=== PATIENT | male | born 1935 | race Hispanic/Latino ===

== ENCOUNTER 2018-01-25 14:52 | Inpatient (IN) | payer OTHER ==
[2018-01-25] MEDS ORDERED: Sodium Chloride 0.9% 1,000 ML IV SCH (16:00)
[2018-01-25 16:19] LABS: BASO % 0.1 % (0.0-2.0); EOS % 0.3 % (0.0-4.0); HEMOGLOBIN 10.2 g/dL (12.0-18.0); LYMPH # 0.6 K/uL (1.0-4.3); LYMPH % 3.8 % (20.0-40.0); MEAN CELL VOLUME 84.1 fl (80.0-94.0); MEAN CORPUSCULAR HEMOGLOBIN 26.6 pg (27.0-31.0); MEAN CORPUSCULAR HGB CONC 31.6 g/dL (33.0-37.0); MEAN PLATELET VOLUME 8.4 fl (7.2-11.7); MONO # 0.5 K/uL (0.0-0.8); NEUT # 14.7 K/uL (1.8-7.0); NEUT % 92.8 % (50.0-75.0); PLATELET COUNT 231 K/uL (130-400); RBC 3.84 Mil/uL (4.40-5.90); RED CELL DISTRIBUTION WIDTH 18.4 % (11.5-14.5); WHITE BLOOD COUNT 15.8 K/uL (4.8-10.8)
[2018-01-25 16:25] LABS: INR 1.3; PROTHROMBIN TIME 14.7 Seconds (9.8-13.1)
[2018-01-25 16:28] LABS: PARTIAL THROMBOPLASTIN TIME 21.9 Seconds (25.6-37.1)
[2018-01-25 16:31] LABS: ALB/GLOB RATIO 0.9 (1.0-2.1); ALBUMIN 2.8 g/dL (3.5-5.0); ALT/SGPT 20 U/L (21-72); AST/SGOT 23 U/L (17-59); CALCIUM 9.8 mg/dL (8.4-10.2); GFR NON-AFRICAN AMERICAN > 60
[2018-01-25 16:37] LABS: BLOOD UREA NITROGEN 144 mg/dl (9-20)
--- NOTE | 2018-01-25 16:53 | RAD ---
Date of service: 01/25/2018 HISTORY: possible admission COMPARISON: No prior. FINDINGS: LUNGS: Tracheostomy tube remains in place. There is patient rotation to the right. PLEURA: Bilateral pleural effusions, no pneumothorax apparent. CARDIOVASCULAR: The heart is enlarged. There is a left-sided unipolar permanent pacing device. OSSEOUS STRUCTURES: No significant abnormalities. VISUALIZED UPPER ABDOMEN: Normal. OTHER FINDINGS: None. IMPRESSION: Limited portable examination due to patient rotation to the right. Tracheostomy tube remains in place. Bilateral pleural effusions.
--- NOTE | 2018-01-25 17:17 | CP.PCM.HP ---
<Robert Irving - Last Filed: 01/25/18 17:05> History of Present Illness - History of Present Illness History of Present Illness: 82 y/o M with a PMHx of advanced muscular dystrophy and multiple cardiac arrests , was brought by his family due to unresponsiveness. Family members explain that patient usually responds by making noises, following with his eyes objects and looking at you. However, for the past few days, pt has become completely static and unable to move his eyes. -Allergic to Pennicillins -PMHx: Advanced muscular dystrophy, -PMD: Dr Marks. At ER: -CMP shows hypernatremia of 155, hyperkalemia, BUN/Creat 144/1.0 -CBC shows leukocytosis, anemia. -CXR w/ bilateral pleural effusions. Present on Admission - Present on Admission Any Indicators Present on Admission: Yes Review of Systems - Review of Systems Systems not reviewed;Unavailable: Altered Mental Status, Intubated Past Patient History - Past Social History Smoking Status: Never Smoked - CARDIAC Hx Pacemaker: Yes - NEUROLOGICAL Other/Comment: Advanced Muscular Dystrophy - PSYCHIATRIC Hx Substance Use: No Meds Allergies/Adverse Reactions: Allergies Allergy/AdvReac Type Severity Reaction Status Date / Time Penicillins Allergy ANAPHYLAXIS Verified 01/25/18 16:51 Physical Exam - Constitutional Appears: Chronically Ill Additional comments: Pt not awake, not alert, intubated, with tracheotomy collar. - Head Exam Head Exam: ATRAUMATIC - Eye Exam Eye Exam: absent: EOMI, Normal appearance, PERRL Additional comments: Presence of cataract on both eyes, more on right eye. - ENT Exam ENT Exam: Mucous Membranes Dry - Neck Exam Neck exam: Negative for: Full Rom - Respiratory Exam Additional comments: Intubated with tracheotomy collar - Cardiovascular Exam Cardiovascular Exam: +S1, +S2 - GI/Abdominal Exam GI & Abdominal Exam: Soft - Neurological Exam Neurological exam: Altered, Motor Sensory Deficit Results - Vital Signs Recent Vital Signs: Last Vital Signs Temp 98.8 F 01/25/18 16:14 Pulse 60 01/25/18 16:45 Resp 12 01/25/18 16:45 BP 93/41 L 01/25/18 16:45 Pulse Ox 100 01/25/18 16:45 - Labs Result Diagrams: 01/25/18 15:45 01/25/18 15:45 Labs: Laboratory Results - last 24 hr 01/25/18 01/25/18 01/25/18 14:58 15:45 15:45 WBC 15.8 H RBC 3.84 L Hgb 10.2 L Hct 32.3 L MCV 84.1 MCH 26.6 L MCHC 31.6 L RDW 18.4 H Plt Count 231 MPV 8.4 Neut % (Auto) 92.8 H Lymph % (Auto) 3.8 L Jennings % (Auto) 3.0 Eos % (Auto) 0.3 Baso % (Auto) 0.1 Neut # (Auto) 14.7 H Lymph # (Auto) 0.6 L Jennings # (Auto) 0.5 Eos # (Auto) 0.0 Baso # (Auto) 0.0 PT INR APTT Sodium 155 H Potassium 5.1 H Chloride 118 H Carbon Dioxide 36 H Anion Gap 6 L BUN 144 H* Creatinine 1.0 Est GFR ( Amer) > 60 Est GFR (Non-Af Amer) > 60 POC Glucose (mg/dL) 125 H Random Glucose 124 H Serum Osmolality Calcium 9.8 Total Bilirubin 0.4 AST 23 ALT 20 L Alkaline Phosphatase 97 Total Protein 6.1 L Albumin 2.8 L Globulin 3.3 Albumin/Globulin Ratio 0.9 L BBK History Checked 01/25/18 01/25/18 01/25/18 15:45 15:45 15:45 WBC RBC Hgb Hct MCV MCH MCHC RDW Plt Count MPV Neut % (Auto) Lymph % (Auto) Jennings % (Auto) Eos % (Auto) Baso % (Auto) Neut # (Auto) Lymph # (Auto) Jennings # (Auto) Eos # (Auto) Baso # (Auto) PT 14.7 H INR 1.3 APTT 21.9 L Sodium Potassium Chloride Carbon Dioxide Anion Gap BUN Creatinine Est GFR ( Amer) Est GFR (Non-Af Amer) POC Glucose (mg/dL) Random Glucose Serum Osmolality 414 H Calcium Total Bilirubin AST ALT Alkaline Phosphatase Total Protein Albumin Globulin Albumin/Globulin Ratio BBK History Checked Patient has bt Assessment & Plan (1) Unresponsive state Status: Acute (2) Altered mental status, unspecified Status: Acute (3) Muscular dystrophy Status: Chronic - Assessment and Plan (Free Text) Assessment: 82 y/o M with a PMHx of muscular dystrophy, intubated with tracheotomy collar, admitted for evaluation and management of unresponsiveness, hypotension and hypernatremia. --Admit to ICU --IV NSS --IV D5W after NSS --Management as per critical care team Case discussed with Dr Smooth Garcia PGY-2 - Date & Time Date: 01/25/18 Time: 17:26 <SmoothTorey Henrietta - Last Filed: 02/01/18 17:57> Results - Vital Signs Recent Vital Signs: Last Vital Signs Temp 98.0 F 02/01/18 16:00 Pulse 75 02/01/18 17:00 Resp 17 02/01/18 17:00 BP 103/45 L 02/01/18 17:00 Pulse Ox 97 02/01/18 17:00 - Labs Result Diagrams: 02/01/18 04:13 02/01/18 04:13 Labs: Laboratory Results - last 24 hr 02/01/18 02/01/18 02/01/18 04:00 04:13 04:13 WBC 19.4 H RBC 3.50 L Hgb 9.2 L Hct 28.6 L MCV 81.7 MCH 26.4 L MCHC 32.3 L RDW 19.6 H Plt Count 331 pCO2 50 H pO2 132 H HCO3 21.4 ABG pH 7.26 L ABG Total CO2 23.9 ABG O2 Saturation 100.1 H ABG O2 Content 12.7 L ABG Base Excess -4.6 L ABG Hemoglobin 9.1 L ABG Carboxyhemoglobin 1.7 H POC ABG HHb (Measured) -0.1 L ABG Methemoglobin 1.5 ABG O2 Capacity 12.7 L Bernradino Test Yes VBG pH VBG pCO2 VBG HCO3 VBG Total CO2 VBG O2 Sat (Calc) VBG Base Excess VBG Potassium A-a O2 Difference 91.0 Hgb O2 Saturation 96.8 Glucose Lactate Vent Mode A/c Mechanical Rate 12 FiO2 40.0 Tidal Volume 500 PEEP 5 Sodium 138 Potassium 3.7 Chloride 107 Carbon Dioxide 21 L Anion Gap 14 BUN 74 H Creatinine 0.4 L Est GFR ( Amer) > 60 Est GFR (Non-Af Amer) > 60 Random Glucose 136 H Calcium 7.6 L Venous Blood Potassium 02/01/18 11:14 WBC RBC Hgb Hct MCV MCH MCHC RDW Plt Count pCO2 pO2 49 HCO3 ABG pH ABG Total CO2 ABG O2 Saturation ABG O2 Content ABG Base Excess ABG Hemoglobin ABG Carboxyhemoglobin POC ABG HHb (Measured) ABG Methemoglobin ABG O2 Capacity Bernardino Test VBG pH 7.27 L VBG pCO2 51 VBG HCO3 22.0 VBG Total CO2 25.0 VBG O2 Sat (Calc) 92.2 H VBG Base Excess -3.6 L VBG Potassium 3.6 A-a O2 Difference Hgb O2 Saturation Glucose 136 H Lactate 0.9 Vent Mode Mechanical Rate FiO2 40.0 Tidal Volume PEEP 5 Sodium 135.0 Potassium Chloride 106.0 Carbon Dioxide Anion Gap BUN Creatinine Est GFR ( Amer) Est GFR (Non-Af Amer) Random Glucose Calcium Venous Blood Potassium 3.6 Assessment & Plan - Assessment and Plan (Free Text) Plan: I was present during evaluation and discussed with Dr Irving re plans of care and mgt. Torey Rebollar M.D.
[2018-01-25 17:34] LABS: URINE BILIRUBIN NEGATIVE (NEGATIVE); URINE BLOOD NEGATIVE (NEGATIVE); URINE CLARITY SLIGHTY-CLOUDY (Clear); URINE COLOR YELLOW (YELLOW); URINE GLUCOSE (UA) NEG (Normal); URINE LEUKOCYTE ESTERASE NEG Leu/uL (Negative); URINE PROTEIN NEGATIVE (NEGATIVE); URINE UROBILINOGEN 0.2-1.0 mg/dL (0.2-1.0)
[2018-01-25 17:36] LABS: BANDS 5 % (0-2); EOSINOPHIL 1 % (0-7); LYMPHOCYTE 7 % (20-50); MONOCYTE 4 % (0-10); NEUTROPHIL 83 % (42-75); TOTAL CELLS COUNTED 100
[2018-01-25 17:37] LABS: ANISOCYTOSIS MODERATE; HYPOCHROMIC SLIGHT; MICROCYTOSIS SLIGHT; PLATELET ESTIMATE NORMAL (NORMAL); POIKILOCYTOSIS SLIGHT; TARGET CELLS SLIGHT; TEARDROP CELLS SLIGHT
--- NOTE | 2018-01-25 17:55 | ED PDOC ---
HPI: General Adult Time Seen by Provider: 01/25/18 15:08 Chief Complaint (Nursing): Altered Mental Status Chief Complaint (Provider): Altered Mental Status History Per: Family History/Exam Limitations: clinical condition Onset/Duration Of Symptoms: Days Current Symptoms Are (Timing): Still Present Additional Complaint(s): 82 year old male with PMHx advanced muscular dystrophy ventilated for past 10 years and G-tube cared for at home by family brought in to ED via EMS for altered mental status. His family states at baseline patient is responsive to family but otherwise bed bound and reliant during daily activities. Patient has increased green fluid from G-tube suggesting patient does not digest feeds. Family reports two days ago, patient was unresponsive and PMD was called who made a home visit and performed lab works. Dr. Christy called the family and told them to bring the patient to ED due to elevated serum sodium. Multiple family members are currently present at patient bed side. Health care proxy is daughter Elizabeth, who states patient is full code. PMD: Kamran Christy Past Medical History Reviewed: Historical Data, Nursing Documentation, Vital Signs Vital Signs: Last Vital Signs Temp 97.6 F 01/25/18 21:00 Pulse 64 01/25/18 21:00 Resp 22 01/25/18 21:00 BP 91/41 L 01/25/18 21:00 Pulse Ox 100 01/25/18 22:43 - Medical History Other PMH: advanced muscular dystrophy , G-tube - Surgical History Surgical History: Pacemaker - Family History Family History: States: Unknown Family Hx - Home Medications Home Medications: Ambulatory Orders Medication Instructions Recorded Acetaminophen [Tylenol 325 mg PEG Q4 PRN 01/25/18 325MG/10.15ML UD] Albuterol/Ipratropium [Duoneb 3 3 ml IH Q4 PRN 01/25/18 mg/0.5 mg (3 ml) UD] Ascorbic Acid [Vitamin C 500 mg 500 mg PEG DAILY 01/25/18 Tab] Atropine Sulfate [Atropine 1% oph 1 drop LEFTEYE BID 01/25/18 soln] Azithromycin [Zithromax] 250 mg PEG WE 01/25/18 Bacitracin Ointment [Bacitracin] 1 appl TOP DAILY PRN 01/25/18 Clotrimazole/Betamethasone 1 appl TOP BID 01/25/18 [Lotrisone] Dexamethasone/Tobramycin [Tobradex 1 drop EACHEYE TID 01/25/18 Opht Susp] Ergocalciferol (Vitamin D2) 50,000 unit PEG MO 01/25/18 [Vitamin D2] Famotidine [Pepcid] 40 mg PEG DAILY 01/25/18 Ferrous Sulfate [Ferrous Sulfate] 5 ml PEG TID 01/25/18 Finasteride [Proscar] 5 mg PEG DAILY 01/25/18 Furosemide [Lasix] 40 mg PEG DAILY 01/25/18 Hydrocortisone [Cortisone] 1 appl TOP BID PRN 01/25/18 Lactobacillus Acidophilus [Bacid 1 cap PEG DAILY 01/25/18 Acidophilus] Multivit-Mins/Iron/Folic/Lycop 1 tab PEG DAILY 01/25/18 [Centrum Men's Tablet] Nystatin [Nyamyc] 1 appl TOP DAILY PRN 01/25/18 PrednisoLONE 1% [Pred Forte 1% 1 drop EACHEYE DAILY PRN 01/25/18 Opht Susp] Sertraline [Zoloft] 100 mg PEG DAILY 01/25/18 Silver Sulfadiazine 1% [Silvadene 1 appl TOP BID 01/25/18 1%] Tamsulosin [Flomax] 0.4 mg PEG DAILY 01/25/18 Vitamin A & D [Vitamin A & D Oint 1 appl TOP BID 01/25/18 UD Foilpak] levoFLOXacin [Levaquin] 500 mg PO DAILY 01/25/18 - Allergies Allergies/Adverse Reactions: Allergies Allergy/AdvReac Type Severity Reaction Status Date / Time Penicillins Allergy ANAPHYLAXIS Verified 01/25/18 16:51 Review of Systems Review Of Systems: ROS cannot be obtained secondary to pt's inabilty to answer questions. Physical Exam - Reviewed Nursing Documentation Reviewed: Yes Vital Signs Reviewed: Yes - Physical Exam Appears: Positive for: Non-toxic (unresponsive ) Head Exam: Positive for: ATRAUMATIC, NORMAL INSPECTION, NORMOCEPHALIC Skin: Positive for: Normal Color, Warm, Dry ENT: Positive for: Other (trach tube inplace, no erythema or discharge from site ) Cardiovascular/Chest: Positive for: Regular Rate, Rhythm Respiratory: Positive for: Normal Breath Sounds Pulses-Dorsalis Pedis (L): 2+ Pulses-Dorsalis Pedis (R): 2+ Pulses-Radial (L): 2+ Pulses-Radial (R): 2+ Gastrointestinal/Abdominal: Positive for: Bowel Sounds, Other ( large but soft G -tube in place w/o erythema or drainage ) Extremity: Negative for: Pedal Edema, Deformity, Other (Cyanosis) Neurologic/Psych: Positive for: Alert - Laboratory Results Result Diagrams: 01/25/18 15:45 01/25/18 15:45 - ECG O2 Sat by Pulse Oximetry: 100 (RA) Pulse Ox Interpretation: Normal - Critical Care Total Time (In Min): 60 Medical Decision Making Medical Decision Making: Time: Initial Impression: Patient presents on request from PMD with altered mental status from reported baseline with hypernatremia and JOVANI Initial Plan: --BBK Type and Screen --EKG --CMP --Urine Lytes --Osmolality, serum --Osmolality, urine --CBC w/ Differential --PTT --prothrombin Time --Chest Portable [RAD] --Dextrose 5% In Water 100ml IV 700mls/hr --Sodium Chloride 1000 mls/hr --Blood Culture --Swallow Eval & Treat --Ventilator Settings [RT] --Urinalysis --Reevaluation Time: [address] Christy who states lab work drawn yesterday shows sodium of 160 and BUN of 140. Time: [address] Rodrigues who agrees with hypernatremia treatment with D5W but due to hypotension will give 1 L normal saline. I will consider pressor if patient is not responsive to fluids. Time: 1555 Patient admitted and discussed case with resident. Patient accepted to ICU. Labs sent including serum and urine osmolytes, urine electrolytes and routine labs. EKG: paced Chest X-ray: 1L normal saline and will start D5W at 6ml/kg/hr Patient already assigned bed on ICU floor. Time: 1651 Chest X-ray FINDINGS: LUNGS: Tracheostomy tube remains in place. There is patient rotation to the right. PLEURA: Bilateral pleural effusions, no pneumothorax apparent. CARDIOVASCULAR: The heart is enlarged. There is a left-sided unipolar permanent pacing device. OSSEOUS STRUCTURES: No significant abnormalities. VISUALIZED UPPER ABDOMEN: Normal. OTHER FINDINGS: None. IMPRESSION: Limited portable examination due to patient rotation to the right. Tracheostomy tube remains in place. Bilateral pleural effusions. Scribe Attestation: Documented by Temi Pena, acting as a scribe for Kaylen Reinoso MD Provider Scribe Attestation: All medical record entries made by the Scribe were at my direction and personally dictated by me. I have reviewed the chart and agree that the record accurately reflects my personal performance of the history, physical exam, medical decision making, and the department course for this patient. I have also personally directed, reviewed, and agree with the discharge instructions and disposition. Disposition - Clinical Impression Clinical Impression: Hypernatremia - Patient ED Disposition Is Patient to be Admitted: Yes - Disposition Disposition Time: 15:56 Condition: CRITICAL
[2018-01-25 18:11] LABS: OSMOLALITY,URINE 444 mosm/kg (300-1000)
[2018-01-25] MEDS ORDERED: DOPamine 400mg/250ml D5W 400 MG/250 ML BAG IV ONE ×3 (18:41→23:16)
[2018-01-25] MEDS ORDERED: Dextrose 5%/0.9% NS 1,000 ML IV SCH (18:45)
[2018-01-25] MEDS ORDERED: Famotidine 20mg/50ml Premix IVPB SCH (23:00)
--- NOTE | 2018-01-25 23:18 | CP.CCUPN ---
CCU Subjective - Physician Review Subjective (Free Text): ICU Admission from ER: 82M with PMH: cardiomyopathy with approx 20-25% EF, PPM, progressive muscular dystrophy and weakness leading to chronic resp failure and Trach with Vent dependency since 2010, Basal cell skin CA, Pneumonia, last hospitalized in 2011 : sent to ER for eval by PMD for abnormal bloodwork results from home testing 2 days ago, notable for hypernatremia and uremia with unresponsiveness. He is bedbound at home, under the care of his 3 children who are always at his bedside. Eldest daughter states development of progressive AMS over the past 2 weeks associated with fever to 101.7F, hypotension , decreased urine output, and abdominal distention. She states he has been less interactive and became poorly responsive even to painful stimulus. Most home meds have been held, except Zoloft which he still has been administered by daughter over the past 2 days OB NURSE due to "anxiety." Also started on Levaquin 500mg Qd for the past 2-3 days with no recurrent fevers since. Other vitals and I/O's reviewed: 97.6F, 90/44, 60 paced, RR 14 on AC 12. ROS: No other pertinent negs or positives on 10+ system review obtainable from patient due to obtundation. Allergies: Penicillin Home Meds: Lasix 40mg BID, HCTZ 25mg QD, Zoloft 100mg QD, Albuterol inhaler, Ipatropium inhaler, Atropine eye gtts, Tobradex eye gtts, Lotrione cream prn, Nystatin powder, Cortisone cream prn, A&D ointment, Silvadene cream, Pepcid, Perative feeds 180ml nolus Q6h, Pedialyte 60 ml Q6H, Bacid. PMSFH: All other Nursing and physician documentation reviewed to date; no new pertinent info noted relevant to current medical problems. EXAM- HEENT: no icterus, no gaze preference, Pupils 2-3 mm and reactive, oral mm dry NECK: No JVD visible, supple, carotids equal upstroke bilat/no bruits CHEST: decreased BS bases, no wheezes audible HEART: Irregular, distant, tachy S1S2, no rubs ABD: soft, mild distention, no tympany, point tenderness all quadrants but especially LLQ tenderness, BS hypoactive, no rebound. EXT: ++ edema; no peripheral/ digital cyanosis, no calf tenderness or palpable cords, distal pulses intact and symmetrical. NEURO: no focal deficits. SKIN: no rashes, warm and dry. LABS: WBC= 15.8 HGB= 10.2 PLTs= 231K PT= 14.7 INR= 1.3 PTT= 21.9 Hl=563 K= 5.1 CL= 118 HCO3= 36 BUN/Cr= 144/1.0 BS= 125 Serum Osm= 414 Albumin = 2.8 CXR: rotated film, bilat effusions, trach tube within tracheal air column (my interp). IMPRESSION / MAJOR PROBLEMS NOW: 1. Metabolic Encephalopathy with Hyperosmolar State, r/o occult CVA 2. Hypernatremia, Uremia, Hyperkalemia 3. Chronic disease Anemia 4. Advanced Muscular Dystrophy with ventilator dependency PLAN: 1. MV support, check ABG, sputum C&S. 2. He has been on outpatient Levaquin for the past 2 days. Check serial Lactate levels. 3. Nephrology, Cardiology, Neurology evaluations as per family request. 4. ECHO 5. Cautious correction of Na levels. Estimated free water deficit of 6L at approx 250lb weight. 6. Will need Brain CT if no improvement in neuromental status. 7. Dopamine started via peripheral line, due to unsuccessful attempts at central venous access. Will need IR assistance for PICC line. 8. Discussed option for Advance Directives with family, eldest daughter wishes full resuscitative measures for now. Time spent with this patient did not overlap with any other provider's medical or critical care time. Additionally the code selected for the services rendered in this note includes the time spent: talking to the patients family, associated physicians and reviewing hospital data/results not listed here which extended to a total of 70 minutes.
[2018-01-26] MEDS ORDERED: Albuterol-Ipratrop 3 mg / 0.5 (3 ml) UD ONE (03:23)
[2018-01-26 03:38] LABS: ABG ALLEN TEST YES; ARTERIAL BLOOD GAS HCO3 32.4 mmol/L (21-28); ARTERIAL BLOOD GAS HEMOGLOBIN 10.2 g/dL (11.7-17.4); ARTERIAL BLOOD GAS O2 CAPACITY 13.7 mL/dL (16-24); ARTERIAL BLOOD GAS O2 CONTENT 13.5 ML/dL (15-23); ARTERIAL BLOOD GAS O2 SAT 98.3 % (95-98); ARTERIAL BLOOD GAS PCO2 46 mm/Hg (35-45); ARTERIAL BLOOD GAS PH 7.48 (7.35-7.45); ARTERIAL BLOOD GAS PO2 75 mm/Hg (80-100); ARTERIAL BLOOD GAS TCO2 35.7 mmol/L (22-28)
[2018-01-26 05:59] LABS: BASO % 0.1 % (0.0-2.0); EOS % 0.2 % (0.0-4.0); HEMOGLOBIN 9.9 g/dL (12.0-18.0); LYMPH # 0.8 K/uL (1.0-4.3); LYMPH % 4.1 % (20.0-40.0); MEAN CELL VOLUME 84.3 fl (80.0-94.0); MEAN CORPUSCULAR HEMOGLOBIN 26.2 pg (27.0-31.0); MEAN CORPUSCULAR HGB CONC 31.1 g/dL (33.0-37.0); MEAN PLATELET VOLUME 8.9 fl (7.2-11.7); MONO # 0.7 K/uL (0.0-0.8); MONO % 3.5 % (0.0-10.0); NEUT % 92.1 % (50.0-75.0); PLATELET COUNT 276 K/uL (130-400); RBC 3.79 Mil/uL (4.40-5.90); RED CELL DISTRIBUTION WIDTH 18.2 % (11.5-14.5); WHITE BLOOD COUNT 20.6 K/uL (4.8-10.8)
[2018-01-26 07:22] LABS: IRON 27 ug/dL (49-181)
[2018-01-26 07:31] LABS: % IRON SATURATION 12 % (20-55); TOTAL IRON BINDING CAPACITY 230 ug/dL (250-450)
[2018-01-26 07:43] LABS: ALB/GLOB RATIO 0.9 (1.0-2.1); ALT/SGPT 21 U/L (21-72); AST/SGOT 20 U/L (17-59); CALCIUM 9.4 mg/dL (8.4-10.2); GFR NON-AFRICAN AMERICAN > 60
[2018-01-26 07:55] LABS: BLOOD UREA NITROGEN 139 mg/dl (9-20)
[2018-01-26] MEDS: Albuterol-Ipratrop 3 mg / 0.5 (3 ml) UD INH SCH ×4 (08:05→19:34)
[2018-01-26] MEDS: Dexamethasone/Tobramycin Ophth Susp OU SCH ×2 (09:05→17:59)
[2018-01-26] MEDS: Silver Sulfadiazine 1% Cream (20 gm) TOP SCH ×2 (09:10→17:59)
[2018-01-26 09:14] LABS: ANISOCYTOSIS MODERATE; BANDS 5 % (0-2); EOSINOPHIL 1 % (0-7); HYPOCHROMIC SLIGHT; LYMPHOCYTE 5 % (20-50); MONOCYTE 3 % (0-10); MYELOCYTE 2 % (0-0); NEUTROPHIL 84 % (42-75); OVALOCYTES SLIGHT; PLATELET ESTIMATE NORMAL (NORMAL); POIKILOCYTOSIS SLIGHT; TARGET CELLS SLIGHT; TEARDROP CELLS SLIGHT; TOTAL CELLS COUNTED 100
[2018-01-26 09:15] LABS: LARGE PLATELETS PRESENT
--- NOTE | 2018-01-26 09:21 | CARD ---
APPROVED REPORT Date of service: 01/25/2018 EKG Measurement Heart [id number] <Conclusion> Ventricular-paced rhythm Abnormal ECG
[2018-01-26] MEDS ORDERED: DOPamine 400mg/250ml D5W 400 MG/250 ML BAG IV ONE ×5 (10:51→23:15)
--- NOTE | 2018-01-26 11:21 | RAD ---
Date of service: 01/26/2018 HISTORY: trach'ed on Vent COMPARISON: 01/25/2018 FINDINGS: LUNGS: No active pulmonary disease. PLEURA: Small right pleural effusion. No left pleural effusion. No pneumothorax. CARDIOVASCULAR: Grossly normal heart size. Tracheostomy tube noted. Permanent pacemaker. Mild cardiomegaly. No congestive change. OSSEOUS STRUCTURES: No significant abnormalities. VISUALIZED UPPER ABDOMEN: Normal. OTHER FINDINGS: None. IMPRESSION: Small right pleural effusion.
[2018-01-26] MEDS ORDERED: Lidocaine 1% 5ml Abboject IV ONE (11:36)
--- NOTE | 2018-01-26 12:27 | PCM.SURG1 ---
Surgeon's Initial Post Op Note - Surgeon's Notes Surgeon: Armin Lane MD Building Architect: NONE Type of Anesthesia: Local Pre-Operative Diagnosis: Hypotension, poor venous access Operative Findings: US showed a patent right brachial vein. Post-Operative Diagnosis: Hypotension, poor venous access Operation Performed: Double lumen midline picc placement via the brachial vein, 25 cm. Specimen/Specimens Removed: NONE Estimated Blood Loss: EBL {In ML}: 2 Blood Products Given: N/A Drains Used: No Drains Post-Op Condition: Critical Date of Surgery/Procedure: 01/26/18 Time of Surgery/Procedure: 12:10
[2018-01-26] MEDS: Enoxaparin 40 mg Syringe SC SCH (12:30)
--- NOTE | 2018-01-26 12:35 | CP.CCUPN ---
CCU Subjective - Physician Review Subjective (Free Text): Dopamine increased to 7 mcg dose overnight, no fever spikes noted, MAP only in 50s. Awaiting on central venous access if possible. Other vitals and I/O's reviewed: 97.6F, 90/44, 60 paced, RR 14 on AC 12. ROS: No other pertinent negs or positives on 10+ system review obtainable from patient due to obtundation. PMSFH: All other Nursing and physician documentation reviewed to date; no new pertinent info noted relevant to current medical problems. EXAM- HEENT: no icterus, no gaze preference, Pupils 2-3 mm and reactive, oral mm dry NECK: No JVD visible, supple, carotids equal upstroke bilat/no bruits CHEST: decreased BS bases, no wheezes audible HEART: Irregular, distant, tachy S1S2, no rubs ABD: soft, mild distention, no tympany, point tenderness all quadrants but especially LLQ tenderness, BS hypoactive, no rebound. EXT: ++ edema; no peripheral/ digital cyanosis, no calf tenderness or palpable cords, distal pulses intact and symmetrical. NEURO: increased tone present in LUE over Right side. SKIN: small macular erythematous rash over R anteromedial thigh area1, otherwise warm and dry. LABS: WBC= 20.6 HGB= 9.9 PLTs= 276K 7.48/46/75 PT= 14.7 INR= 1.3 PTT= 21.9 Dw=064 K= 4.8 CL= 115 HCO3= 31 BUN/Cr= 139/0.9 BS= 154 Serum Osm= 374 Albumin = 3.0 Fe satn= 12% CXR: rotated film, bilat effusions, trach tube within tracheal air column, RLL worse than left, R basilar / lobar atelectasis, possible pneumonitis. (my interp ). IMPRESSION / MAJOR PROBLEMS NOW: 1. Metabolic Encephalopathy with Hyperosmolar State, r/o occult CVA 2. Hypernatremia, Uremia, Hyperkalemia 3. R Basilar Pneumonitis / Atelectasis 4. Chronic disease Anemia 5. Advanced Muscular Dystrophy with ventilator dependency PLAN: 1. MV support, fiO2 able to reduced to 30%. Pulm eval, if no improvement, may need CTChest for further eval or FOB/ BAL. 2. Await sputum C&S, will consider empiric Levoflox 750mg q24H, lactate levels normal so far. 3. Nephrology, Cardiology, Neurology evaluations as per family request. 4. ECHO 5. Continue cautious correction of Na levels. Estimated initial free water deficit of 6L at approx 250lb weight. 6. Will need Brain CT if no improvement in neuromental status. 7. Dopamine started via peripheral line, due to unsuccessful attempts at central venous access. Will need IR assistance for PICC line if family agrees. 8. Again, discussed option for Advance Directives with family, eldest daughter wishes full resuscitative measures for now. Time spent with this patient did not overlap with any other provider's medical or critical care time. Additionally the code selected for the services rendered in this note includes the time spent: talking to the patients family, associated physicians and reviewing hospital data/results not listed here which extended to a total of 50 minutes. CCU Objective - Vital Signs / Intake & Output Vital Signs (Last 4 hours): Vital Signs Temp 01/26/18 11:58 98.3 F Intake and Output (Last 8hrs): Intake & Output 01/25/18 01/26/18 01/26/18 22:59 06:59 14:59 Intake Total 70 Balance 70 Intake: IV 70
--- NOTE | 2018-01-26 13:33 | VASCULAR ---
PROCEDURE: Date of procedure: 01/26/2018 Procedure: 1. Placement of a right arm PICC with ultrasound and fluoroscopic guidance, CPT 93372 Medications: 2cc 1 percent lidocaine EBL: 2 cc HISTORY: Hypertension recurrent IV access for pressure support TECHNIQUE: Following informed consent and procedure time-out, the patient was placed supine on the interventional table and the right arm prepped and draped in the usual sterile fashion. Ultrasound showed a patent and compressible right brachial vein. After the skin was anesthetized with lidocaine, the radial vein was accessed with micro micropuncture technique using ultrasound guidance. A guidewire was then advanced under fluoroscopic guidance into the vein. An image documenting ultrasound guidance for vascular access was permanently saved. The length of the dual-lumen 5 Israeli PICC was trimmed to 25 centimeters and advanced through a peel-away sheath. The PICC was position with tip of PICC confirm a spot radiograph the axillary vein. The PICC was secured to the patient's skin. The PICC was flushed. A biopatch and sterile dressing was applied. IMPRESSION: Placement of a dual-lumen 5 Israeli PICC trimmed to 25 centimeters brachial vein. The tip of the PICC is confirmed with spot radiograph and is in the axillary vein.
--- NOTE | 2018-01-26 13:34 | RAD ---
Date of service: 01/26/2018 PROCEDURE: CHEST RADIOGRAPH, 1 VIEW HISTORY: Status post midline picc placement COMPARISON: 01/26/2018 at 10:45 a.m. FINDINGS: LUNGS: Clear. PLEURA: Small bilateral pleural effusion. Right greater than left. No pneumothorax. CARDIOVASCULAR: Mild cardiomegaly. Evaluation limited by oblique positioning. Tracheostomy and pacemaker again noted. OSSEOUS STRUCTURES: No significant abnormalities. VISUALIZED UPPER ABDOMEN: Normal. OTHER FINDINGS: None. IMPRESSION: Small bilateral pleural effusion. No infiltrate.
[2018-01-26] MEDS ORDERED: levoFLOXacin 750 mg in D5W 150 ML BAG IVPB SCH (13:45)
[2018-01-26] MEDS: levoFLOXacin 750 mg in D5W 750 MG/150 ML BAG IVPB SCH (15:37)
[2018-01-26] MEDS: Nystatin 100,000 Units/ml Oral Susp 5 ml UD PO SCH ×2 (15:38→21:48)
[2018-01-26] MEDS: Atropine 1% OPTH.SOLN 2ml OS SCH ×2 (16:45→18:10)
--- NOTE | 2018-01-26 17:02 | CP.PCM.PN ---
<Robert Irving - Last Filed: 01/26/18 16:59> Subjective - Date & Time of Evaluation Date of Evaluation: 01/26/18 Time of Evaluation: 10:00 - Subjective Subjective: 82 y/o M evaluated and examined by bedside with Dr Rebollar. Pt intubated with tracheotomy collar. Daughters present in the room. BP slowly improving but in the low range. WBC is high. pt afebrile with No acute events overnight. Objective - Vital Signs/Intake and Output Vital Signs (last 24 hours): Temp Pulse Resp BP Pulse Ox 97.6 F 65 28 H 107/54 L 100 01/26/18 16:00 01/26/18 16:00 01/26/18 16:00 01/26/18 16:00 01/26/18 16:00 Intake and Output: 01/26/18 01/26/18 06:59 18:59 Intake Total 70 1020 Balance 70 1020 - Medications Medications: Current Medications Albuterol/Ipratropium (Duoneb 3 Mg/0.5 Mg (3 Ml) Ud) 3 ml INH RQID [facility] Last Admin: 01/26/18 15:31 Dose: 3 ml Albuterol/Ipratropium (Duoneb 3 Mg/0.5 Mg (3 Ml) Ud) 3 ml INH RQ6 PRN PRN Reason: Shortness of Breath Atropine Sulfate (Atropine 1% Oph Soln) 1 drop OS BID [facility] Last Admin: 01/26/18 16:45 Dose: Not Given Enoxaparin Sodium (Lovenox) 40 mg SC DAILY [facility] PRN Reason: Protocol Last Admin: 01/26/18 12:30 Dose: 40 mg Famotidine (Pepcid) 20 mg IVPB Q12 [facility] Last Admin: 01/26/18 09:15 Dose: 20 mg Dextrose (Dextrose 5% In Water 1000 Ml) 1,000 mls @ 70 mls/hr IV .[id number] [facility] Stop: 01/27/18 10:52 Last Admin: 01/26/18 09:00 Dose: 70 mls/hr Levofloxacin/Dextrose (Levaquin 750mg) 750 mg in 150 mls @ 100 mls/hr IVPB DAILY [facility] Last Admin: 01/26/18 15:37 Dose: 100 mls/hr Nystatin (Nystop Topical Powder) 1 applic TOP TID [facility] Last Admin: 01/26/18 13:20 Dose: 1 applic Nystatin (Nystatin Oral Susp) 5 ml PO Q12 [facility] Last Admin: 01/26/18 15:38 Dose: 5 ml Silver Sulfadiazine (Silvadene 1% 20 Gm) 1 ea TOP BID [facility] Last Admin: 01/26/18 09:10 Dose: 1 ea Tobramycin/Dexamethasone (Tobradex Opht Susp) 1 drop OU BID [facility] Last Admin: 01/26/18 09:05 Dose: 1 drop Vitamin A (Vitamin A&D) 1 applic TP Q8 PRN PRN Reason: Until an adequate response is - Labs Labs: 01/26/18 04:45 01/26/18 04:45 PT 14.7 Seconds (9.8-13.1) H 01/25/18 15:45 INR 1.3 01/25/18 15:45 APTT 21.9 Seconds (25.6-37.1) L 01/25/18 15:45 - Constitutional Appears: Confused, Chronically Ill - Head Exam Head Exam: ATRAUMATIC - Eye Exam Eye Exam: EOMI - ENT Exam ENT Exam: Mucous Membranes Moist - Neck Exam Neck Exam: Full ROM. absent: Meningismus - Respiratory Exam Respiratory Exam: NORMAL BREATHING PATTERN. absent: Rhonchi, Wheezes - Cardiovascular Exam Cardiovascular Exam: Irregular Rhythm, +S1, +S2 - GI/Abdominal Exam GI & Abdominal Exam: Soft, Diminished Bowel Sounds. absent: Firm, Rigid - Extremities Exam Extremities Exam: Pedal Edema - Neurological Exam Neurological Exam: absent: Alert, Awake, Oriented x3 Assessment and Plan (1) Unresponsive state Status: Acute (2) Altered mental status, unspecified Status: Acute (3) Muscular dystrophy Status: Chronic - Assessment and Plan (Free Text) Assessment: 82 y/o M with a PMHx of muscular dystrophy, intubated with tracheotomy collar, admitted for evaluation and management of unresponsiveness, hypotension and hypernatremia. WBC elevated. --ID Consult, Dr Prieto. --Cardiology consult, Dr Perez. --Levofloxacin 750mg daily --Hypernatremia cautiously being corrected. --F/U Sputum C/S --Management as per critical care team <Torey Rebollar - Last Filed: 08/29/18 17:58> Objective - Vital Signs/Intake and Output Vital Signs (last 24 hours): Temp Pulse Resp BP Pulse Ox 98.0 F 75 17 103/45 L 97 02/01/18 16:00 02/01/18 17:00 02/01/18 17:00 02/01/18 17:00 02/01/18 17:00 Intake and Output: 02/01/18 02/01/18 06:59 18:59 Intake Total 872 100 Output Total 700 1000 Balance 172 -900 - Medications Medications: Current Medications Albuterol/Ipratropium (Duoneb 3 Mg/0.5 Mg (3 Ml) Ud) 3 ml INH RQID [facility] Last Admin: 02/01/18 15:39 Dose: 3 ml Albuterol/Ipratropium (Duoneb 3 Mg/0.5 Mg (3 Ml) Ud) 3 ml INH RQ6 PRN PRN Reason: Shortness of Breath Last Admin: 02/01/18 00:04 Dose: 3 ml Atropine Sulfate (Atropisol 1% Oph) 1 drop OS BID [facility] Last Admin: 02/01/18 16:44 Dose: 1 drop Bisacodyl (Dulcolax) 10 mg [place] DAILY [facility] Last Admin: 01/31/18 16:31 Dose: Not Given Enoxaparin Sodium (Lovenox) 40 mg SC DAILY [facility] PRN Reason: Protocol Last Admin: 02/01/18 10:31 Dose: 40 mg Famotidine (Pepcid) 20 mg PEG BID [facility] Last Admin: 02/01/18 16:54 Dose: 20 mg Ferrous Sulfate (Feosol Liq) 300 mg PEG DAILY [facility] Last Admin: 02/01/18 10:33 Dose: 300 mg Amikacin Sulfate 500 mg/ (Sodium Chloride) 102 mls @ 101.185 mls/hr IVPB Q24H [facility] PRN Reason: Protocol Last Admin: 02/01/18 17:36 Dose: Not Given Ceftazidime/Avibactam 2.5 gm/ (Sodium Chloride) 100 mls @ 100 mls/hr IVPB Q8H [facility] PRN Reason: Protocol Midodrine (Proamatine) 5 mg PEG TID [facility] Last Admin: 02/01/18 16:40 Dose: 5 mg Mupirocin (Bactroban Ointment) 1 applic TOP BID [facility] Last Admin: 02/01/18 16:46 Dose: 1 applic Nystatin (Nystop Topical Powder) 1 applic TOP TID [facility] Last Admin: 02/01/18 16:45 Dose: 1 applic Nystatin (Nystatin Oral Susp) 5 ml PO Q12 [facility] Last Admin: 02/01/18 10:33 Dose: 5 ml Nystatin (Nystop Topical Powder) 1 applic TOP TID [facility] Last Admin: 02/01/18 16:45 Dose: 1 applic Silver Sulfadiazine (Silvadene 1% 20 Gm) 1 ea TOP BID [facility] Last Admin: 02/01/18 16:41 Dose: 1 ea Simethicone (Mylicon Liq) 40 mg PO QID PRN PRN Reason: Flatulence Last Admin: 02/01/18 12:09 Dose: 40 mg Tobramycin/Dexamethasone (Tobradex Opht Susp) 1 drop OU BID [facility] Last Admin: 02/01/18 16:44 Dose: 1 drop Valproate Sodium (Depakene Oral Soln) 500 mg PEG BID [facility] Last Admin: 02/01/18 16:46 Dose: 500 mg Vitamin A (Vitamin A&D) 1 applic TP Q8 PRN PRN Reason: Until an adequate response is Last Admin: 01/31/18 16:36 Dose: 1 applic - Labs Labs: 02/01/18 04:13 02/01/18 04:13 PT 14.7 Seconds (9.8-13.1) H 01/25/18 15:45 INR 1.3 01/25/18 15:45 APTT 21.9 Seconds (25.6-37.1) L 01/25/18 15:45 Assessment and Plan - Assessment and Plan (Free Text) Plan: I was present during evaluation and discussed with Dr Irving re plans of care and mgt. Torey Rebollar M.D.
--- NOTE | 2018-01-26 19:03 | CP.PCM.CON ---
History of Present Illness - History of Present Illness History of Present Illness: I was asked to evaluate patient by Dr Rebollar. 82 year old male with PMHx advanced muscular dystrophy ventilated for past 10 years and G-tube cared for at home by family brought in to ED via EMS for altered mental status. His family states at baseline patient is responsive to family but otherwise bed bound and reliant during daily activities. Patient has increased green fluid from G-tube suggesting patient does not digest feeds. Family reports two days ago, patient was unresponsive and PMD was called who made a home visit and performed lab works. Dr. Christy called the family and told them to bring the patient to ED due to elevated serum sodium. Multiple family members are currently present at patient bed side. Health care proxy is daughter Elizabeth, who states patient is full code. Patient has a [employer]Ed[employer] PPM placed 9 years ago. He is pacer dependent. Review of Systems - Review of Systems Systems not reviewed;Unavailable: Other Past Patient History - Past Medical History & Family History Past Medical History?: Yes - Past Social History Smoking Status: Never Smoked - CARDIAC Hx Pacemaker: Yes - PULMONARY Hx Respiratory Disorders: No - NEUROLOGICAL Other/Comment: Advanced Muscular Dystrophy - HEENT Hx Cataracts: Yes - RENAL Hx Chronic Kidney Disease: No - ENDOCRINE/METABOLIC Hx Endocrine Disorders: No - HEMATOLOGICAL/ONCOLOGICAL Hx Blood Disorders: No - INTEGUMENTARY Other/Comment: the pt family believes that the skin tear on his right shoulder is from a basal cell. - MUSCULOSKELETAL/RHEUMATOLOGICAL Hx Falls: No Other/Comment: hx muscular dystrophy - GASTROINTESTINAL Hx Gastrointestinal Disorders: No - GENITOURINARY/GYNECOLOGICAL Hx Incontinence: Yes - PSYCHIATRIC Hx Psychophysiologic Disorder: No Hx Substance Use: No - SURGICAL HISTORY Other/Comment: pacemaker implanted 9 years ago. - ANESTHESIA Hx Anesthesia: Yes Hx Anesthesia Reactions: No Hx Malignant Hyperthermia: No Has any member of the family had a problem w/ anesthesia?: No Meds Allergies/Adverse Reactions: Allergies Allergy/AdvReac Type Severity Reaction Status Date / Time Penicillins Allergy ANAPHYLAXIS Verified 01/25/18 16:51 - Medications Medications: Current Medications Albuterol/Ipratropium (Duoneb 3 Mg/0.5 Mg (3 Ml) Ud) 3 ml INH RQID [facility] Last Admin: 01/26/18 15:31 Dose: 3 ml Albuterol/Ipratropium (Duoneb 3 Mg/0.5 Mg (3 Ml) Ud) 3 ml INH RQ6 PRN PRN Reason: Shortness of Breath Atropine Sulfate (Atropine 1% Oph Soln) 1 drop OS BID [facility] Last Admin: 01/26/18 18:10 Dose: Not Given Enoxaparin Sodium (Lovenox) 40 mg SC DAILY [facility] PRN Reason: Protocol Last Admin: 01/26/18 12:30 Dose: 40 mg Famotidine (Pepcid) 20 mg IVPB Q12 [facility] Last Admin: 01/26/18 09:15 Dose: 20 mg Dextrose (Dextrose 5% In Water 1000 Ml) 1,000 mls @ 70 mls/hr IV .[id number] [facility] Stop: 01/27/18 10:52 Last Admin: 01/26/18 09:00 Dose: 70 mls/hr Levofloxacin/Dextrose (Levaquin 750mg) 750 mg in 150 mls @ 100 mls/hr IVPB DAILY [facility] Last Admin: 01/26/18 15:37 Dose: 100 mls/hr Nystatin (Nystop Topical Powder) 1 applic TOP TID [facility] Last Admin: 01/26/18 18:00 Dose: 1 applic Nystatin (Nystatin Oral Susp) 5 ml PO Q12 [facility] Last Admin: 01/26/18 15:38 Dose: 5 ml Silver Sulfadiazine (Silvadene 1% 20 Gm) 1 ea TOP BID [facility] Last Admin: 01/26/18 17:59 Dose: 1 ea Tobramycin/Dexamethasone (Tobradex Opht Susp) 1 drop OU BID [facility] Last Admin: 01/26/18 17:59 Dose: 1 drop Vitamin A (Vitamin A&D) 1 applic TP Q8 PRN PRN Reason: Until an adequate response is Physical Exam - Constitutional Appears: Chronically Ill - Head Exam Head Exam: NORMAL INSPECTION - Eye Exam Eye Exam: Normal appearance - ENT Exam ENT Exam: Normal External Ear Exam - Neck Exam Neck exam: Negative for: Lymphadenopathy - Respiratory Exam Respiratory Exam: Decreased Breath Sounds - Cardiovascular Exam Cardiovascular Exam: REGULAR RHYTHM - GI/Abdominal Exam GI & Abdominal Exam: Normal Bowel Sounds - Rectal Exam Rectal Exam: Deferred - Extremities Exam Extremities exam: Positive for: pedal edema - Back Exam Back exam: NORMAL INSPECTION - Skin Skin Exam: Normal Color Results - Vital Signs Recent Vital Signs: Last Vital Signs Temp 97.6 F 01/26/18 16:00 Pulse 65 08/23/18 18:00 Resp 14 01/26/18 18:00 BP 103/42 L 01/26/18 18:00 Pulse Ox 100 01/26/18 18:00 - Labs Result Diagrams: 01/26/18 04:45 01/26/18 04:45 Labs: Laboratory Results - last 24 hr 01/26/18 01/26/18 01/26/18 03:20 04:45 04:45 WBC 20.6 H RBC 3.79 L Hgb 9.9 L Hct 32.0 L MCV 84.3 MCH 26.2 L MCHC 31.1 L RDW 18.2 H Plt Count 276 MPV 8.9 Neut % (Auto) 92.1 H Lymph % (Auto) 4.1 L Pratt % (Auto) 3.5 Eos % (Auto) 0.2 Baso % (Auto) 0.1 Neut # (Auto) 19.0 H Lymph # (Auto) 0.8 L Pratt # (Auto) 0.7 Eos # (Auto) 0.0 Baso # (Auto) 0.0 Neutrophils % (Manual) 84 H Band Neutrophils % 5 H Lymphocytes % (Manual) 5 L Monocytes % (Manual) 3 Eosinophils % (Manual) 1 Myelocytes % 2 H Platelet Estimate Normal Large Platelets Present Hypochromasia (manual) Slight Poikilocytosis (manual Slight Anisocytosis (manual) Moderate Target Cells Slight Tear Drop Cells Slight Ovalocytes Slight pCO2 46 H pO2 75 L HCO3 32.4 H ABG pH 7.48 H ABG Total CO2 35.7 H ABG O2 Saturation 98.3 H ABG O2 Content 13.5 L ABG Base Excess 9.7 H ABG Hemoglobin 10.2 L ABG Carboxyhemoglobin 2.1 H POC ABG HHb (Measured) 1.6 ABG Methemoglobin 2.7 ABG O2 Capacity 13.7 L Bernardino Test Yes A-a O2 Difference 81.0 Hgb O2 Saturation 93.5 L Vent Mode A/c Mechanical Rate 12 FiO2 30.0 Tidal Volume 500 PEEP 5 Sodium 153 H Potassium 4.8 Chloride 115 H Carbon Dioxide 31 H Anion Gap 12 BUN 139 H* Creatinine 0.9 Est GFR ( Amer) > 60 Est GFR (Non-Af Amer) > 60 Random Glucose 154 H Serum Osmolality Lactic Acid Calcium 9.4 Phosphorus 0.5 L* Magnesium 4.1 H Iron TIBC % Saturation Total Bilirubin 0.5 AST 20 ALT 21 Alkaline Phosphatase 110 Total Protein 6.4 Albumin 3.0 L Globulin 3.4 Albumin/Globulin Ratio 0.9 L 25-OH Vitamin D Total 01/26/18 01/26/18 01/26/18 04:45 04:45 04:45 WBC RBC Hgb Hct MCV MCH MCHC RDW Plt Count MPV Neut % (Auto) Lymph % (Auto) Pratt % (Auto) Eos % (Auto) Baso % (Auto) Neut # (Auto) Lymph # (Auto) Pratt # (Auto) Eos # (Auto) Baso # (Auto) Neutrophils % (Manual) Band Neutrophils % Lymphocytes % (Manual) Monocytes % (Manual) Eosinophils % (Manual) Myelocytes % Platelet Estimate Large Platelets Hypochromasia (manual) Poikilocytosis (manual Anisocytosis (manual) Target Cells Tear Drop Cells Ovalocytes pCO2 pO2 HCO3 ABG pH ABG Total CO2 ABG O2 Saturation ABG O2 Content ABG Base Excess ABG Hemoglobin ABG Carboxyhemoglobin POC ABG HHb (Measured) ABG Methemoglobin ABG O2 Capacity Bernardino Test A-a O2 Difference Hgb O2 Saturation Vent Mode Mechanical Rate FiO2 Tidal Volume PEEP Sodium Potassium Chloride Carbon Dioxide Anion Gap BUN Creatinine Est GFR ( Amer) Est GFR (Non-Af Amer) Random Glucose Serum Osmolality 374 H Lactic Acid 1.1 Calcium Phosphorus Magnesium Iron TIBC % Saturation Total Bilirubin AST ALT Alkaline Phosphatase Total Protein Albumin Globulin Albumin/Globulin Ratio 25-OH Vitamin D Total 40.6 01/26/18 07:05 WBC RBC Hgb Hct MCV MCH MCHC RDW Plt Count MPV Neut % (Auto) Lymph % (Auto) Pratt % (Auto) Eos % (Auto) Baso % (Auto) Neut # (Auto) Lymph # (Auto) Pratt # (Auto) Eos # (Auto) Baso # (Auto) Neutrophils % (Manual) Band Neutrophils % Lymphocytes % (Manual) Monocytes % (Manual) Eosinophils % (Manual) Myelocytes % Platelet Estimate Large Platelets Hypochromasia (manual) Poikilocytosis (manual Anisocytosis (manual) Target Cells Tear Drop Cells Ovalocytes pCO2 pO2 HCO3 ABG pH ABG Total CO2 ABG O2 Saturation ABG O2 Content ABG Base Excess ABG Hemoglobin ABG Carboxyhemoglobin POC ABG HHb (Measured) ABG Methemoglobin ABG O2 Capacity Bernardino Test A-a O2 Difference Hgb O2 Saturation Vent Mode Mechanical Rate FiO2 Tidal Volume PEEP Sodium Potassium Chloride Carbon Dioxide Anion Gap BUN Creatinine Est GFR ( Amer) Est GFR (Non-Af Amer) Random Glucose Serum Osmolality Lactic Acid Calcium Phosphorus Magnesium Iron 27 L TIBC 230 L % Saturation 12 L Total Bilirubin AST ALT Alkaline Phosphatase Total Protein Albumin Globulin Albumin/Globulin Ratio 25-OH Vitamin D Total - EKG Data EKG Interpreted by: Myself Assessment & Plan (1) Sick sinus syndrome Assessment and Plan: will interrogated PPM. Status: Acute (2) Hypernatremia Assessment and Plan: cautious correction of electrolytes Status: Acute
--- NOTE | 2018-01-26 19:17 | CP.PCM.PN ---
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/levaquin Objective - Vital Signs/Intake and Output Vital Signs (last 24 hours): Temp Pulse Resp BP Pulse Ox 97.6 F 65 14 103/42 L 100 01/26/18 16:00 01/26/18 18:00 01/26/18 18:00 01/26/18 18:00 01/26/18 18:00 Intake and Output: 01/26/18 01/27/18 18:59 06:59 Intake Total 1550 Balance 1550 - Medications Medications: Current Medications Albuterol/Ipratropium (Duoneb 3 Mg/0.5 Mg (3 Ml) Ud) 3 ml INH RQID [facility] Last Admin: 01/26/18 15:31 Dose: 3 ml Albuterol/Ipratropium (Duoneb 3 Mg/0.5 Mg (3 Ml) Ud) 3 ml INH RQ6 PRN PRN Reason: Shortness of Breath Atropine Sulfate (Atropine 1% Oph Soln) 1 drop OS BID [facility] Last Admin: 01/26/18 18:10 Dose: Not Given Enoxaparin Sodium (Lovenox) 40 mg SC DAILY [facility] PRN Reason: Protocol Last Admin: 01/26/18 12:30 Dose: 40 mg Famotidine (Pepcid) 20 mg IVPB Q12 [facility] Last Admin: 01/26/18 09:15 Dose: 20 mg Dextrose (Dextrose 5% In Water 1000 Ml) 1,000 mls @ 70 mls/hr IV .[id number] [facility] Stop: 01/27/18 10:52 Last Admin: 01/26/18 09:00 Dose: 70 mls/hr Levofloxacin/Dextrose (Levaquin 750mg) 750 mg in 150 mls @ 100 mls/hr IVPB DAILY [facility] Last Admin: 01/26/18 15:37 Dose: 100 mls/hr Clindamycin Phosphate 600 mg/ (Sodium Chloride) 54 mls @ 54 mls/hr IVPB Q12 [facility] PRN Reason: Protocol Nystatin (Nystop Topical Powder) 1 applic TOP TID [facility] Last Admin: 01/26/18 18:00 Dose: 1 applic Nystatin (Nystatin Oral Susp) 5 ml PO Q12 [facility] Last Admin: 01/26/18 15:38 Dose: 5 ml Silver Sulfadiazine (Silvadene 1% 20 Gm) 1 ea TOP BID [facility] Last Admin: 01/26/18 17:59 Dose: 1 ea Tobramycin/Dexamethasone (Tobradex Opht Susp) 1 drop OU BID [facility] Last Admin: 01/26/18 17:59 Dose: 1 drop Vitamin A (Vitamin A&D) 1 applic TP Q8 PRN PRN Reason: Until an adequate response is - Labs Labs: 01/26/18 04:45 01/26/18 04:45 PT 14.7 Seconds (9.8-13.1) H 01/25/18 15:45 INR 1.3 01/25/18 15:45 APTT 21.9 Seconds (25.6-37.1) L 01/25/18 15:45
[2018-01-26] MEDS ORDERED: Clindamycin 600mg/50ml D5W 600 MG/50 ML VIAL IVPB SCH (21:00)
[2018-01-26] MEDS: Clindamycin 600mg/50ml D5W 600 MG/50 ML VIAL IVPB SCH (22:04)
[2018-01-27] MEDS ORDERED: DOPamine 400mg/250ml D5W 400 MG/250 ML BAG IV ONE ×2 (05:10→05:30)
[2018-01-27 05:49] LABS: ABG ALLEN TEST YES; ARTERIAL BLOOD GAS HCO3 27.8 mmol/L (21-28); ARTERIAL BLOOD GAS HEMOGLOBIN 10.7 g/dL (11.7-17.4); ARTERIAL BLOOD GAS O2 CAPACITY 14.5 mL/dL (16-24); ARTERIAL BLOOD GAS O2 CONTENT 14.3 ML/dL (15-23); ARTERIAL BLOOD GAS O2 SAT 98.7 % (95-98); ARTERIAL BLOOD GAS PCO2 50 mm/Hg (35-45); ARTERIAL BLOOD GAS PH 7.38 (7.35-7.45); ARTERIAL BLOOD GAS PO2 86 mm/Hg (80-100); ARTERIAL BLOOD GAS TCO2 31.1 mmol/L (22-28)
[2018-01-27 06:19] LABS: HEMOGLOBIN 9.8 g/dL (12.0-18.0); MEAN CELL VOLUME 83.4 fl (80.0-94.0); MEAN CORPUSCULAR HEMOGLOBIN 26.4 pg (27.0-31.0); MEAN CORPUSCULAR HGB CONC 31.7 g/dL (33.0-37.0); RBC 3.72 Mil/uL (4.40-5.90); RED CELL DISTRIBUTION WIDTH 18.3 % (11.5-14.5); WHITE BLOOD COUNT 16.2 K/uL (4.8-10.8)
[2018-01-27 06:53] LABS: BLOOD UREA NITROGEN 113 mg/dl (9-20); CALCIUM 8.8 mg/dL (8.4-10.2); GFR NON-AFRICAN AMERICAN > 60
[2018-01-27] MEDS: Albuterol-Ipratrop 3 mg / 0.5 (3 ml) UD INH SCH ×4 (07:22→19:43)
--- NOTE | 2018-01-27 08:03 | CP.CCUPN ---
CCU Subjective - Physician Review Subjective (Free Text): No overall significant improvement in mental status observed contrary to patient 's children claims regarding his level of responsiveness with moving his eyes in their direction and making "kissing" movements with his lips. Other vitals and I/O's reviewed: no fever spikes last 24H, up to 110 systolic on Dopamine 8 mcg dose, 62 and occasionally all paced at 60/min, RR 13-15 on AC 12. ROS: No other pertinent negs or positives on 10+ system review obtainable from patient due to obtundation. PMSFH: All other Nursing and physician documentation reviewed to date; no new pertinent info noted relevant to current medical problems. EXAM- HEENT: no icterus, no gaze preference, opacified R pupil, Left pupil 2-3 mm size , no reactivity, oral mm moist NECK: No JVD visible, supple, carotids equal upstroke bilat/no bruits, trach stoma intatc, no redness. CHEST: decreased BS bases, no wheezes audible HEART: Irregular, distant, S1S2, no rubs ABD: soft, mild distention, no tympany, no focal tenderness, BS hypoactive, no rebound. EXT: ++ edema; no peripheral/ digital cyanosis, no calf tenderness or palpable cords, distal pulses intact and symmetrical. Mild scrotal edema NEURO: increased tone present in LUE over Right side. SKIN: small macular erythematous rash over R anteromedial thigh area1, otherwise warm and dry. LABS: WBC= 16.2 HGB= 9.8 PLTs= 274K 7.38/50/86 Dk=046 K= 4.0 CL= 105 HCO3= 29 BUN/Cr= 113/0.4 BS= 263 Phos = 1.1 Mg= 3.5 Serum Osm= 374 Albumin = 3.0 Fe satn= 12% CXR: (yesterday's) rotated film, bilat effusions, trach tube within tracheal air column, RLL worse than left, R basilar / lobar atelectasis, possible pneumonitis. (my interp). Today's film pending, PACS has stopped working. A problem caused the program to stop working correctly. Please close the program. IMPRESSION / MAJOR PROBLEMS NOW: 1. Metabolic Encephalopathy with Hyperosmolar State, r/o occult CVA 2. Hypernatremia, Uremia, Hyperkalemia 3. R Basilar Pneumonitis / Atelectasis 4. Chronic disease Anemia 5. Advanced Muscular Dystrophy with ventilator dependency PLAN: 1. MV support, fiO2 able to reduced to 30%. Pulm eval, if no improvement, may need CTChest for further eval or FOB/ BAL. 2. Await sputum C&S, started empiric Levoflox 750mg q24H, lactate levels normal so far. 3. Serum Na normalized, will stop D5W, and supplement hydration via PEG free water administration. Supplement phosphate. 4. ECHO; Cardio to interrogate PPM 5. Brain CT if no improvement in neuromental status. 6. Wean Dopamine if BP allows. 7. Have obliged family's request to continue same feeding regimen as at home, i.e Perative 180ml bolus feeds Q6h with Water ( instead of "Pedialyte" as they have been giving him) Q6h; and have advised them that this regimen may be underfeeding him and continuous feeds may be more beneficial and physiologic unless gastric intolerance is noted. 8. Start Iron supplementation. 9. Daily discussions over Advance Directives with family, eldest daughter wishes full resuscitative measures for now. CCU Objective - Vital Signs / Intake & Output Vital Signs (Last 4 hours): Vital Signs Temp Pulse Resp BP Pulse Ox 01/27/18 06:00 62 16 113/45 L 100 01/27/18 05:00 62 18 110/47 L 100 01/27/18 04:00 97.9 F 63 16 114/49 L 100 Intake and Output (Last 8hrs): Intake & Output 01/26/18 01/27/18 01/27/18 22:59 06:59 14:59 Intake Total 680 1420 Balance 680 1420 Intake: IV 680 860 Tube Feeding 360 Free Water Flush 200 Other: # Voids Urine, Voided 2
[2018-01-27] MEDS: Clindamycin 600mg/50ml D5W 600 MG/50 ML VIAL IVPB SCH ×2 (08:38→20:39)
[2018-01-27] MEDS ORDERED: Potassium Phosphate 30 MMOLE in Dextrose 5% In Water 250 ML IV ONE (08:39)
[2018-01-27] MEDS: levoFLOXacin 750 mg in D5W 750 MG/150 ML BAG IVPB SCH (08:39)
[2018-01-27] MEDS: Enoxaparin 40 mg Syringe SC SCH (08:40)
[2018-01-27] MEDS: Nystatin 100,000 Units/ml Oral Susp 5 ml UD PO SCH ×2 (08:41→20:39)
[2018-01-27] MEDS: Silver Sulfadiazine 1% Cream (20 gm) TOP SCH ×2 (08:41→16:11)
[2018-01-27] MEDS: Dexamethasone/Tobramycin Ophth Susp OU SCH ×2 (08:42→16:13)
--- NOTE | 2018-01-27 09:13 | RAD ---
Date of service: 01/27/2018 PROCEDURE: CHEST RADIOGRAPH, 1 VIEW HISTORY: Pt on a vent, has a trach COMPARISON: 01/26/2018 FINDINGS: LUNGS: Clear. PLEURA: Small bilateral pleural effusion. No pneumothorax. CARDIOVASCULAR: Tracheostomy tube unchanged. Permanent pacemaker noted. OSSEOUS STRUCTURES: No significant abnormalities. VISUALIZED UPPER ABDOMEN: Normal. OTHER FINDINGS: None. IMPRESSION: Small bilateral pleural effusion.
[2018-01-27] MEDS: Atropine 1% OPTH.SOLN 2ml OS SCH ×2 (11:25→16:10)
[2018-01-27] MEDS: Ferrous Sulfate 300 mg/5 mL Liq UD PEG SCH (13:27)
--- NOTE | 2018-01-27 18:00 | CT ---
Date of service: 01/27/2018 PROCEDURE: CT HEAD WITHOUT CONTRAST. HISTORY: r/o CVA COMPARISON: None available. TECHNIQUE: Axial computed tomography images were obtained through the head/brain without intravenous contrast. Radiation dose: Total exam DLP = 879.36 mGy-cm. This CT exam was performed using one or more of the following dose reduction techniques: Automated exposure control, adjustment of the mA and/or kV according to patient size, and/or use of iterative reconstruction technique. FINDINGS: HEMORRHAGE: No intracranial hemorrhage. BRAIN: Normal gentile-white matter differentiation and density are appreciated throughout the cerebrum and cerebellum with the brainstem appearing unremarkable as well. There is no mass effect. There is no suspicious extra-axial fluid collection and the midline brain anatomy appears diffusely unremarkable. VENTRICLES: Unremarkable. No hydrocephalus. CALVARIUM: Unremarkable. PARANASAL SINUSES: Multifocal bilateral ethmoid and right sphenoid sinusitis identified. Chronic opacification of the right maxillary sinus is identified as well. MASTOID AIR CELLS: Unremarkable as visualized. No inflammatory changes. OTHER FINDINGS: None. IMPRESSION: No definite acute intracranial findings by standard CT criteria. Age-appropriate age related neuro degenerative findings are appreciated instead. Follow-up CT or MRI are available if clinically warranted. Incidental sinusitis changes as discussed above.
[2018-01-27] MEDS ORDERED: Valproate 1,000 MG in Sodium Chloride 0.9% 100 ML IVPB ONE (18:08)
--- NOTE | 2018-01-27 19:07 | CP.PCM.PCO ---
Addendum Addendum: Discussed with family regarding need for CT Brain, given no significant improvement in neuromental status as electrolytes have normalized, though BUN still elevated. Discussed with Neurology as well. Family has been reluctant to have CT brain performed due to concern over transport and transferring of patient from bed-to-bed. Patients eldest daughter refused my request for CT Brain this AM, but after further discussion with her and her siblings, they verbally agreed to CT Brain and concomitant CT Chest to evaluate R basilar chest findings on plain portable CXR. I accompanied the patient to CT suite. After appropriate measures to safely transport patient to CT suite and transfer to CT platform: I observed R facial and RUE seizure activity. Tonic-clonic activity observed lasting for approx. 30 secs before self-aborting. Decision made to proceed with CT Brain and Chest. I maintained strict, direct observation of him as scans were quickly performed. Procedures performed without further incident and safely transported and returned back to ICU. No further observable seizure activity noted. Discussed these observations and with official findings of no acute structural changes seen on CT Brain with Neurologist; decision made to administer 2 mg IV Ativan immediately and start bolus loading with Valproic acid with maintenance dosing at 500mg q12H. Will order bedside EEG as well. Patients clinical status and findings as well as new treatment plans discussed with all of patients 3 children.
--- NOTE | 2018-01-27 19:14 | CT ---
Date of service: 01/27/2018 PROCEDURE: CT Chest without contrast HISTORY: assess for effusion, atelectasis, pneumonitis COMPARISON: Noncontrast chest CT 03/26/2011. TECHNIQUE: Contiguous axial images were obtained through the chest without intravenous contrast enhancement. Sagittal and coronal reconstructions were performed. Radiation dose (DLP): 602.98 mGy-cm. This CT exam was performed using one or more of the following dose reduction techniques: Automated exposure control, adjustment of the mA and/or kV according to patient size, and/or use of iterative reconstruction technique. FINDINGS: LUNGS: Bilateral compression atelectasis appreciated at the upper and lower lobes at their dependent portions related to pleural effusions. Limited patchy infiltrate is not excluded the left lower lobe base anteriorly however. Central airways remarkable only for a tracheostomy tube in the trachea and are otherwise clear. MEDIASTINUM: Unipolar permanent cardiac pacemaker is identified with symmetric lead terminating at the right atrium by left subclavian approach with the generator overlying the left pectoralis muscle. Multiple small sub cm thyroid lucencies are identified somewhat increased in number in the interval. Thyroid gland overall remains normal size. Mild cardiomegaly noted. Dilated ascending thoracic aorta up to 4.1 cm. Main pulmonary artery unremarkable. No vascular congestion. No lymphadenopathy. PLEURA: Minimal left and mild right pleural effusions are identified. BONES: No fracture. No destructive lesion. UPPER ABDOMEN: Grossly unremarkable. OTHER FINDINGS: None. IMPRESSION: Mild right minimal left pleural effusions are identified with limited compressive and bilateral basilar dependent atelectasis identified. Air bronchograms are not appreciated that would suggest definite pneumonia however underlying pneumonia is not excluded at the right greater than left lower lobes nevertheless. Mild cardiomegaly. Unipolar pacemaker reiterated. Tracheostomy tube reiterated. Multiple small thyroid nodules identified. Findings discussed with Dr. Rodrigues with written and read back verification 01/27/2018 7:10 p.m..
[2018-01-27] MEDS: Valproate 500 MG in Sodium Chloride 0.9% 100 ML IVPB SCH (21:02)
[2018-01-28] MEDS: Albuterol-Ipratrop 3 mg / 0.5 (3 ml) UD INH SCH ×4 (07:04→19:02)
[2018-01-28] MEDS: Valproate 500 MG in Sodium Chloride 0.9% 100 ML IVPB SCH ×2 (08:40→20:30)
[2018-01-28] MEDS: Clindamycin 600mg/50ml D5W 600 MG/50 ML VIAL IVPB SCH ×2 (08:40→20:30)
[2018-01-28] MEDS: levoFLOXacin 750 mg in D5W 750 MG/150 ML BAG IVPB SCH (08:41)
[2018-01-28] MEDS: Ferrous Sulfate 300 mg/5 mL Liq UD PEG SCH (08:41)
[2018-01-28] MEDS: Enoxaparin 40 mg Syringe SC SCH (08:42)
[2018-01-28] MEDS: Nystatin 100,000 Units/ml Oral Susp 5 ml UD PO SCH ×2 (08:42→20:31)
[2018-01-28] MEDS: Silver Sulfadiazine 1% Cream (20 gm) TOP SCH ×2 (08:43→16:30)
[2018-01-28] MEDS: Atropine 1% OPTH.SOLN 2ml OS SCH ×2 (08:43→16:31)
[2018-01-28] MEDS: Dexamethasone/Tobramycin Ophth Susp OU SCH ×2 (08:47→16:31)
--- NOTE | 2018-01-28 08:51 | CP.CCUPN ---
CCU Subjective - Physician Review Events Since Last Encounter (Free Text): 01/28/18 08:48 on vent, unresponsive, on dopamine, BP maintained, labs from this AM , pending, Na had improved to 142 yesterday. CCU Objective - Vital Signs / Intake & Output Vital Signs (Last 4 hours): Vital Signs Pulse Resp BP Pulse Ox 01/28/18 07:00 108 H 30 H 143/72 98 01/28/18 06:00 65 19 101/50 L 100 01/28/18 05:00 70 17 103/64 100 Intake and Output (Last 8hrs): Intake & Output 01/27/18 01/28/18 01/28/18 22:59 06:59 14:59 Intake Total 340 250 Balance 340 250 Intake: IV 140 50 Intake, Piggyback 200 Oral 0 Tube Feeding 0 Free Water Flush 200 Other: # Voids Urine, Voided 2 1 # Bowel Movements 1 - Physical Exam Narrative Physical Exam (Free Text): 01/28/18 08:50 Neck: No JVD Lungs: decreased Br sounds, basis heart: no gallop Ext: + 1 edema Abdomen: mild distention: soft - Medications Active Medications: Active Medications Generic Name Dose Route Start Last Admin Trade Name Freq PRN Reason Stop Dose Admin Albuterol/Ipratropium 3 ml 01/26/18 08:00 01/28/18 07:04 Duoneb 3 Mg/0.5 Mg (3 Ml) Ud INH 3 ml RQID [facility]IO Administration Albuterol/Ipratropium 3 ml 01/26/18 03:08 Duoneb 3 Mg/0.5 Mg (3 Ml) Ud INH RQ6 PRN Shortness of Breath Atropine Sulfate 1 drop 01/26/18 09:00 01/28/18 08:43 Atropine 1% Oph Soln OS 1 drop BID [facility]IO Administration Enoxaparin Sodium 40 mg 01/26/18 09:00 01/28/18 08:42 Lovenox SC 40 mg DAILY [facility]IO Administration Protocol Famotidine 20 mg 01/25/18 23:45 01/28/18 08:45 Pepcid IVPB 20 mg Q12 [facility]IO Administration Ferrous Sulfate 300 mg 01/27/18 09:00 01/28/18 08:41 Feosol Liq PEG 300 mg DAILY [facility]IO Administration Levofloxacin/Dextrose 750 mg in 150 mls @ 100 mls/hr 01/26/18 13:45 01/28/18 08:41 Levaquin 750mg IVPB 100 mls/hr DAILY [facility] Administration Clindamycin Phosphate 600 mg in 50 mls @ 50 mls/hr 01/26/18 21:45 01/28/18 08 :40 Cleocin IVPB 50 mls/hr Q12 [facility]IO Administration Protocol Dopamine HCl 800 mg/ Dextrose 250 mls @ 17.48 mls/hr 01/27/18 13:15 01/28/18 03:27 IV 01/28/18 13:02 10 mcg/kg/min .[id number] MACARIO 21.85 mls/hr Protocol Titration 8 MCG/KG/MIN Valproate Sodium 500 mg/ 105 mls @ 105 mls/hr 01/27/18 21:00 01/28/18 08:40 Sodium Chloride IVPB 105 mls/hr Q12 [facility] Administration Mupirocin 1 applic 01/27/18 22:15 01/27/18 22:41 Bactroban Ointment TOP 1 appl BID [facility]IO Administration Nystatin 1 applic 01/26/18 09:00 01/28/18 08:46 Nystop Topical Powder TOP 1 applic TID [facility] Administration Nystatin 5 ml 01/26/18 21:00 01/28/18 08:42 Nystatin Oral Susp PO 5 ml Q12 [facility] Administration Silver Sulfadiazine 1 ea 01/26/18 09:00 01/28/18 08:43 Silvadene 1% 20 Gm TOP 1 ea BID [facility] Administration Tobramycin/Dexamethasone 1 drop 01/26/18 09:00 01/28/18 08:47 Tobradex Opht Susp OU 1 drop BID [facility] Administration Vitamin A 1 applic 01/25/18 23:01 Vitamin A&D TP Q8 PRN Until an adequate response is - Patient Studies Lab Studies: Microbiology Studies 01/25/18 22:20 MRSA Culture (Admit) - Final Nose MRSA DETECTED 01/25/18 15:45 Blood Culture - Preliminary Blood NO GROWTH AFTER 48 HOURS 01/25/18 12:00 Gram Stain - Final Trachasp Sputum Culture - Preliminary Gram Negative Reid Gram Negative Reid#2 Assessment/Plan - Assessment and Plan (Free Text) Assessment: IMPRESSION / MAJOR PROBLEMS NOW: 1. Metabolic Encephalopathy with Hyperosmolar State, r/o occult CVA 2. Hypernatremia, Uremia, Hyperkalemia : Na and K improved, still has high Bun , could be due to positive nitrogen balance. 3. R Basilar Pneumonitis / Atelectasis 4. Chronic disease Anemia 5. Advanced Muscular Dystrophy with ventilator dependency PLAN: 1. MV support, fiO2 able to reduced to 30%. Pulm eval, if no improvement, may need CTChest for further eval or FOB/ BAL. 2. Await sputum C&S, started empiric Levoflox 750mg q24H, lactate levels normal so far. 3. Serum Na normalized, DC D5W, and supplement hydration via PEG free water administration. Supplement phosphate. 4. ECHO; Cardio to interrogate PPM 5. Brain CT if no improvement in neuromental status. 6. Will continue dopamine for the tie being and will switch to Levophed if BP dropped while on dopamine 7. Have obliged family's request to continue same feeding regimen as at home, i.e Perative 180ml bolus feeds Q6h with Water ( instead of "Pedialyte" as they have been giving him) Q6h; and have advised them that this regimen may be underfeeding him and continuous feeds may be more beneficial and physiologic unless gastric intolerance is noted. Dietitian to review pt daily protein intake. 8. Start Iron supplementation. 9. Daily discussions over Advance Directives with family, eldest daughter wishes full resuscitative measures for now.
[2018-01-28 09:51] LABS: ALB/GLOB RATIO 0.8 (1.0-2.1); ALBUMIN 2.9 g/dL (3.5-5.0); ALT/SGPT 21 U/L (21-72); AST/SGOT 26 U/L (17-59); CALCIUM 7.9 mg/dL (8.4-10.2); GFR NON-AFRICAN AMERICAN > 60
[2018-01-28 09:52] LABS: BLOOD UREA NITROGEN 100 mg/dl (9-20)
[2018-01-28 09:56] LABS: BASO # 0.1 K/uL (0.0-0.2); BASO % 0.5 % (0.0-2.0); EOS # 0.3 K/uL (0.0-0.7); EOS % 1.6 % (0.0-4.0); HEMOGLOBIN 10.4 g/dL (12.0-18.0); LYMPH # 0.6 K/uL (1.0-4.3); LYMPH % 3.3 % (20.0-40.0); MEAN CELL VOLUME 84.5 fl (80.0-94.0); MEAN CORPUSCULAR HEMOGLOBIN 26.7 pg (27.0-31.0); MEAN CORPUSCULAR HGB CONC 31.6 g/dL (33.0-37.0); MEAN PLATELET VOLUME 10.1 fl (7.2-11.7); MONO # 0.6 K/uL (0.0-0.8); MONO % 3.3 % (0.0-10.0); NEUT # 15.3 K/uL (1.8-7.0); NEUT % 91.3 % (50.0-75.0); NRBC % 0.2 % (0.0-0.0); PLATELET COUNT 142 K/uL (130-400); RBC 3.89 Mil/uL (4.40-5.90); WHITE BLOOD COUNT 16.8 K/uL (4.8-10.8)
--- NOTE | 2018-01-28 10:02 | CP.PCM.PN ---
Subjective - Date & Time of Evaluation Date of Evaluation: 01/28/18 Time of Evaluation: 09:30 - Subjective Subjective: Patient remains on vent. family is at the bedside Objective - Vital Signs/Intake and Output Vital Signs (last 24 hours): Temp Pulse Resp BP Pulse Ox 98.2 F 64 14 89/52 L 100 01/28/18 08:00 01/28/18 09:00 01/28/18 09:00 01/28/18 09:00 01/28/18 09:00 Intake and Output: 01/28/18 01/28/18 06:59 18:59 Intake Total 350 650 Balance 350 650 - Medications Medications: Current Medications Albuterol/Ipratropium (Duoneb 3 Mg/0.5 Mg (3 Ml) Ud) 3 ml INH RQID [facility] Last Admin: 01/28/18 07:04 Dose: 3 ml Albuterol/Ipratropium (Duoneb 3 Mg/0.5 Mg (3 Ml) Ud) 3 ml INH RQ6 PRN PRN Reason: Shortness of Breath Atropine Sulfate (Atropine 1% Oph Soln) 1 drop OS BID [facility] Last Admin: 01/28/18 08:43 Dose: 1 drop Enoxaparin Sodium (Lovenox) 40 mg SC DAILY [facility] PRN Reason: Protocol Last Admin: 01/28/18 08:42 Dose: 40 mg Famotidine (Pepcid) 20 mg IVPB Q12 [facility] Last Admin: 01/28/18 08:45 Dose: 20 mg Ferrous Sulfate (Feosol Liq) 300 mg PEG DAILY [facility] Last Admin: 01/28/18 08:41 Dose: 300 mg Levofloxacin/Dextrose (Levaquin 750mg) 750 mg in 150 mls @ 100 mls/hr IVPB DAILY [facility] Last Admin: 01/28/18 08:41 Dose: 100 mls/hr Clindamycin Phosphate (Cleocin) 600 mg in 50 mls @ 50 mls/hr IVPB Q12 [facility] PRN Reason: Protocol Last Admin: 01/28/18 08:40 Dose: 50 mls/hr Dopamine HCl 800 mg/ Dextrose 250 mls @ 17.48 mls/hr IV .[id number] MACARIO; 8 MCG/KG/ MIN PRN Reason: Protocol Stop: 01/28/18 13:02 Last Titration: 01/28/18 03:27 Dose: 10 mcg/kg/min, 21.85 mls/hr Valproate Sodium 500 mg/ (Sodium Chloride) 105 mls @ 105 mls/hr IVPB Q12 [facility] Last Admin: 01/28/18 08:40 Dose: 105 mls/hr Mupirocin (Bactroban Ointment) 1 applic TOP BID [facility] Last Admin: 01/27/18 22:41 Dose: 1 appl Nystatin (Nystop Topical Powder) 1 applic TOP TID [facility] Last Admin: 01/28/18 08:46 Dose: 1 applic Nystatin (Nystatin Oral Susp) 5 ml PO Q12 [facility] Last Admin: 01/28/18 08:42 Dose: 5 ml Silver Sulfadiazine (Silvadene 1% 20 Gm) 1 ea TOP BID [facility] Last Admin: 01/28/18 08:43 Dose: 1 ea Tobramycin/Dexamethasone (Tobradex Opht Susp) 1 drop OU BID [facility] Last Admin: 01/28/18 08:47 Dose: 1 drop Vitamin A (Vitamin A&D) 1 applic TP Q8 PRN PRN Reason: Until an adequate response is - Labs Labs: 01/28/18 09:10 01/28/18 09:10 PT 14.7 Seconds (9.8-13.1) H 01/25/18 15:45 INR 1.3 01/25/18 15:45 APTT 21.9 Seconds (25.6-37.1) L 01/25/18 15:45 - Constitutional Appears: Non-toxic - Head Exam Head Exam: NORMAL INSPECTION - Eye Exam Eye Exam: Normal appearance - ENT Exam ENT Exam: Mucous Membranes Moist - Neck Exam Neck Exam: Full ROM - Respiratory Exam Respiratory Exam: NORMAL BREATHING PATTERN - Cardiovascular Exam Cardiovascular Exam: REGULAR RHYTHM - GI/Abdominal Exam GI & Abdominal Exam: Normal Bowel Sounds - Rectal Exam Rectal Exam: Deferred - Extremities Exam Extremities Exam: Pedal Edema - Neurological Exam Neurological Exam: Alert - Psychiatric Exam Psychiatric exam: Normal Affect - Skin Skin Exam: Normal Color Assessment and Plan (1) Sick sinus syndrome Assessment & Plan: pacemaker interrogation battery reveals 1 to 6 month battery life remaining. discussed with family who insist that patient have upgrade of device. will discuss with Dr Valladares Status: Acute (2) Hypernatremia Assessment & Plan: improved Status: Acute
[2018-01-28 10:39] LABS: ANISOCYTOSIS SLIGHT; BANDS 3 % (0-2); LYMPHOCYTE 2 % (20-50); METAMYELOCYTE 1 % (0-0); MONOCYTE 2 % (0-10); NEUTROPHIL 92 % (42-75); PLATELET ESTIMATE NORMAL (NORMAL); POIKILOCYTOSIS SLIGHT; TOTAL CELLS COUNTED 100
[2018-01-28] MEDS: Simethicone 40 mg/0.6 ml Liquid (30 ml) PO PRN ×2 (12:51→20:33)
--- NOTE | 2018-01-28 15:25 | CP.PCM.PN ---
Subjective - Date & Time of Evaluation Date of Evaluation: 01/28/18 Time of Evaluation: 15:25 - Subjective Subjective: I D NOTE SPUTUM :GREW MDR PROTEUS HAVE STARTED AMIKACIN DISCONTINUED LEVAQUIN Objective - Vital Signs/Intake and Output Vital Signs (last 24 hours): Temp Pulse Resp BP Pulse Ox 97.2 F L 68 20 99/45 L 100 01/28/18 12:00 01/28/18 14:00 01/28/18 14:00 01/28/18 14:00 01/28/18 14:00 Intake and Output: 01/28/18 01/28/18 06:59 18:59 Intake Total 350 1140 Balance 350 1140 - Medications Medications: Current Medications Albuterol/Ipratropium (Duoneb 3 Mg/0.5 Mg (3 Ml) Ud) 3 ml INH RQID [facility] Last Admin: 01/28/18 15:06 Dose: 3 ml Albuterol/Ipratropium (Duoneb 3 Mg/0.5 Mg (3 Ml) Ud) 3 ml INH RQ6 PRN PRN Reason: Shortness of Breath Atropine Sulfate (Atropine 1% Oph Soln) 1 drop OS BID [facility] Last Admin: 01/28/18 08:43 Dose: 1 drop Enoxaparin Sodium (Lovenox) 40 mg SC DAILY [facility] PRN Reason: Protocol Last Admin: 01/28/18 08:42 Dose: 40 mg Famotidine (Pepcid) 20 mg IVPB Q12 [facility] Last Admin: 01/28/18 08:45 Dose: 20 mg Ferrous Sulfate (Feosol Liq) 300 mg PEG DAILY [facility] Last Admin: 01/28/18 08:41 Dose: 300 mg Clindamycin Phosphate (Cleocin) 600 mg in 50 mls @ 50 mls/hr IVPB Q12 [facility] PRN Reason: Protocol Last Admin: 01/28/18 08:40 Dose: 50 mls/hr Valproate Sodium 500 mg/ (Sodium Chloride) 105 mls @ 105 mls/hr IVPB Q12 [facility] Last Admin: 01/28/18 08:40 Dose: 105 mls/hr Amikacin Sulfate 500 mg/ (Sodium Chloride) 252 mls @ 250 mls/hr IVPB Q24H [facility] PRN Reason: Protocol Mupirocin (Bactroban Ointment) 1 applic TOP BID [facility] Last Admin: 01/27/18 22:41 Dose: 1 appl Nystatin (Nystop Topical Powder) 1 applic TOP TID [facility] Last Admin: 01/28/18 12:51 Dose: 1 applic Nystatin (Nystatin Oral Susp) 5 ml PO Q12 [facility] Last Admin: 01/28/18 08:42 Dose: 5 ml Silver Sulfadiazine (Silvadene 1% 20 Gm) 1 ea TOP BID [facility] Last Admin: 01/28/18 08:43 Dose: 1 ea Simethicone (Mylicon Liq) 40 mg PO QID PRN PRN Reason: Flatulence Last Admin: 01/28/18 12:51 Dose: 40 mg Tobramycin/Dexamethasone (Tobradex Opht Susp) 1 drop OU BID [facility] Last Admin: 01/28/18 08:47 Dose: 1 drop Vitamin A (Vitamin A&D) 1 applic TP Q8 PRN PRN Reason: Until an adequate response is - Labs Labs: 01/28/18 09:10 01/28/18 09:10 PT 14.7 Seconds (9.8-13.1) H 01/25/18 15:45 INR 1.3 01/25/18 15:45 APTT 21.9 Seconds (25.6-37.1) L 01/25/18 15:45
[2018-01-28] MEDS: Amikacin Sulfate 500 MG in Sodium Chloride 0.9% 250 ML IVPB SCH (16:29)
--- NOTE | 2018-01-28 22:59 | CON ---
Copied To: Bandar Soto MD Attending MD: Bandar Soto MD DATE: 01/28/2018 HISTORY OF PRESENT ILLNESS: Mr. Keller is an 82-year-old male who was referred for pulmonary evaluation by Dr. Jones. He was admitted with severe dehydration, sepsis, hypovolemia, hypernatremia, respiratory failure, and referred for pulmonary evaluation because of abnormal chest x-ray and CAT scan of the chest. He is well known to me from prior admissions, was last seen about six years ago when he was in intensive care unit ventilator dependent at that time, and was sent home with home ventilator. He has a history of severe neuromuscular disease and is ventilator dependent and has been taken care of by the family at home, but recently, has had diarrhea, became septic and dehydrated, and was admitted to the intensive care unit. The family still requests aggressive intervention in case of cardiac or pulmonary arrest. He is referred for evaluation because of abnormal chest x-ray. The patient is unresponsive to verbal commands on the ventilator. Has what appears to be anasarca. PHYSICAL EXAMINATION: VITAL SIGNS: Remarkable for blood pressure of 99/59 with pulse of 64, respiratory rate on the ventilator spontaneously is 14 per minute, and O2 saturation is 100%. HEENT: Mouth shows poor hygiene. NECK: Has a Trach collar in place attached to the ventilator. LUNGS: Fair aeration bilaterally with some bibasilar rales. HEART: S1, S2. ABDOMEN: Obese. EXTREMITIES: 1 to 2+ edema of both upper and lower extremities. CENTRAL NERVOUS SYSTEM: The patient is responsive to deep painful stimuli, otherwise, no further neurologic response appreciated. LABORATORY DATA: Remarkable for WBC of 16.8, hemoglobin 10.4, and platelet count 142,000. Sodium 143, potassium 5.1, BUN 100, and creatinine . Last arterial blood gas that was done on 01/27/2018 shows a pH of 7.38, pCO2 of 50, pO2 of 86, bicarbonate 27.8, and O2 sat 98.7. CT scan of the chest is remarkable for mild right, minimal left pleural effusions identified with compressive atelectasis. Air bronchograms are not appreciated. However, underlying pneumonia is not excluded. The patient also has mild cardiomegaly. Unipolar pacemaker appreciated. IMPRESSION: Sepsis with dehydration, respiratory failure secondary to neuromuscular disease, and superimposed pneumonia with some amount of pleural effusion and pleural reaction. The patient with severe neuromuscular disease. PLAN: To continue therapy as already ordered, antibiotic therapy, airway toiletry as well as bronchodilators. We will continue to follow with you at present. Prognosis is extremely guarded. Family, however, wants aggressive intervention in case of cardiac or pulmonary arrest. Bandar Soto MD
[2018-01-29 06:47] LABS: HEMOGLOBIN 9.8 g/dL (12.0-18.0); MEAN CELL VOLUME 82.8 fl (80.0-94.0); MEAN CORPUSCULAR HGB CONC 32.6 g/dL (33.0-37.0); RBC 3.64 Mil/uL (4.40-5.90); RED CELL DISTRIBUTION WIDTH 18.9 % (11.5-14.5); WHITE BLOOD COUNT 13.3 K/uL (4.8-10.8)
[2018-01-29 07:05] LABS: BLOOD UREA NITROGEN 85 mg/dl (9-20); CALCIUM 7.8 mg/dL (8.4-10.2); GFR NON-AFRICAN AMERICAN > 60
[2018-01-29] MEDS: Albuterol-Ipratrop 3 mg / 0.5 (3 ml) UD INH SCH ×4 (07:46→19:19)
--- NOTE | 2018-01-29 08:14 | CP.CCUPN ---
CCU Subjective - Physician Review Events Since Last Encounter (Free Text): 01/29/18 08:11 On vent,unresponsive, but family says he is responded to them earlier today, BP is maintained on high dos of dopamine , electrolytes are better. CCU Objective - Vital Signs / Intake & Output Vital Signs (Last 4 hours): Vital Signs Pulse Resp BP Pulse Ox 01/29/18 07:00 69 19 111/54 L 99 01/29/18 06:00 70 18 123/46 L 100 01/29/18 05:00 71 18 108/45 L 100 Intake and Output (Last 8hrs): Intake & Output 01/28/18 01/29/18 01/29/18 22:59 06:59 14:59 Intake Total 660 430 Balance 660 430 Intake: IV 160 230 Intake, Piggyback 400 Free Water Flush 100 200 - Physical Exam Narrative Physical Exam (Free Text): 01/29/18 08:12 P/E Neck: No JVD Lungs: decreased breath sounds in bases Heart: no gallop abdomen: distended, soft ext: +1 edema - Medications Active Medications: Active Medications Generic Name Dose Route Start Last Admin Trade Name Freq PRN Reason Stop Dose Admin Albuterol/Ipratropium 3 ml 01/26/18 08:00 01/29/18 07:46 Duoneb 3 Mg/0.5 Mg (3 Ml) Ud INH 3 ml RQID MAACRIO Administration Albuterol/Ipratropium 3 ml 01/26/18 03:08 Duoneb 3 Mg/0.5 Mg (3 Ml) Ud INH RQ6 PRN Shortness of Breath Atropine Sulfate 1 drop 01/26/18 09:00 01/28/18 16:31 Atropine 1% Oph Soln OS 1 drop BID MACARIO Administration Enoxaparin Sodium 40 mg 01/26/18 09:00 01/28/18 08:42 Lovenox SC 40 mg DAILY MACARIO Administration Protocol Famotidine 20 mg 01/25/18 23:45 01/29/18 06:54 Pepcid IVPB Not Given Q12 MACARIO Ferrous Sulfate 300 mg 01/27/18 09:00 01/28/18 08:41 Feosol Liq PEG 300 mg DAILY MACARIO Administration Clindamycin Phosphate 600 mg in 50 mls @ 50 mls/hr 01/26/18 21:45 01/28/18 20 :30 Cleocin IVPB 50 mls/hr Q12 MACARIO Administration Protocol Valproate Sodium 500 mg/ 105 mls @ 105 mls/hr 01/27/18 21:00 01/28/18 20:30 Sodium Chloride IVPB 105 mls/hr Q12 MACARIO Administration Amikacin Sulfate 500 mg/ 252 mls @ 250 mls/hr 01/28/18 15:30 01/28/18 16:29 Sodium Chloride IVPB 250 mls/hr Q24H MACARIO Administration Protocol Dopamine HCl 800 mg/ Dextrose 250 mls @ 34.97 mls/hr 01/28/18 19:00 01/29/18 03:15 IV 20 mcg/kg/min .Q7H9M MACARIO 43.71 mls/hr Protocol Administration 16 MCG/KG/MIN Mupirocin 1 applic 01/27/18 22:15 01/27/18 22:41 Bactroban Ointment TOP 1 appl BID MACARIO Administration Nystatin 1 applic 01/26/18 09:00 01/28/18 16:31 Nystop Topical Powder TOP 1 applic TID MACARIO Administration Nystatin 5 ml 01/26/18 21:00 01/28/18 20:31 Nystatin Oral Susp PO 5 ml Q12 MACARIO Administration Silver Sulfadiazine 1 ea 01/26/18 09:00 01/28/18 16:30 Silvadene 1% 20 Gm TOP 1 ea BID MACARIO Administration Simethicone 40 mg 01/28/18 12:35 01/28/18 20:33 Mylicon Liq PO 40 mg QID PRN Administration Flatulence Tobramycin/Dexamethasone 1 drop 01/26/18 09:00 01/28/18 16:31 Tobradex Opht Susp OU 1 drop BID MACARIO Administration Vitamin A 1 applic 01/25/18 23:01 Vitamin A&D TP Q8 PRN Until an adequate response is - Patient Studies Lab Studies: Microbiology Studies 01/25/18 15:45 Blood Culture - Preliminary Blood NO GROWTH AFTER 3 DAYS 01/25/18 12:00 Gram Stain - Final Trachasp Sputum Culture - Preliminary Proteus Mirabilis Lab Studies 01/29/18 01/29/18 01/28/18 Range/Units 05:30 05:30 09:10 WBC 13.3 H (4.8-10.8) K/uL RBC 3.64 L (4.40-5.90) Mil/uL Hgb 9.8 L (12.0-18.0) g/dL Hct 30.1 L (35.0-51.0) % MCV 82.8 (80.0-94.0) fl MCH 27.0 (27.0-31.0) pg MCHC 32.6 L (33.0-37.0) g/dL RDW 18.9 H (11.5-14.5) % Plt Count 319 D (130-400) K/uL MPV (7.2-11.7) fl Neut % (Auto) (50.0-75.0) % Lymph % (Auto) (20.0-40.0) % Collin % (Auto) (0.0-10.0) % Eos % (Auto) (0.0-4.0) % Baso % (Auto) (0.0-2.0) % Neut # (Auto) (1.8-7.0) K/uL Lymph # (Auto) (1.0-4.3) K/uL Collin # (Auto) (0.0-0.8) K/uL Eos # (Auto) (0.0-0.7) K/uL Baso # (Auto) (0.0-0.2) K/uL Neutrophils % (Manual) (42-75) % Band Neutrophils % (0-2) % Lymphocytes % (Manual) (20-50) % Monocytes % (Manual) (0-10) % Metamyelocytes % (0-0) % Platelet Estimate (NORMAL) Poikilocytosis (manual Anisocytosis (manual) Sodium 144 (132-148) mmol/l Potassium 4.5 (3.6-5.0) MMOL/L Chloride 110 H (98-107) mmol/L Carbon Dioxide 28 (22-30) mmol/L Anion Gap 11 (10-20) BUN 85 H (9-20) mg/dl Creatinine 0.6 L (0.8-1.5) mg/dl Est GFR ( Amer) > 60 Est GFR (Non-Af Amer) > 60 Random Glucose 130 H (75-110) mg/dL Lactic Acid (0.7-2.1) MMOL/L Calcium 7.8 L (8.4-10.2) mg/dL Phosphorus (2.5-4.5) mg/dl Magnesium (1.6-2.3) MG/DL Total Bilirubin (0.2-1.3) mg/dl AST (17-59) U/L ALT (21-72) U/L Alkaline Phosphatase (38-126) U/L Total Protein (6.3-8.2) G/DL Albumin (3.5-5.0) g/dL Globulin (2.2-3.9) gm/dL Albumin/Globulin Ratio (1.0-2.1) TSH 3rd Generation (0.46-4.68) mIU/ML Valproic Acid 16.1 L (50.0-100.0) ug/mL 01/28/18 01/28/18 01/28/18 Range/Units 09:10 09:10 09:10 WBC 16.8 H (4.8-10.8) K/uL RBC 3.89 L (4.40-5.90) Mil/uL Hgb 10.4 L (12.0-18.0) g/dL Hct 32.8 L (35.0-51.0) % MCV 84.5 (80.0-94.0) fl MCH 26.7 L (27.0-31.0) pg MCHC 31.6 L (33.0-37.0) g/dL RDW 19.0 H (11.5-14.5) % Plt Count 142 D (130-400) K/uL MPV 10.1 (7.2-11.7) fl Neut % (Auto) 91.3 H (50.0-75.0) % Lymph % (Auto) 3.3 L (20.0-40.0) % Collin % (Auto) 3.3 (0.0-10.0) % Eos % (Auto) 1.6 (0.0-4.0) % Baso % (Auto) 0.5 (0.0-2.0) % Neut # (Auto) 15.3 H (1.8-7.0) K/uL Lymph # (Auto) 0.6 L (1.0-4.3) K/uL Collin # (Auto) 0.6 (0.0-0.8) K/uL Eos # (Auto) 0.3 (0.0-0.7) K/uL Baso # (Auto) 0.1 (0.0-0.2) K/uL Neutrophils % (Manual) 92 H (42-75) % Band Neutrophils % 3 H (0-2) % Lymphocytes % (Manual) 2 L (20-50) % Monocytes % (Manual) 2 (0-10) % Metamyelocytes % 1 H (0-0) % Platelet Estimate Normal (NORMAL) Poikilocytosis (manual Slight Anisocytosis (manual) Slight Sodium 143 (132-148) mmol/l Potassium 5.1 H (3.6-5.0) MMOL/L Chloride 113 H (98-107) mmol/L Carbon Dioxide 23 (22-30) mmol/L Anion Gap 12 (10-20) BUN 100 H* (9-20) mg/dl Creatinine 0.4 L (0.8-1.5) mg/dl Est GFR ( Amer) > 60 Est GFR (Non-Af Amer) > 60 Random Glucose 137 H (75-110) mg/dL Lactic Acid 1.3 (0.7-2.1) MMOL/L Calcium 7.9 L (8.4-10.2) mg/dL Phosphorus 3.0 (2.5-4.5) mg/dl Magnesium 3.1 H (1.6-2.3) MG/DL Total Bilirubin 0.7 (0.2-1.3) mg/dl AST 26 (17-59) U/L ALT 21 (21-72) U/L Alkaline Phosphatase 108 (38-126) U/L Total Protein 6.5 (6.3-8.2) G/DL Albumin 2.9 L (3.5-5.0) g/dL Globulin 3.5 (2.2-3.9) gm/dL Albumin/Globulin Ratio 0.8 L (1.0-2.1) TSH 3rd Generation < 0.02 L (0.46-4.68) mIU/ML Valproic Acid (50.0-100.0) ug/mL Laboratory Results - last 24 hr 01/28/18 01/28/18 01/28/18 09:10 09:10 09:10 WBC 16.8 H RBC 3.89 L Hgb 10.4 L Hct 32.8 L MCV 84.5 MCH 26.7 L MCHC 31.6 L RDW 19.0 H Plt Count 142 D MPV 10.1 Neut % (Auto) 91.3 H Lymph % (Auto) 3.3 L Collin % (Auto) 3.3 Eos % (Auto) 1.6 Baso % (Auto) 0.5 Neut # (Auto) 15.3 H Lymph # (Auto) 0.6 L Collin # (Auto) 0.6 Eos # (Auto) 0.3 Baso # (Auto) 0.1 Neutrophils % (Manual) 92 H Band Neutrophils % 3 H Lymphocytes % (Manual) 2 L Monocytes % (Manual) 2 Metamyelocytes % 1 H Platelet Estimate Normal Poikilocytosis (manual Slight Anisocytosis (manual) Slight Sodium 143 Potassium 5.1 H Chloride 113 H Carbon Dioxide 23 Anion Gap 12 BUN 100 H* Creatinine 0.4 L Est GFR ( Amer) > 60 Est GFR (Non-Af Amer) > 60 Random Glucose 137 H Lactic Acid 1.3 Calcium 7.9 L Phosphorus 3.0 Magnesium 3.1 H Total Bilirubin 0.7 AST 26 ALT 21 Alkaline Phosphatase 108 Total Protein 6.5 Albumin 2.9 L Globulin 3.5 Albumin/Globulin Ratio 0.8 L TSH 3rd Generation < 0.02 L Valproic Acid 01/28/18 01/29/18 01/29/18 09:10 05:30 05:30 WBC 13.3 H RBC 3.64 L Hgb 9.8 L Hct 30.1 L MCV 82.8 MCH 27.0 MCHC 32.6 L RDW 18.9 H Plt Count 319 D MPV Neut % (Auto) Lymph % (Auto) Collin % (Auto) Eos % (Auto) Baso % (Auto) Neut # (Auto) Lymph # (Auto) Collin # (Auto) Eos # (Auto) Baso # (Auto) Neutrophils % (Manual) Band Neutrophils % Lymphocytes % (Manual) Monocytes % (Manual) Metamyelocytes % Platelet Estimate Poikilocytosis (manual Anisocytosis (manual) Sodium 144 Potassium 4.5 Chloride 110 H Carbon Dioxide 28 Anion Gap 11 BUN 85 H Creatinine 0.6 L Est GFR ( Amer) > 60 Est GFR (Non-Af Amer) > 60 Random Glucose 130 H Lactic Acid Calcium 7.8 L Phosphorus Magnesium Total Bilirubin AST ALT Alkaline Phosphatase Total Protein Albumin Globulin Albumin/Globulin Ratio TSH 3rd Generation Valproic Acid 16.1 L Assessment/Plan - Assessment and Plan (Free Text) Assessment: IMPRESSION / MAJOR PROBLEMS NOW: 1. Metabolic Encephalopathy with Hyperosmolar State, r/o occult CVA 2. Hypernatremia, Uremia, Hyperkalemia : all improved, Na 144 now, Bun improved to 80, was > 100. High bun could be due to positive nitrogen balance. 3. R Basilar Pneumonitis / Atelectasis, Tracheal swab grew eneterococcus 4. Chronic disease Anemia 5. Advanced Muscular Dystrophy with ventilator dependency 6- Hypotension 7- one episode of seizures on 01/27 PLAN: 1. MV support, fiO2 able to reduced to 30%. . 2. On Amikacin and Clinda, as per ID, WBC is improving, down to 13k from 16 K yesterday.. 3. Serum Na normalized, Continue PEG free water administration. Supplement phosphate. Phosph improved 3 now. 4. ECHO; Cardio, interrogate PPM was done battery will be changed when stable , Dr Guzman d/w family. 5. Brain CT done, no new findings, . 6. Will continue dopamine for the tie being and will switch to Levophed if BP dropped while on dopamine 7. Have obliged family's request to continue same feeding regimen as at home, i.e Perative 180ml bolus feeds Q6h with Water ( instead of "Pedialyte" as they have been giving him) Q6h; and have advised them that this regimen may be underfeeding him and continuous feeds may be more beneficial and physiologic unless gastric intolerance is noted. Dietitian to review pt daily protein intake. 8. Start Iron supplementation. 9 - On depakot, for seizure, as per neuro, 500 mg IV q 12 H 10. Daily discussions over Advance Directives with family, eldest daughter wishes full resuscitative measures for now.
[2018-01-29] MEDS: Atropine 1% OPTH.SOLN 2ml OS SCH ×2 (08:40→17:26)
[2018-01-29] MEDS: Dexamethasone/Tobramycin Ophth Susp OU SCH ×2 (08:40→17:24)
[2018-01-29] MEDS: Nystatin 100,000 Units/ml Oral Susp 5 ml UD PO SCH ×2 (08:45→20:23)
[2018-01-29] MEDS: Enoxaparin 40 mg Syringe SC SCH (08:46)
[2018-01-29] MEDS: Clindamycin 600mg/50ml D5W 600 MG/50 ML VIAL IVPB SCH ×2 (08:47→20:19)
[2018-01-29] MEDS: Valproate 500 MG in Sodium Chloride 0.9% 100 ML IVPB SCH ×2 (08:48→20:20)
[2018-01-29] MEDS: Ferrous Sulfate 300 mg/5 mL Liq UD PEG SCH (08:50)
[2018-01-29] MEDS: Simethicone 40 mg/0.6 ml Liquid (30 ml) PO PRN ×2 (08:52→17:26)
[2018-01-29] MEDS: Silver Sulfadiazine 1% Cream (20 gm) TOP SCH ×2 (08:53→17:22)
[2018-01-29] MEDS: Vitamin A/D oint 60G TP PRN ×2 (08:55→17:25)
--- NOTE | 2018-01-29 10:00 | RAD ---
Date of service: 01/29/2018 PROCEDURE: CHEST RADIOGRAPH, 1 VIEW HISTORY: RESPIRATORY FAILURE COMPARISON: Comparison made with prior study 01/27/2018 FINDINGS: In situ tracheostomy tube in good position. LUNGS: Mild pulmonary vascular congestive changes with bilateral effusions. Note that both lower lung bases have been excluded from the film PLEURA: No pneumothorax or pleural fluid seen. CARDIOVASCULAR: Cardiac silhouette appears stable. In situ single lead pacemaker/defibrillator again noted OSSEOUS STRUCTURES: No significant abnormalities. VISUALIZED UPPER ABDOMEN: Normal. OTHER FINDINGS: None. IMPRESSION: Mild pulmonary vascular congestive changes with bilateral effusions. Note that both lower lung bases have been excluded from the film
--- NOTE | 2018-01-29 11:03 | CP.PCM.PN ---
Subjective - Date & Time of Evaluation Date of Evaluation: 01/29/18 Time of Evaluation: 11:04 - Subjective Subjective: slightly more responsive today edema of abdominal wall and all extremities persist family at bedside Objective - Vital Signs/Intake and Output Vital Signs (last 24 hours): Temp Pulse Resp BP Pulse Ox 98.7 F 71 21 113/54 L 100 01/29/18 08:00 01/29/18 09:00 01/29/18 09:00 01/29/18 09:00 01/29/18 09:00 Intake and Output: 01/29/18 01/29/18 06:59 18:59 Intake Total 700 680 Balance 700 680 - Medications Medications: Current Medications Albuterol/Ipratropium (Duoneb 3 Mg/0.5 Mg (3 Ml) Ud) 3 ml INH RQID MACARIO Last Admin: 01/29/18 07:46 Dose: 3 ml Albuterol/Ipratropium (Duoneb 3 Mg/0.5 Mg (3 Ml) Ud) 3 ml INH RQ6 PRN PRN Reason: Shortness of Breath Atropine Sulfate (Atropine 1% Oph Soln) 1 drop OS BID [facility] Last Admin: 01/29/18 08:40 Dose: 1 drop Famotidine (Pepcid) 20 mg IVPB Q12 MACARIO Last Admin: 01/29/18 09:02 Dose: 20 mg Ferrous Sulfate (Feosol Liq) 300 mg PEG DAILY [facility] Last Admin: 01/29/18 08:50 Dose: 300 mg Clindamycin Phosphate (Cleocin) 600 mg in 50 mls @ 50 mls/hr IVPB Q12 MACARIO PRN Reason: Protocol Last Admin: 01/29/18 08:47 Dose: 50 mls/hr Valproate Sodium 500 mg/ (Sodium Chloride) 105 mls @ 105 mls/hr IVPB Q12 MACARIO Last Admin: 01/29/18 08:48 Dose: 105 mls/hr Amikacin Sulfate 500 mg/ (Sodium Chloride) 252 mls @ 250 mls/hr IVPB Q24H MACARIO PRN Reason: Protocol Last Admin: 01/28/18 16:29 Dose: 250 mls/hr Dopamine HCl 800 mg/ Dextrose 250 mls @ 34.97 mls/hr IV .Q7H9M MACARIO; 16 MCG/KG/ MIN PRN Reason: Protocol Last Admin: 01/29/18 08:37 Dose: 20 mcg/kg/min, 43.71 mls/hr Mupirocin (Bactroban Ointment) 1 applic TOP BID [facility] Last Admin: 01/29/18 09:04 Dose: 1 appl Nystatin (Nystop Topical Powder) 1 applic TOP TID [facility] Last Admin: 01/29/18 08:54 Dose: 1 applic Nystatin (Nystatin Oral Susp) 5 ml PO Q12 [facility] Last Admin: 01/29/18 08:45 Dose: 5 ml Silver Sulfadiazine (Silvadene 1% 20 Gm) 1 ea TOP BID [facility]ARIO Last Admin: 01/29/18 08:53 Dose: 1 ea Simethicone (Mylicon Liq) 40 mg PO QID PRN PRN Reason: Flatulence Last Admin: 01/29/18 08:52 Dose: 40 mg Tobramycin/Dexamethasone (Tobradex Opht Susp) 1 drop OU BID [facility] Last Admin: 01/29/18 08:40 Dose: 1 drop Vitamin A (Vitamin A&D) 1 applic TP Q8 PRN PRN Reason: Until an adequate response is Last Admin: 01/29/18 08:55 Dose: 1 applic - Labs Labs: 01/29/18 05:30 01/29/18 05:30 PT 14.7 Seconds (9.8-13.1) H 01/25/18 15:45 INR 1.3 01/25/18 15:45 APTT 21.9 Seconds (25.6-37.1) L 01/25/18 15:45 - Constitutional Appears: Chronically Ill - Head Exam Head Exam: ATRAUMATIC, NORMAL INSPECTION, NORMOCEPHALIC - Eye Exam Eye Exam: EOMI, Normal appearance, PERRL Pupil Exam: NORMAL ACCOMODATION, PERRL - ENT Exam ENT Exam: Mucous Membranes Moist, Normal Exam - Neck Exam Neck Exam: Full ROM, Normal Inspection. absent: Lymphadenopathy - Respiratory Exam Respiratory Exam: Decreased Breath Sounds, Rales Additional comments: on the vent - Cardiovascular Exam Cardiovascular Exam: REGULAR RHYTHM, +S1, +S2. absent: Murmur - GI/Abdominal Exam GI & Abdominal Exam: Soft, Normal Bowel Sounds. absent: Tenderness - Rectal Exam Rectal Exam: NORMAL INSPECTION - Extremities Exam Extremities Exam: Full ROM, Normal Capillary Refill, Normal Inspection, Pedal Edema. absent: Joint Swelling - Back Exam Back Exam: NORMAL INSPECTION - Neurological Exam Neurological Exam: Alert, Awake, Normal Gait - Psychiatric Exam Psychiatric exam: Normal Affect, Normal Mood - Skin Skin Exam: Dry, Intact, Normal Color, Warm Assessment and Plan - Assessment and Plan (Free Text) Assessment: respiratory failure pleural rxn/pneumonia hypotension improving Plan: continue current rx vent care
[2018-01-29] MEDS: Amikacin Sulfate 500 MG in Sodium Chloride 0.9% 250 ML IVPB SCH (14:40)
--- NOTE | 2018-01-29 23:36 | CP.PCM.CON ---
History of Present Illness - History of Present Illness History of Present Illness: 82 yr old male with long standing history of muscular dystrophy, usually bed bound for the last 5 years, trached and with peg in place, who presented to [facility] ER with decline in mental status. Family states that he became progressively more lethargic, from responding and nodding to unresponsiveness. Neurology consult was called to evaluate, ct scan was done, and patient had a focal seizure witnessed by ICU staff on the table. Of note, he was found to have hypernatremia, bilateral pleural effusions and acute renal failure on presentation. After witnessed seizure, we started patient on depakote and his level of consciousness improved. ROS; unable to obtain. Pmh/PSH: as above. Fh/SH: originally [place]. Has several children. All: nkda. ON exam: bilateral cataracts. Arouseable, follows one step commands, like open eyes, close mouth. trach and peg in place. moves fingers in left arm but there is little other movement. +3 dtr ul and ll bl. non verbal. 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 - MUSCULOSKELETAL/RHEUMATOLOGICAL Hx Falls: No Other/Comment: hx muscular dystrophy - GASTROINTESTINAL Hx Gastrointestinal Disorders: No - GENITOURINARY/GYNECOLOGICAL Hx Incontinence: Yes - PSYCHIATRIC Hx Psychophysiologic Disorder: No Hx Substance Use: No - SURGICAL HISTORY Other/Comment: pacemaker implanted 9 years ago. - ANESTHESIA Hx Anesthesia: Yes Hx Anesthesia Reactions: No Hx Malignant Hyperthermia: No Has any member of the family had a problem w/ anesthesia?: No Meds Allergies/Adverse Reactions: Allergies Allergy/AdvReac Type Severity Reaction Status Date / Time Penicillins Allergy ANAPHYLAXIS Verified 01/25/18 16:51 - Medications Medications: Current Medications Albuterol/Ipratropium (Duoneb 3 Mg/0.5 Mg (3 Ml) Ud) 3 ml INH RQID [facility]ARIO Last Admin: 01/29/18 19:19 Dose: 3 ml Albuterol/Ipratropium (Duoneb 3 Mg/0.5 Mg (3 Ml) Ud) 3 ml INH RQ6 PRN PRN Reason: Shortness of Breath Atropine Sulfate (Atropine 1% Oph Soln) 1 drop OS BID [facility] Last Admin: 01/29/18 17:26 Dose: 1 drop Famotidine (Pepcid) 20 mg IVPB Q12 [facility]ARIO Last Admin: 01/29/18 20:24 Dose: 20 mg Ferrous Sulfate (Feosol Liq) 300 mg PEG DAILY [facility] Last Admin: 01/29/18 08:50 Dose: 300 mg Clindamycin Phosphate (Cleocin) 600 mg in 50 mls @ 50 mls/hr IVPB Q12 MACARIO PRN Reason: Protocol Last Admin: 01/29/18 20:19 Dose: 50 mls/hr Valproate Sodium 500 mg/ (Sodium Chloride) 105 mls @ 105 mls/hr IVPB Q12 [facility]ARIO Last Admin: 01/29/18 20:20 Dose: 105 mls/hr Amikacin Sulfate 500 mg/ (Sodium Chloride) 252 mls @ 250 mls/hr IVPB Q24H [facility]ARIO PRN Reason: Protocol Last Admin: 01/29/18 14:40 Dose: 250 mls/hr Dopamine HCl 800 mg/ Dextrose 250 mls @ 34.97 mls/hr IV .Q7H9M MACARIO; 16 MCG/KG/ MIN PRN Reason: Protocol Last Admin: 01/29/18 20:11 Dose: 20 mcg/kg/min, 43.71 mls/hr Mupirocin (Bactroban Ointment) 1 applic TOP BID [facility] Last Admin: 01/29/18 17:23 Dose: 1 appl Nystatin (Nystop Topical Powder) 1 applic TOP TID [facility] Last Admin: 01/29/18 17:21 Dose: 1 applic Nystatin (Nystatin Oral Susp) 5 ml PO Q12 [facility] Last Admin: 01/29/18 20:23 Dose: 5 ml Silver Sulfadiazine (Silvadene 1% 20 Gm) 1 ea TOP BID [facility] Last Admin: 01/29/18 17:22 Dose: 1 ea Simethicone (Mylicon Liq) 40 mg PO QID PRN PRN Reason: Flatulence Last Admin: 01/29/18 17:26 Dose: 40 mg Tobramycin/Dexamethasone (Tobradex Opht Susp) 1 drop OU BID [facility] Last Admin: 01/29/18 17:24 Dose: Not Given Vitamin A (Vitamin A&D) 1 applic TP Q8 PRN PRN Reason: Until an adequate response is Last Admin: 01/29/18 17:25 Dose: 1 applic Results - Vital Signs Recent Vital Signs: Last Vital Signs Temp 97.2 F L 01/29/18 20:00 Pulse 68 01/29/18 23:00 Resp 21 01/29/18 23:00 BP 106/51 L 01/29/18 23:00 Pulse Ox 100 01/29/18 23:00 - Labs Result Diagrams: 01/29/18 05:30 01/29/18 05:30 Labs: Laboratory Results - last 24 hr 01/28/18 01/29/18 01/29/18 09:10 05:30 05:30 WBC 13.3 H RBC 3.64 L Hgb 9.8 L Hct 30.1 L MCV 82.8 MCH 27.0 MCHC 32.6 L RDW 18.9 H Plt Count 319 D Sodium 144 Potassium 4.5 Chloride 110 H Carbon Dioxide 28 Anion Gap 11 BUN 85 H Creatinine 0.6 L Est GFR ( Amer) > 60 Est GFR (Non-Af Amer) > 60 Random Glucose 130 H Hemoglobin A1c 5.7 Calcium 7.8 L Assessment & Plan - Assessment and Plan (Free Text) Assessment: ct scan: shows no acute stroke, or hemorrhage. A/P: Patient with very advanced muscular dystrophy, with change in mental status that may have been due to occult seizures. Plan: 1. Continue depakote IV at 500 mg bid 2. Check level in 3 days. 3. EEG on tuesday. 4. Case and plan discussed with family. THank you for calling us on consult. Dr griffin
--- NOTE | 2018-01-29 23:40 | CP.PCM.PN ---
Subjective - Date & Time of Evaluation Date of Evaluation: 01/29/18 Time of Evaluation: 12:10 - Subjective Subjective: patient is more awake today, vigorously following one step commands, and moving left fingers no further seizures. on exam: unchanged neurological exam. Continues to only turn to voice, move fingers in left hand. Objective - Vital Signs/Intake and Output Vital Signs (last 24 hours): Temp Pulse Resp BP Pulse Ox 97.2 F L 68 21 106/51 L 100 01/29/18 20:00 01/29/18 23:00 01/29/18 23:00 01/29/18 23:00 01/29/18 23:00 Intake and Output: 01/29/18 01/30/18 18:59 06:59 Intake Total 1590 980 Balance 1590 980 - Medications Medications: Current Medications Albuterol/Ipratropium (Duoneb 3 Mg/0.5 Mg (3 Ml) Ud) 3 ml INH RQID [facility] Last Admin: 01/29/18 19:19 Dose: 3 ml Albuterol/Ipratropium (Duoneb 3 Mg/0.5 Mg (3 Ml) Ud) 3 ml INH RQ6 PRN PRN Reason: Shortness of Breath Atropine Sulfate (Atropine 1% Oph Soln) 1 drop OS BID [facility] Last Admin: 01/29/18 17:26 Dose: 1 drop Famotidine (Pepcid) 20 mg IVPB Q12 [facility] Last Admin: 01/29/18 20:24 Dose: 20 mg Ferrous Sulfate (Feosol Liq) 300 mg PEG DAILY [facility] Last Admin: 01/29/18 08:50 Dose: 300 mg Clindamycin Phosphate (Cleocin) 600 mg in 50 mls @ 50 mls/hr IVPB Q12 [facility] PRN Reason: Protocol Last Admin: 01/29/18 20:19 Dose: 50 mls/hr Valproate Sodium 500 mg/ (Sodium Chloride) 105 mls @ 105 mls/hr IVPB Q12 [facility] Last Admin: 01/29/18 20:20 Dose: 105 mls/hr Amikacin Sulfate 500 mg/ (Sodium Chloride) 252 mls @ 250 mls/hr IVPB Q24H [facility] PRN Reason: Protocol Last Admin: 01/29/18 14:40 Dose: 250 mls/hr Dopamine HCl 800 mg/ Dextrose 250 mls @ 34.97 mls/hr IV .Q7H9M MACARIO; 16 MCG/KG/ MIN PRN Reason: Protocol Last Admin: 01/29/18 20:11 Dose: 20 mcg/kg/min, 43.71 mls/hr Mupirocin (Bactroban Ointment) 1 applic TOP BID [facility] Last Admin: 01/29/18 17:23 Dose: 1 appl Nystatin (Nystop Topical Powder) 1 applic TOP TID [facility] Last Admin: 01/29/18 17:21 Dose: 1 applic Nystatin (Nystatin Oral Susp) 5 ml PO Q12 [facility] Last Admin: 01/29/18 20:23 Dose: 5 ml Silver Sulfadiazine (Silvadene 1% 20 Gm) 1 ea TOP BID [facility] Last Admin: 01/29/18 17:22 Dose: 1 ea Simethicone (Mylicon Liq) 40 mg PO QID PRN PRN Reason: Flatulence Last Admin: 01/29/18 17:26 Dose: 40 mg Tobramycin/Dexamethasone (Tobradex Opht Susp) 1 drop OU BID [facility] Last Admin: 01/29/18 17:24 Dose: Not Given Vitamin A (Vitamin A&D) 1 applic TP Q8 PRN PRN Reason: Until an adequate response is Last Admin: 01/29/18 17:25 Dose: 1 applic - Labs Labs: 01/29/18 05:30 01/29/18 05:30 PT 14.7 Seconds (9.8-13.1) H 01/25/18 15:45 INR 1.3 01/25/18 15:45 APTT 21.9 Seconds (25.6-37.1) L 01/25/18 15:45 Assessment and Plan - Assessment and Plan (Free Text) Assessment: Patient with muscular dystrophy, now with improving mental status. Plan: 1. Continue depakote at 500 mg bid 2. EEG in am. Our team will follow Thank you Dr griffin
[2018-01-30 06:11] LABS: ABG ALLEN TEST YES; ARTERIAL BLOOD GAS HCO3 24.8 mmol/L (21-28); ARTERIAL BLOOD GAS HEMOGLOBIN 10.1 g/dL (11.7-17.4); ARTERIAL BLOOD GAS O2 CAPACITY 13.9 mL/dL (16-24); ARTERIAL BLOOD GAS O2 CONTENT 13.8 ML/dL (15-23); ARTERIAL BLOOD GAS O2 SAT 99.1 % (95-98); ARTERIAL BLOOD GAS PCO2 48 mm/Hg (35-45); ARTERIAL BLOOD GAS PH 7.34 (7.35-7.45); ARTERIAL BLOOD GAS PO2 92 mm/Hg (80-100); ARTERIAL BLOOD GAS TCO2 27.4 mmol/L (22-28)
[2018-01-30 07:05] LABS: HEMOGLOBIN 9.9 g/dL (12.0-18.0); MEAN CELL VOLUME 82.8 fl (80.0-94.0); MEAN CORPUSCULAR HEMOGLOBIN 26.2 pg (27.0-31.0); MEAN CORPUSCULAR HGB CONC 31.7 g/dL (33.0-37.0); RBC 3.76 Mil/uL (4.40-5.90); RED CELL DISTRIBUTION WIDTH 19.2 % (11.5-14.5); WHITE BLOOD COUNT 14.4 K/uL (4.8-10.8)
[2018-01-30 07:30] LABS: BLOOD UREA NITROGEN 77 mg/dl (9-20); CALCIUM 7.5 mg/dL (8.4-10.2); GFR NON-AFRICAN AMERICAN > 60
[2018-01-30] MEDS: Albuterol-Ipratrop 3 mg / 0.5 (3 ml) UD INH SCH ×4 (08:06→19:04)
[2018-01-30] MEDS: Simethicone 40 mg/0.6 ml Liquid (30 ml) PO PRN ×2 (09:35→18:39)
[2018-01-30] MEDS: Ferrous Sulfate 300 mg/5 mL Liq UD PEG SCH (09:35)
[2018-01-30] MEDS: Vitamin A/D oint 60G TP PRN ×2 (09:35→18:37)
[2018-01-30] MEDS: Nystatin 100,000 Units/ml Oral Susp 5 ml UD PO SCH ×3 (09:35→23:11)
[2018-01-30] MEDS: Clindamycin 600mg/50ml D5W 600 MG/50 ML VIAL IVPB SCH ×2 (09:36→20:34)
[2018-01-30] MEDS: Valproate 500 MG in Sodium Chloride 0.9% 100 ML IVPB SCH ×2 (09:37→21:55)
[2018-01-30] MEDS: Atropine 1% OPTH.SOLN 2ml OS SCH (09:39)
[2018-01-30] MEDS: Silver Sulfadiazine 1% Cream (20 gm) TOP SCH ×2 (09:46→17:30)
[2018-01-30] MEDS: Dexamethasone/Tobramycin Ophth Susp OU SCH ×2 (09:46→18:38)
[2018-01-30] MEDS: ATROPINE 1% OS SCH ×3 (10:00→17:40)
--- NOTE | 2018-01-30 10:03 | CP.PCM.PN ---
Subjective - Date & Time of Evaluation Date of Evaluation: 01/30/18 Time of Evaluation: 10:01 - Subjective Subjective: Mr. Keller was seen and examined at the bedside in ICU. He remains on a mechanical ventilator via trach on PRVC mode. His eyes are open, with minimal grimacing with noxious stimuli, breaths over the set resp. vent. settings, GCS- 4T. Family does all the ADL's. There was no untoward events overnight. Objective - Vital Signs/Intake and Output Vital Signs (last 24 hours): Temp Pulse Resp BP Pulse Ox 99 F 66 18 101/55 L 100 01/30/18 04:00 01/30/18 06:50 01/30/18 06:50 01/30/18 06:50 01/30/18 06:50 Intake and Output: 01/30/18 01/30/18 06:59 18:59 Intake Total 1565 Balance 1565 - Medications Medications: Current Medications Albuterol/Ipratropium (Duoneb 3 Mg/0.5 Mg (3 Ml) Ud) 3 ml INH RQID [facility] Last Admin: 01/30/18 08:06 Dose: 3 ml Albuterol/Ipratropium (Duoneb 3 Mg/0.5 Mg (3 Ml) Ud) 3 ml INH RQ6 PRN PRN Reason: Shortness of Breath Atropine Sulfate (Atropisol 1% Oph) 1 drop OS BID [facility] Famotidine (Pepcid) 20 mg IVPB Q12 [facility] Last Admin: 01/30/18 09:35 Dose: 20 mg Ferrous Sulfate (Feosol Liq) 300 mg PEG DAILY [facility] Last Admin: 01/30/18 09:35 Dose: 300 mg Clindamycin Phosphate (Cleocin) 600 mg in 50 mls @ 50 mls/hr IVPB Q12 [facility] PRN Reason: Protocol Last Admin: 01/30/18 09:36 Dose: 50 mls/hr Valproate Sodium 500 mg/ (Sodium Chloride) 105 mls @ 105 mls/hr IVPB Q12 [facility] Last Admin: 01/30/18 09:37 Dose: 105 mls/hr Amikacin Sulfate 500 mg/ (Sodium Chloride) 252 mls @ 250 mls/hr IVPB Q24H [facility] PRN Reason: Protocol Last Admin: 01/29/18 14:40 Dose: 250 mls/hr Dopamine HCl 800 mg/ Dextrose 250 mls @ 34.97 mls/hr IV .Q7H9M [facility]; 16 MCG/KG/ MIN PRN Reason: Protocol Last Admin: 01/30/18 02:03 Dose: 20 mcg/kg/min, 43.71 mls/hr Mupirocin (Bactroban Ointment) 1 applic TOP BID [facility] Nystatin (Nystop Topical Powder) 1 applic TOP TID [facility] Last Admin: 01/30/18 09:46 Dose: 1 applic Nystatin (Nystatin Oral Susp) 5 ml PO Q12 [facility] Last Admin: 01/30/18 09:35 Dose: 5 ml Silver Sulfadiazine (Silvadene 1% 20 Gm) 1 ea TOP BID [facility] Last Admin: 01/30/18 09:46 Dose: 1 ea Simethicone (Mylicon Liq) 40 mg PO QID PRN PRN Reason: Flatulence Last Admin: 01/30/18 09:35 Dose: 40 mg Tobramycin/Dexamethasone (Tobradex Opht Susp) 1 drop OU BID [facility] Last Admin: 01/30/18 09:46 Dose: 1 drop Vitamin A (Vitamin A&D) 1 applic TP Q8 PRN PRN Reason: Until an adequate response is Last Admin: 01/30/18 09:35 Dose: 1 applic - Labs Labs: 01/30/18 06:00 01/30/18 06:00 PT 14.7 Seconds (9.8-13.1) H 01/25/18 15:45 INR 1.3 01/25/18 15:45 APTT 21.9 Seconds (25.6-37.1) L 01/25/18 15:45 - Constitutional Appears: No Acute Distress - Head Exam Head Exam: NORMAL INSPECTION - Neurological Exam Neuro motor strength exam: Left Upper Extremity: 0, Right Upper Extremity: 0, Left Lower Extremity: 0, Right Lower Extremity: 0 Additional comments: GCS- 4T Assessment and Plan (1) Altered mental status, unspecified Assessment & Plan: Case discussed with Dr. Maciel, continue all current medical regimen. Pending EEG. Recommend to treat any electrolyte abnormalities, treat any s/s infection. keep head of the bed elevated at least 30 degrees. Status: Acute
[2018-01-30] MEDS: Mupirocin 2% Oint 1GM UD TOP SCH ×2 (11:05→18:44)
[2018-01-30] MEDS: Amikacin Sulfate 500 MG in Sodium Chloride 0.9% 250 ML IVPB SCH (15:51)
--- NOTE | 2018-01-30 16:00 | CP.PCM.PN ---
Subjective - Date & Time of Evaluation Date of Evaluation: 01/30/18 Time of Evaluation: 15:40 - Subjective Subjective: patient is unchanged clinically. Objective - Vital Signs/Intake and Output Vital Signs (last 24 hours): Temp Pulse Resp BP Pulse Ox 97.8 F 64 16 126/51 L 99 01/30/18 12:00 01/30/18 12:00 01/30/18 12:00 01/30/18 12:00 01/30/18 12:00 Intake and Output: 01/30/18 01/30/18 06:59 18:59 Intake Total 1565 960 Balance 1565 960 - Medications Medications: Current Medications Albuterol/Ipratropium (Duoneb 3 Mg/0.5 Mg (3 Ml) Ud) 3 ml INH RQID [facility] Last Admin: 01/30/18 15:30 Dose: 3 ml Albuterol/Ipratropium (Duoneb 3 Mg/0.5 Mg (3 Ml) Ud) 3 ml INH RQ6 PRN PRN Reason: Shortness of Breath Atropine Sulfate (Atropisol 1% [facility]) 1 drop OS BID [facility] Last Admin: 01/30/18 11:04 Dose: Not Given Bisacodyl (Dulcolax) 10 mg [place] DAILY [facility] Last Admin: 01/30/18 11:25 Dose: 10 mg Famotidine (Pepcid) 20 mg IVPB Q12 [facility] Last Admin: 01/30/18 09:35 Dose: 20 mg Ferrous Sulfate (Feosol Liq) 300 mg PEG DAILY [facility] Last Admin: 01/30/18 09:35 Dose: 300 mg Clindamycin Phosphate (Cleocin) 600 mg in 50 mls @ 50 mls/hr IVPB Q12 [facility] PRN Reason: Protocol Last Admin: 01/30/18 09:36 Dose: 50 mls/hr Valproate Sodium 500 mg/ (Sodium Chloride) 105 mls @ 105 mls/hr IVPB Q12 [facility] Last Admin: 01/30/18 09:37 Dose: 105 mls/hr Amikacin Sulfate 500 mg/ (Sodium Chloride) 252 mls @ 250 mls/hr IVPB Q24H [facility] PRN Reason: Protocol Last Admin: 01/30/18 15:51 Dose: 250 mls/hr Dopamine HCl 800 mg/ Dextrose 250 mls @ 34.97 mls/hr IV .Q7H9M [facility]; 16 MCG/KG/ MIN PRN Reason: Protocol Last Titration: 01/30/18 15:10 Dose: 18 mcg/kg/min, 39.34 mls/hr Mupirocin (Bactroban Ointment) 1 applic TOP BID [facility] Last Admin: 01/30/18 11:05 Dose: Not Given Nystatin (Nystop Topical Powder) 1 applic TOP TID [facility] Last Admin: 01/30/18 13:15 Dose: 1 applic Nystatin (Nystatin Oral Susp) 5 ml PO Q12 [facility] Last Admin: 01/30/18 09:35 Dose: 5 ml Silver Sulfadiazine (Silvadene 1% 20 Gm) 1 ea TOP BID [facility] Last Admin: 01/30/18 09:46 Dose: 1 ea Simethicone (Mylicon Liq) 40 mg PO QID PRN PRN Reason: Flatulence Last Admin: 01/30/18 09:35 Dose: 40 mg Tobramycin/Dexamethasone (Tobradex Opht Susp) 1 drop OU BID [facility] Last Admin: 01/30/18 09:46 Dose: 1 drop Vitamin A (Vitamin A&D) 1 applic TP Q8 PRN PRN Reason: Until an adequate response is Last Admin: 01/30/18 09:35 Dose: 1 applic - Labs Labs: 01/30/18 06:00 01/30/18 06:00 PT 14.7 Seconds (9.8-13.1) H 01/25/18 15:45 INR 1.3 01/25/18 15:45 APTT 21.9 Seconds (25.6-37.1) L 01/25/18 15:45 - Constitutional Appears: Chronically Ill - Head Exam Head Exam: NORMAL INSPECTION - Eye Exam Eye Exam: Periorbital swelling - ENT Exam ENT Exam: Mucous Membranes Dry - Neck Exam Neck Exam: Full ROM - Respiratory Exam Respiratory Exam: NORMAL BREATHING PATTERN - Cardiovascular Exam Cardiovascular Exam: REGULAR RHYTHM - GI/Abdominal Exam GI & Abdominal Exam: Normal Bowel Sounds - Rectal Exam Rectal Exam: Deferred - Extremities Exam Extremities Exam: Pedal Edema Assessment and Plan (1) Sick sinus syndrome Assessment & Plan: s/p PPM. Dr. Valladares consulted for possible generator change this admission Status: Acute (2) Hypernatremia Assessment & Plan: improved Status: Acute
--- NOTE | 2018-01-30 17:18 | RAD ---
Date of service: 01/30/2018 HISTORY: trach COMPARISON: Portable chest 01/29/2018. FINDINGS: LUNGS: Angle of capture suboptimal and is essentially reversed apical lordotic view with the patient markedly rotated toward the right. Underlying bilateral basilar airspace disease is not excluded once again. PLEURA: Bilateral pleural effusions are likely. No pneumothorax identified grossly. CARDIOVASCULAR: Neither cardiomegaly nor pulmonary vascular congestion is excluded. OSSEOUS STRUCTURES: No significant abnormalities. VISUALIZED UPPER ABDOMEN: Normal. OTHER FINDINGS: None. IMPRESSION: Very limited examination with bilateral pleural effusions evident. Underlying airspace disease not excluded. Port evaluation the cardiovascular anatomy. Cardiomegaly and pulmonary vascular congestion are not excluded.
--- NOTE | 2018-01-30 17:59 | CP.CCUPN ---
CCU Subjective - Physician Review Events Since Last Encounter (Free Text): 01/30/18 17:55 patient responds to voice, no movement secondary to advanced stage muscular dystrophy. CCU Objective - Vital Signs / Intake & Output Vital Signs (Last 4 hours): Vital Signs Temp Pulse Resp BP Pulse Ox 01/30/18 16:51 94.4 F L 95 H 28 H 121/53 L 100 Intake and Output (Last 8hrs): Intake & Output 01/30/18 01/30/18 01/30/18 06:59 14:59 22:59 Intake Total 655 960 0 Balance 655 960 0 Intake: IV 655 400 0 Oral 0 Tube Feeding 360 Free Water Flush 200 Other: # Voids Urine, Voided 1 1 - Physical Exam Head: Positive for: Atraumatic, Normocephalic, Other (right gnosticism, melanoma) Pupils: Positive for: Other (corneal keratitis) Extroacular Muscles: Positive for: EOMI Conjunctiva: Positive for: Normal Ears: Positive for: Normal Mouth: Positive for: Dry Pharnyx: Positive for: Normal Neck: Positive for: Other (destructive skin lesion on right shoulder, possible basal carcinoma) Respiratory/Chest: Positive for: Clear to Auscultation, Decreased Breath Sounds (bibasilar) Cardiovascular: Positive for: Regular Rate and Rhythm Abdomen: Positive for: Distention. Negative for: Tenderness Upper Extremity: Positive for: Edema Lower Extremity: Positive for: Edema Psychiatric: Positive for: Alert - Medications Active Medications: Active Medications Generic Name Dose Route Start Last Admin Trade Name Freq PRN Reason Stop Dose Admin Albuterol/Ipratropium 3 ml 01/26/18 08:00 01/30/18 15:30 Duoneb 3 Mg/0.5 Mg (3 Ml) Ud INH 3 ml RQID [facility] Administration Albuterol/Ipratropium 3 ml 01/26/18 03:08 Duoneb 3 Mg/0.5 Mg (3 Ml) Ud INH RQ6 PRN Shortness of Breath Atropine Sulfate 1 drop 01/30/18 10:00 01/30/18 11:04 Atropisol 1% Ophth OS Not Given BID [facility] Bisacodyl 10 mg 01/30/18 10:30 01/30/18 11:25 Dulcolax DE 10 mg DAILY [facility] Administration Famotidine 20 mg 01/25/18 23:45 01/30/18 09:35 Pepcid IVPB 20 mg Q12 [facility] Administration Ferrous Sulfate 300 mg 01/27/18 09:00 01/30/18 09:35 Feosol Liq PEG 300 mg DAILY [facility] Administration Clindamycin Phosphate 600 mg in 50 mls @ 50 mls/hr 01/26/18 21:45 01/30/18 09 :36 Cleocin IVPB 50 mls/hr Q12 [facility] Administration Protocol Valproate Sodium 500 mg/ 105 mls @ 105 mls/hr 01/27/18 21:00 01/30/18 09:37 Sodium Chloride IVPB 105 mls/hr Q12 [facility] Administration Amikacin Sulfate 500 mg/ 252 mls @ 250 mls/hr 01/28/18 15:30 01/30/18 15:51 Sodium Chloride IVPB 250 mls/hr Q24H [facility] Administration Protocol Dopamine HCl 800 mg/ Dextrose 250 mls @ 34.97 mls/hr 01/28/18 19:00 01/30/18 16:00 IV 16 mcg/kg/min .Q7H9M [facility] 34.97 mls/hr Protocol Titration 16 MCG/KG/MIN Mupirocin 1 applic 01/30/18 10:00 01/30/18 11:05 Bactroban Ointment TOP Not Given BID [facility] Nystatin 1 applic 01/26/18 09:00 01/30/18 13:15 Nystop Topical Powder TOP 1 applic TID [facility] Administration Nystatin 5 ml 01/26/18 21:00 01/30/18 09:35 Nystatin Oral Susp PO 5 ml Q12 [facility] Administration Silver Sulfadiazine 1 ea 01/26/18 09:00 01/30/18 09:46 Silvadene 1% 20 Gm TOP 1 ea BID [facility] Administration Simethicone 40 mg 01/28/18 12:35 01/30/18 09:35 Mylicon Liq PO 40 mg QID PRN Administration Flatulence Tobramycin/Dexamethasone 1 drop 01/26/18 09:00 01/30/18 09:46 Tobradex Opht Susp OU 1 drop BID [facility] Administration Vitamin A 1 applic 01/25/18 23:01 01/30/18 09:35 Vitamin A&D TP 1 applic Q8 PRN Administration Until an adequate response is - Patient Studies Lab Studies: Microbiology Studies 01/25/18 15:45 Blood Culture - Final Blood NO GROWTH AFTER 5 DAYS Gram Stain - Final TEST NOT PERFORMED 01/25/18 12:00 Gram Stain - Final Trachasp Sputum Culture - Preliminary Proteus Mirabilis Klebsiella Pneumoniae Ssp Pneu Lab Studies 01/30/18 01/30/18 01/30/18 Range/Units 06:00 06:00 03:42 WBC 14.4 H (4.8-10.8) K/uL RBC 3.76 L (4.40-5.90) Mil/uL Hgb 9.9 L (12.0-18.0) g/dL Hct 31.2 L (35.0-51.0) % MCV 82.8 (80.0-94.0) fl MCH 26.2 L (27.0-31.0) pg MCHC 31.7 L (33.0-37.0) g/dL RDW 19.2 H (11.5-14.5) % Plt Count 353 (130-400) K/uL pCO2 48 H (35-45) mm/Hg pO2 92 (80-100) mm/Hg HCO3 24.8 (21-28) mmol/L ABG pH 7.34 L (7.35-7.45) ABG Total CO2 27.4 (22-28) mmol/L ABG O2 Saturation 99.1 H (95-98) % ABG O2 Content 13.8 L (15-23) ML/dL ABG Base Excess -0.2 (-2.0-3.0) mmol/L ABG Hemoglobin 10.1 L (11.7-17.4) g/dL ABG Carboxyhemoglobin 1.8 H (0.5-1.5) % POC ABG HHb (Measured) 0.9 (0.0-5.0) % ABG Methemoglobin 1.4 (0.0-3.0) % ABG O2 Capacity 13.9 L (16-24) mL/dL Bernardino Test Yes A-a O2 Difference 62.0 mm/Hg Hgb O2 Saturation 95.9 (95.0-98.0) % Vent Mode Prvc ac Mechanical Rate 12 FiO2 30.0 % Tidal Volume 500 PEEP 5 Sodium 142 (132-148) mmol/l Potassium 4.3 (3.6-5.0) MMOL/L Chloride 109 H (98-107) mmol/L Carbon Dioxide 25 (22-30) mmol/L Anion Gap 12 (10-20) BUN 77 H (9-20) mg/dl Creatinine 0.4 L (0.8-1.5) mg/dl Est GFR ( Amer) > 60 Est GFR (Non-Af Amer) > 60 Random Glucose 125 H (75-110) mg/dL Calcium 7.5 L (8.4-10.2) mg/dL Laboratory Results - last 24 hr 01/30/18 01/30/18 01/30/18 03:42 06:00 06:00 WBC 14.4 H RBC 3.76 L Hgb 9.9 L Hct 31.2 L MCV 82.8 MCH 26.2 L MCHC 31.7 L RDW 19.2 H Plt Count 353 pCO2 48 H pO2 92 HCO3 24.8 ABG pH 7.34 L ABG Total CO2 27.4 ABG O2 Saturation 99.1 H ABG O2 Content 13.8 L ABG Base Excess -0.2 ABG Hemoglobin 10.1 L ABG Carboxyhemoglobin 1.8 H POC ABG HHb (Measured) 0.9 ABG Methemoglobin 1.4 ABG O2 Capacity 13.9 L Bernardino Test Yes A-a O2 Difference 62.0 Hgb O2 Saturation 95.9 Vent Mode Prvc ac Mechanical Rate 12 FiO2 30.0 Tidal Volume 500 PEEP 5 Sodium 142 Potassium 4.3 Chloride 109 H Carbon Dioxide 25 Anion Gap 12 BUN 77 H Creatinine 0.4 L Est GFR ( Amer) > 60 Est GFR (Non-Af Amer) > 60 Random Glucose 125 H Calcium 7.5 L Review of Systems - Review of Systems Systems not reviewed;Unavailable: Other (non-communicative) Assessment/Plan (1) Muscular dystrophy Assessment and plan: 82yo M. PMHx muscular dystrophy (MD), vent dependent, feeding tube, chronic anemia. Neuro: alert, non-communicative with severe MD. Seizure disorder continue Valproic acid q12h. Pulm: vent dependent, trach in place. CV: hypotensive on dopamine. Hem: anemia of chronic disease. Renal: hypervolemic, will start lasix drip with albumin drip. Endo: no acute issues GI: NPO, tube bolus feeding with Perative. ID: MDR proteus mirabilis and MDR Klebsiella, continue Amikacin and Clindamycin. ID - Dr. Nava Skin: possible melanoma on right gnosticism, possible basal cell CA on right cheek and right shoulder, outpatient followup. DVT proph - SCD's and a/c refused by family GI proph - pepcid Code status - full code Family is disconnected from the reality of the poor condition this patient is in. Critical Care Time spent 35 minutes Multi-disciplinary rounds were performed with house staff, nursing, speech therapy, respiratory therapy, pharmacy and nutrition with integrated input from the primary team/attending and other consulting services. The documented time is cumulative and includes review of patient data/exams/labs/chart review and examination of the patient on rounds and throughout the day; time is exclusive of any procedures or teaching time. Current Visit: Yes Status: Chronic
[2018-01-30] MEDS ORDERED: Albumin Human 5% (12.5 gm/250 ml) IV ONE (18:06)
--- NOTE | 2018-01-30 18:57 | CP.PCM.PN ---
Subjective - Date & Time of Evaluation Date of Evaluation: 01/30/18 Time of Evaluation: 18:55 - Subjective Subjective: I D NOTE STILL MDR GRAM NEG HAVE ADVISED MICRO TO TEST AGAINST AVYCAZ Objective - Vital Signs/Intake and Output Vital Signs (last 24 hours): Temp Pulse Resp BP Pulse Ox 94.4 F L 95 H 28 H 121/53 L 100 01/30/18 16:51 01/30/18 16:51 01/30/18 16:51 01/30/18 16:51 01/30/18 16:51 Intake and Output: 01/30/18 01/30/18 06:59 18:59 Intake Total 1565 1210 Balance 1565 1210 - Medications Medications: Current Medications Albuterol/Ipratropium (Duoneb 3 Mg/0.5 Mg (3 Ml) Ud) 3 ml INH RQID [facility] Last Admin: 01/30/18 15:30 Dose: 3 ml Albuterol/Ipratropium (Duoneb 3 Mg/0.5 Mg (3 Ml) Ud) 3 ml INH RQ6 PRN PRN Reason: Shortness of Breath Atropine Sulfate (Atropisol 1% [facility]) 1 drop OS BID [facility] Last Admin: 01/30/18 17:40 Dose: 1 drop Bisacodyl (Dulcolax) 10 mg [place] DAILY [facility] Last Admin: 01/30/18 11:25 Dose: 10 mg Famotidine (Pepcid) 20 mg IVPB Q12 [facility] Last Admin: 01/30/18 09:35 Dose: 20 mg Ferrous Sulfate (Feosol Liq) 300 mg PEG DAILY [facility] Last Admin: 01/30/18 09:35 Dose: 300 mg Clindamycin Phosphate (Cleocin) 600 mg in 50 mls @ 50 mls/hr IVPB Q12 [facility] PRN Reason: Protocol Last Admin: 01/30/18 09:36 Dose: 50 mls/hr Valproate Sodium 500 mg/ (Sodium Chloride) 105 mls @ 105 mls/hr IVPB Q12 [facility] Last Admin: 01/30/18 09:37 Dose: 105 mls/hr Amikacin Sulfate 500 mg/ (Sodium Chloride) 252 mls @ 250 mls/hr IVPB Q24H [facility] PRN Reason: Protocol Last Admin: 01/30/18 15:51 Dose: 250 mls/hr Dopamine HCl 800 mg/ Dextrose 250 mls @ 34.97 mls/hr IV .Q7H9M [facility]; 16 MCG/KG/ MIN PRN Reason: Protocol Last Admin: 01/30/18 18:34 Dose: 16 mcg/kg/min, 34.97 mls/hr Mupirocin (Bactroban Ointment) 1 applic TOP BID [facility] Last Admin: 01/30/18 18:44 Dose: 1 applic Nystatin (Nystop Topical Powder) 1 applic TOP TID [facility] Last Admin: 01/30/18 17:30 Dose: 1 applic Nystatin (Nystatin Oral Susp) 5 ml PO Q12 [facility] Last Admin: 01/30/18 09:35 Dose: 5 ml Silver Sulfadiazine (Silvadene 1% 20 Gm) 1 ea TOP BID [facility] Last Admin: 01/30/18 17:30 Dose: 1 ea Simethicone (Mylicon Liq) 40 mg PO QID PRN PRN Reason: Flatulence Last Admin: 01/30/18 18:39 Dose: 40 mg Tobramycin/Dexamethasone (Tobradex Opht Susp) 1 drop OU BID [facility] Last Admin: 01/30/18 18:38 Dose: 1 drop Vitamin A (Vitamin A&D) 1 applic TP Q8 PRN PRN Reason: Until an adequate response is Last Admin: 01/30/18 18:37 Dose: 1 applic - Labs Labs: 01/30/18 06:00 01/30/18 06:00 PT 14.7 Seconds (9.8-13.1) H 01/25/18 15:45 INR 1.3 01/25/18 15:45 APTT 21.9 Seconds (25.6-37.1) L 01/25/18 15:45
--- NOTE | 2018-01-30 18:58 | CARD ---
APPROVED REPORT Date of service: 01/30/2018 EXAM: Two-dimensional and M-mode echocardiogram with Doppler and color Doppler. Other Information Quality : FairTechnically LimitedRhythm : NSR Technically limited study due to Very Limited Window only 4C views INDICATION Congestive Heart Failure Aortic Valve AoV Peak Sidtypgo683.3cm/sAoV VTI41.9cmAO Peak GR.17mmHg LVOT Peak Pacfzaln398.7cm/sLVOT VTI21.27cmAO Mean GR.10mmHg Mitral Valve E/A ratio0.0 TDI E/Lateral E'0.0E/Medial E'0.0 Tricuspid Valve TR Peak [id number] [id number] Peak Gr.23mmHg [id number] LEFT VENTRICLE The left ventricle is normal size. There is normal left ventricular wall thickness. The left ventricular systolic function is grossly unremarkable Unable to estimate EF No regional wall motion abnormalities noted.. The left ventricular diastolic function is unable to be accurately assessed No left ventricle thrombus noted on this study. There is no ventricular septal defect visualized. There is no mass noted in the left ventricle. RIGHT VENTRICLE The right ventricle is normal size. There is normal right ventricular wall thickness. The right ventricular systolic function is normal. ATRIA The left atrium size is normal. The right atrium size appears mildly dilated AORTIC VALVE The aortic valve is not seen No gross aortic regurgitation is present. There is no aortic valvular stenosis. MITRAL VALVE The mitral valve is normal in structure. There is no mitral valve stenosis. There is trivial mitral valve regurgitation noted. TRICUSPID VALVE The tricuspid valve is normal in structure. There is mild tricuspid valve regurgitation noted. PASP within normal limits PULMONIC VALVE The pulmonary valve is not seen Not assessed GREAT VESSELS The aortic root is not seen The ascending aorta is normal in size. The pulmonary artery is normal. The IVC is not seen PERICARDIAL EFFUSION There is no pericardial effusion. <Conclusion> Technically fair study limited only to apical views Mild TR with normal PASP Normal LV systolic function
[2018-01-31 05:54] LABS: HEMOGLOBIN 8.8 g/dL (12.0-18.0); MEAN CELL VOLUME 83.6 fl (80.0-94.0); MEAN CORPUSCULAR HEMOGLOBIN 26.4 pg (27.0-31.0); MEAN CORPUSCULAR HGB CONC 31.5 g/dL (33.0-37.0); RBC 3.34 Mil/uL (4.40-5.90); RED CELL DISTRIBUTION WIDTH 19.2 % (11.5-14.5); WHITE BLOOD COUNT 15.3 K/uL (4.8-10.8)
[2018-01-31 06:17] LABS: BLOOD UREA NITROGEN 66 mg/dl (9-20); CALCIUM 7.1 mg/dL (8.4-10.2)
[2018-01-31] MEDS: Albuterol-Ipratrop 3 mg / 0.5 (3 ml) UD INH SCH ×4 (07:34→19:30)
[2018-01-31 08:10] LABS: GFR NON-AFRICAN AMERICAN > 60
--- NOTE | 2018-01-31 08:13 | CON ---
Copied To: Magdy Valladares MD Attending MD: Magdy Valladares MD DATE: 01/30/2018 INPATIENT ELECTROPHYSIOLOGY CONSULTATION REASON FOR EVALUATION: 1. Bradycardia. 2. Status post permanent pacemaker, single lead-Medtronic. 3. Atrial fibrillation. 4. Muscular dystrophy. HISTORY OF PRESENT ILLNESS: Mr. Lilia Keller is an 82-year-old Bengali male with past medical history significant for advanced muscular dystrophy, who was brought in by his family due to decreased responsiveness. He has a history of chronic atrial fibrillation for which a Medtronic permanent pacemaker was placed approximately nine years ago in 2008. At the time of the admission, he required ICU admission secondary to hypotension, hyponatremia, hyperkalemia, consistent with dehydration. The patient is chronically vent dependent, status post tracheostomy. He is cared for superbly by his children, consists of two daughters and a son. ALLERGIES: HE IS ALLERGIC TO PENICILLIN. PAST MEDICAL HISTORY: As mentioned in the history of present illness. In addition, the patient is G-tube dependent and had increasing green fluid coming from the G-tube and the healthcare proxy is his daughter Bandar. The patient is full code. REVIEW OF SYSTEMS: It is difficult to obtain secondary to patient's mental status. PAST MEDICAL HISTORY: As mentioned in the history of present illness. He is incontinent to urine. Further review is difficult to obtain. PHYSICAL EXAMINATION: GENERAL: On examination, the patient appears to be chronically ill, requires to stay on a 45-degree angle secondary to aspiration precautions. VITAL SIGNS: Currently have been stable with temperature of 97.8, axillary pulse rate of 64, blood pressure of 126/51, and respirations of 76. HEENT: Head is normocephalic and atraumatic. The patient is minimally responsive, but is supposed to be baseline as per family. HEENT exam is within normal limits. There is no evidence of lymphadenopathy. Decreased breath sounds bilaterally. CARDIOVASCULAR: Regular rate and rhythm. S1 and S2. No S3 or S4. Device site is in the right subclavian area and appears to be well seated. ABDOMEN: Soft, obese, nontender, and nondistended. Positive bowel sounds. EXTREMITIES: No cyanosis or clubbing. There is 1+ lower extremity edema. BACK: Normal to inspection. LABORATORY DATA: Echocardiogram has been performed on 01/28/2018; official reading is pending. Chest x-ray shows evidence of normally seated single lead permanent pacemaker with terminal end of the pacemaker terminating at the apex of the right ventricle. There appeared to be a right basilar infiltrate. MEDICATIONS: On review of medications, the patient is on albuterol, Ipratropium inhalation therapy, atropine eyedrops b.i.d., clindamycin, currently on the dopamine drip and is currently being weaned down, Pepcid 20 mg every 12 hours, ferrous sulfate 300 mg via PEG, mupirocin one application b.i.d., nystatin one application t.i.d., Depacon 40 mg p.o. four times a day, valproate 500 mg every 12 hours, vitamin A one p.o. every 8 hours p.r.n., and albumin had also been given. On interrogation, the longevity device has a minimum of one month left in terms of battery life thresholds in the ventricular lead are excellent, 0.375 to 0.4 milliseconds. The patient ventricularly paces 97.3% at that time, underlying rhythm as mentioned previously is atrial fibrillation. The patient has a Medtronic [id number] ventricular lead implanted on 05/02/2009. The patient's current device is a Sensia; serial number [id number]. EKG shows underlying coarse atrial fibrillation with ventrically paced rhythm at 60 beats per minute. Paced complexes have a right bundloid type appearance which is interesting, QRS durations are 182 milliseconds, QT/QTc is 480, 4, and 484 respectively. ASSESSMENT AND PLAN: 1. Bradycardia, as a result of atrial fibrillation with slow ventricular response. The patient has done relatively well with the permanent pacemaker, unclear history of prior "cardiac arrest" as mentioned in the electronic medical records, slightly secondary to severe bradycardia resulting in loss of consciousness. 2. Status post permanent pacemaker, which is a single-lead Medtronic with end-of-life within possibly one month. Given the patient's significant debility as a result of muscular dystrophy and multiple other logistical concerns; at this point, my current recommendation would be for permanent pacemaker generator change. At this point, the patient still has a persistent white count of 14.4, ____ with hemoglobin of 9.9, and platelet count of 353. The patient still appears somewhat acidotic and hypercapnic. He remains on the ventilator. Electrolytes are in the process of being corrected, namely hypocalcemia, albumin is also low at 22.9, TSH is also low at 0.02. At this point, we would optimize the patient from an infectious disease standpoint. I have had discussions with the infectious disease doctor, Dr. Prieto, who does not feel that there is an ideal time to proceed with the permanent pacemaker. He did suggest waiting till after total PEG tube placement and after to reduce the degree of colonization at that local area. At this point, no clear evidence of bacteremia has been demonstrated. The patient has been hypotensive and at this point, he is being weaned off pressors in the form of . When the patient is optimized in terms of his electrolytes status, blood pressure status, infectious disease status, we may consider proceeding with a permanent pacemaker generator change. At this point, right ventricular lead function appears to be stable. Procedure would need to be done in the operating room. In the event, there is an issue with right ventricular lead, that needs to be replaced. Operative difficulties include the patient being ventilator-dependent, possible infection at a local level with relative proximity to the trach site and permanent pacemaker wound. In addition, respiratory anesthesia concerns also are present. Once he has been optimized from a clinical stand point, we can recommend permanent pacemaker generator change. I have discussed the case with Dr. Prieto and Dr. Liudmila Perez, nursing staff, ICU team, and family at bedside. Greater than 50% of the time was spent in the patient education and coordination of care. Await contact from the primary managing team in terms of his status prior to proceeding with permanent pacemaker generator change. 3. Atrial fibrillation for which the patient had been on blood thinners at one point. Blood thinners have been held and may be restarted, perhaps, once he is status post generator change. 4. Muscular dystrophy which is chronic degenerative disease, which is a significant concern prior to proceeding with the aforementioned procedure. 5. Hypocalcemia, which will be evaluated by the primary medical cdl team truck driver. 6. Hyperthyroid with a depressed TSH. The patient is continued to be evaluated from a thyroid lab abnormality. Thank you for allowing me to participate in the care of your patient. Please do not hesitate to call for any questions with regards to his care. Magdy Valladares MD [facility] # [phone]
[2018-01-31] MEDS: Clindamycin 600mg/50ml D5W 600 MG/50 ML VIAL IVPB SCH ×2 (08:14→20:54)
[2018-01-31] MEDS: ATROPINE 1% OS SCH ×2 (08:14→16:30)
[2018-01-31] MEDS: Mupirocin 2% Oint 1GM UD TOP SCH ×2 (08:14→16:30)
[2018-01-31] MEDS: Valproate 500 MG in Sodium Chloride 0.9% 100 ML IVPB SCH ×2 (08:15→22:00)
[2018-01-31] MEDS: Ferrous Sulfate 300 mg/5 mL Liq UD PEG SCH (08:17)
[2018-01-31] MEDS: Nystatin 100,000 Units/ml Oral Susp 5 ml UD PO SCH ×2 (08:17→21:00)
[2018-01-31] MEDS: Simethicone 40 mg/0.6 ml Liquid (30 ml) PO PRN ×2 (08:17→16:34)
[2018-01-31] MEDS: Vitamin A/D oint 60G TP PRN ×2 (08:18→16:36)
[2018-01-31] MEDS: Silver Sulfadiazine 1% Cream (20 gm) TOP SCH ×2 (08:18→16:33)
[2018-01-31] MEDS: Dexamethasone/Tobramycin Ophth Susp OU SCH ×2 (08:19→16:35)
--- NOTE | 2018-01-31 08:51 | CP.PCM.PN ---
Subjective - Date & Time of Evaluation Date of Evaluation: 01/31/18 Time of Evaluation: 08:51 - Subjective Subjective: MORE ALERT NO CHANGE IN CLINICAL CONDITION STILL ON THE VENT Objective - Vital Signs/Intake and Output Vital Signs (last 24 hours): Temp Pulse Resp BP Pulse Ox 98.8 F 68 16 103/41 L 100 01/31/18 08:00 01/31/18 08:00 01/31/18 08:00 01/31/18 07:00 01/31/18 08:00 Intake and Output: 01/31/18 01/31/18 06:59 18:59 Intake Total 1410 250 Balance 1410 250 - Medications Medications: Current Medications Albuterol/Ipratropium (Duoneb 3 Mg/0.5 Mg (3 Ml) Ud) 3 ml INH RQID [facility] Last Admin: 01/31/18 07:34 Dose: 3 ml Albuterol/Ipratropium (Duoneb 3 Mg/0.5 Mg (3 Ml) Ud) 3 ml INH RQ6 PRN PRN Reason: Shortness of Breath Atropine Sulfate (Atropisol 1% Oph) 1 drop OS BID [facility] Last Admin: 01/31/18 08:14 Dose: 1 drop Bisacodyl (Dulcolax) 10 mg HI DAILY [facility] Last Admin: 01/30/18 11:25 Dose: 10 mg Famotidine (Pepcid) 20 mg IVPB Q12 [facility] Last Admin: 01/31/18 08:24 Dose: 20 mg Ferrous Sulfate (Feosol Liq) 300 mg PEG DAILY [facility] Last Admin: 01/31/18 08:17 Dose: 300 mg Clindamycin Phosphate (Cleocin) 600 mg in 50 mls @ 50 mls/hr IVPB Q12 [facility] PRN Reason: Protocol Last Admin: 01/31/18 08:14 Dose: 50 mls/hr Valproate Sodium 500 mg/ (Sodium Chloride) 105 mls @ 105 mls/hr IVPB Q12 [facility] Last Admin: 01/31/18 08:15 Dose: 105 mls/hr Amikacin Sulfate 500 mg/ (Sodium Chloride) 252 mls @ 250 mls/hr IVPB Q24H [facility] PRN Reason: Protocol Last Admin: 01/30/18 15:51 Dose: 250 mls/hr Dopamine HCl 800 mg/ Dextrose 250 mls @ 34.97 mls/hr IV .Q7H9M [facility]; 16 MCG/KG/ MIN PRN Reason: Protocol Last Admin: 01/31/18 08:07 Dose: 18 mcg/kg/min, 39.34 mls/hr Mupirocin (Bactroban Ointment) 1 applic TOP BID [facility] Last Admin: 01/31/18 08:14 Dose: 1 applic Nystatin (Nystop Topical Powder) 1 applic TOP TID [facility] Last Admin: 01/31/18 08:31 Dose: 1 applic Nystatin (Nystatin Oral Susp) 5 ml PO Q12 [facility] Last Admin: 01/31/18 08:17 Dose: 5 ml Silver Sulfadiazine (Silvadene 1% 20 Gm) 1 ea TOP BID [facility] Last Admin: 01/31/18 08:18 Dose: 1 ea Simethicone (Mylicon Liq) 40 mg PO QID PRN PRN Reason: Flatulence Last Admin: 01/31/18 08:17 Dose: 40 mg Tobramycin/Dexamethasone (Tobradex Opht Susp) 1 drop OU BID [facility] Last Admin: 01/31/18 08:19 Dose: 1 drop Vitamin A (Vitamin A&D) 1 applic TP Q8 PRN PRN Reason: Until an adequate response is Last Admin: 01/31/18 08:18 Dose: 1 applic - Labs Labs: 01/31/18 05:10 01/31/18 05:10 PT 14.7 Seconds (9.8-13.1) H 01/25/18 15:45 INR 1.3 01/25/18 15:45 APTT 21.9 Seconds (25.6-37.1) L 01/25/18 15:45 - Constitutional Appears: Chronically Ill - Head Exam Head Exam: ATRAUMATIC, NORMAL INSPECTION, NORMOCEPHALIC - Eye Exam Eye Exam: EOMI, Normal appearance, PERRL Pupil Exam: NORMAL ACCOMODATION, PERRL - ENT Exam ENT Exam: Mucous Membranes Moist, Normal Exam - Neck Exam Neck Exam: Full ROM, Normal Inspection. absent: Lymphadenopathy - Respiratory Exam Respiratory Exam: Decreased Breath Sounds, Rales Additional comments: VENTILATOR DEPENDENT - Cardiovascular Exam Cardiovascular Exam: REGULAR RHYTHM, +S1, +S2. absent: Murmur - GI/Abdominal Exam GI & Abdominal Exam: Soft, Normal Bowel Sounds. absent: Tenderness - Rectal Exam Rectal Exam: NORMAL INSPECTION - Extremities Exam Extremities Exam: Full ROM, Normal Capillary Refill, Normal Inspection, Pedal Edema. absent: Joint Swelling - Back Exam Back Exam: NORMAL INSPECTION - Neurological Exam Neurological Exam: Alert, Awake, CN II-XII Intact, Normal Gait, Oriented x3 - Psychiatric Exam Psychiatric exam: Normal Affect, Normal Mood - Skin Skin Exam: Dry, Intact, Normal Color, Warm Assessment and Plan - Assessment and Plan (Free Text) Assessment: MULTI-ORGAN FAILURE Plan: CONTINUE CURRENT RX CXR IN AM
[2018-01-31] MEDS ORDERED: Furosemide 100 MG in Sodium Chloride 0.9% 100 ML IV SCH (09:45)
[2018-01-31] MEDS: Enoxaparin 40 mg Syringe SC SCH (12:29)
--- NOTE | 2018-01-31 15:57 | CP.CCUPN ---
CCU Subjective - Physician Review Events Since Last Encounter (Free Text): 01/31/18 15:43 responsive, non-communicative. CCU Objective - Vital Signs / Intake & Output Vital Signs (Last 4 hours): Vital Signs Temp Pulse Resp BP Pulse Ox 01/31/18 12:31 101/48 L 01/31/18 12:00 97.6 F 62 28 H 101/48 L 100 Intake and Output (Last 8hrs): Intake & Output 01/31/18 01/31/18 01/31/18 06:59 14:59 22:59 Intake Total 1020 680 Balance 1020 680 Intake: IV 490 400 Tube Feeding 180 180 Albumin 150 Free Water Flush 200 100 Other: # Voids Urine, Voided 1 1 - Physical Exam Head: Positive for: Atraumatic, Normocephalic, Other (right denominational, melanoma) Pupils: Positive for: Other (corneal keratitis) Extroacular Muscles: Positive for: EOMI Conjunctiva: Positive for: Normal Ears: Positive for: Normal Mouth: Positive for: Dry Pharnyx: Positive for: Normal Neck: Positive for: Other (destructive skin lesion on right shoulder, possible basal carcinoma) Respiratory/Chest: Positive for: Clear to Auscultation, Decreased Breath Sounds (bibasilar) Cardiovascular: Positive for: Regular Rate and Rhythm Abdomen: Positive for: Distention. Negative for: Tenderness Upper Extremity: Positive for: Edema Lower Extremity: Positive for: Edema Psychiatric: Positive for: Alert - Medications Active Medications: Active Medications Generic Name Dose Route Start Last Admin Trade Name Freq PRN Reason Stop Dose Admin Albuterol/Ipratropium 3 ml 01/26/18 08:00 01/31/18 15:13 Duoneb 3 Mg/0.5 Mg (3 Ml) Ud INH 3 ml RQID [facility] Administration Albuterol/Ipratropium 3 ml 01/26/18 03:08 Duoneb 3 Mg/0.5 Mg (3 Ml) Ud INH RQ6 PRN Shortness of Breath Atropine Sulfate 1 drop 01/30/18 10:00 01/31/18 08:14 Atropisol 1% Ophth OS 1 drop BID [facility] Administration Bisacodyl 10 mg 01/30/18 10:30 01/30/18 11:25 Dulcolax DC 10 mg DAILY [facility] Administration Enoxaparin Sodium 40 mg 01/31/18 09:45 01/31/18 12:29 Lovenox SC 40 mg DAILY [facility] Administration Protocol Famotidine 20 mg 01/25/18 23:45 01/31/18 08:24 Pepcid IVPB 20 mg Q12 [facility] Administration Ferrous Sulfate 300 mg 01/27/18 09:00 01/31/18 08:17 Feosol Liq PEG 300 mg DAILY [facility] Administration Clindamycin Phosphate 600 mg in 50 mls @ 50 mls/hr 01/26/18 21:45 01/31/18 08 :14 Cleocin IVPB 50 mls/hr Q12 [facility] Administration Protocol Valproate Sodium 500 mg/ 105 mls @ 105 mls/hr 01/27/18 21:00 01/31/18 08:15 Sodium Chloride IVPB 105 mls/hr Q12 [facility] Administration Amikacin Sulfate 500 mg/ 252 mls @ 250 mls/hr 01/28/18 15:30 01/30/18 15:51 Sodium Chloride IVPB 250 mls/hr Q24H [facility] Administration Protocol Dopamine HCl 800 mg/ Dextrose 250 mls @ 34.97 mls/hr 01/28/18 19:00 01/31/18 08:07 IV 18 mcg/kg/min .Q7H9M [facility] 39.34 mls/hr Protocol Administration 16 MCG/KG/MIN Furosemide 100 mg/ Sodium 100 mls @ 10 mls/hr 01/31/18 09:45 01/31/18 12:31 Chloride IV 10 mls/hr .Q10H [facility] Administration Protocol 10 MG/HR Norepinephrine Bitartrate 16 266 mls @ 2.49 mls/hr 01/31/18 15:12 mg/ Dextrose IV 02/01/18 15:11 .Q24H ONE 2.5 MCG/MIN Mupirocin 1 applic 01/30/18 10:00 01/31/18 08:14 Bactroban Ointment TOP 1 applic BID [facility] Administration Nystatin 1 applic 01/26/18 09:00 01/31/18 12:30 Nystop Topical Powder TOP 1 applic TID [facility] Administration Nystatin 5 ml 01/26/18 21:00 01/31/18 08:17 Nystatin Oral Susp PO 5 ml Q12 [facility] Administration Nystatin 1 applic 01/31/18 13:00 Nystop Topical Powder TOP TID [facility] Silver Sulfadiazine 1 ea 01/26/18 09:00 01/31/18 08:18 Silvadene 1% 20 Gm TOP 1 ea BID [facility] Administration Simethicone 40 mg 01/28/18 12:35 01/31/18 08:17 Mylicon Liq PO 40 mg QID PRN Administration Flatulence Tobramycin/Dexamethasone 1 drop 01/26/18 09:00 01/31/18 08:19 Tobradex Opht Susp OU 1 drop BID [facility] Administration Vitamin A 1 applic 01/25/18 23:01 01/31/18 08:18 Vitamin A&D TP 1 applic Q8 PRN Administration Until an adequate response is - Patient Studies Lab Studies: Microbiology Studies 01/25/18 12:00 Gram Stain - Final Trachasp Sputum Culture - Final Proteus Mirabilis Klebsiella Pneumoniae Ssp Pneu 01/25/18 15:45 Blood Culture - Final Blood NO GROWTH AFTER 5 DAYS Gram Stain - Final TEST NOT PERFORMED Lab Studies 01/31/18 01/31/18 01/31/18 Range/Units 06:55 05:10 05:10 WBC 15.3 H (4.8-10.8) K/uL RBC 3.34 L (4.40-5.90) Mil/uL Hgb 8.8 L (12.0-18.0) g/dL Hct 27.9 L (35.0-51.0) % MCV 83.6 (80.0-94.0) fl MCH 26.4 L (27.0-31.0) pg MCHC 31.5 L (33.0-37.0) g/dL RDW 19.2 H (11.5-14.5) % Plt Count 304 (130-400) K/uL Sodium 132 (132-148) mmol/l Potassium 3.8 (3.6-5.0) MMOL/L Chloride 100 (98-107) mmol/L Carbon Dioxide 21 L (22-30) mmol/L Anion Gap 15 (10-20) BUN 66 H (9-20) mg/dl Creatinine < 0.6 L (0.8-1.5) mg/dl Est GFR ( Amer) > 60 Est GFR (Non-Af Amer) > 60 POC Glucose (mg/dL) 120 H (65-110) mg/dL Random Glucose 420 H* D (75-110) mg/dL Calcium 7.1 L (8.4-10.2) mg/dL Laboratory Results - last 24 hr 01/31/18 01/31/18 01/31/18 05:10 05:10 06:55 WBC 15.3 H RBC 3.34 L Hgb 8.8 L Hct 27.9 L MCV 83.6 MCH 26.4 L MCHC 31.5 L RDW 19.2 H Plt Count 304 Sodium 132 Potassium 3.8 Chloride 100 Carbon Dioxide 21 L Anion Gap 15 BUN 66 H Creatinine < 0.6 L Est GFR ( Amer) > 60 Est GFR (Non-Af Amer) > 60 POC Glucose (mg/dL) 120 H Random Glucose 420 H* D Calcium 7.1 L Review of Systems - Review of Systems Systems not reviewed;Unavailable: Other (unable to communicate secondary to severe muscular dystrophy) Assessment/Plan (1) Muscular dystrophy Assessment and plan: 82yo M. PMHx muscular dystrophy (MD), vent dependent, feeding tube, chronic anemia. Neuro: alert, non-communicative with severe MD. Seizure disorder continue Valproic acid q12h. Pulm: vent dependent, trach in place. CV: hypotensive on dopamine, switching to Levophed. Hem: anemia of chronic disease. Renal: hypervolemic, will start lasix drip with albumin drip. Family will not allow hernandez placement. Endo: no acute issues GI: NPO, tube bolus feeding with Perative. ID: MDR proteus mirabilis and MDR Klebsiella, continue Amikacin and Clindamycin. ID - Dr. Nava Skin: possible melanoma on right denominational, possible basal cell CA on right cheek and right shoulder, outpatient followup. DVT proph - SCD's and a/c refused by family GI proph - pepcid Code status - full code Family is disconnected from the reality of the poor condition this patient is in. Critical Care Time spent 35 minutes Multi-disciplinary rounds were performed with house staff, nursing, speech therapy, respiratory therapy, pharmacy and nutrition with integrated input from the primary team/attending and other consulting services. The documented time is cumulative and includes review of patient data/exams/labs/chart review and examination of the patient on rounds and throughout the day; time is exclusive of any procedures or teaching time. Current Visit: Yes Status: Chronic
[2018-01-31] MEDS: Amikacin Sulfate 500 MG in Sodium Chloride 0.9% 250 ML IVPB SCH (16:30)
[2018-02-01] MEDS: Albuterol-Ipratrop 3 mg / 0.5 (3 ml) UD INH PRN (00:04)
[2018-02-01 04:08] LABS: ABG ALLEN TEST YES; ARTERIAL BLOOD GAS HCO3 21.4 mmol/L (21-28); ARTERIAL BLOOD GAS HEMOGLOBIN 9.1 g/dL (11.7-17.4); ARTERIAL BLOOD GAS O2 CAPACITY 12.7 mL/dL (16-24); ARTERIAL BLOOD GAS O2 CONTENT 12.7 ML/dL (15-23); ARTERIAL BLOOD GAS O2 SAT 100.1 % (95-98); ARTERIAL BLOOD GAS PCO2 50 mm/Hg (35-45); ARTERIAL BLOOD GAS PH 7.26 (7.35-7.45); ARTERIAL BLOOD GAS PO2 132 mm/Hg (80-100); ARTERIAL BLOOD GAS TCO2 23.9 mmol/L (22-28)
[2018-02-01 04:18] LABS: HEMOGLOBIN 9.2 g/dL (12.0-18.0); MEAN CELL VOLUME 81.7 fl (80.0-94.0); MEAN CORPUSCULAR HEMOGLOBIN 26.4 pg (27.0-31.0); MEAN CORPUSCULAR HGB CONC 32.3 g/dL (33.0-37.0); RBC 3.5 Mil/uL (4.40-5.90); RED CELL DISTRIBUTION WIDTH 19.6 % (11.5-14.5); WHITE BLOOD COUNT 19.4 K/uL (4.8-10.8)
[2018-02-01 04:27] LABS: BLOOD UREA NITROGEN 74 mg/dl (9-20); CALCIUM 7.6 mg/dL (8.4-10.2); GFR NON-AFRICAN AMERICAN > 60
[2018-02-01] MEDS: Albuterol-Ipratrop 3 mg / 0.5 (3 ml) UD INH SCH ×4 (07:41→19:24)
--- NOTE | 2018-02-01 09:13 | RAD ---
Date of service: 02/01/2018 PROCEDURE: CHEST RADIOGRAPH, 1 VIEW HISTORY: PNEUMONIA COMPARISON: 01/30/2018 chest x-ray. CT chest 01/27/2018 FINDINGS: LUNGS: Limited exam study rotated towards the right. Tracheostomy tube in place. A single pacemaker lead is present its tip is difficult to visualize. Correlate clinically with any pacing PLEURA: No gross pneumothorax. Bilateral pleural effusions right greater than left -similar status with the recent chest x-ray CARDIOVASCULAR: Cardiomegaly. Probable pulmonary venous congestion. Prior CT show suggest left-sided aortic arch less apparent on this chest x-ray. OSSEOUS STRUCTURES: Ill definition to the lateral left clavicle. This is technical or if this interval pathology here. Given the unremarkable appearance on the 01/24/2018 CT study here this finding may be technical. VISUALIZED UPPER ABDOMEN: Normal. OTHER FINDINGS: None. IMPRESSION: Again limited exam. Bilateral pleural effusions right greater than left and cardiomegaly and pulmonary venous congestion are suspect. Overall status is similar. Other findings as above.
--- NOTE | 2018-02-01 09:27 | CP.PCM.PN ---
Subjective - Date & Time of Evaluation Date of Evaluation: 02/01/18 Time of Evaluation: 09:27 - Subjective Subjective: Mr. Keller was seen and examined at the bedside in ICU. He remains on a mechanical ventilator via trach on PRVC mode. His eyes are open with pupils have cloudiness,minimal grimacing with noxious stimuli, breaths over the set resp. vent. settings, weak gag reflex, GCS- 4T. Family does all the ADL's. There was no untoward events overnight. Objective - Vital Signs/Intake and Output Vital Signs (last 24 hours): Temp Pulse Resp BP Pulse Ox 98.4 F 78 16 91/41 L 99 02/01/18 04:00 02/01/18 07:00 02/01/18 07:00 02/01/18 07:00 02/01/18 07:00 Intake and Output: 02/01/18 02/01/18 06:59 18:59 Intake Total 872 Output Total 700 Balance 172 - Medications Medications: Current Medications Albuterol/Ipratropium (Duoneb 3 Mg/0.5 Mg (3 Ml) Ud) 3 ml INH RQID [facility] Last Admin: 02/01/18 07:41 Dose: 3 ml Albuterol/Ipratropium (Duoneb 3 Mg/0.5 Mg (3 Ml) Ud) 3 ml INH RQ6 PRN PRN Reason: Shortness of Breath Last Admin: 02/01/18 00:04 Dose: 3 ml Atropine Sulfate (Atropisol 1% Ophth) 1 drop OS BID [facility] Last Admin: 01/31/18 16:30 Dose: 1 drop Bisacodyl (Dulcolax) 10 mg SD DAILY [facility] Last Admin: 01/31/18 16:31 Dose: Not Given Enoxaparin Sodium (Lovenox) 40 mg SC DAILY [facility] PRN Reason: Protocol Last Admin: 01/31/18 12:29 Dose: 40 mg Famotidine (Pepcid) 20 mg IVPB Q12 [facility] Last Admin: 02/01/18 00:28 Dose: 20 mg Ferrous Sulfate (Feosol Liq) 300 mg PEG DAILY [facility] Last Admin: 01/31/18 08:17 Dose: 300 mg Clindamycin Phosphate (Cleocin) 600 mg in 50 mls @ 50 mls/hr IVPB Q12 [facility] PRN Reason: Protocol Last Admin: 01/31/18 20:54 Dose: 50 mls/hr Valproate Sodium 500 mg/ (Sodium Chloride) 105 mls @ 105 mls/hr IVPB Q12 [facility] Last Admin: 01/31/18 22:00 Dose: 105 mls/hr Amikacin Sulfate 500 mg/ (Sodium Chloride) 252 mls @ 250 mls/hr IVPB Q24H [facility] PRN Reason: Protocol Last Admin: 01/31/18 16:30 Dose: 250 mls/hr Norepinephrine Bitartrate 16 (mg/ Dextrose) 266 mls @ 2.49 mls/hr IV .Q24H ONE ; 2.5 MCG/MIN PRN Reason: Protocol Stop: 02/01/18 15:11 Last Titration: 01/31/18 21:00 Dose: 15 mcg/min, 14.96 mls/hr Mupirocin (Bactroban Ointment) 1 applic TOP BID [facility] Last Admin: 01/31/18 16:30 Dose: 1 applic Nystatin (Nystop Topical Powder) 1 applic TOP TID [facility] Last Admin: 01/31/18 16:32 Dose: 1 applic Nystatin (Nystatin Oral Susp) 5 ml PO Q12 [facility] Last Admin: 01/31/18 21:00 Dose: Not Given Nystatin (Nystop Topical Powder) 1 applic TOP TID [facility] Last Admin: 01/31/18 16:33 Dose: 1 applic Silver Sulfadiazine (Silvadene 1% 20 Gm) 1 ea TOP BID [facility] Last Admin: 01/31/18 16:33 Dose: 1 ea Simethicone (Mylicon Liq) 40 mg PO QID PRN PRN Reason: Flatulence Last Admin: 01/31/18 16:34 Dose: 40 mg Tobramycin/Dexamethasone (Tobradex Opht Susp) 1 drop OU BID [facility] Last Admin: 01/31/18 16:35 Dose: 1 drop Vitamin A (Vitamin A&D) 1 applic TP Q8 PRN PRN Reason: Until an adequate response is Last Admin: 01/31/18 16:36 Dose: 1 applic - Labs Labs: 02/01/18 04:13 02/01/18 04:13 PT 14.7 Seconds (9.8-13.1) H 01/25/18 15:45 INR 1.3 01/25/18 15:45 APTT 21.9 Seconds (25.6-37.1) L 01/25/18 15:45 - Constitutional Appears: No Acute Distress - Head Exam Head Exam: NORMAL INSPECTION - Neurological Exam Neuro motor strength exam: Left Upper Extremity: 0, Right Upper Extremity: 0, Left Lower Extremity: 0, Right Lower Extremity: 0 Additional comments: GCS-4T Assessment and Plan (1) Altered mental status, unspecified Assessment & Plan: Case discussed with Dr. Maciel, continue all current medical regimen. Pending EEG results. Recommend to treat any electrolyte abnormalities, treat any s/s infection. keep head of the bed elevated at least 30 degrees. Status: Acute
--- NOTE | 2018-02-01 09:31 | CP.PCM.PN ---
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 PROBABLY BECAUSE FAMILY HAS BEEN GIVING PT ANTIBIOTICS PROPHYLACTICALLY FOR YEARS Objective - Vital Signs/Intake and Output Vital Signs (last 24 hours): Temp Pulse Resp BP Pulse Ox 98.4 F 78 16 91/41 L 99 02/01/18 04:00 02/01/18 07:00 02/01/18 07:00 02/01/18 07:00 02/01/18 07:00 Intake and Output: 02/01/18 02/01/18 06:59 18:59 Intake Total 872 Output Total 700 Balance 172 - Medications Medications: Current Medications Albuterol/Ipratropium (Duoneb 3 Mg/0.5 Mg (3 Ml) Ud) 3 ml INH RQID [facility] Last Admin: 02/01/18 07:41 Dose: 3 ml Albuterol/Ipratropium (Duoneb 3 Mg/0.5 Mg (3 Ml) Ud) 3 ml INH RQ6 PRN PRN Reason: Shortness of Breath Last Admin: 02/01/18 00:04 Dose: 3 ml Atropine Sulfate (Atropisol 1% Oph) 1 drop OS BID [facility] Last Admin: 01/31/18 16:30 Dose: 1 drop Bisacodyl (Dulcolax) 10 mg [place] DAILY [facility] Last Admin: 01/31/18 16:31 Dose: Not Given Enoxaparin Sodium (Lovenox) 40 mg SC DAILY [facility] PRN Reason: Protocol Last Admin: 01/31/18 12:29 Dose: 40 mg Famotidine (Pepcid) 20 mg IVPB Q12 [facility] Last Admin: 02/01/18 00:28 Dose: 20 mg Ferrous Sulfate (Feosol Liq) 300 mg PEG DAILY [facility] Last Admin: 01/31/18 08:17 Dose: 300 mg Clindamycin Phosphate (Cleocin) 600 mg in 50 mls @ 50 mls/hr IVPB Q12 [facility] PRN Reason: Protocol Last Admin: 01/31/18 20:54 Dose: 50 mls/hr Valproate Sodium 500 mg/ (Sodium Chloride) 105 mls @ 105 mls/hr IVPB Q12 [facility] Last Admin: 01/31/18 22:00 Dose: 105 mls/hr Amikacin Sulfate 500 mg/ (Sodium Chloride) 252 mls @ 250 mls/hr IVPB Q24H [facility] PRN Reason: Protocol Last Admin: 01/31/18 16:30 Dose: 250 mls/hr Norepinephrine Bitartrate 16 (mg/ Dextrose) 266 mls @ 2.49 mls/hr IV .Q24H ONE ; 2.5 MCG/MIN PRN Reason: Protocol Stop: 02/01/18 15:11 Last Titration: 01/31/18 21:00 Dose: 15 mcg/min, 14.96 mls/hr Mupirocin (Bactroban Ointment) 1 applic TOP BID [facility] Last Admin: 01/31/18 16:30 Dose: 1 applic Nystatin (Nystop Topical Powder) 1 applic TOP TID [facility] Last Admin: 01/31/18 16:32 Dose: 1 applic Nystatin (Nystatin Oral Susp) 5 ml PO Q12 [facility] Last Admin: 01/31/18 21:00 Dose: Not Given Nystatin (Nystop Topical Powder) 1 applic TOP TID [facility] Last Admin: 01/31/18 16:33 Dose: 1 applic Silver Sulfadiazine (Silvadene 1% 20 Gm) 1 ea TOP BID [facility] Last Admin: 01/31/18 16:33 Dose: 1 ea Simethicone (Mylicon Liq) 40 mg PO QID PRN PRN Reason: Flatulence Last Admin: 01/31/18 16:34 Dose: 40 mg Tobramycin/Dexamethasone (Tobradex Opht Susp) 1 drop OU BID [facility] Last Admin: 01/31/18 16:35 Dose: 1 drop Vitamin A (Vitamin A&D) 1 applic TP Q8 PRN PRN Reason: Until an adequate response is Last Admin: 01/31/18 16:36 Dose: 1 applic - Labs Labs: 02/01/18 04:13 02/01/18 04:13 PT 14.7 Seconds (9.8-13.1) H 01/25/18 15:45 INR 1.3 01/25/18 15:45 APTT 21.9 Seconds (25.6-37.1) L 01/25/18 15:45 - Constitutional Appears: Chronically Ill - Head Exam Head Exam: ATRAUMATIC, NORMAL INSPECTION, NORMOCEPHALIC - Eye Exam Eye Exam: EOMI, Normal appearance, PERRL Pupil Exam: NORMAL ACCOMODATION, PERRL - ENT Exam ENT Exam: Mucous Membranes Moist, Normal Exam Additional comments: TRACH CONNECTED TO VENT - Neck Exam Neck Exam: Full ROM, Normal Inspection. absent: Lymphadenopathy - Respiratory Exam Respiratory Exam: Prolonged Expiratory Phase, Rales Additional comments: ON THE VENT - Cardiovascular Exam Cardiovascular Exam: REGULAR RHYTHM, +S1, +S2. absent: Murmur - GI/Abdominal Exam GI & Abdominal Exam: Soft, Normal Bowel Sounds. absent: Tenderness - Rectal Exam Rectal Exam: NORMAL INSPECTION - Extremities Exam Extremities Exam: Full ROM, Normal Capillary Refill, Normal Inspection, Pedal Edema. 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
[2018-02-01] MEDS: Dexamethasone/Tobramycin Ophth Susp OU SCH ×2 (10:00→16:44)
[2018-02-01] MEDS: Enoxaparin 40 mg Syringe SC SCH (10:31)
[2018-02-01] MEDS: Nystatin 100,000 Units/ml Oral Susp 5 ml UD PO SCH ×2 (10:33→21:17)
[2018-02-01] MEDS: Ferrous Sulfate 300 mg/5 mL Liq UD PEG SCH (10:33)
[2018-02-01] MEDS: Silver Sulfadiazine 1% Cream (20 gm) TOP SCH ×2 (10:34→16:41)
[2018-02-01] MEDS: Valproate 500 MG in Sodium Chloride 0.9% 100 ML IVPB SCH (10:36)
[2018-02-01] MEDS: Mupirocin 2% Oint 1GM UD TOP SCH ×2 (10:37→16:46)
[2018-02-01] MEDS: Clindamycin 600mg/50ml D5W 600 MG/50 ML VIAL IVPB SCH (10:37)
[2018-02-01] MEDS: ATROPINE 1% OS SCH ×2 (10:40→16:44)
[2018-02-01 11:15] LABS: VENOUS BLOOD GAS BASE EXCESS -3.6 mmol/L (0.0-2.0); VENOUS BLOOD GAS PCO2 51 mmHg (40-60); VENOUS BLOOD GAS PO2 49 mm/Hg (30-55); VENOUS BLOOD PH 7.27 (7.32-7.43)
[2018-02-01] MEDS: Simethicone 40 mg/0.6 ml Liquid (30 ml) PO PRN (12:09)
--- NOTE | 2018-02-01 15:07 | PQF ---
PROVIDER RESPONSE TEXT: Sepsis : Elevated WBC with bandemia, hypotension REVIEWER QUERY TEXT: Documentation Clarification Your help is requested in clarifying the following clinical documentation, if you can please further specify in the medical record if you are in agreement with the diagnosis of Sepsis versus Sepsis rule d out? OR: Unable to determine WBC:15.8->20.6 left shift Band 5 H/H:10.2/32.3->9.9/32.0 V/S: B/P: 103/49->83/41->86/41->93/41->97/44->91/40->97/47->79/40 Sputum: Proteus Mirabilis Blood culture x 2 : negative 01/28 Pulmonary consult: He was admitted with severe dehydration, sepsis, hypovolemia, hypernatremia, respiratory failure, and referred for pulmonary evaluation because of abnormal chest x-ray and CAT sc an of the chest Impression: Sepsis with dehydration, respiratory failure secondary to neuromuscular disease, and supe rimposed pneumonia with some amount of pleural effusion and pleural reaction. 01/30 ALONA CARNEY: At this point, no clear evidence of bacteremia has been demonstrated The patient's Clinical Indicators include: xx Query created by: Lola Thayer on 01/31/2018 12:53 PM Electronically signed by: Torey Rebollar MD 02/01/2018 3:04 PM
--- NOTE | 2018-02-01 15:07 | PQF ---
PROVIDER RESPONSE TEXT: AMS probably secondary to multiple medical conditions, MD, seizure, infection associated with tracheo stomy, hypotension, hypernatremia REVIEWER QUERY TEXT: Altered Mental Status - Underlying Cause A mental status change is documented in the Medical Record. Please specify the underlying cause Such as: -- Due to medication -- Cardiac condition: associated diagnosis? -- Electrolyte/metabolic imbalance -- Infectious process: associated diagnosis? -- Neurologic condition:associated diagnosis? -- Psychiatric condition:associated dx.? -- Respiratory condition:associated dx? -- Other, please specify H and P:At ER: -CMP shows hypernatremia of 155, hyperkalemia-CBC shows leukocytosis, anemia. -CXR w/ bilateral pleural effusions. Impression: (1) Unresponsive state Status: Acute (2) Altered mental status, unspecified Status: Acute (3) Muscular dystrophy Status: Chronic 82 y/o M with a PMHx of muscular dystrophy, intubated with tracheotomy collar, admitted for eval and management of unresponsiveness, hypotension and hypernatremia. 01/28 Neuro consult: Patient with very advanced muscular dystrophy, with change in mental status that may have been due to occult seizures The patient's Clinical Indicators include: xx Query created by: Lola Thayer on 01/31/2018 12:42 PM Electronically signed by: Torey Rebollar MD 02/01/2018 3:04 PM
--- NOTE | 2018-02-01 15:08 | PQF ---
PROVIDER RESPONSE TEXT: Suspect pneumonia present on admission. Type unknown REVIEWER QUERY TEXT: Pneumonia Specificity 2 queries as follows: 1.Pneumonia is documented in the Medical Record. If in agreement with the diagnosis:Please specify t he type of pneumonia and the causative organism if known : (includes probable or suspected) 2. Present on Admission? i.e.-- Aspiration pneumonia (please also specify the aspirate) - Please indicate if the aspiration i s postprocedure -- Bacterial (please document suspected or probable organism) -- Bronchopneumonia (please document suspected or probable organism) -- Interstitial pneumonia -- Other, please specify 01/26 CXR: Impression: Limited portable examination due to patient rotation to the right. Tracheostomy tube remains in place. Bilateral pleural effusions. 01/27 CT Chest: Impression: Mild right minimal left pleural effusions are identified with limited com pressive and bilateral basilar dependent atelectasis identified. Air bronchograms are not appreciated that would suggest definite pneumonia however underlying pneumonia is not excluded at the right gre ater than left lower lobes nevertheless. H and P:At ER: -CMP shows hypernatremia of 155, hyperkalemia -CBC shows leukocytosis, anemia. -CXR w/ bilateral pleural effusions. (1) Unresponsive state Status: Acute (2) Altered mental status, unspecified Status: Acute (3) Muscular dystrophy Status: Chronic 82 y/o M with a PMHx of muscular dystrophy, intubated with tracheotomy collar, admitted for eval and management of unresponsiveness, hypotension and hypernatremia. 01/26 Critical Care note: CXR: rotated film, bilat effusions, trach tube within tracheal air column, R LL worse than left, R basilar / lobar atelectasis, possible pneumonitis.(my interp). -R Basilar Pneumonitis / Atelectasis 01/28 Pulmonary consult: Impression: Sepsis with dehydration, respiratory failure secondary to neuromu scular disease, and superimposed pneumonia with some amount of pleural effusion and pleural reaction. The patient's Clinical Indicators include: xx Query created by: Lola Thayer on 01/31/2018 1:19 PM Electronically signed by: Torey Rebollar MD 02/01/2018 3:04 PM
--- NOTE | 2018-02-01 15:09 | CP.CCUPN ---
CCU Subjective - Physician Review Subjective (Free Text): No recurrent, observable seizure activity, remains on IV valproate. Family state he is more responsive. Only able to get patient to slightly move lips when stimulated with pain. Otherwise, family did not permit me to awaken him, stating he was sleeping, due to having a bad night. Afebrile, no fever spikes, BP now 107 systolic on Levophed at 15 mcg /min dose, HR paced now at 70. Two MDR organisms isolated from trach secretion cultures from day#1 of hospitalization, on Clindamycin and Amikacin. He is penicillin allergic, but family appears to question that history. Other vitals and I/O's reviewed: RR 18 on set rate AC 16, increased rom AC 12 this AM due to mild hypercarbia on ABG. ROS: No other pertinent negs or positives on 10+ system review obtainable from patient due to poorly responsive state. PMSFH: All other Nursing and physician documentation reviewed to date; no new pertinent info noted relevant to current medical problems. EXAM- HEENT: no icterus, no gaze preference, opacified R pupil, Left pupil 2-3 mm size , no reactivity, oral mm moist NECK: No JVD visible, supple, carotids equal upstroke bilat/no bruits, trach stoma intact, no redness. CHEST: decreased BS bases, no wheezes audible HEART: Irregular, distant, S1S2, no rubs ABD: soft, rotund, no increased distention, no tympany, no focal tenderness, BS hypoactive, no rebound. EXT: ++ edema; no peripheral/ digital cyanosis, no calf tenderness or palpable cords, distal pulses intact and symmetrical. ++ scrotal edema NEURO: increased tone present in LUE only. SKIN: small macular erythematous rash over R anteromedial thigh area1, otherwise warm and dry. LABS: WBC= 19.4 HGB= 9.2 PLTs= 331K 7.26/50/132 Dj=523 K= 3.7 CL= 107 HCO3= 21 BUN/Cr= 74/0.4 BS= 136 CXR: rotated film, bilat effusions, trach tube within tracheal air column, RLL worse than left, R basilar / lobar atelectasis, possible pneumonitis. (my interp ). EEG: prelim results show no seizure activity captured. IMPRESSION / MAJOR PROBLEMS NOW: 1. Metabolic Encephalopathy with Hyperosmolar State; Hypernatremia, Uremia, Hyperkalemia 2. New Onset Occult Seizure Disorder 3. R Basilar Pneumonitis / Atelectasis, and bilateral effusions 4. Chronic disease Anemia 5. Advanced Muscular Dystrophy with ventilator dependency PLAN: 1. MV support, fiO2 increased to 40%. No MV weans to trach collar anticipated at this time. 2. May consider changing Tract tube. 3. Persistent rising WBC, repeat Sputum , and blood cultures. Consider straight cath urine for UA and urine culture. 4. [facility] to assess for any true penicillin allergy. Avycaz sensitivity noted from MDR P.mirabilis and K. pneumoniae. 5. Plans for PPM upgrade noted. 6. Consider starting Midodrine in order to help wean off IV vasopressors. Mixed venous SvO2 = 92%. 7. If no abdominal issues, will need to increase PEG feeds to caloric requirements (1800 cals). Present underfeeding (800 Cals/day) noted as we oblige family request for current feeding regimen. 8. No change or any new Advance Directives from family. They understand that their hopes are in contrast to physician and consultants outlook on patients prognosis. 9. Advised family regarding strict contact and droplet precautions regarding MDR organisms. They ( 3 family members) remain in the room ungowned and ungloved. Time spent with this patient did not overlap with any other provider's medical or critical care time. Additionally the code selected for the services rendered in this note includes the time spent: talking to the patients family, associated physicians and reviewing hospital data/results not listed here which extended to a total of 30 minutes. CCU Objective - Vital Signs / Intake & Output Vital Signs (Last 4 hours): Vital Signs Temp Pulse Resp BP Pulse Ox 02/01/18 14:00 73 20 99/40 L 100 02/01/18 13:00 70 15 103/42 L 100 02/01/18 12:00 96.8 F L 70 21 104/42 L 99 Intake and Output (Last 8hrs): Intake & Output 02/01/18 02/01/18 02/01/18 06:59 14:59 22:59 Intake Total 542 100 Output Total 100 1000 Balance 442 -900 Intake: IV 22 Intake, Piggyback 230 Tube Feeding 180 Free Water Flush 110 100 Output: Urine 100 Urine, Voided 100 Urine/Stool Mix 1000 Other: # Voids Urine, Voided 1
[2018-02-01] MEDS ORDERED: Chlorhexidine Gluconate 1 APPL/PKT TP ONE (15:38)
[2018-02-01] MEDS: Valproic Acid 250 mg/5 ml UD Cup PEG SCH (16:46)
--- NOTE | 2018-02-01 16:52 | CP.PCM.PN ---
Subjective - Date & Time of Evaluation Date of Evaluation: 02/01/18 Time of Evaluation: 16:52 - Subjective Subjective: I D NOTE HAVE DISCUSSED THE USE OF AVYCAZ c FAMILY IN VIEW OF POSSIBLITY OF PCN ALLERGY REVIEWED CLINICAL ISSUES c FAMILY ALSO. WE WILL CONSIDER GIVING STEROIDS PRIOR TO AVYCAZ INITIALLY FAMILY TO CONSIDER WHETHER TO START TONITE OR IN AM CONTINUE AMIKACIN FOR PRESENT TIME WHICH COVERS ONLY 1 OF THE MDR GRAM NEGATIVES. Objective - Vital Signs/Intake and Output Vital Signs (last 24 hours): Temp Pulse Resp BP Pulse Ox 96.8 F L 73 20 99/40 L 100 02/01/18 12:00 02/01/18 14:00 02/01/18 14:00 02/01/18 14:00 02/01/18 14:00 Intake and Output: 02/01/18 02/01/18 06:59 18:59 Intake Total 872 100 Output Total 700 1000 Balance 172 -900 - Medications Medications: Current Medications Albuterol/Ipratropium (Duoneb 3 Mg/0.5 Mg (3 Ml) Ud) 3 ml INH RQID [facility] Last Admin: 02/01/18 15:39 Dose: 3 ml Albuterol/Ipratropium (Duoneb 3 Mg/0.5 Mg (3 Ml) Ud) 3 ml INH RQ6 PRN PRN Reason: Shortness of Breath Last Admin: 02/01/18 00:04 Dose: 3 ml Atropine Sulfate (Atropisol 1% Oph) 1 drop OS BID [facility] Last Admin: 02/01/18 16:44 Dose: 1 drop Bisacodyl (Dulcolax) 10 mg [place] DAILY [facility] Last Admin: 01/31/18 16:31 Dose: Not Given Enoxaparin Sodium (Lovenox) 40 mg SC DAILY [facility] PRN Reason: Protocol Last Admin: 02/01/18 10:31 Dose: 40 mg Famotidine (Pepcid) 20 mg PEG BID [facility] Ferrous Sulfate (Feosol Liq) 300 mg PEG DAILY [facility] Last Admin: 02/01/18 10:33 Dose: 300 mg Midodrine (Proamatine) 5 mg PEG TID [facility] Last Admin: 02/01/18 16:40 Dose: 5 mg Mupirocin (Bactroban Ointment) 1 applic TOP BID [facility] Last Admin: 02/01/18 16:46 Dose: 1 applic Nystatin (Nystop Topical Powder) 1 applic TOP TID [facility] Last Admin: 02/01/18 16:45 Dose: 1 applic Nystatin (Nystatin Oral Susp) 5 ml PO Q12 [facility] Last Admin: 02/01/18 10:33 Dose: 5 ml Nystatin (Nystop Topical Powder) 1 applic TOP TID [facility] Last Admin: 02/01/18 16:45 Dose: 1 applic Silver Sulfadiazine (Silvadene 1% 20 Gm) 1 ea TOP BID [facility] Last Admin: 02/01/18 16:41 Dose: 1 ea Simethicone (Mylicon Liq) 40 mg PO QID PRN PRN Reason: Flatulence Last Admin: 02/01/18 12:09 Dose: 40 mg Tobramycin/Dexamethasone (Tobradex Opht Susp) 1 drop OU BID [facility] Last Admin: 02/01/18 16:44 Dose: 1 drop Valproate Sodium (Depakene Oral Soln) 500 mg PEG BID [facility] Last Admin: 02/01/18 16:46 Dose: 500 mg Vitamin A (Vitamin A&D) 1 applic TP Q8 PRN PRN Reason: Until an adequate response is Last Admin: 01/31/18 16:36 Dose: 1 applic - Labs Labs: 02/01/18 04:13 02/01/18 04:13 PT 14.7 Seconds (9.8-13.1) H 01/25/18 15:45 INR 1.3 01/25/18 15:45 APTT 21.9 Seconds (25.6-37.1) L 01/25/18 15:45
[2018-02-01] MEDS ORDERED: methylPREDNISolone 125 MG in Sodium Chloride 0.9% 50 ML IVPB ONE (17:12)
[2018-02-01] MEDS ORDERED: Acetaminophen 650mg/20.3ml solution UD PO ONE (17:13)
[2018-02-01] MEDS ORDERED: DiphenhydrAMINE 50 mg/ml Inj IVP ONE (17:39)
--- NOTE | 2018-02-01 18:02 | CP.PCM.PN ---
Subjective - Date & Time of Evaluation Date of Evaluation: 01/27/18 Time of Evaluation: 10:30 - Subjective Subjective: Patient remains without any response. Noted decrease in BUN to 113. Has no fever but WBC remains elevated, 16.2 and hgb is stable. Currently on IV antibiotics and fluids. CT scan pending Objective - Vital Signs/Intake and Output Vital Signs (last 24 hours): Temp Pulse Resp BP Pulse Ox 98.0 F 75 17 103/45 L 97 02/01/18 16:00 02/01/18 17:00 02/01/18 17:00 02/01/18 17:00 02/01/18 17:00 Intake and Output: 02/01/18 02/01/18 06:59 18:59 Intake Total 872 100 Output Total 700 1000 Balance 172 -900 - Medications Medications: Current Medications Albuterol/Ipratropium (Duoneb 3 Mg/0.5 Mg (3 Ml) Ud) 3 ml INH RQID [facility] Last Admin: 02/01/18 15:39 Dose: 3 ml Albuterol/Ipratropium (Duoneb 3 Mg/0.5 Mg (3 Ml) Ud) 3 ml INH RQ6 PRN PRN Reason: Shortness of Breath Last Admin: 02/01/18 00:04 Dose: 3 ml Atropine Sulfate (Atropisol 1% [facility]) 1 drop OS BID [facility] Last Admin: 02/01/18 16:44 Dose: 1 drop Bisacodyl (Dulcolax) 10 mg [place] DAILY [facility] Last Admin: 01/31/18 16:31 Dose: Not Given Enoxaparin Sodium (Lovenox) 40 mg SC DAILY [facility] PRN Reason: Protocol Last Admin: 02/01/18 10:31 Dose: 40 mg Famotidine (Pepcid) 20 mg PEG BID [facility] Last Admin: 02/01/18 16:54 Dose: 20 mg Ferrous Sulfate (Feosol Liq) 300 mg PEG DAILY [facility] Last Admin: 02/01/18 10:33 Dose: 300 mg Amikacin Sulfate 500 mg/ (Sodium Chloride) 102 mls @ 101.185 mls/hr IVPB Q24H [facility] PRN Reason: Protocol Last Admin: 02/01/18 17:36 Dose: Not Given Ceftazidime/Avibactam 2.5 gm/ (Sodium Chloride) 100 mls @ 100 mls/hr IVPB Q8H [facility] PRN Reason: Protocol Midodrine (Proamatine) 5 mg PEG TID [facility] Last Admin: 02/01/18 16:40 Dose: 5 mg Mupirocin (Bactroban Ointment) 1 applic TOP BID [facility] Last Admin: 02/01/18 16:46 Dose: 1 applic Nystatin (Nystop Topical Powder) 1 applic TOP TID [facility] Last Admin: 02/01/18 16:45 Dose: 1 applic Nystatin (Nystatin Oral Susp) 5 ml PO Q12 [facility] Last Admin: 02/01/18 10:33 Dose: 5 ml Nystatin (Nystop Topical Powder) 1 applic TOP TID [facility] Last Admin: 02/01/18 16:45 Dose: 1 applic Silver Sulfadiazine (Silvadene 1% 20 Gm) 1 ea TOP BID [facility] Last Admin: 02/01/18 16:41 Dose: 1 ea Simethicone (Mylicon Liq) 40 mg PO QID PRN PRN Reason: Flatulence Last Admin: 02/01/18 12:09 Dose: 40 mg Tobramycin/Dexamethasone (Tobradex Opht Susp) 1 drop OU BID [facility] Last Admin: 02/01/18 16:44 Dose: 1 drop Valproate Sodium (Depakene Oral Soln) 500 mg PEG BID [facility] Last Admin: 02/01/18 16:46 Dose: 500 mg Vitamin A (Vitamin A&D) 1 applic TP Q8 PRN PRN Reason: Until an adequate response is Last Admin: 01/31/18 16:36 Dose: 1 applic - Labs Labs: 02/01/18 04:13 02/01/18 04:13 PT 14.7 Seconds (9.8-13.1) H 01/25/18 15:45 INR 1.3 01/25/18 15:45 APTT 21.9 Seconds (25.6-37.1) L 01/25/18 15:45 - Head Exam Head Exam: NORMAL INSPECTION - ENT Exam ENT Exam: Mucous Membranes Moist - Respiratory Exam Respiratory Exam: Clear to Ausculation Bilateral - GI/Abdominal Exam GI & Abdominal Exam: Normal Bowel Sounds - Neurological Exam Additional comments: non verbal Assessment and Plan (1) Severe dehydration Status: Acute (2) Altered mental status, unspecified Status: Acute (3) Hypernatremia Status: Acute (4) Unresponsive state Status: Acute (5) Pneumonia Status: Acute (6) Pleural effusion Status: Acute - Assessment and Plan (Free Text) Plan: Cont meds cautious hydration cont iv antibiotics monitor cbc lytes. Discussed with family.
--- NOTE | 2018-02-01 18:11 | CP.PCM.PN ---
Subjective - Date & Time of Evaluation Date of Evaluation: 01/28/18 Time of Evaluation: 10:00 - Subjective Subjective: Patient remains stable Has no chest pain or SOB Afebrile Noted proteus on C and S sputum Noted better hydration Noted improvement of BUN Objective - Vital Signs/Intake and Output Vital Signs (last 24 hours): Temp Pulse Resp BP Pulse Ox 98.0 F 75 17 103/45 L 97 02/01/18 16:00 02/01/18 17:00 02/01/18 17:00 02/01/18 17:00 02/01/18 17:00 Intake and Output: 02/01/18 02/01/18 06:59 18:59 Intake Total 872 100 Output Total 700 1000 Balance 172 -900 - Medications Medications: Current Medications Albuterol/Ipratropium (Duoneb 3 Mg/0.5 Mg (3 Ml) Ud) 3 ml INH RQID [facility] Last Admin: 02/01/18 15:39 Dose: 3 ml Albuterol/Ipratropium (Duoneb 3 Mg/0.5 Mg (3 Ml) Ud) 3 ml INH RQ6 PRN PRN Reason: Shortness of Breath Last Admin: 02/01/18 00:04 Dose: 3 ml Atropine Sulfate (Atropisol 1% Oph) 1 drop OS BID [facility] Last Admin: 02/01/18 16:44 Dose: 1 drop Bisacodyl (Dulcolax) 10 mg [place] DAILY [facility] Last Admin: 01/31/18 16:31 Dose: Not Given Enoxaparin Sodium (Lovenox) 40 mg SC DAILY [facility] PRN Reason: Protocol Last Admin: 02/01/18 10:31 Dose: 40 mg Famotidine (Pepcid) 20 mg PEG BID [facility] Last Admin: 02/01/18 16:54 Dose: 20 mg Ferrous Sulfate (Feosol Liq) 300 mg PEG DAILY [facility] Last Admin: 02/01/18 10:33 Dose: 300 mg Amikacin Sulfate 500 mg/ (Sodium Chloride) 102 mls @ 101.185 mls/hr IVPB Q24H [facility] PRN Reason: Protocol Last Admin: 02/01/18 17:36 Dose: Not Given Ceftazidime/Avibactam 2.5 gm/ (Sodium Chloride) 100 mls @ 100 mls/hr IVPB Q8H [facility] PRN Reason: Protocol Midodrine (Proamatine) 5 mg PEG TID [facility] Last Admin: 02/01/18 16:40 Dose: 5 mg Mupirocin (Bactroban Ointment) 1 applic TOP BID [facility] Last Admin: 02/01/18 16:46 Dose: 1 applic Nystatin (Nystop Topical Powder) 1 applic TOP TID [facility] Last Admin: 02/01/18 16:45 Dose: 1 applic Nystatin (Nystatin Oral Susp) 5 ml PO Q12 [facility] Last Admin: 02/01/18 10:33 Dose: 5 ml Nystatin (Nystop Topical Powder) 1 applic TOP TID [facility] Last Admin: 02/01/18 16:45 Dose: 1 applic Silver Sulfadiazine (Silvadene 1% 20 Gm) 1 ea TOP BID [facility] Last Admin: 02/01/18 16:41 Dose: 1 ea Simethicone (Mylicon Liq) 40 mg PO QID PRN PRN Reason: Flatulence Last Admin: 02/01/18 12:09 Dose: 40 mg Tobramycin/Dexamethasone (Tobradex Opht Susp) 1 drop OU BID [facility] Last Admin: 02/01/18 16:44 Dose: 1 drop Valproate Sodium (Depakene Oral Soln) 500 mg PEG BID [facility] Last Admin: 02/01/18 16:46 Dose: 500 mg Vitamin A (Vitamin A&D) 1 applic TP Q8 PRN PRN Reason: Until an adequate response is Last Admin: 01/31/18 16:36 Dose: 1 applic - Labs Labs: 02/01/18 04:13 02/01/18 04:13 PT 14.7 Seconds (9.8-13.1) H 01/25/18 15:45 INR 1.3 01/25/18 15:45 APTT 21.9 Seconds (25.6-37.1) L 01/25/18 15:45 - Head Exam Head Exam: NORMAL INSPECTION - ENT Exam ENT Exam: Mucous Membranes Moist - Respiratory Exam Respiratory Exam: Clear to Ausculation Bilateral - Cardiovascular Exam Cardiovascular Exam: REGULAR RHYTHM - GI/Abdominal Exam GI & Abdominal Exam: Normal Bowel Sounds Assessment and Plan (1) Severe dehydration Status: Acute (2) Altered mental status, unspecified Status: Acute (3) Hypernatremia Status: Acute (4) Unresponsive state Status: Acute (5) Pneumonia Status: Acute (6) Pleural effusion Status: Acute - Assessment and Plan (Free Text) Plan: Cont meds Cont tx Cont hydration
--- NOTE | 2018-02-01 18:17 | CP.PCM.PN ---
Subjective - Date & Time of Evaluation Date of Evaluation: 01/29/18 Time of Evaluation: 09:20 - Subjective Subjective: Patent is much more awake Opens eyes. responds to simple commands. Has no fever. WBC still elevated. Objective - Vital Signs/Intake and Output Vital Signs (last 24 hours): Temp Pulse Resp BP Pulse Ox 98.0 F 75 17 103/45 L 97 02/01/18 16:00 02/01/18 17:00 02/01/18 17:00 02/01/18 17:00 02/01/18 17:00 Intake and Output: 02/01/18 02/01/18 06:59 18:59 Intake Total 872 100 Output Total 700 1000 Balance 172 -900 - Medications Medications: Current Medications Albuterol/Ipratropium (Duoneb 3 Mg/0.5 Mg (3 Ml) Ud) 3 ml INH RQID [facility] Last Admin: 02/01/18 15:39 Dose: 3 ml Albuterol/Ipratropium (Duoneb 3 Mg/0.5 Mg (3 Ml) Ud) 3 ml INH RQ6 PRN PRN Reason: Shortness of Breath Last Admin: 02/01/18 00:04 Dose: 3 ml Atropine Sulfate (Atropisol 1% Oph) 1 drop OS BID [facility] Last Admin: 02/01/18 16:44 Dose: 1 drop Bisacodyl (Dulcolax) 10 mg [place] DAILY [facility] Last Admin: 01/31/18 16:31 Dose: Not Given Enoxaparin Sodium (Lovenox) 40 mg [place] DAILY [facility] PRN Reason: Protocol Last Admin: 02/01/18 10:31 Dose: 40 mg Famotidine (Pepcid) 20 mg PEG BID [facility] Last Admin: 02/01/18 16:54 Dose: 20 mg Ferrous Sulfate (Feosol Liq) 300 mg PEG DAILY [facility] Last Admin: 02/01/18 10:33 Dose: 300 mg Amikacin Sulfate 500 mg/ (Sodium Chloride) 102 mls @ 101.185 mls/hr IVPB Q24H [facility] PRN Reason: Protocol Last Admin: 02/01/18 17:36 Dose: Not Given Ceftazidime/Avibactam 2.5 gm/ (Sodium Chloride) 100 mls @ 100 mls/hr IVPB Q8H [facility] PRN Reason: Protocol Midodrine (Proamatine) 5 mg PEG TID [facility] Last Admin: 02/01/18 16:40 Dose: 5 mg Mupirocin (Bactroban Ointment) 1 applic TOP BID [facility] Last Admin: 02/01/18 16:46 Dose: 1 applic Nystatin (Nystop Topical Powder) 1 applic TOP TID [facility] Last Admin: 02/01/18 16:45 Dose: 1 applic Nystatin (Nystatin Oral Susp) 5 ml PO Q12 [facility] Last Admin: 02/01/18 10:33 Dose: 5 ml Nystatin (Nystop Topical Powder) 1 applic TOP TID [facility] Last Admin: 02/01/18 16:45 Dose: 1 applic Silver Sulfadiazine (Silvadene 1% 20 Gm) 1 ea TOP BID [facility] Last Admin: 02/01/18 16:41 Dose: 1 ea Simethicone (Mylicon Liq) 40 mg PO QID PRN PRN Reason: Flatulence Last Admin: 02/01/18 12:09 Dose: 40 mg Tobramycin/Dexamethasone (Tobradex Opht Susp) 1 drop OU BID [facility] Last Admin: 02/01/18 16:44 Dose: 1 drop Valproate Sodium (Depakene Oral Soln) 500 mg PEG BID [facility] Last Admin: 02/01/18 16:46 Dose: 500 mg Vitamin A (Vitamin A&D) 1 applic TP Q8 PRN PRN Reason: Until an adequate response is Last Admin: 01/31/18 16:36 Dose: 1 applic - Labs Labs: 02/01/18 04:13 02/01/18 04:13 PT 14.7 Seconds (9.8-13.1) H 01/25/18 15:45 INR 1.3 01/25/18 15:45 APTT 21.9 Seconds (25.6-37.1) L 01/25/18 15:45 - Head Exam Head Exam: NORMAL INSPECTION - Eye Exam Eye Exam: Normal appearance - Cardiovascular Exam Cardiovascular Exam: REGULAR RHYTHM - GI/Abdominal Exam GI & Abdominal Exam: Normal Bowel Sounds - Neurological Exam Neurological Exam: Altered Assessment and Plan (1) Severe dehydration Status: Acute (2) Altered mental status, unspecified Status: Acute (3) Hypernatremia Status: Acute (4) Unresponsive state Status: Acute (5) Pneumonia Status: Acute (6) Pleural effusion Status: Acute - Assessment and Plan (Free Text) Plan: Cont meds Cont tx Cont iv antibiotics discussed with family.
--- NOTE | 2018-02-01 18:21 | CP.PCM.PN ---
Subjective - Date & Time of Evaluation Date of Evaluation: 01/30/18 Time of Evaluation: 10:00 - Subjective Subjective: patient remains stable Noted further improvement of BUN.now at 77. Noted swelling on both hands. family is worried Objective - Vital Signs/Intake and Output Vital Signs (last 24 hours): Temp Pulse Resp BP Pulse Ox 98.0 F 75 17 103/45 L 97 02/01/18 16:00 02/01/18 17:00 02/01/18 17:00 02/01/18 17:00 02/01/18 17:00 Intake and Output: 02/01/18 02/01/18 06:59 18:59 Intake Total 872 100 Output Total 700 1000 Balance 172 -900 - Medications Medications: Current Medications Albuterol/Ipratropium (Duoneb 3 Mg/0.5 Mg (3 Ml) Ud) 3 ml INH RQID [facility] Last Admin: 02/01/18 15:39 Dose: 3 ml Albuterol/Ipratropium (Duoneb 3 Mg/0.5 Mg (3 Ml) Ud) 3 ml INH RQ6 PRN PRN Reason: Shortness of Breath Last Admin: 02/01/18 00:04 Dose: 3 ml Atropine Sulfate (Atropisol 1% Oph) 1 drop OS BID [facility] Last Admin: 02/01/18 16:44 Dose: 1 drop Bisacodyl (Dulcolax) 10 mg [place] DAILY [facility] Last Admin: 01/31/18 16:31 Dose: Not Given Enoxaparin Sodium (Lovenox) 40 mg [place] DAILY [facility] PRN Reason: Protocol Last Admin: 02/01/18 10:31 Dose: 40 mg Famotidine (Pepcid) 20 mg PEG BID [facility] Last Admin: 02/01/18 16:54 Dose: 20 mg Ferrous Sulfate (Feosol Liq) 300 mg PEG DAILY [facility] Last Admin: 02/01/18 10:33 Dose: 300 mg Amikacin Sulfate 500 mg/ (Sodium Chloride) 102 mls @ 101.185 mls/hr IVPB Q24H [facility] PRN Reason: Protocol Last Admin: 02/01/18 17:36 Dose: Not Given Ceftazidime/Avibactam 2.5 gm/ (Sodium Chloride) 100 mls @ 100 mls/hr IVPB Q8H [facility] PRN Reason: Protocol Midodrine (Proamatine) 5 mg PEG TID [facility] Last Admin: 02/01/18 16:40 Dose: 5 mg Mupirocin (Bactroban Ointment) 1 applic TOP BID [facility] Last Admin: 02/01/18 16:46 Dose: 1 applic Nystatin (Nystop Topical Powder) 1 applic TOP TID [facility] Last Admin: 02/01/18 16:45 Dose: 1 applic Nystatin (Nystatin Oral Susp) 5 ml PO Q12 [facility] Last Admin: 02/01/18 10:33 Dose: 5 ml Nystatin (Nystop Topical Powder) 1 applic TOP TID [facility] Last Admin: 02/01/18 16:45 Dose: 1 applic Silver Sulfadiazine (Silvadene 1% 20 Gm) 1 ea TOP BID [facility] Last Admin: 02/01/18 16:41 Dose: 1 ea Simethicone (Mylicon Liq) 40 mg PO QID PRN PRN Reason: Flatulence Last Admin: 02/01/18 12:09 Dose: 40 mg Tobramycin/Dexamethasone (Tobradex Opht Susp) 1 drop OU BID [facility] Last Admin: 02/01/18 16:44 Dose: 1 drop Valproate Sodium (Depakene Oral Soln) 500 mg PEG BID [facility] Last Admin: 02/01/18 16:46 Dose: 500 mg Vitamin A (Vitamin A&D) 1 applic TP Q8 PRN PRN Reason: Until an adequate response is Last Admin: 01/31/18 16:36 Dose: 1 applic - Labs Labs: 02/01/18 04:13 02/01/18 04:13 PT 14.7 Seconds (9.8-13.1) H 01/25/18 15:45 INR 1.3 01/25/18 15:45 APTT 21.9 Seconds (25.6-37.1) L 01/25/18 15:45 - Head Exam Head Exam: NORMAL INSPECTION - ENT Exam ENT Exam: Mucous Membranes Moist - Respiratory Exam Respiratory Exam: Clear to Ausculation Bilateral - Cardiovascular Exam Cardiovascular Exam: Irregular Rhythm - GI/Abdominal Exam GI & Abdominal Exam: Normal Bowel Sounds - Neurological Exam Neurological Exam: Altered Assessment and Plan (1) Severe dehydration Status: Acute (2) Altered mental status, unspecified Status: Acute (3) Hypernatremia Status: Acute (4) Unresponsive state Status: Acute (5) Pneumonia Status: Acute (6) Pleural effusion Status: Acute - Assessment and Plan (Free Text) Plan: Cont meds Comnt tx Cont hydration
--- NOTE | 2018-02-01 18:42 | CP.PCM.PN ---
Subjective - Date & Time of Evaluation Date of Evaluation: 02/01/18 Time of Evaluation: 18:30 - Subjective Subjective: Patient is clinically unchanged. long discussion with the family regarding timing of PPM change Objective - Vital Signs/Intake and Output Vital Signs (last 24 hours): Temp Pulse Resp BP Pulse Ox 98.0 F 75 17 103/45 L 97 02/01/18 16:00 02/01/18 17:00 02/01/18 17:00 02/01/18 17:00 02/01/18 17:00 Intake and Output: 02/01/18 02/01/18 06:59 18:59 Intake Total 872 100 Output Total 700 1000 Balance 172 -900 - Medications Medications: Current Medications Albuterol/Ipratropium (Duoneb 3 Mg/0.5 Mg (3 Ml) Ud) 3 ml INH RQID [facility] Last Admin: 02/01/18 15:39 Dose: 3 ml Albuterol/Ipratropium (Duoneb 3 Mg/0.5 Mg (3 Ml) Ud) 3 ml INH RQ6 PRN PRN Reason: Shortness of Breath Last Admin: 02/01/18 00:04 Dose: 3 ml Atropine Sulfate (Atropisol 1% Oph) 1 drop OS BID [facility] Last Admin: 02/01/18 16:44 Dose: 1 drop Bisacodyl (Dulcolax) 10 mg [place] DAILY [facility] Last Admin: 01/31/18 16:31 Dose: Not Given Enoxaparin Sodium (Lovenox) 40 mg [place] DAILY [facility] PRN Reason: Protocol Last Admin: 02/01/18 10:31 Dose: 40 mg Famotidine (Pepcid) 20 mg PEG BID [facility] Last Admin: 02/01/18 16:54 Dose: 20 mg Ferrous Sulfate (Feosol Liq) 300 mg PEG DAILY [facility] Last Admin: 02/01/18 10:33 Dose: 300 mg Amikacin Sulfate 500 mg/ (Sodium Chloride) 102 mls @ 101.185 mls/hr IVPB Q24H [facility] PRN Reason: Protocol Last Admin: 02/01/18 17:36 Dose: Not Given Ceftazidime/Avibactam 2.5 gm/ (Sodium Chloride) 100 mls @ 100 mls/hr IVPB Q8H [facility] PRN Reason: Protocol Midodrine (Proamatine) 5 mg PEG TID [facility] Last Admin: 02/01/18 16:40 Dose: 5 mg Mupirocin (Bactroban Ointment) 1 applic TOP BID [facility] Last Admin: 02/01/18 16:46 Dose: 1 applic Nystatin (Nystop Topical Powder) 1 applic TOP TID [facility] Last Admin: 02/01/18 16:45 Dose: 1 applic Nystatin (Nystatin Oral Susp) 5 ml PO Q12 [facility] Last Admin: 02/01/18 10:33 Dose: 5 ml Nystatin (Nystop Topical Powder) 1 applic TOP TID [facility] Last Admin: 02/01/18 16:45 Dose: 1 applic Silver Sulfadiazine (Silvadene 1% 20 Gm) 1 ea TOP BID [facility] Last Admin: 02/01/18 16:41 Dose: 1 ea Simethicone (Mylicon Liq) 40 mg PO QID PRN PRN Reason: Flatulence Last Admin: 02/01/18 12:09 Dose: 40 mg Tobramycin/Dexamethasone (Tobradex Opht Susp) 1 drop OU BID [facility] Last Admin: 02/01/18 16:44 Dose: 1 drop Valproate Sodium (Depakene Oral Soln) 500 mg PEG BID [facility] Last Admin: 02/01/18 16:46 Dose: 500 mg Vitamin A (Vitamin A&D) 1 applic TP Q8 PRN PRN Reason: Until an adequate response is Last Admin: 01/31/18 16:36 Dose: 1 applic - Labs Labs: 02/01/18 04:13 02/01/18 04:13 PT 14.7 Seconds (9.8-13.1) H 01/25/18 15:45 INR 1.3 01/25/18 15:45 APTT 21.9 Seconds (25.6-37.1) L 01/25/18 15:45 - Constitutional Appears: Chronically Ill - ENT Exam ENT Exam: Mucous Membranes Dry - Neck Exam Neck Exam: Normal Inspection - Respiratory Exam Respiratory Exam: Decreased Breath Sounds - Cardiovascular Exam Cardiovascular Exam: REGULAR RHYTHM - GI/Abdominal Exam GI & Abdominal Exam: Hypoactive Bowel Sounds - Rectal Exam Rectal Exam: Deferred - Extremities Exam Extremities Exam: Pedal Edema - Skin Skin Exam: Normal Color Assessment and Plan (1) Sick sinus syndrome Assessment & Plan: will need PPM change once cleared of ID issues. discussed with family in detail Status: Acute (2) Hypernatremia Assessment & Plan: resolved Status: Acute
--- NOTE | 2018-02-01 18:48 | CP.PCM.PN ---
Subjective - Date & Time of Evaluation Date of Evaluation: 01/31/18 Time of Evaluation: 10:00 - Subjective Subjective: Patient is stable BUN is now 66 Has no fever, Objective - Vital Signs/Intake and Output Vital Signs (last 24 hours): Temp Pulse Resp BP Pulse Ox 98.0 F 75 17 103/45 L 97 02/01/18 16:00 02/01/18 17:00 02/01/18 17:00 02/01/18 17:00 02/01/18 17:00 Intake and Output: 02/01/18 02/01/18 06:59 18:59 Intake Total 872 100 Output Total 700 1000 Balance 172 -900 - Medications Medications: Current Medications Albuterol/Ipratropium (Duoneb 3 Mg/0.5 Mg (3 Ml) Ud) 3 ml INH RQID [facility] Last Admin: 02/01/18 15:39 Dose: 3 ml Albuterol/Ipratropium (Duoneb 3 Mg/0.5 Mg (3 Ml) Ud) 3 ml INH RQ6 PRN PRN Reason: Shortness of Breath Last Admin: 02/01/18 00:04 Dose: 3 ml Atropine Sulfate (Atropisol 1% Oph) 1 drop OS BID [facility] Last Admin: 02/01/18 16:44 Dose: 1 drop Bisacodyl (Dulcolax) 10 mg [place] DAILY [facility] Last Admin: 01/31/18 16:31 Dose: Not Given Enoxaparin Sodium (Lovenox) 40 mg [place] DAILY [facility] PRN Reason: Protocol Last Admin: 02/01/18 10:31 Dose: 40 mg Famotidine (Pepcid) 20 mg PEG BID [facility] Last Admin: 02/01/18 16:54 Dose: 20 mg Ferrous Sulfate (Feosol Liq) 300 mg PEG DAILY [facility] Last Admin: 02/01/18 10:33 Dose: 300 mg Amikacin Sulfate 500 mg/ (Sodium Chloride) 102 mls @ 101.185 mls/hr IVPB Q24H [facility] PRN Reason: Protocol Last Admin: 02/01/18 17:36 Dose: Not Given Ceftazidime/Avibactam 2.5 gm/ (Sodium Chloride) 100 mls @ 100 mls/hr IVPB Q8H [facility] PRN Reason: Protocol Midodrine (Proamatine) 5 mg PEG TID [facility] Last Admin: 02/01/18 16:40 Dose: 5 mg Mupirocin (Bactroban Ointment) 1 applic TOP BID [facility] Last Admin: 02/01/18 16:46 Dose: 1 applic Nystatin (Nystop Topical Powder) 1 applic TOP TID [facility] Last Admin: 02/01/18 16:45 Dose: 1 applic Nystatin (Nystatin Oral Susp) 5 ml PO Q12 [facility] Last Admin: 02/01/18 10:33 Dose: 5 ml Nystatin (Nystop Topical Powder) 1 applic TOP TID [facility] Last Admin: 02/01/18 16:45 Dose: 1 applic Silver Sulfadiazine (Silvadene 1% 20 Gm) 1 ea TOP BID [facility] Last Admin: 02/01/18 16:41 Dose: 1 ea Simethicone (Mylicon Liq) 40 mg PO QID PRN PRN Reason: Flatulence Last Admin: 02/01/18 12:09 Dose: 40 mg Tobramycin/Dexamethasone (Tobradex Opht Susp) 1 drop OU BID [facility] Last Admin: 02/01/18 16:44 Dose: 1 drop Valproate Sodium (Depakene Oral Soln) 500 mg PEG BID [facility] Last Admin: 02/01/18 16:46 Dose: 500 mg Vitamin A (Vitamin A&D) 1 applic TP Q8 PRN PRN Reason: Until an adequate response is Last Admin: 01/31/18 16:36 Dose: 1 applic - Labs Labs: 02/01/18 04:13 02/01/18 04:13 PT 14.7 Seconds (9.8-13.1) H 01/25/18 15:45 INR 1.3 01/25/18 15:45 APTT 21.9 Seconds (25.6-37.1) L 01/25/18 15:45 - Head Exam Head Exam: NORMAL INSPECTION - Eye Exam Eye Exam: Normal appearance - Respiratory Exam Respiratory Exam: Clear to Ausculation Bilateral - Cardiovascular Exam Cardiovascular Exam: Irregular Rhythm - GI/Abdominal Exam GI & Abdominal Exam: Normal Bowel Sounds - Neurological Exam Neurological Exam: Altered Assessment and Plan (1) Severe dehydration Status: Acute (2) Altered mental status, unspecified Status: Acute (3) Hypernatremia Status: Acute (4) Unresponsive state Status: Acute (5) Pneumonia Status: Acute (6) Pleural effusion Status: Acute - Assessment and Plan (Free Text) Plan: Cont meds Cont cautious hydration Con ttx
[2018-02-02] MEDS: Albuterol-Ipratrop 3 mg / 0.5 (3 ml) UD INH SCH ×4 (07:48→19:16)
[2018-02-02] MEDS: Valproic Acid 250 mg/5 ml UD Cup PEG SCH ×2 (08:10→18:29)
[2018-02-02] MEDS: Silver Sulfadiazine 1% Cream (20 gm) TOP SCH ×2 (08:10→16:11)
[2018-02-02] MEDS: Enoxaparin 40 mg Syringe SC SCH (08:11)
[2018-02-02] MEDS: Ferrous Sulfate 300 mg/5 mL Liq UD PEG SCH (08:12)
[2018-02-02] MEDS: Nystatin 100,000 Units/ml Oral Susp 5 ml UD PO SCH ×2 (08:13→20:52)
[2018-02-02] MEDS: Dexamethasone/Tobramycin Ophth Susp OU SCH ×2 (08:15→16:10)
[2018-02-02] MEDS: ATROPINE 1% OS SCH ×2 (08:16→16:09)
[2018-02-02] MEDS: Mupirocin 2% Oint 1GM UD TOP SCH ×2 (08:17→16:14)
--- NOTE | 2018-02-02 08:34 | CP.PCM.PN ---
Subjective - Date & Time of Evaluation Date of Evaluation: 02/02/18 Time of Evaluation: 08:34 - Subjective Subjective: Mr. Keller was seen and examined at the bedside in ICU. He remains on a mechanical ventilator via trach on PRVC mode. His eyes are open with pupils have cloudiness,minimal grimacing with noxious stimuli, breaths over the set resp. vent. settings, weak gag reflex, GCS- 4T. Family does all the ADL's. Preliminary reading of EEG showed no seizure activity.Family request for another re-assessment for the patient muscular dystrophy.There was no untoward events overnight. Objective - Vital Signs/Intake and Output Vital Signs (last 24 hours): Temp Pulse Resp BP Pulse Ox 98.0 F 69 20 127/48 L 100 02/02/18 04:00 02/02/18 07:00 02/02/18 07:00 02/02/18 07:00 02/02/18 07:00 Intake and Output: 02/02/18 02/02/18 06:59 18:59 Intake Total 1006 Output Total 1 Balance 1005 - Medications Medications: Current Medications Albuterol/Ipratropium (Duoneb 3 Mg/0.5 Mg (3 Ml) Ud) 3 ml INH RQID [facility] Last Admin: 02/02/18 07:48 Dose: 3 ml Albuterol/Ipratropium (Duoneb 3 Mg/0.5 Mg (3 Ml) Ud) 3 ml INH RQ6 PRN PRN Reason: Shortness of Breath Last Admin: 02/01/18 00:04 Dose: 3 ml Atropine Sulfate (Atropisol 1% Oph) 1 drop OS BID [facility] Last Admin: 02/02/18 08:16 Dose: 1 drop Bisacodyl (Dulcolax) 10 mg [place] DAILY [facility] Last Admin: 01/31/18 16:31 Dose: Not Given Enoxaparin Sodium (Lovenox) 40 mg SC DAILY [facility] PRN Reason: Protocol Last Admin: 02/02/18 08:11 Dose: 40 mg Famotidine (Pepcid) 20 mg PEG BID [facility] Last Admin: 02/02/18 08:14 Dose: 20 mg Ferrous Sulfate (Feosol Liq) 300 mg PEG DAILY [facility] Last Admin: 02/02/18 08:12 Dose: 300 mg Amikacin Sulfate 500 mg/ (Sodium Chloride) 102 mls @ 101.185 mls/hr IVPB Q24H [facility] PRN Reason: Protocol Last Admin: 02/01/18 17:36 Dose: Not Given Ceftazidime/Avibactam 2.5 gm/ (Sodium Chloride) 100 mls @ 100 mls/hr IVPB Q8H [facility] PRN Reason: Protocol Last Admin: 02/02/18 01:12 Dose: 100 mls/hr Midodrine (Proamatine) 5 mg PEG TID [facility] Last Admin: 02/02/18 08:13 Dose: 5 mg Mupirocin (Bactroban Ointment) 1 applic TOP BID [facility] Last Admin: 02/02/18 08:17 Dose: 1 applic Nystatin (Nystop Topical Powder) 1 applic TOP TID [facility] Last Admin: 02/02/18 08:16 Dose: 1 applic Nystatin (Nystatin Oral Susp) 5 ml PO Q12 [facility] Last Admin: 02/02/18 08:13 Dose: 5 ml Nystatin (Nystop Topical Powder) 1 applic TOP TID [facility] Last Admin: 02/02/18 08:16 Dose: 1 applic Silver Sulfadiazine (Silvadene 1% 20 Gm) 1 ea TOP BID [facility] Last Admin: 02/02/18 08:10 Dose: 1 ea Simethicone (Mylicon Liq) 40 mg PO QID PRN PRN Reason: Flatulence Last Admin: 02/01/18 12:09 Dose: 40 mg Tobramycin/Dexamethasone (Tobradex Opht Susp) 1 drop OU BID [facility] Last Admin: 02/02/18 08:15 Dose: 1 drop Valproate Sodium (Depakene Oral Soln) 500 mg PEG BID [facility] Last Admin: 02/02/18 08:10 Dose: 500 mg Vitamin A (Vitamin A&D) 1 applic TP Q8 PRN PRN Reason: Until an adequate response is Last Admin: 01/31/18 16:36 Dose: 1 applic - Labs Labs: 02/01/18 04:13 02/01/18 04:13 PT 14.7 Seconds (9.8-13.1) H 01/25/18 15:45 INR 1.3 01/25/18 15:45 APTT 21.9 Seconds (25.6-37.1) L 08/22/18 15:45 - Constitutional Appears: No Acute Distress - Head Exam Head Exam: NORMAL INSPECTION - Eye Exam Additional comments: bilateral cloudiness in the pupils. - Neurological Exam Neuro motor strength exam: Left Upper Extremity: 0, Right Upper Extremity: 0, Left Lower Extremity: 0, Right Lower Extremity: 0 Additional comments: GCS- 4T Assessment and Plan (1) Altered mental status, unspecified Assessment & Plan: Case discussed with Dr. Maciel, continue all current medical regimen. Pending EEG results. Recommend to treat any electrolyte abnormalities, treat any s/s infection, keep head of the bed elevated at least 30 degrees. Status: Acute
--- NOTE | 2018-02-02 08:36 | CP.CCUPN ---
CCU Subjective - Physician Review Subjective (Free Text): No recurrent, observable seizure activity. Family state he is more responsive. Observed him moving eyes spontaneously and to verbal commands. Family is conversing and reading to him. Afebrile, no fever spikes, BP now 110 systolic on Levophed at 15 mcg /min dose, HR paced now at 70. Midline PICC in RUE not functioning well, unable to draw blood. Multiple doses of Cathflow administered without improvement. Freeflow infusion is good. Two MDR organisms isolated from trach secretion cultures from day#1 of hospitalization, Clindamycin and Amikacin switched to Avycaz. He is penicillin allergic, so far no cross reactivity to cephalosporins nor to other bactam component of Avycaz. Other vitals and I/O's reviewed. ROS: No other pertinent negs or positives on 10+ system review as per family. PMSFH: All other Nursing and physician documentation reviewed to date; no new pertinent info noted relevant to current medical problems. EXAM- HEENT: no icterus, no gaze preference, opacified R pupil, Left pupil 2-3 mm size , no reactivity, oral mm moist NECK: No JVD visible, supple, carotids equal upstroke bilat/no bruits, trach stoma intact, no redness. CHEST: decreased BS bases, no wheezes audible HEART: Irregular, distant, S1S2, no rubs ABD: soft, rotund, no increased distention, no tympany, no focal tenderness, BS hypoactive, no rebound. EXT: ++ edema; no peripheral/ digital cyanosis, no calf tenderness or palpable cords, distal pulses intact and symmetrical. ++ scrotal edema NEURO: increased tone present in LUE only. SKIN: small macular erythematous rash over R anteromedial thigh area1, otherwise warm and dry. LABS: yesterday's values- WBC= 19.4 HGB= 9.2 PLTs= 331K 7.26/50/132 Us=911 K= 3.7 CL= 107 HCO3= 21 BUN/Cr= 74/0.4 BS= 136 EEG: prelim results show no seizure activity captured. IMPRESSION / MAJOR PROBLEMS NOW: 1. Metabolic Encephalopathy with Hyperosmolar State; Hypernatremia, Uremia, Hyperkalemia 2. New Onset Occult Seizure Disorder 3. R Basilar Pneumonitis / Atelectasis, and bilateral effusions 4. Chronic disease Anemia 5. Advanced Muscular Dystrophy with ventilator dependency PLAN: 1. MV support. No MV weans to trach collar anticipated at this time. Trach tube chnaged yesterday. 2. Persistent rising WBC, repeat Sputum , and blood cultures. Consider straight cath urine for UA and urine culture. 3. Avycaz sensitivity noted against MDR P.mirabilis and K. pneumoniae. 4. Plans for PPM upgrade noted as soon as current infections have cleared. 5. Midodrine started in order to help wean off IV vasopressors. Mixed venous SvO2 = 92%. 6. If no abdominal issues, will need to increase PEG feeds to caloric requirements (1800 cals). Present underfeeding (800 Cals/day) noted as we oblige family request for current feeding regimen. 7. No change or any new Advance Directives from family. They understand that their hopes are in contrast to physician and consultants outlook on patients prognosis. 8. Advised family regarding strict contact and droplet precautions regarding MDR organisms. They ( 3 family members) remain in the room ungowned and ungloved. Time spent with this patient did not overlap with any other provider's medical or critical care time. Additionally the code selected for the services rendered in this note includes the time spent: talking to the patients family, associated physicians and reviewing hospital data/results not listed here which extended to a total of 30 minutes. CCU Objective - Vital Signs / Intake & Output Vital Signs (Last 4 hours): Vital Signs Pulse Resp BP Pulse Ox 02/02/18 07:00 69 20 127/48 L 100 02/02/18 06:47 66 17 117/60 99 02/02/18 06:35 62 18 86/26 L 99 02/02/18 06:00 63 18 133/46 L 99 02/02/18 05:00 67 20 123/43 L 99 Intake and Output (Last 8hrs): Intake & Output 02/01/18 02/02/18 02/02/18 22:59 06:59 14:59 Intake Total 20 986 Output Total 1 Balance 19 986 Intake: IV 20 170 Tube Feeding 616 Free Water Flush 0 200 Output: Urine 1 Urine, Voided 1 Other: # Voids Urine, Voided 350
[2018-02-02 14:18] LABS: BASO % 0.1 % (0.0-2.0); HEMOGLOBIN 8.6 g/dL (12.0-18.0); LYMPH # 0.3 K/uL (1.0-4.3); LYMPH % 1.9 % (20.0-40.0); MEAN CELL VOLUME 82.3 fl (80.0-94.0); MEAN CORPUSCULAR HEMOGLOBIN 26.2 pg (27.0-31.0); MEAN CORPUSCULAR HGB CONC 31.9 g/dL (33.0-37.0); MEAN PLATELET VOLUME 7.8 fl (7.2-11.7); MONO # 1.2 K/uL (0.0-0.8); MONO % 6.9 % (0.0-10.0); NEUT # 16.3 K/uL (1.8-7.0); NEUT % 91.1 % (50.0-75.0); NRBC % 0.2 % (0.0-0.0); PLATELET COUNT 309 K/uL (130-400); RBC 3.27 Mil/uL (4.40-5.90); RED CELL DISTRIBUTION WIDTH 18.7 % (11.5-14.5); WHITE BLOOD COUNT 17.9 K/uL (4.8-10.8)
[2018-02-02 14:45] LABS: ALB/GLOB RATIO 0.7 (1.0-2.1); ALBUMIN 2.4 g/dL (3.5-5.0); ALT/SGPT 15 U/L (21-72); AST/SGOT 24 U/L (17-59); BLOOD UREA NITROGEN 82 mg/dl (9-20); GFR NON-AFRICAN AMERICAN > 60
[2018-02-02] MEDS ORDERED: Potassium Chloride 20 mEq/15 ml LIQ UD PEG ONE (15:31)
[2018-02-02 15:59] LABS: BANDS 3 % (0-2); LYMPHOCYTE 3 % (20-50); MONOCYTE 1 % (0-10); MYELOCYTE 3 % (0-0); NEUTROPHIL 90 % (42-75); PLATELET ESTIMATE NORMAL (NORMAL); TOTAL CELLS COUNTED 100
[2018-02-02 16:00] LABS: ANISOCYTOSIS SLIGHT
[2018-02-02 16:01] LABS: HYPOCHROMIC MODERATE; PLATELET CLUMPS PRESENT
--- NOTE | 2018-02-02 18:39 | US ---
Date of service: 02/02/2018 PROCEDURE: Left Upper Extremity Venous Doppler HISTORY: r/o SVT or DVT COMPARISON: None available. TECHNIQUE: Left upper extremity deep veins, including the lower internal jugular, subclavian, axillary and brachial veins, were evaluated flow, compressibility and respiratory phasicity. The basilic, cephalic, ulnar and radial veins were also evaluated. FINDINGS: There is intraluminal echogenic material, incompressibility and lack of Doppler flow in the proximal and midportions of the brachial vein. Normal flow, compressibility and respiratory phasicity was observed in the the remainder of the upper extremity deep veins. IMPRESSION: Occlusive deep venous thrombosis in the proximal/mid portions of the brachial vein. Preliminary results were given to SARAH Bar by the surgical technologist.
[2018-02-02] MEDS ORDERED: Enoxaparin 60 mg Syringe SC STA (18:44)
[2018-02-02] MEDS: Enoxaparin 100 mg Syringe SC SCH (21:38)
[2018-02-03] MEDS: Albuterol-Ipratrop 3 mg / 0.5 (3 ml) UD INH SCH ×4 (07:38→20:29)
[2018-02-03] MEDS: ATROPINE 1% OS SCH ×2 (08:27→16:49)
[2018-02-03] MEDS: Mupirocin 2% Oint 1GM UD TOP SCH (08:29)
[2018-02-03] MEDS: Valproic Acid 250 mg/5 ml UD Cup PEG SCH ×2 (08:30→16:52)
[2018-02-03] MEDS: Ferrous Sulfate 300 mg/5 mL Liq UD PEG SCH (08:31)
[2018-02-03] MEDS: Nystatin 100,000 Units/ml Oral Susp 5 ml UD PO SCH ×2 (08:31→20:30)
[2018-02-03] MEDS: Silver Sulfadiazine 1% Cream (20 gm) TOP SCH ×2 (08:33→16:54)
[2018-02-03] MEDS: Dexamethasone/Tobramycin Ophth Susp OU SCH ×2 (08:34→16:55)
[2018-02-03] MEDS: Enoxaparin 100 mg Syringe SC SCH ×2 (09:37→20:30)
[2018-02-03] MEDS: Simethicone 40 mg/0.6 ml Liquid (30 ml) PO PRN ×2 (10:34→21:12)
[2018-02-03 11:36] LABS: BASO % 0.1 % (0.0-2.0); HEMOGLOBIN 9.1 g/dL (12.0-18.0); LYMPH # 0.6 K/uL (1.0-4.3); LYMPH % 3.4 % (20.0-40.0); MEAN CELL VOLUME 87.4 fl (80.0-94.0); MEAN CORPUSCULAR HEMOGLOBIN 26.6 pg (27.0-31.0); MEAN CORPUSCULAR HGB CONC 30.5 g/dL (33.0-37.0); MEAN PLATELET VOLUME 7.8 fl (7.2-11.7); MONO # 1.3 K/uL (0.0-0.8); MONO % 7.6 % (0.0-10.0); NEUT # 15.1 K/uL (1.8-7.0); NEUT % 88.9 % (50.0-75.0); NRBC % 0.5 % (0.0-0.0); RBC 3.42 Mil/uL (4.40-5.90); RED CELL DISTRIBUTION WIDTH 20.2 % (11.5-14.5)
[2018-02-03 12:01] LABS: ALB/GLOB RATIO 0.8 (1.0-2.1); ALBUMIN 2.6 g/dL (3.5-5.0); ALT/SGPT 17 U/L (21-72); AST/SGOT 21 U/L (17-59); BLOOD UREA NITROGEN 87 mg/dl (9-20); CALCIUM 8.3 mg/dL (8.4-10.2); GFR NON-AFRICAN AMERICAN > 60
--- NOTE | 2018-02-03 12:07 | CP.CCUPN ---
CCU Subjective - Physician Review Subjective (Free Text): No overall further improvement in neuromental status observed, presently able to open eyes, but eyes are never fully closed either, and able to move eyes spontaneously and to command. No other spontaneous movements observed, however, occasional light grasp reflex noted in right hand and tensing of R arm. Left arm remains swollen due to previous peripheral IV lines. New DVT discovered yesterday in LUE on US Doppler testing. RUE midline catheter continue to have problems on blood withdrawal. Midline placed instead of PICC due to familys insistence to have a catheter placed at the bedside instead of transporting patient to IR suite. No recurrent seizure activity observed or reported. Family complained regarding Midodrine dosing and changed from TID to Q8H dosing regimen. He still remains vasopressor dependent and on higher requirements now at 12.5mg/min. Blood culture surveillance has returned with results showing GPC in chains, awaiting on final ID or organisms. Empiric dose if vancomycin given yesterday after repeat set of blood cultures were obtained; awaiting Vanco level to determine further dosing. The 2 MDR organisms isolated from trach secretion cultures from day #1 of hospitalization, are being covered by Avycaz day#2 now. He is penicillin allergic, so far no cross reactivity to cephalosporins nor to other bactam component of Avycaz. Other vitals and I/O's reviewed. Only mildly fluid balance positive last 24H ( + 100ml approximately) ROS: No other pertinent negs or positives on 10+ system review as per family. PMSFH: All other Nursing and physician documentation reviewed to date; no new pertinent info noted relevant to current medical problems. EXAM- HEENT: no icterus, no gaze preference, opacified R pupil, Left pupil 2-3 mm size , no reactivity, oral mm moist NECK: No JVD visible, supple, carotids equal upstroke bilat/no bruits, trach stoma intact, no redness. CHEST: decreased BS bases, no wheezes audible HEART: Irregular, distant, S1S2, no rubs ABD: soft, rotund, no increased distention, no tympany, no focal tenderness, BS hypoactive, no rebound. EXT: ++ edema; no peripheral/ digital cyanosis, no calf tenderness or palpable cords, distal pulses intact and symmetrical. ++ scrotal edema NEURO: increased tone present in LUE only. SKIN: no new rashes, otherwise warm and dry. LABS: yesterday's values- WBC= 17.9 from peak of 19.4 HGB= 8.6 PLTs= 309K Xu=201 K= 3.1 CL= 106 HCO3= 22 BUN/Cr= 82/0.4 from a low of 66/0.6 after hydration given initial BUN 144 on admission. BS= 136 IMPRESSION / MAJOR PROBLEMS NOW: 1. Metabolic Encephalopathy with Hyperosmolar State; Hypernatremia, Uremia, Hyperkalemia 2. New Onset Occult Seizure Disorder 3. R Basilar Pneumonitis / Atelectasis, and bilateral effusions 4. Chronic disease Anemia 5. Advanced Muscular Dystrophy with ventilator dependency PLAN: 1. MV support. No MV weans to trach collar anticipated at this time given overall altered mental status which has not yet returned back to baseline. Trach tube changed 02/01. 2. Repeat BCs obtained, if serial BCs are +, mid-line catheter will need to be removed and ECHO to assess for any valvular vegetations. Central venous access has been difficult given body habitus. 3. Avycaz sensitivity noted against MDR P.mirabilis and K. pneumonia; Day #3 4. Plans for PPM upgrade noted as soon as current infections have cleared. Residual battery life has been quoted at 1 months duration. Discuss with Cardio , re- feasibility to have TCTPM at the bedside on standby should PPM fail abruptly. 5. Midodrine started, and dose increased to 10mg TID/ Q8H in order to help wean off IV vasopressors. Mixed venous SvO2 = 92%. Urgency in weaning off Norepinephrine due to increasing BUN levels. Watching overall renal fx, too while on Midrodrine. 6. If no abdominal issues, will need to increase PEG feeds to caloric requirements (1800 cals). Present underfeeding (800 Cals/day) noted as we oblige family request for current feeding regimen. 7. Advised family regarding strict contact and droplet precautions regarding MDR organisms and new blood culture results. 8. Nephrology consult added. Medication dosage adjustments as needed pending repeat bloodwork results. 9. No change or any new Advance Directives from family. CCU Objective - Vital Signs / Intake & Output Vital Signs (Last 4 hours): Vital Signs Pulse Resp BP Pulse Ox 02/03/18 11:00 63 16 119/58 L 100 02/03/18 10:00 64 17 104/50 L 100 02/03/18 09:00 66 17 89/44 L 100 Intake and Output (Last 8hrs): Intake & Output 02/02/18 02/03/18 02/03/18 22:59 06:59 14:59 Intake Total 500 480 200 Output Total 1 Balance 499 480 200 Intake: IV 25 Intake, Piggyback 20 75 100 Tube Feeding 180 180 Free Water Flush 300 200 100 Output: Urine/Stool Mix 1
--- NOTE | 2018-02-03 12:35 | CP.PCM.PN ---
Subjective - Date & Time of Evaluation Date of Evaluation: 02/03/18 Time of Evaluation: 12:38 - Subjective Subjective: NO APPRECIABLE CHANGE IN MENTAL STATUS ALTHOUGH FAMILY INDICATES THAT PT RECOGNIZES THEIR PRESENCE STILL VENT DEPENDENT WITH SATURATION DROPPING DRASTICALLY WHEN WEANING ATTEMPTS ARE MADE STILL ON PRESSORS Objective - Vital Signs/Intake and Output Vital Signs (last 24 hours): Temp Pulse Resp BP Pulse Ox 97.9 F 63 16 119/58 L 100 02/03/18 12:18 02/03/18 11:00 02/03/18 11:00 02/03/18 11:00 02/03/18 11:00 Intake and Output: 02/03/18 02/03/18 06:59 18:59 Intake Total 780 341 Output Total 1 Balance 779 341 - Medications Medications: Current Medications Albuterol/Ipratropium (Duoneb 3 Mg/0.5 Mg (3 Ml) Ud) 3 ml INH RQID [facility] Last Admin: 02/03/18 11:22 Dose: Not Given Albuterol/Ipratropium (Duoneb 3 Mg/0.5 Mg (3 Ml) Ud) 3 ml INH RQ6 PRN PRN Reason: Shortness of Breath Last Admin: 02/01/18 00:04 Dose: 3 ml Atropine Sulfate (Atropisol 1% Oph) 1 drop OS BID [facility] Last Admin: 02/03/18 08:27 Dose: 1 drop Bisacodyl (Dulcolax) 10 mg MO DAILY [facility] Last Admin: 02/03/18 08:30 Dose: Not Given Enoxaparin Sodium (Lovenox) 100 mg SC Q12 [facility] PRN Reason: Protocol Last Admin: 02/03/18 09:37 Dose: 100 mg Famotidine (Pepcid) 20 mg PEG BID [facility] Last Admin: 02/03/18 08:33 Dose: 20 mg Ferrous Sulfate (Feosol Liq) 300 mg PEG DAILY [facility] Last Admin: 02/03/18 08:31 Dose: 300 mg Ceftazidime/Avibactam 2.5 gm/ (Sodium Chloride) 100 mls @ 100 mls/hr IVPB Q8H [facility] PRN Reason: Protocol Last Admin: 02/03/18 08:28 Dose: 100 mls/hr Norepinephrine Bitartrate 16 (mg/ Dextrose) 266 mls @ 6.98 mls/hr IV .Q24H ONE ; 7 MCG/MIN PRN Reason: Protocol Stop: 02/03/18 23:30 Last Titration: 02/03/18 12:20 Dose: 10 mcg/min, 9.97 mls/hr Norepinephrine Bitartrate 16 (mg/ Dextrose) 266 mls @ 12.46 mls/hr IV .[id number] ONE; 12.5 MCG/MIN PRN Reason: Protocol Stop: 02/04/18 04:02 Midodrine (Proamatine) 10 mg PEG Q8H [facility] Last Admin: 02/03/18 12:22 Dose: 10 mg Mupirocin (Bactroban Ointment) 1 applic TOP BID [facility] Nystatin (Nystatin Oral Susp) 5 ml PO Q12 [facility] Last Admin: 02/03/18 08:31 Dose: 5 ml Nystatin (Nystop Topical Powder) 1 applic TOP TID [facility] Last Admin: 02/03/18 12:21 Dose: 1 applic Silver Sulfadiazine (Silvadene 1% 20 Gm) 1 ea TOP BID [facility] Last Admin: 02/03/18 08:33 Dose: 1 ea Simethicone (Mylicon Liq) 40 mg PO QID PRN PRN Reason: Flatulence Last Admin: 02/03/18 10:34 Dose: 40 mg Tobramycin/Dexamethasone (Tobradex Opht Susp) 1 drop OU BID [facility] Last Admin: 02/03/18 08:34 Dose: 1 drop Valproate Sodium (Depakene Oral Soln) 500 mg PEG BID [facility] Last Admin: 02/03/18 08:30 Dose: 500 mg Vitamin A (Vitamin A&D) 1 applic TP Q8 PRN PRN Reason: Until an adequate response is Last Admin: 01/31/18 16:36 Dose: 1 applic - Labs Labs: 02/03/18 11:20 02/03/18 11:20 PT 14.7 Seconds (9.8-13.1) H 01/25/18 15:45 INR 1.3 01/25/18 15:45 APTT 21.9 Seconds (25.6-37.1) L 01/25/18 15:45 - Constitutional Appears: Chronically Ill - Head Exam Head Exam: ATRAUMATIC, NORMAL INSPECTION, NORMOCEPHALIC - ENT Exam ENT Exam: Mucous Membranes Moist Additional comments: TRACH IN PLACE PT IS ON THE VENT - Neck Exam Neck Exam: Full ROM, Normal Inspection. absent: Lymphadenopathy - Respiratory Exam Respiratory Exam: Rales Additional comments: VENTILATOR DEPENDENT - Cardiovascular Exam Cardiovascular Exam: REGULAR RHYTHM, +S1, +S2. absent: Murmur - GI/Abdominal Exam GI & Abdominal Exam: Soft, Normal Bowel Sounds. absent: Tenderness - Rectal Exam Rectal Exam: NORMAL INSPECTION - Extremities Exam Extremities Exam: Pedal Edema. absent: Joint Swelling - Back Exam Back Exam: NORMAL INSPECTION - Neurological Exam Neurological Exam: CN II-XII Intact - Psychiatric Exam Psychiatric exam: Normal Affect, Normal Mood - Skin Skin Exam: Dry, Intact, Normal Color, Warm Assessment and Plan - Assessment and Plan (Free Text) Assessment: RESPIRATORY FAILURE PNEUMONITIS WITH BIBASILAR EFFUSIONS SEPSIS DEHYDRATION SEVERE NEUROMUSCULAR DISORDER Plan: CONTINUE CURRENT RX NO ATTEMPTS TO WEAN OFF VENT AT PRESENT
[2018-02-03] MEDS: Albuterol-Ipratrop 3 mg / 0.5 (3 ml) UD INH PRN (13:26)
--- NOTE | 2018-02-03 14:26 | CP.PCM.CON ---
History of Present Illness - History of Present Illness History of Present Illness: this patient whole is 82 years of age male I was asked to see him for abnormal kidney function. With high B UN. No history available from the patient and his and respirator was GTT 2 and opening his eyes but not responding therefore the history was taken from the physician interventional cardiologist and the chart as follow with the following diagnosis 1. Metabolic Encephalopathy with Hyperosmolar State; Hypernatremia, Uremia, Hyperkalemia 2. New Onset Occult Seizure Disorder 3. R Basilar Pneumonitis / Atelectasis, and bilateral effusions 4. Chronic disease Anemia 5. Advanced Muscular Dystrophy with ventilator dependency patient initially presented with very high B UN that has been coming down slowly Family history as noted in the H&P Review of Systems - Review of Systems Systems not reviewed;Unavailable: Respiratory Distress, Altered Mental Status, Intubated - EENT Eyes: As Per HPI - Cardiovascular Cardiovascular: Edema. absent: Chest Pain - Respiratory Respiratory: absent: Hemoptysis - Gastrointestinal Gastrointestinal: Abdominal Pain. absent: Coffee Ground Emesis - Genitourinary Genitourinary: Nocturia - Musculoskeletal Musculoskeletal: Loss of Height. absent: Atrophy - Integumentary Integumentary: Wounds - Neurological Neurological: As Per HPI, Lack of Coordination, Loss of Vision, Weakness, Other Visual Disturbances - Psychiatric Psychiatric: As Per HPI - Endocrine Endocrine: Fatigue - Hematologic/Lymphatic Hematologic: absent: Easy Bleeding Past Patient History - Past Medical History & Family History Past Medical History?: Yes - Past Social History Smoking Status: Never Smoked - CARDIAC Hx Pacemaker: Yes - PULMONARY Hx Respiratory Disorders: No - NEUROLOGICAL Other/Comment: Advanced Muscular Dystrophy - HEENT Hx Cataracts: Yes - RENAL Hx Chronic Kidney Disease: No - ENDOCRINE/METABOLIC Hx Endocrine Disorders: No - HEMATOLOGICAL/ONCOLOGICAL Hx Blood Disorders: No - INTEGUMENTARY Other/Comment: the pt family believes that the skin tear on his right shoulder is from a basal cell. - MUSCULOSKELETAL/RHEUMATOLOGICAL Hx Falls: No Other/Comment: hx muscular dystrophy - GASTROINTESTINAL Hx Gastrointestinal Disorders: No - GENITOURINARY/GYNECOLOGICAL Hx Incontinence: Yes - PSYCHIATRIC Hx Psychophysiologic Disorder: No Hx Substance Use: No - SURGICAL HISTORY Other/Comment: pacemaker implanted 9 years ago. - ANESTHESIA Hx Anesthesia: Yes Hx Anesthesia Reactions: No Hx Malignant Hyperthermia: No Has any member of the family had a problem w/ anesthesia?: No Meds Allergies/Adverse Reactions: Allergies Allergy/AdvReac Type Severity Reaction Status Date / Time Penicillins Allergy ANAPHYLAXIS Verified 01/25/18 16:51 - Medications Medications: Current Medications Albuterol/Ipratropium (Duoneb 3 Mg/0.5 Mg (3 Ml) Ud) 3 ml INH RQID [facility] Last Admin: 02/03/18 11:22 Dose: Not Given Albuterol/Ipratropium (Duoneb 3 Mg/0.5 Mg (3 Ml) Ud) 3 ml INH RQ6 PRN PRN Reason: Shortness of Breath Last Admin: 02/03/18 13:26 Dose: 3 ml Atropine Sulfate (Atropisol 1% Oph) 1 drop OS BID [facility] Last Admin: 02/03/18 08:27 Dose: 1 drop Bisacodyl (Dulcolax) 10 mg AL DAILY [facility] Last Admin: 02/03/18 08:30 Dose: Not Given Enoxaparin Sodium (Lovenox) 100 mg SC Q12 [facility] PRN Reason: Protocol Last Admin: 02/03/18 09:37 Dose: 100 mg Famotidine (Pepcid) 20 mg PEG BID [facility] Last Admin: 02/03/18 08:33 Dose: 20 mg Ferrous Sulfate (Feosol Liq) 300 mg PEG DAILY [facility] Last Admin: 02/03/18 08:31 Dose: 300 mg Ceftazidime/Avibactam 2.5 gm/ (Sodium Chloride) 100 mls @ 100 mls/hr IVPB Q8H [facility] PRN Reason: Protocol Last Admin: 02/03/18 08:28 Dose: 100 mls/hr Norepinephrine Bitartrate 16 (mg/ Dextrose) 266 mls @ 6.98 mls/hr IV .Q24H ONE ; 7 MCG/MIN PRN Reason: Protocol Stop: 02/03/18 23:30 Last Titration: 02/03/18 12:20 Dose: 10 mcg/min, 9.97 mls/hr Norepinephrine Bitartrate 16 (mg/ Dextrose) 266 mls @ 12.46 mls/hr IV .[id number] ONE; 12.5 MCG/MIN PRN Reason: Protocol Stop: 02/04/18 04:02 Midodrine (Proamatine) 10 mg PEG Q8H [facility] Last Admin: 02/03/18 12:22 Dose: 10 mg Mupirocin (Bactroban Ointment) 1 applic TOP BID [facility] Nystatin (Nystatin Oral Susp) 5 ml PO Q12 [facility] Last Admin: 02/03/18 08:31 Dose: 5 ml Nystatin (Nystop Topical Powder) 1 applic TOP TID [facility] Last Admin: 02/03/18 12:21 Dose: 1 applic Silver Sulfadiazine (Silvadene 1% 20 Gm) 1 ea TOP BID [facility] Last Admin: 02/03/18 08:33 Dose: 1 ea Simethicone (Mylicon Liq) 40 mg PO QID PRN PRN Reason: Flatulence Last Admin: 02/03/18 10:34 Dose: 40 mg Tobramycin/Dexamethasone (Tobradex Opht Susp) 1 drop OU BID [facility] Last Admin: 02/03/18 08:34 Dose: 1 drop Valproate Sodium (Depakene Oral Soln) 500 mg PEG BID [facility] Last Admin: 02/03/18 08:30 Dose: 500 mg Vitamin A (Vitamin A&D) 1 applic TP Q8 PRN PRN Reason: Until an adequate response is Last Admin: 01/31/18 16:36 Dose: 1 applic Physical Exam - Constitutional Appears: In Acute Distress - Eye Exam Eye Exam: Conjunctival injection - ENT Exam ENT Exam: Mucous Membranes Dry - Neck Exam Neck exam: Negative for: Lymphadenopathy - Respiratory Exam Respiratory Exam: absent: Chest Wall Tenderness, Rales - Cardiovascular Exam Cardiovascular Exam: absent: Gallop, JVD, Rubs - GI/Abdominal Exam GI & Abdominal Exam: Guarding - Extremities Exam Extremities exam: Negative for: calf tenderness - Back Exam Back exam: absent: CVA tenderness (L), CVA tenderness (R) - Neurological Exam Neurological exam: Altered - Psychiatric Exam Psychiatric exam: Flat Affect Results - Vital Signs Recent Vital Signs: Last Vital Signs Temp 97.9 F 02/03/18 12:18 Pulse 61 02/03/18 13:55 Resp 16 02/03/18 13:55 BP 97/44 L 02/03/18 13:55 Pulse Ox 100 02/03/18 13:55 - Labs Result Diagrams: 02/03/18 11:20 02/03/18 11:20 Labs: Laboratory Results - last 24 hr 02/02/18 02/02/18 02/03/18 13:45 13:45 11:20 WBC 17.9 H RBC 3.27 L Hgb 8.6 L Hct 26.9 L MCV 82.3 MCH 26.2 L MCHC 31.9 L RDW 18.7 H Plt Count 309 MPV 7.8 Neut % (Auto) 91.1 H Lymph % (Auto) 1.9 L [place] % (Auto) 6.9 Eos % (Auto) 0.0 Baso % (Auto) 0.1 Neut # (Auto) 16.3 H Lymph # (Auto) 0.3 L [place] # (Auto) 1.2 H Eos # (Auto) 0.0 Baso # (Auto) 0.0 Neutrophils % (Manual) 90 H Band Neutrophils % 3 H Lymphocytes % (Manual) 3 L Monocytes % (Manual) 1 Myelocytes % 3 H Platelet Estimate Normal Plt Clumps, EDTA Present Hypochromasia (manual) Moderate Anisocytosis (manual) Slight Sodium 137 Potassium 3.1 L Chloride 106 Carbon Dioxide 22 Anion Gap 12 BUN 82 H Creatinine 0.4 L Est GFR ( Amer) > 60 Est GFR (Non-Af Amer) > 60 Random Glucose 137 H Calcium 8.0 L Phosphorus 4.1 Magnesium 3.1 H Total Bilirubin 0.3 AST 24 ALT 15 L D Alkaline Phosphatase 128 H Total Protein 5.8 L Albumin 2.4 L Globulin 3.4 Albumin/Globulin Ratio 0.7 L Random Vancomycin 8.2 02/03/18 02/03/18 11:20 11:20 WBC 17.0 H RBC 3.42 L Hgb 9.1 L Hct 29.9 L MCV 87.4 D MCH 26.6 L MCHC 30.5 L RDW 20.2 H Plt Count 241 MPV 7.8 Neut % (Auto) 88.9 H Lymph % (Auto) 3.4 L [place] % (Auto) 7.6 Eos % (Auto) 0.0 Baso % (Auto) 0.1 Neut # (Auto) 15.1 H Lymph # (Auto) 0.6 L [place] # (Auto) 1.3 H Eos # (Auto) 0.0 Baso # (Auto) 0.0 Neutrophils % (Manual) Band Neutrophils % Lymphocytes % (Manual) Monocytes % (Manual) Myelocytes % Platelet Estimate Plt Clumps, EDTA Hypochromasia (manual) Anisocytosis (manual) Sodium 133 Potassium 3.6 Chloride 105 Carbon Dioxide 18 L Anion Gap 14 BUN 87 H Creatinine 0.4 L Est GFR ( Amer) > 60 Est GFR (Non-Af Amer) > 60 Random Glucose 109 Calcium 8.3 L Phosphorus Magnesium Total Bilirubin 0.4 AST 21 ALT 17 L Alkaline Phosphatase 147 H Total Protein 5.8 L Albumin 2.6 L Globulin 3.2 Albumin/Globulin Ratio 0.8 L Random Vancomycin Assessment & Plan (1) Altered mental status, unspecified Status: Acute (2) Hypernatremia Assessment and Plan: patient initially presented with hypernatremia serum sodium more than the range of 155 however now the patient has hyponatremia serum sodium 133 patient presented with very high B UN disproportion to creatinine B UN was in the range of 140 plus now in the range of 87with serum creatinine 0.4 consistent with prerenal azotemia secondary to dehydration. Patient is status post tracheostomy on respirator with gastrostomy tube Patient has multiple infections site The plan we have to adjust the fluid intake the patient received 100 mL water through the GT tube every 4 hours we may have to cut that and give some intravenous fluid that has D5 and half-normal saline instead I discuss IV fluid with the nursing ICU Status: Acute (3) Pleural effusion Status: Acute (4) Pneumonia Status: Acute (5) Severe dehydration Status: Acute
--- NOTE | 2018-02-03 15:03 | RAD ---
Date of service: 02/03/2018 HISTORY: r/o ileus, obstruction COMPARISON: No prior. FINDINGS: Study is quite limited due to large body habitus with resultant Poor anatomic detail. Note also that lower abdomen and pelvis have been excluded from the exam BOWEL: No evidence of gross bowel dilatation BONES: Normal. OTHER FINDINGS: None. IMPRESSION: Limited study. No gross bowel dilatation.
[2018-02-03] MEDS: Dextrose 5%/0.45% NS 1,000 ML IV SCH (15:13)
[2018-02-03] MEDS: Linezolid 600 mg in D5W 300 ml 600 MG/300 ML BAG IVPB SCH (20:31)
[2018-02-04] MEDS: Dextrose 5%/0.45% NS 1,000 ML IV SCH ×2 (01:00→04:20)
[2018-02-04 05:55] LABS: BASO # 0.1 K/uL (0.0-0.2); BASO % 0.3 % (0.0-2.0); EOS # 0.1 K/uL (0.0-0.7); EOS % 0.3 % (0.0-4.0); HEMOGLOBIN 8.7 g/dL (12.0-18.0); LYMPH # 0.6 K/uL (1.0-4.3); LYMPH % 3.4 % (20.0-40.0); MEAN CORPUSCULAR HEMOGLOBIN 26.6 pg (27.0-31.0); MEAN CORPUSCULAR HGB CONC 32.1 g/dL (33.0-37.0); MEAN PLATELET VOLUME 8.1 fl (7.2-11.7); MONO # 1.5 K/uL (0.0-0.8); MONO % 8.2 % (0.0-10.0); NEUT # 16.2 K/uL (1.8-7.0); NEUT % 87.8 % (50.0-75.0); NRBC % 0.7 % (0.0-0.0); RBC 3.28 Mil/uL (4.40-5.90); RED CELL DISTRIBUTION WIDTH 19.2 % (11.5-14.5); WHITE BLOOD COUNT 18.5 K/uL (4.8-10.8)
[2018-02-04 06:06] LABS: ALB/GLOB RATIO 0.8 (1.0-2.1); ALBUMIN 2.5 g/dL (3.5-5.0); CALCIUM 7.8 mg/dL (8.4-10.2); GFR NON-AFRICAN AMERICAN > 60
[2018-02-04 06:11] LABS: ALT/SGPT 19 U/L (21-72); AST/SGOT 25 U/L (17-59); BLOOD UREA NITROGEN 88 mg/dl (9-20)
[2018-02-04] MEDS ORDERED: Sodium Chloride 0.9% 250 ML IV ONE ×2 (06:20→06:45)
[2018-02-04] MEDS: Albuterol-Ipratrop 3 mg / 0.5 (3 ml) UD INH SCH ×4 (08:18→19:02)
[2018-02-04] MEDS ORDERED: Vitamin A/D oint 60G TP PRN (08:51)
[2018-02-04] MEDS: ATROPINE 1% OS SCH ×2 (09:20→16:52)
[2018-02-04] MEDS: Valproic Acid 250 mg/5 ml UD Cup PEG SCH ×2 (09:21→16:54)
[2018-02-04] MEDS: Nystatin 100,000 Units/ml Oral Susp 5 ml UD PO SCH ×2 (09:22→20:11)
[2018-02-04] MEDS: Enoxaparin 100 mg Syringe SC SCH ×2 (09:22→20:10)
[2018-02-04] MEDS: Ferrous Sulfate 300 mg/5 mL Liq UD PEG SCH (09:22)
[2018-02-04] MEDS: Dexamethasone/Tobramycin Ophth Susp OU SCH ×2 (09:23→16:55)
[2018-02-04] MEDS: Silver Sulfadiazine 1% Cream (20 gm) TOP SCH ×2 (09:23→16:54)
[2018-02-04] MEDS ORDERED: Albumin Human 25% (12.5 gm/50 ml) IV ONE (09:31)
[2018-02-04] MEDS ORDERED: Sodium Chloride 0.9% 1,000 ML IV SCH (09:45)
[2018-02-04] MEDS: Bacitracin 500 Units/gm Oint Foilpak UD TOP SCH ×3 (11:00→16:53)
[2018-02-04] MEDS: Linezolid 600 mg in D5W 300 ml 600 MG/300 ML BAG IVPB SCH ×2 (11:00→20:10)
[2018-02-04] MEDS: Pantoprazole 40 mg Susp UD GT SCH ×2 (12:35→16:54)
[2018-02-04] MEDS: Ascorbic Acid 500 mg/5 ml Liq(50 ml) PO SCH (12:36)
--- NOTE | 2018-02-04 14:38 | CP.CCUPN ---
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 Patient is non-verbal limites sobjective information CCU Objective - Vital Signs / Intake & Output Vital Signs (Last 4 hours): Vital Signs Pulse Resp BP Pulse Ox 02/04/18 14:00 60 16 96/48 L 100 02/04/18 13:00 61 16 110/50 L 100 02/04/18 12:00 60 20 89/39 L 100 02/04/18 11:00 60 19 99/49 L 100 Intake and Output (Last 8hrs): Intake & Output 02/03/18 02/04/18 02/04/18 22:59 06:59 14:59 Intake Total 1480 1240 3642 Output Total 250 100 Balance 1230 1140 3642 Intake: IV 700 029 3362 Intake, Piggyback 100 272 Tube Feeding 240 240 480 Free Water Flush 200 200 490 Output: Urine 250 100 Urethral (Em) 100 Urine, Voided 250 Other: # Bowel Movements 1 - Physical Exam Head: Positive for: Atraumatic, Normocephalic, Other (right roman catholic, melanoma) Pupils: Positive for: Other (corneal keratitis) Ears: Positive for: Normal Mouth: Positive for: Dry Pharnyx: Positive for: Normal Neck: Positive for: Other (destructive skin lesion on right shoulder, possible basal carcinoma) Respiratory/Chest: Positive for: Clear to Auscultation, Decreased Breath Sounds (bibasilar) Cardiovascular: Positive for: Regular Rate and Rhythm Abdomen: Positive for: Distention. Negative for: Tenderness Upper Extremity: Positive for: Edema Lower Extremity: Positive for: Edema Skin: Positive for: Other (unable to evaluate back 2nd boldy habitus) Psychiatric: Positive for: Alert - Medications Active Medications: Active Medications Generic Name Dose Route Start Last Admin Trade Name Freq PRN Reason Stop Dose Admin Albuterol/Ipratropium 3 ml 01/26/18 08:00 02/04/18 12:26 Duoneb 3 Mg/0.5 Mg (3 Ml) Ud INH 3 ml RQID MACARIO Administration Albuterol/Ipratropium 3 ml 01/26/18 03:08 02/03/18 13:26 Duoneb 3 Mg/0.5 Mg (3 Ml) Ud INH 3 ml RQ6 PRN Administration Shortness of Breath Ascorbic Acid 1,000 mg 02/04/18 09:30 02/04/18 12:36 Vitamin C Liq PO 1,000 mg DAILY [facility]IO Administration Atropine Sulfate 1 drop 01/30/18 10:00 02/04/18 09:20 Atropisol 1% Ophth OS 1 drop BID MACARIO Administration Bacitracin 1 ea 02/04/18 09:00 02/04/18 12:37 Bacitracin TOP 1 ea TID MAC[facility]IO Administration Bisacodyl 10 mg 01/30/18 10:30 02/04/18 09:22 Dulcolax IL 10 mg DAILY MAC[facility]IO Administration Enoxaparin Sodium 100 mg 02/02/18 21:00 02/04/18 09:22 Lovenox SC 100 mg Q12 MAC[facility]IO Administration Protocol Ferrous Sulfate 300 mg 01/27/18 09:00 02/04/18 09:22 Feosol Liq PEG 300 mg DAILY [facility]IO Administration Ceftazidime/Avibactam 2.5 gm/ 100 mls @ 100 mls/hr 02/01/18 17:15 02/04/18 09 :21 Sodium Chloride IVPB 100 mls/hr Q8H [facility]IO Administration Protocol Linezolid 600 mg in 300 mls @ 300 mls/hr 02/03/18 21:00 02/04/18 11:00 Zyvox 600mg/300ml D5w IVPB 300 mls/hr Q12 [facility]IO Administration Protocol Norepinephrine Bitartrate 16 266 mls @ 4.98 mls/hr 02/04/18 07:15 mg/ Dextrose IV 02/05/18 07:14 .Q24H ONE Protocol 5 MCG/MIN Sodium Chloride 1,000 mls @ 999 mls/hr 02/04/18 09:45 02/04/18 09:57 Sodium Chloride 0.9% IV 02/05/18 09:34 999 mls/hr .Q1H1M [facility]IO Administration Midodrine 10 mg 02/03/18 12:30 02/04/18 12:35 Proamatine PEG 10 mg Q8H [facility] Administration Mupirocin 1 applic 02/03/18 17:00 02/04/18 09:21 Bactroban Ointment TOP 1 applic BID [facility]IO Administration Nystatin 5 ml 01/26/18 21:00 09/01/18 09:22 Nystatin Oral Susp PO 5 ml Q12 [facility] Administration Nystatin 1 applic 01/31/18 13:00 02/04/18 12:35 Nystop Topical Powder TOP 1 applic TID [facility]IO Administration Pantoprazole Sodium 40 mg 02/04/18 09:45 02/04/18 12:35 Protonix Susp GT 40 mg BID [facility]IO Administration Silver Sulfadiazine 1 ea 01/26/18 09:00 02/04/18 09:23 Silvadene 1% 20 Gm TOP 1 ea BID [facility] Administration Simethicone 40 mg 01/28/18 12:35 02/03/18 21:12 Mylicon Liq PO 40 mg QID PRN Administration Flatulence Thiamine HCl 100 mg 02/04/18 09:30 02/04/18 12:34 Vitamin B1 Tab GT 100 mg DAILY [facility]IO Administration Tobramycin/Dexamethasone 1 drop 01/26/18 09:00 02/04/18 09:23 Tobradex Opht Susp OU 1 drop BID [facility] Administration Valproate Sodium 500 mg 02/01/18 17:00 02/04/18 09:21 Depakene Oral Soln PEG 500 mg BID [facility] Administration Vitamin A 1 applic 01/25/18 23:01 01/31/18 16:36 Vitamin A&D TP 1 applic Q8 PRN Administration Until an adequate response is Vitamin A 1 applic 02/04/18 08:51 Vitamin A&D TP Q8 PRN Excoriation Zinc Sulfate 220 mg 02/04/18 09:30 02/04/18 12:36 Zinc Sulfate 220 Mg Cap GT 220 mg DAILY [facility] Administration - Patient Studies Lab Studies: Microbiology Studies 02/02/18 13:45 Blood Culture - Preliminary Blood-Venous NO GROWTH AFTER 48 HOURS 02/02/18 13:45 Blood Culture - Preliminary Blood-Venous NO GROWTH AFTER 48 HOURS 02/01/18 14:05 Blood Culture - Preliminary Blood-Thru Central Line Enterococcus Faecalis Gram Stain - Final 02/01/18 14:05 S.aureus & Coag-Neg Staph PNA FISH - Final Blood-Thru Central Line Blood Culture - Final Enterococcus Faecalis Gram Stain - Final 02/01/18 14:00 Gram Stain - Final Trachasp Sputum Culture - Final NORMAL ORAL SAWYER Lab Studies 02/04/18 02/04/18 02/04/18 Range/Units 12:20 09:32 04:40 WBC (4.8-10.8) K/uL RBC (4.40-5.90) Mil/uL Hgb (12.0-18.0) g/dL Hct (35.0-51.0) % MCV (80.0-94.0) fl MCH (27.0-31.0) pg MCHC (33.0-37.0) g/dL RDW (11.5-14.5) % Plt Count (130-400) K/uL MPV (7.2-11.7) fl Neut % (Auto) (50.0-75.0) % Lymph % (Auto) (20.0-40.0) % [place] % (Auto) (0.0-10.0) % Eos % (Auto) (0.0-4.0) % Baso % (Auto) (0.0-2.0) % Neut # (Auto) (1.8-7.0) K/uL Lymph # (Auto) (1.0-4.3) K/uL [place] # (Auto) (0.0-0.8) K/uL Eos # (Auto) (0.0-0.7) K/uL Baso # (Auto) (0.0-0.2) K/uL Sodium 129 L (132-148) mmol/l Potassium 3.6 (3.6-5.0) MMOL/L Chloride 102 (98-107) mmol/L Carbon Dioxide 16 L (22-30) mmol/L Anion Gap 15 (10-20) BUN 88 H (9-20) mg/dl Creatinine 0.4 L (0.8-1.5) mg/dl Est GFR ( Amer) > 60 Est GFR (Non-Af Amer) > 60 Random Glucose 120 H (75-110) mg/dL Lactic Acid 0.8 (0.7-2.1) MMOL/L Calcium 7.8 L (8.4-10.2) mg/dL Total Bilirubin 0.6 (0.2-1.3) mg/dl AST 25 (17-59) U/L ALT 19 L (21-72) U/L Alkaline Phosphatase 162 H (38-126) U/L Total Protein 5.7 L (6.3-8.2) G/DL Albumin 2.5 L (3.5-5.0) g/dL Globulin 3.2 (2.2-3.9) gm/dL Albumin/Globulin Ratio 0.8 L (1.0-2.1) Stool Occult Blood Negative (NEGATIVE) 02/04/18 Range/Units 04:40 WBC 18.5 H (4.8-10.8) K/uL RBC 3.28 L (4.40-5.90) Mil/uL Hgb 8.7 L (12.0-18.0) g/dL Hct 27.2 L (35.0-51.0) % MCV 83.0 D (80.0-94.0) fl MCH 26.6 L (27.0-31.0) pg MCHC 32.1 L (33.0-37.0) g/dL RDW 19.2 H (11.5-14.5) % Plt Count 122 L D (130-400) K/uL MPV 8.1 (7.2-11.7) fl Neut % (Auto) 87.8 H (50.0-75.0) % Lymph % (Auto) 3.4 L (20.0-40.0) % [place] % (Auto) 8.2 (0.0-10.0) % Eos % (Auto) 0.3 (0.0-4.0) % Baso % (Auto) 0.3 (0.0-2.0) % Neut # (Auto) 16.2 H (1.8-7.0) K/uL Lymph # (Auto) 0.6 L (1.0-4.3) K/uL [place] # (Auto) 1.5 H (0.0-0.8) K/uL Eos # (Auto) 0.1 (0.0-0.7) K/uL Baso # (Auto) 0.1 (0.0-0.2) K/uL Sodium (132-148) mmol/l Potassium (3.6-5.0) MMOL/L Chloride (98-107) mmol/L Carbon Dioxide (22-30) mmol/L Anion Gap (10-20) BUN (9-20) mg/dl Creatinine (0.8-1.5) mg/dl Est GFR ( Amer) Est GFR (Non-Af Amer) Random Glucose (75-110) mg/dL Lactic Acid (0.7-2.1) MMOL/L Calcium (8.4-10.2) mg/dL Total Bilirubin (0.2-1.3) mg/dl AST (17-59) U/L ALT (21-72) U/L Alkaline Phosphatase (38-126) U/L Total Protein (6.3-8.2) G/DL Albumin (3.5-5.0) g/dL Globulin (2.2-3.9) gm/dL Albumin/Globulin Ratio (1.0-2.1) Stool Occult Blood (NEGATIVE) Laboratory Results - last 24 hr 02/04/18 02/04/18 02/04/18 04:40 04:40 09:32 WBC 18.5 H RBC 3.28 L Hgb 8.7 L Hct 27.2 L MCV 83.0 D MCH 26.6 L MCHC 32.1 L RDW 19.2 H Plt Count 122 L D MPV 8.1 Neut % (Auto) 87.8 H Lymph % (Auto) 3.4 L [place] % (Auto) 8.2 Eos % (Auto) 0.3 Baso % (Auto) 0.3 Neut # (Auto) 16.2 H Lymph # (Auto) 0.6 L [place] # (Auto) 1.5 H Eos # (Auto) 0.1 Baso # (Auto) 0.1 Sodium 129 L Potassium 3.6 Chloride 102 Carbon Dioxide 16 L Anion Gap 15 BUN 88 H Creatinine 0.4 L Est GFR ( Amer) > 60 Est GFR (Non-Af Amer) > 60 Random Glucose 120 H Lactic Acid Calcium 7.8 L Total Bilirubin 0.6 AST 25 ALT 19 L Alkaline Phosphatase 162 H Total Protein 5.7 L Albumin 2.5 L Globulin 3.2 Albumin/Globulin Ratio 0.8 L Stool Occult Blood Negative 02/04/18 12:20 WBC RBC Hgb Hct MCV MCH MCHC RDW Plt Count MPV Neut % (Auto) Lymph % (Auto) [place]wall % (Auto) Eos % (Auto) Baso % (Auto) Neut # (Auto) Lymph # (Auto) [place] # (Auto) Eos # (Auto) Baso # (Auto) Sodium Potassium Chloride Carbon Dioxide Anion Gap BUN Creatinine Est GFR ( Amer) Est GFR (Non-Af Amer) Random Glucose Lactic Acid 0.8 Calcium Total Bilirubin AST ALT Alkaline Phosphatase Total Protein Albumin Globulin Albumin/Globulin Ratio Stool Occult Blood Review of Systems - Review of Systems Review of Systems: limited ROS as patient non-communicative Assessment/Plan - Assessment and Plan (Free Text) Assessment: Septic shock: continue broad spectrum abx as per ID, serial lactic, titrate off pressors to keep MAP >65, currently afebrile, -CHronic trach/ventilator dependent respiratory failure: FiO2 40%, family refused CPAP trials and refused changing vent setting to SIMV(chronic wean), monitor to keep sop2 >92 and pH b/w 7.35-7.45 -Trach: contineu Ng tube feeds -High BUN: r/o Upper Gi bleed: check fecal occult blood, continue IVF, check urine lytes -Malnutrition: continue MVI/vitamin C and zinc sulfate -DVT ppx: on treatment dose lovenox -pud ppx -turn/cough q2hrs -r/o DVTs cc time 35 minutes Prognosis poor as patient has chronic systolic heart failure and end stage muscular dystrophy above management d/w family. -risks, benefits and alternatives informed of family decisions and current management. - Date & Time Date: 02/04/18 Time: 15:09
[2018-02-04] MEDS: Simethicone 40 mg/0.6 ml Liquid (30 ml) PO PRN (14:57)
[2018-02-04] MEDS: Sodium Chloride 0.9% 1,000 ML IV SCH (16:55)
--- NOTE | 2018-02-04 18:07 | CP.PCM.PN ---
Subjective - Date & Time of Evaluation Date of Evaluation: 02/04/18 Time of Evaluation: 18:10 - Subjective Subjective: I D NOTE PATIENT DOING WELL ON AVYCAZ NO ISSUES ,NO DELAYED REACTIONS ON ZYVOA FOR ENTEROCOCCUS FASCALIS IN BLOOD MAY NEED REMOVAL OF LINE HE STILL HAS LEUKOCYTOSIS Objective - Vital Signs/Intake and Output Vital Signs (last 24 hours): Temp Pulse Resp BP Pulse Ox 97.0 F L 60 17 107/48 L 100 02/04/18 16:15 02/04/18 17:00 02/04/18 17:00 02/04/18 17:00 02/04/18 17:00 Intake and Output: 02/04/18 02/04/18 06:59 18:59 Intake Total 1640 3858 Output Total 100 Balance 1540 3858 - Medications Medications: Current Medications Albuterol/Ipratropium (Duoneb 3 Mg/0.5 Mg (3 Ml) Ud) 3 ml INH RQID [facility] Last Admin: 02/04/18 15:29 Dose: 3 ml Albuterol/Ipratropium (Duoneb 3 Mg/0.5 Mg (3 Ml) Ud) 3 ml INH RQ6 PRN PRN Reason: Shortness of Breath Last Admin: 02/03/18 13:26 Dose: 3 ml Ascorbic Acid (Vitamin C Liq) 1,000 mg PO DAILY [facility] Last Admin: 02/04/18 12:36 Dose: 1,000 mg Atropine Sulfate (Atropisol 1% Oph) 1 drop OS BID [facility] Last Admin: 02/04/18 16:52 Dose: 1 drop Bacitracin (Bacitracin) 1 ea TOP TID [facility] Last Admin: 02/04/18 16:53 Dose: 1 ea Bisacodyl (Dulcolax) 10 mg [place] DAILY [facility] Last Admin: 02/04/18 09:22 Dose: 10 mg Enoxaparin Sodium (Lovenox) 100 mg SC Q12 [facility] PRN Reason: Protocol Last Admin: 02/04/18 09:22 Dose: 100 mg Ferrous Sulfate (Feosol Liq) 300 mg PEG DAILY [facility] Last Admin: 02/04/18 09:22 Dose: 300 mg Ceftazidime/Avibactam 2.5 gm/ (Sodium Chloride) 100 mls @ 100 mls/hr IVPB Q8H [facility] PRN Reason: Protocol Last Admin: 02/04/18 16:53 Dose: 100 mls/hr Linezolid (Zyvox 600mg/300ml D5w) 600 mg in 300 mls @ 300 mls/hr IVPB Q12 [facility] PRN Reason: Protocol Last Admin: 02/04/18 11:00 Dose: 300 mls/hr Norepinephrine Bitartrate 16 (mg/ Dextrose) 266 mls @ 4.98 mls/hr IV .Q24H ONE ; 5 MCG/MIN PRN Reason: Protocol Stop: 02/05/18 07:14 Sodium Chloride (Sodium Chloride 0.9%) 1,000 mls @ 999 mls/hr IV .Q1H1M [facility] Stop: 02/05/18 09:34 Last Admin: 02/04/18 09:57 Dose: 999 mls/hr Sodium Chloride (Sodium Chloride 0.9%) 1,000 mls @ 100 mls/hr IV .Q10H [facility] Stop: 02/05/18 16:31 Last Admin: 02/04/18 16:55 Dose: 100 mls/hr Midodrine (Proamatine) 10 mg PEG Q8H [facility] Last Admin: 02/04/18 12:35 Dose: 10 mg Mupirocin (Bactroban Ointment) 1 applic TOP BID [facility] Last Admin: 02/04/18 16:53 Dose: 1 applic Nystatin (Nystatin Oral Susp) 5 ml PO Q12 [facility] Last Admin: 02/04/18 09:22 Dose: 5 ml Nystatin (Nystop Topical Powder) 1 applic TOP TID [facility] Last Admin: 02/04/18 16:54 Dose: 1 applic Pantoprazole Sodium (Protonix Susp) 40 mg GT BID [facility] Last Admin: 02/04/18 16:54 Dose: 40 mg Silver Sulfadiazine (Silvadene 1% 20 Gm) 1 ea TOP BID [facility] Last Admin: 02/04/18 16:54 Dose: 1 ea Simethicone (Mylicon Liq) 40 mg PO QID PRN PRN Reason: Flatulence Last Admin: 02/04/18 14:57 Dose: 40 mg Thiamine HCl (Vitamin B1 Tab) 100 mg GT DAILY [facility] Last Admin: 02/04/18 12:34 Dose: 100 mg Tobramycin/Dexamethasone (Tobradex Opht Susp) 1 drop OU BID [facility] Last Admin: 02/04/18 16:55 Dose: 1 drop Valproate Sodium (Depakene Oral Soln) 500 mg PEG BID [facility] Last Admin: 02/04/18 16:54 Dose: 500 mg Vitamin A (Vitamin A&D) 1 applic TP Q8 PRN PRN Reason: Until an adequate response is Last Admin: 01/31/18 16:36 Dose: 1 applic Vitamin A (Vitamin A&D) 1 applic TP Q8 PRN PRN Reason: Excoriation Zinc Sulfate (Zinc Sulfate 220 Mg Cap) 220 mg GT DAILY [facility] Last Admin: 02/04/18 12:36 Dose: 220 mg - Labs Labs: 02/04/18 04:40 02/04/18 04:40 PT 14.7 Seconds (9.8-13.1) H 01/25/18 15:45 INR 1.3 01/25/18 15:45 APTT 21.9 Seconds (25.6-37.1) L 01/25/18 15:45
--- NOTE | 2018-02-04 19:16 | CP.PCM.PN ---
Subjective - Date & Time of Evaluation Date of Evaluation: 02/04/18 Time of Evaluation: 13:00 - Subjective Subjective: renal follow up note vitals reviewed no events ovenight UOP low heent normal trach + vent dept ao times 0 s1s2 present bilateral air entry equal abd soft edema ++ no rash hernandez+ A&P: JOVANI/azotemia/hyponatremia/chronic resp failure/edema/anemia cr normal but BUN high continue fluids, can change to saline 0.9 lytes reviewed anemia: BUN>>>cr recommend ruling out gi bleed anemia monitor no hd needs yet. d/w family and icu attending Objective - Vital Signs/Intake and Output Vital Signs (last 24 hours): Temp Pulse Resp BP Pulse Ox 97.0 F L 60 23 100/51 L 99 02/04/18 16:15 02/04/18 18:00 02/04/18 18:00 02/04/18 18:00 02/04/18 18:00 Intake and Output: 02/04/18 02/05/18 18:59 06:59 Intake Total 4458 Balance 4458 - Medications Medications: Current Medications Albuterol/Ipratropium (Duoneb 3 Mg/0.5 Mg (3 Ml) Ud) 3 ml INH RQID [facility] Last Admin: 02/04/18 19:02 Dose: 3 ml Albuterol/Ipratropium (Duoneb 3 Mg/0.5 Mg (3 Ml) Ud) 3 ml INH RQ6 PRN PRN Reason: Shortness of Breath Last Admin: 02/03/18 13:26 Dose: 3 ml Ascorbic Acid (Vitamin C Liq) 1,000 mg PO DAILY [facility] Last Admin: 02/04/18 12:36 Dose: 1,000 mg Atropine Sulfate (Atropisol 1% Ophth) 1 drop OS BID [facility] Last Admin: 02/04/18 16:52 Dose: 1 drop Bacitracin (Bacitracin) 1 ea TOP TID [facility] Last Admin: 02/04/18 16:53 Dose: 1 ea Bisacodyl (Dulcolax) 10 mg SC DAILY [facility] Last Admin: 02/04/18 09:22 Dose: 10 mg Enoxaparin Sodium (Lovenox) 100 mg SC Q12 [facility] PRN Reason: Protocol Last Admin: 02/04/18 09:22 Dose: 100 mg Ferrous Sulfate (Feosol Liq) 300 mg PEG DAILY [facility] Last Admin: 02/04/18 09:22 Dose: 300 mg Ceftazidime/Avibactam 2.5 gm/ (Sodium Chloride) 100 mls @ 100 mls/hr IVPB Q8H [facility] PRN Reason: Protocol Last Admin: 02/04/18 16:53 Dose: 100 mls/hr Linezolid (Zyvox 600mg/300ml D5w) 600 mg in 300 mls @ 300 mls/hr IVPB Q12 [facility] PRN Reason: Protocol Last Admin: 02/04/18 11:00 Dose: 300 mls/hr Norepinephrine Bitartrate 16 (mg/ Dextrose) 266 mls @ 4.98 mls/hr IV .Q24H ONE ; 5 MCG/MIN PRN Reason: Protocol Stop: 02/05/18 07:14 Sodium Chloride (Sodium Chloride 0.9%) 1,000 mls @ 999 mls/hr IV .Q1H1M [facility] Stop: 02/05/18 09:34 Last Admin: 02/04/18 09:57 Dose: 999 mls/hr Sodium Chloride (Sodium Chloride 0.9%) 1,000 mls @ 100 mls/hr IV .Q10H [facility] Stop: 02/05/18 16:31 Last Admin: 02/04/18 16:55 Dose: 100 mls/hr Midodrine (Proamatine) 10 mg PEG Q8H [facility] Last Admin: 02/04/18 12:35 Dose: 10 mg Mupirocin (Bactroban Ointment) 1 applic TOP BID [facility] Last Admin: 02/04/18 16:53 Dose: 1 applic Nystatin (Nystatin Oral Susp) 5 ml PO Q12 [facility] Last Admin: 02/04/18 09:22 Dose: 5 ml Nystatin (Nystop Topical Powder) 1 applic TOP TID [facility] Last Admin: 02/04/18 16:54 Dose: 1 applic Pantoprazole Sodium (Protonix Susp) 40 mg GT BID [facility] Last Admin: 02/04/18 16:54 Dose: 40 mg Silver Sulfadiazine (Silvadene 1% 20 Gm) 1 ea TOP BID [facility] Last Admin: 02/04/18 16:54 Dose: 1 ea Simethicone (Mylicon Liq) 40 mg PO QID PRN PRN Reason: Flatulence Last Admin: 02/04/18 14:57 Dose: 40 mg Thiamine HCl (Vitamin B1 Tab) 100 mg GT DAILY [facility] Last Admin: 02/04/18 12:34 Dose: 100 mg Tobramycin/Dexamethasone (Tobradex Opht Susp) 1 drop OU BID [facility] Last Admin: 02/04/18 16:55 Dose: 1 drop Valproate Sodium (Depakene Oral Soln) 500 mg PEG BID [facility] Last Admin: 02/04/18 16:54 Dose: 500 mg Vitamin A (Vitamin A&D) 1 applic TP Q8 PRN PRN Reason: Until an adequate response is Last Admin: 01/31/18 16:36 Dose: 1 applic Vitamin A (Vitamin A&D) 1 applic TP Q8 PRN PRN Reason: Excoriation Zinc Sulfate (Zinc Sulfate 220 Mg Cap) 220 mg GT DAILY [facility] Last Admin: 02/04/18 12:36 Dose: 220 mg - Labs Labs: 02/04/18 04:40 02/04/18 04:40 PT 14.7 Seconds (9.8-13.1) H 01/25/18 15:45 INR 1.3 01/25/18 15:45 APTT 21.9 Seconds (25.6-37.1) L 01/25/18 15:45
[2018-02-05] MEDS: Sodium Chloride 0.9% 1,000 ML IV SCH (04:08)
[2018-02-05] MEDS: Albuterol-Ipratrop 3 mg / 0.5 (3 ml) UD INH SCH ×4 (07:46→19:11)
[2018-02-05 08:14] LABS: URINE BILIRUBIN NEGATIVE (NEGATIVE); URINE BLOOD LARGE (NEGATIVE); URINE CLARITY TURBID (Clear); URINE COLOR AMBER (YELLOW); URINE GLUCOSE (UA) NEG (Normal); URINE LEUKOCYTE ESTERASE LARGE Leu/uL (Negative); URINE PROTEIN 100 mg/dL (NEGATIVE); URINE UROBILINOGEN 0.2-1.0 mg/dL (0.2-1.0); WBC CLUMPS FEW /hpf
[2018-02-05] MEDS: Valproic Acid 250 mg/5 ml UD Cup PEG SCH ×2 (08:14→16:07)
[2018-02-05] MEDS: Bacitracin 500 Units/gm Oint Foilpak UD TOP SCH ×3 (08:14→16:06)
[2018-02-05] MEDS: ATROPINE 1% OS SCH ×2 (08:14→16:06)
[2018-02-05 08:15] LABS: URINE BACTERIA MOD (<OCC)
[2018-02-05] MEDS: Nystatin 100,000 Units/ml Oral Susp 5 ml UD PO SCH ×2 (08:15→20:19)
[2018-02-05] MEDS: Ferrous Sulfate 300 mg/5 mL Liq UD PEG SCH (08:15)
[2018-02-05] MEDS: Enoxaparin 100 mg Syringe SC SCH (08:15)
[2018-02-05] MEDS: Pantoprazole 40 mg Susp UD GT SCH ×2 (08:15→16:08)
[2018-02-05] MEDS: Ascorbic Acid 500 mg/5 ml Liq(50 ml) PO SCH (08:16)
[2018-02-05] MEDS: Dexamethasone/Tobramycin Ophth Susp OU SCH ×2 (08:16→16:09)
[2018-02-05] MEDS: Silver Sulfadiazine 1% Cream (20 gm) TOP SCH ×2 (08:16→16:08)
[2018-02-05] MEDS: Simethicone 40 mg/0.6 ml Liquid (30 ml) PO PRN (08:18)
[2018-02-05] MEDS: Linezolid 600 mg in D5W 300 ml 600 MG/300 ML BAG IVPB SCH ×2 (09:34→20:18)
--- NOTE | 2018-02-05 09:56 | CP.PCM.PN ---
Subjective - Date & Time of Evaluation Date of Evaluation: 02/05/18 Time of Evaluation: 07:00 - Subjective Subjective: renal follow up note vitals reviewed no events ovenight UOP low heent normal trach + vent dept ao times 0 s1s2 present bilateral air entry equal abd soft edema ++ no rash hernandez+ A&P: JOVANI/azotemia/hyponatremia/chronic resp failure/edema/anemia no labs today , UOP low monitor I&Os closely can check another renal USG to rule out retention anemia: BUN>>>cr recommend ruling out gi bleed no hd needs yet. Objective - Vital Signs/Intake and Output Vital Signs (last 24 hours): Temp Pulse Resp BP Pulse Ox 97.6 F 60 18 101/48 L 100 02/05/18 08:00 02/05/18 08:00 02/05/18 08:00 02/05/18 08:00 02/05/18 08:00 Intake and Output: 02/05/18 02/05/18 06:59 18:59 Intake Total 965 Output Total 60 Balance 905 - Medications Medications: Current Medications Albuterol/Ipratropium (Duoneb 3 Mg/0.5 Mg (3 Ml) Ud) 3 ml INH RQID [facility] Last Admin: 02/05/18 07:46 Dose: 3 ml Albuterol/Ipratropium (Duoneb 3 Mg/0.5 Mg (3 Ml) Ud) 3 ml INH RQ6 PRN PRN Reason: Shortness of Breath Last Admin: 02/03/18 13:26 Dose: 3 ml Ascorbic Acid (Vitamin C Liq) 1,000 mg PO DAILY [facility] Last Admin: 02/05/18 08:16 Dose: 1,000 mg Atropine Sulfate (Atropisol 1% Oph) 1 drop OS BID [facility] Last Admin: 02/05/18 08:14 Dose: 1 drop Bacitracin (Bacitracin) 1 ea TOP TID [facility] Last Admin: 02/05/18 08:14 Dose: 1 ea Bisacodyl (Dulcolax) 10 mg [place] DAILY [facility] Last Admin: 02/05/18 08:14 Dose: 10 mg Enoxaparin Sodium (Lovenox) 100 mg SC Q12 [facility] PRN Reason: Protocol Last Admin: 02/05/18 08:15 Dose: 100 mg Ferrous Sulfate (Feosol Liq) 300 mg PEG DAILY [facility] Last Admin: 02/05/18 08:15 Dose: 300 mg Ceftazidime/Avibactam 2.5 gm/ (Sodium Chloride) 100 mls @ 100 mls/hr IVPB Q8H [facility] PRN Reason: Protocol Last Admin: 02/05/18 08:17 Dose: 100 mls/hr Linezolid (Zyvox 600mg/300ml D5w) 600 mg in 300 mls @ 300 mls/hr IVPB Q12 [facility] PRN Reason: Protocol Last Admin: 02/05/18 09:34 Dose: 300 mls/hr Sodium Chloride (Sodium Chloride 0.9%) 1,000 mls @ 100 mls/hr IV .Q10H [facility] Stop: 02/05/18 16:31 Last Admin: 02/05/18 04:08 Dose: 100 mls/hr Midodrine (Proamatine) 10 mg PEG Q8H [facility] Last Admin: 02/05/18 04:07 Dose: 10 mg Mupirocin (Bactroban Ointment) 1 applic TOP BID [facility] Last Admin: 02/05/18 08:14 Dose: 1 applic Nystatin (Nystatin Oral Susp) 5 ml PO Q12 [facility] Last Admin: 02/05/18 08:15 Dose: 5 ml Nystatin (Nystop Topical Powder) 1 applic TOP TID [facility] Last Admin: 02/05/18 08:15 Dose: 1 applic Pantoprazole Sodium (Protonix Susp) 40 mg GT BID [facility] Last Admin: 02/05/18 08:15 Dose: 40 mg Silver Sulfadiazine (Silvadene 1% 20 Gm) 1 ea TOP BID [facility] Last Admin: 02/05/18 08:16 Dose: 1 ea Simethicone (Mylicon Liq) 40 mg PO QID PRN PRN Reason: Flatulence Last Admin: 02/05/18 08:18 Dose: 40 mg Thiamine HCl (Vitamin B1 Tab) 100 mg GT DAILY [facility] Last Admin: 02/05/18 08:16 Dose: 100 mg Tobramycin/Dexamethasone (Tobradex Opht Susp) 1 drop OU BID [facility] Last Admin: 02/05/18 08:16 Dose: 1 drop Valproate Sodium (Depakene Oral Soln) 500 mg PEG BID [facility] Last Admin: 02/05/18 08:14 Dose: 500 mg Vitamin A (Vitamin A&D) 1 applic TP Q8 PRN PRN Reason: Until an adequate response is Last Admin: 01/31/18 16:36 Dose: 1 applic Vitamin A (Vitamin A&D) 1 applic TP Q8 PRN PRN Reason: Excoriation Zinc Sulfate (Zinc Sulfate 220 Mg Cap) 220 mg GT DAILY [facility] Last Admin: 02/05/18 08:17 Dose: 220 mg - Labs Labs: 02/04/18 04:40 02/04/18 04:40 PT 14.7 Seconds (9.8-13.1) H 01/25/18 15:45 INR 1.3 01/25/18 15:45 APTT 21.9 Seconds (25.6-37.1) L 01/25/18 15:45
[2018-02-05 10:11] LABS: BASO # 0.1 K/uL (0.0-0.2); BASO % 0.4 % (0.0-2.0); EOS % 0.1 % (0.0-4.0); HEMOGLOBIN 8.2 g/dL (12.0-18.0); LYMPH # 0.4 K/uL (1.0-4.3); LYMPH % 2.4 % (20.0-40.0); MEAN CELL VOLUME 81.8 fl (80.0-94.0); MEAN CORPUSCULAR HEMOGLOBIN 26.3 pg (27.0-31.0); MEAN CORPUSCULAR HGB CONC 32.2 g/dL (33.0-37.0); MEAN PLATELET VOLUME 7.6 fl (7.2-11.7); MONO # 2.1 K/uL (0.0-0.8); MONO % 11.1 % (0.0-10.0); NEUT # 16.2 K/uL (1.8-7.0); NRBC % 0.9 % (0.0-0.0); RBC 3.13 Mil/uL (4.40-5.90); RED CELL DISTRIBUTION WIDTH 19.6 % (11.5-14.5); WHITE BLOOD COUNT 18.9 K/uL (4.8-10.8)
[2018-02-05 10:37] LABS: ALB/GLOB RATIO 0.9 (1.0-2.1); ALBUMIN 2.6 g/dL (3.5-5.0); ALT/SGPT 16 U/L (21-72); AST/SGOT 18 U/L (17-59); BLOOD UREA NITROGEN 83 mg/dl (9-20); CALCIUM 7.8 mg/dL (8.4-10.2); GFR NON-AFRICAN AMERICAN > 60
[2018-02-05 11:01] LABS: B-TYPE NATRIURETIC PEPTIDE 42600 pg/ml (0-900)
--- NOTE | 2018-02-05 11:20 | CP.PCM.PN ---
Subjective - Date & Time of Evaluation Date of Evaluation: 02/05/18 Time of Evaluation: 11:15 - Subjective Subjective: chart data reviewed. will plan for PPM generator change from ID. Objective - Vital Signs/Intake and Output Vital Signs (last 24 hours): Temp Pulse Resp BP Pulse Ox 97.6 F 60 18 101/48 L 100 02/05/18 08:00 02/05/18 08:00 02/05/18 08:00 02/05/18 08:00 02/05/18 08:00 Intake and Output: 02/05/18 02/05/18 06:59 18:59 Intake Total 965 Output Total 60 Balance 905 - Medications Medications: Current Medications Albuterol/Ipratropium (Duoneb 3 Mg/0.5 Mg (3 Ml) Ud) 3 ml INH RQID [facility] Last Admin: 02/05/18 07:46 Dose: 3 ml Albuterol/Ipratropium (Duoneb 3 Mg/0.5 Mg (3 Ml) Ud) 3 ml INH RQ6 PRN PRN Reason: Shortness of Breath Last Admin: 02/03/18 13:26 Dose: 3 ml Ascorbic Acid (Vitamin C Liq) 1,000 mg PO DAILY [facility] Last Admin: 02/05/18 08:16 Dose: 1,000 mg Atropine Sulfate (Atropisol 1% Oph) 1 drop OS BID [facility] Last Admin: 02/05/18 08:14 Dose: 1 drop Bacitracin (Bacitracin) 1 ea TOP TID [facility] Last Admin: 02/05/18 08:14 Dose: 1 ea Bisacodyl (Dulcolax) 10 mg OK DAILY [facility] Last Admin: 02/05/18 08:14 Dose: 10 mg Enoxaparin Sodium (Lovenox) 100 mg SC Q12 [facility] PRN Reason: Protocol Last Admin: 02/05/18 08:15 Dose: 100 mg Ferrous Sulfate (Feosol Liq) 300 mg PEG DAILY [facility] Last Admin: 02/05/18 08:15 Dose: 300 mg Ceftazidime/Avibactam 2.5 gm/ (Sodium Chloride) 100 mls @ 100 mls/hr IVPB Q8H [facility] PRN Reason: Protocol Last Admin: 02/05/18 08:17 Dose: 100 mls/hr Linezolid (Zyvox 600mg/300ml D5w) 600 mg in 300 mls @ 300 mls/hr IVPB Q12 [facility] PRN Reason: Protocol Last Admin: 02/05/18 09:34 Dose: 300 mls/hr Sodium Chloride (Sodium Chloride 0.9%) 1,000 mls @ 100 mls/hr IV .Q10H [facility] Stop: 02/05/18 16:31 Last Admin: 02/05/18 04:08 Dose: 100 mls/hr Midodrine (Proamatine) 10 mg PEG Q8H [facility] Last Admin: 02/05/18 04:07 Dose: 10 mg Mupirocin (Bactroban Ointment) 1 applic TOP BID [facility] Last Admin: 02/05/18 08:14 Dose: 1 applic Nystatin (Nystatin Oral Susp) 5 ml PO Q12 [facility] Last Admin: 02/05/18 08:15 Dose: 5 ml Nystatin (Nystop Topical Powder) 1 applic TOP TID [facility] Last Admin: 02/05/18 08:15 Dose: 1 applic Pantoprazole Sodium (Protonix Susp) 40 mg GT BID [facility] Last Admin: 02/05/18 08:15 Dose: 40 mg Silver Sulfadiazine (Silvadene 1% 20 Gm) 1 ea TOP BID [facility] Last Admin: 02/05/18 08:16 Dose: 1 ea Simethicone (Mylicon Liq) 40 mg PO QID PRN PRN Reason: Flatulence Last Admin: 02/05/18 08:18 Dose: 40 mg Thiamine HCl (Vitamin B1 Tab) 100 mg GT DAILY [facility] Last Admin: 02/05/18 08:16 Dose: 100 mg Tobramycin/Dexamethasone (Tobradex Opht Susp) 1 drop OU BID [facility] Last Admin: 02/05/18 08:16 Dose: 1 drop Valproate Sodium (Depakene Oral Soln) 500 mg PEG BID [facility] Last Admin: 02/05/18 08:14 Dose: 500 mg Vitamin A (Vitamin A&D) 1 applic TP Q8 PRN PRN Reason: Until an adequate response is Last Admin: 01/31/18 16:36 Dose: 1 applic Vitamin A (Vitamin A&D) 1 applic TP Q8 PRN PRN Reason: Excoriation Zinc Sulfate (Zinc Sulfate 220 Mg Cap) 220 mg GT DAILY [facility] Last Admin: 02/05/18 08:17 Dose: 220 mg - Labs Labs: 02/05/18 07:40 02/05/18 09:30 PT 14.7 Seconds (9.8-13.1) H 01/25/18 15:45 INR 1.3 01/25/18 15:45 APTT 21.9 Seconds (25.6-37.1) L 01/25/18 15:45 Assessment and Plan (1) Sick sinus syndrome Status: Acute (2) Hypernatremia Status: Acute
--- NOTE | 2018-02-05 12:17 | CP.PCM.PN ---
Subjective - Date & Time of Evaluation Date of Evaluation: 02/05/18 Time of Evaluation: 18:18 - Subjective Subjective: Patient had no acute events overnight. Objective - Vital Signs/Intake and Output Vital Signs (last 24 hours): Temp Pulse Resp BP Pulse Ox 97.6 F 60 18 120/60 98 02/05/18 08:00 02/05/18 11:00 02/05/18 11:00 02/05/18 11:00 02/05/18 11:00 Intake and Output: 02/05/18 02/05/18 06:59 18:59 Intake Total 965 968 Output Total 60 Balance 905 968 - Medications Medications: Current Medications Albuterol/Ipratropium (Duoneb 3 Mg/0.5 Mg (3 Ml) Ud) 3 ml INH RQID [facility] Last Admin: 02/05/18 11:23 Dose: Not Given Albuterol/Ipratropium (Duoneb 3 Mg/0.5 Mg (3 Ml) Ud) 3 ml INH RQ6 PRN PRN Reason: Shortness of Breath Last Admin: 02/03/18 13:26 Dose: 3 ml Ascorbic Acid (Vitamin C Liq) 1,000 mg PO DAILY [facility] Last Admin: 02/05/18 08:16 Dose: 1,000 mg Atropine Sulfate (Atropisol 1% [facility]) 1 drop OS BID [facility] Last Admin: 02/05/18 08:14 Dose: 1 drop Bacitracin (Bacitracin) 1 ea TOP TID [facility] Last Admin: 02/05/18 08:14 Dose: 1 ea Bisacodyl (Dulcolax) 10 mg GA DAILY [facility] Last Admin: 02/05/18 08:14 Dose: 10 mg Enoxaparin Sodium (Lovenox) 100 mg SC Q12 [facility] PRN Reason: Protocol Last Admin: 02/05/18 08:15 Dose: 100 mg Ferrous Sulfate (Feosol Liq) 300 mg PEG DAILY [facility] Last Admin: 02/05/18 08:15 Dose: 300 mg Ceftazidime/Avibactam 2.5 gm/ (Sodium Chloride) 100 mls @ 100 mls/hr IVPB Q8H [facility] PRN Reason: Protocol Last Admin: 02/05/18 08:17 Dose: 100 mls/hr Linezolid (Zyvox 600mg/300ml D5w) 600 mg in 300 mls @ 300 mls/hr IVPB Q12 [facility] PRN Reason: Protocol Last Admin: 02/05/18 09:34 Dose: 300 mls/hr Sodium Chloride (Sodium Chloride 0.9%) 1,000 mls @ 100 mls/hr IV .Q10H [facility] Stop: 02/05/18 16:31 Last Admin: 02/05/18 04:08 Dose: 100 mls/hr Midodrine (Proamatine) 10 mg PEG Q8H [facility] Last Admin: 02/05/18 04:07 Dose: 10 mg Mupirocin (Bactroban Ointment) 1 applic TOP BID [facility] Last Admin: 02/05/18 08:14 Dose: 1 applic Nystatin (Nystatin Oral Susp) 5 ml PO Q12 [facility] Last Admin: 02/05/18 08:15 Dose: 5 ml Nystatin (Nystop Topical Powder) 1 applic TOP TID [facility] Last Admin: 02/05/18 08:15 Dose: 1 applic Pantoprazole Sodium (Protonix Susp) 40 mg GT BID [facility] Last Admin: 02/05/18 08:15 Dose: 40 mg Silver Sulfadiazine (Silvadene 1% 20 Gm) 1 ea TOP BID [facility] Last Admin: 02/05/18 08:16 Dose: 1 ea Simethicone (Mylicon Liq) 40 mg PO QID PRN PRN Reason: Flatulence Last Admin: 02/05/18 08:18 Dose: 40 mg Thiamine HCl (Vitamin B1 Tab) 100 mg GT DAILY [facility] Last Admin: 02/05/18 08:16 Dose: 100 mg Tobramycin/Dexamethasone (Tobradex Opht Susp) 1 drop OU BID [facility] Last Admin: 02/05/18 08:16 Dose: 1 drop Valproate Sodium (Depakene Oral Soln) 500 mg PEG BID [facility] Last Admin: 02/05/18 08:14 Dose: 500 mg Vitamin A (Vitamin A&D) 1 applic TP Q8 PRN PRN Reason: Until an adequate response is Last Admin: 01/31/18 16:36 Dose: 1 applic Vitamin A (Vitamin A&D) 1 applic TP Q8 PRN PRN Reason: Excoriation Zinc Sulfate (Zinc Sulfate 220 Mg Cap) 220 mg GT DAILY [facility] Last Admin: 02/05/18 08:17 Dose: 220 mg - Labs Labs: 02/05/18 07:40 02/05/18 09:30 PT 14.7 Seconds (9.8-13.1) H 01/25/18 15:45 INR 1.3 01/25/18 15:45 APTT 21.9 Seconds (25.6-37.1) L 01/25/18 15:45 - Constitutional Appears: No Acute Distress, In Acute Distress - Eye Exam Eye Exam: Periorbital swelling Pupil Exam: Unequal - Neck Exam Additional comments: (+)trach - Respiratory Exam Respiratory Exam: Decreased Breath Sounds, NORMAL BREATHING PATTERN. absent: Rhonchi, Wheezes - Cardiovascular Exam Cardiovascular Exam: REGULAR RHYTHM, +S1, +S2, +S4 - GI/Abdominal Exam GI & Abdominal Exam: Distended, Soft, Hyperactive Bowel Sounds - Rectal Exam Rectal Exam: Bloody Stool - Extremities Exam Extremities Exam: Pedal Edema - Neurological Exam Neurological Exam: absent: Alert, Awake - Skin Skin Exam: Normal Color Assessment and Plan - Assessment and Plan (Free Text) Assessment: Septic shock: continue broad spectrum abx as per ID, serial lactic, titrate off pressors to keep MAP >65, currently afebrile -CHronic trach/ventilator dependent respiratory failure: FiO2 40%, family continue to refused CPAP trials/SIMV mode, monitor to keep sop2 >92 and pH b/w 7.35-7.45, CXR reveals congestion, hold IVF, start 25% albumin and lasix -contineu GT tube feeds -High BUN: r/o Upper Gi bleed: check fecal occult blood neg -Malnutrition: continue MVI/vitamin C and zinc sulfate -DVT ppx: off lovenox 2nd decrase in hb/hct -pud ppx -turn/cough q2hrs -family requested dermatology eval for lesion on right eyebrow Prognosis poor as patient has chronic systolic heart failure and end stage muscular dystrophy above management d/w family. -risks, benefits and alternatives informed of family decisions and current management.
--- NOTE | 2018-02-05 13:14 | CP.PCM.PN ---
Subjective - Date & Time of Evaluation Date of Evaluation: 02/05/18 Time of Evaluation: 13:17 - Subjective Subjective: NO CHANGE IN PULMONARY CONDITION STILL VENT DEPENDENT CASE DISCUSSED WITH SON AND DAUGHTER AND GRAVE PROGNOSIS ADDRESSED THEY APPEAR TO HAVE POOR INSIGHT REGARDS PT'S CONDITION Objective - Vital Signs/Intake and Output Vital Signs (last 24 hours): Temp Pulse Resp BP Pulse Ox 96.1 F L 60 18 120/60 98 02/05/18 12:00 02/05/18 11:00 02/05/18 11:00 02/05/18 11:00 02/05/18 11:00 Intake and Output: 02/05/18 02/05/18 06:59 18:59 Intake Total 965 1475 Output Total 60 Balance 905 1475 - Medications Medications: Current Medications Albumin Human (Albumin Human 25% (12.5 Gm/50 Ml)) 50 gm IV Q6H [facility] Stop: 02/06/18 06:31 Albuterol/Ipratropium (Duoneb 3 Mg/0.5 Mg (3 Ml) Ud) 3 ml INH RQID [facility] Last Admin: 02/05/18 11:23 Dose: Not Given Albuterol/Ipratropium (Duoneb 3 Mg/0.5 Mg (3 Ml) Ud) 3 ml INH RQ6 PRN PRN Reason: Shortness of Breath Last Admin: 02/03/18 13:26 Dose: 3 ml Ascorbic Acid (Vitamin C Liq) 1,000 mg PO DAILY [facility] Last Admin: 02/05/18 08:16 Dose: 1,000 mg Atropine Sulfate (Atropisol 1% [facility]) 1 drop OS BID [facility] Last Admin: 02/05/18 08:14 Dose: 1 drop Bacitracin (Bacitracin) 1 ea TOP TID [facility] Last Admin: 02/05/18 12:17 Dose: 1 ea Bisacodyl (Dulcolax) 10 mg IA DAILY [facility] Last Admin: 02/05/18 08:14 Dose: 10 mg Ferrous Sulfate (Feosol Liq) 300 mg PEG DAILY [facility] Last Admin: 02/05/18 08:15 Dose: 300 mg Ceftazidime/Avibactam 2.5 gm/ (Sodium Chloride) 100 mls @ 100 mls/hr IVPB Q8H [facility] PRN Reason: Protocol Last Admin: 02/05/18 08:17 Dose: 100 mls/hr Linezolid (Zyvox 600mg/300ml D5w) 600 mg in 300 mls @ 300 mls/hr IVPB Q12 [facility] PRN Reason: Protocol Last Admin: 02/05/18 09:34 Dose: 300 mls/hr Midodrine (Proamatine) 10 mg PEG Q8H [facility] Last Admin: 02/05/18 12:17 Dose: 10 mg Mupirocin (Bactroban Ointment) 1 applic TOP BID [facility] Last Admin: 02/05/18 08:14 Dose: 1 applic Nystatin (Nystatin Oral Susp) 5 ml PO Q12 [facility] Last Admin: 02/05/18 08:15 Dose: 5 ml Nystatin (Nystop Topical Powder) 1 applic TOP TID [facility] Last Admin: 02/05/18 12:17 Dose: 1 applic Pantoprazole Sodium (Protonix Susp) 40 mg GT BID [facility] Last Admin: 02/05/18 08:15 Dose: 40 mg Silver Sulfadiazine (Silvadene 1% 20 Gm) 1 ea TOP BID [facility] Last Admin: 02/05/18 08:16 Dose: 1 ea Simethicone (Mylicon Liq) 40 mg PO QID PRN PRN Reason: Flatulence Last Admin: 02/05/18 08:18 Dose: 40 mg Thiamine HCl (Vitamin B1 Tab) 100 mg GT DAILY [facility] Last Admin: 02/05/18 08:16 Dose: 100 mg Tobramycin/Dexamethasone (Tobradex Opht Susp) 1 drop OU BID [facility] Last Admin: 02/05/18 08:16 Dose: 1 drop Valproate Sodium (Depakene Oral Soln) 500 mg PEG BID [facility] Last Admin: 02/05/18 08:14 Dose: 500 mg Vitamin A (Vitamin A&D) 1 applic TP Q8 PRN PRN Reason: Until an adequate response is Last Admin: 01/31/18 16:36 Dose: 1 applic Vitamin A (Vitamin A&D) 1 applic TP Q8 PRN PRN Reason: Excoriation Zinc Sulfate (Zinc Sulfate 220 Mg Cap) 220 mg GT DAILY [facility] Last Admin: 02/05/18 08:17 Dose: 220 mg - Labs Labs: 02/05/18 07:40 02/05/18 09:30 PT 14.7 Seconds (9.8-13.1) H 01/25/18 15:45 INR 1.3 01/25/18 15:45 APTT 21.9 Seconds (25.6-37.1) L 01/25/18 15:45 - Constitutional Appears: Chronically Ill - Head Exam Head Exam: ATRAUMATIC, NORMAL INSPECTION, NORMOCEPHALIC - Eye Exam Eye Exam: EOMI, Normal appearance, PERRL Pupil Exam: NORMAL ACCOMODATION, PERRL - ENT Exam ENT Exam: Mucous Membranes Moist, Normal Exam - Neck Exam Neck Exam: Full ROM, Normal Inspection. absent: Lymphadenopathy - Respiratory Exam Respiratory Exam: Decreased Breath Sounds, Rales Additional comments: VENTILATOR DEPENDENT - Cardiovascular Exam Cardiovascular Exam: REGULAR RHYTHM, +S1, +S2. absent: Murmur - GI/Abdominal Exam GI & Abdominal Exam: Distended, Soft, Normal Bowel Sounds. absent: Tenderness - Extremities Exam Extremities Exam: Full ROM, Normal Capillary Refill, Normal Inspection, Pedal Edema. absent: Joint Swelling - Back Exam Back Exam: NORMAL INSPECTION - Neurological Exam Neurological Exam: Awake - Psychiatric Exam Psychiatric exam: Normal Affect, Normal Mood - Skin Skin Exam: Dry, Intact, Normal Color, Warm - Additional Findings Additional findings: ANARSARCA Assessment and Plan - Assessment and Plan (Free Text) Assessment: RESPIRATORY FAILURE/PNEUMONIA SEVERE NEUROMUSCULARV DZ ANARSARCA MULTI-ORGAN FAILURE Plan: CONTINUE CURRENT RX PROGNOSIS IS POOR
[2018-02-05] MEDS: Albumin Human 25% (12.5 gm/50 ml) IV SCH ×2 (13:59→17:42)
[2018-02-05] MEDS: Potassium Chloride 20 mEq/15 ml LIQ UD GT SCH ×2 (16:08→21:00)
[2018-02-05] MEDS: Potassium CL 10 MEQ/50 ML 50 ML IVPB SCH ×3 (16:08→18:54)
[2018-02-06] MEDS: Albumin Human 25% (12.5 gm/50 ml) IV SCH ×2 (00:30→09:56)
[2018-02-06 05:37] LABS: BASO % 0.1 % (0.0-2.0); HEMOGLOBIN 7.7 g/dL (12.0-18.0); LYMPH # 0.7 K/uL (1.0-4.3); LYMPH % 3.4 % (20.0-40.0); MEAN CELL VOLUME 82.4 fl (80.0-94.0); MEAN CORPUSCULAR HEMOGLOBIN 26.4 pg (27.0-31.0); MEAN CORPUSCULAR HGB CONC 32.1 g/dL (33.0-37.0); MEAN PLATELET VOLUME 7.9 fl (7.2-11.7); MONO # 2.3 K/uL (0.0-0.8); MONO % 12.2 % (0.0-10.0); NEUT # 16.2 K/uL (1.8-7.0); NEUT % 84.3 % (50.0-75.0); NRBC % 2.7 % (0.0-0.0); PLATELET COUNT 276 K/uL (130-400); RBC 2.92 Mil/uL (4.40-5.90); RED CELL DISTRIBUTION WIDTH 19.3 % (11.5-14.5); WHITE BLOOD COUNT 19.2 K/uL (4.8-10.8)
[2018-02-06 05:56] LABS: ALB/GLOB RATIO 1.2 (1.0-2.1); ALBUMIN 3.3 g/dL (3.5-5.0); ALT/SGPT 14 U/L (21-72); AST/SGOT 25 U/L (17-59); BLOOD UREA NITROGEN 84 mg/dl (9-20); CALCIUM 8.2 mg/dL (8.4-10.2); GFR NON-AFRICAN AMERICAN > 60
[2018-02-06 06:07] LABS: INR 1.2; PROTHROMBIN TIME 13.5 Seconds (9.8-13.1)
[2018-02-06 06:09] LABS: PARTIAL THROMBOPLASTIN TIME 39.4 Seconds (25.6-37.1)
[2018-02-06 06:18] LABS: BANDS 4 % (0-2); LYMPHOCYTE 6 % (20-50); METAMYELOCYTE 1 % (0-0); MONOCYTE 1 % (0-10); MYELOCYTE 4 % (0-0); NEUTROPHIL 84 % (42-75); NUCLEATED RED BLOOD CELL 1 % (0-0); PLATELET ESTIMATE NORMAL (NORMAL); TOTAL CELLS COUNTED 100
[2018-02-06 06:19] LABS: ANISOCYTOSIS SLIGHT; POIKILOCYTOSIS SLIGHT
[2018-02-06 06:20] LABS: LARGE PLATELETS PRESENT; OVALOCYTES SLIGHT; PLATELET CLUMPS PRESENT
[2018-02-06] MEDS: Potassium Chloride 20 mEq/15 ml LIQ UD GT SCH (06:40)
[2018-02-06] MEDS: Albuterol-Ipratrop 3 mg / 0.5 (3 ml) UD INH SCH ×4 (07:47→19:27)
[2018-02-06] MEDS: Bacitracin 500 Units/gm Oint Foilpak UD TOP SCH ×3 (08:32→16:48)
[2018-02-06] MEDS: Valproic Acid 250 mg/5 ml UD Cup PEG SCH ×2 (08:34→16:48)
[2018-02-06] MEDS: Ferrous Sulfate 300 mg/5 mL Liq UD PEG SCH (08:36)
[2018-02-06] MEDS: Nystatin 100,000 Units/ml Oral Susp 5 ml UD PO SCH ×2 (08:36→22:14)
[2018-02-06] MEDS: Pantoprazole 40 mg Susp UD GT SCH (08:37)
[2018-02-06] MEDS: Ascorbic Acid 500 mg/5 ml Liq(50 ml) PO SCH (08:38)
[2018-02-06] MEDS: Linezolid 600 mg in D5W 300 ml 600 MG/300 ML BAG IVPB SCH ×2 (08:39→20:53)
[2018-02-06] MEDS: ATROPINE 1% OS SCH ×2 (08:45→16:53)
--- NOTE | 2018-02-06 08:45 | CP.PCM.PN ---
Subjective - Date & Time of Evaluation Date of Evaluation: 02/06/18 Time of Evaluation: 10:14 - Subjective Subjective: Patient noted to have low urine output. As per son, patient had bloody stool. Guiac yesterday neg, saturation stable. Objective - Vital Signs/Intake and Output Vital Signs (last 24 hours): Temp Pulse Resp BP Pulse Ox 97.7 F 60 29 H 95/54 L 100 02/06/18 08:00 02/06/18 08:00 02/06/18 08:00 02/06/18 07:00 02/06/18 08:00 Intake and Output: 02/06/18 02/06/18 06:59 18:59 Intake Total 596 Balance 596 - Medications Medications: Current Medications Albuterol/Ipratropium (Duoneb 3 Mg/0.5 Mg (3 Ml) Ud) 3 ml INH RQID [facility] Last Admin: 02/06/18 07:47 Dose: 3 ml Albuterol/Ipratropium (Duoneb 3 Mg/0.5 Mg (3 Ml) Ud) 3 ml INH RQ6 PRN PRN Reason: Shortness of Breath Last Admin: 02/03/18 13:26 Dose: 3 ml Ascorbic Acid (Vitamin C Liq) 1,000 mg PO DAILY [facility] Last Admin: 02/05/18 08:16 Dose: 1,000 mg Atropine Sulfate (Atropisol 1% Oph) 1 drop OS BID [facility] Last Admin: 02/05/18 16:06 Dose: 1 drop Bacitracin (Bacitracin) 1 ea TOP TID [facility] Last Admin: 02/05/18 16:06 Dose: 1 ea Bisacodyl (Dulcolax) 10 mg ND DAILY [facility] Last Admin: 02/05/18 08:14 Dose: 10 mg Ferrous Sulfate (Feosol Liq) 300 mg PEG DAILY [facility] Last Admin: 02/05/18 08:15 Dose: 300 mg Furosemide (Lasix) 40 mg IV ONCE ONE Stop: 02/06/18 18:18 Ceftazidime/Avibactam 2.5 gm/ (Sodium Chloride) 100 mls @ 100 mls/hr IVPB Q8H [facility] PRN Reason: Protocol Last Admin: 02/06/18 01:30 Dose: 100 mls/hr Linezolid (Zyvox 600mg/300ml D5w) 600 mg in 300 mls @ 300 mls/hr IVPB Q12 [facility] PRN Reason: Protocol Last Admin: 02/05/18 20:18 Dose: 300 mls/hr Norepinephrine Bitartrate 16 (mg/ Dextrose) 266 mls @ 12.46 mls/hr IV .[id number] ONE; 12.5 MCG/MIN PRN Reason: Protocol Stop: 02/06/18 14:45 Last Titration: 02/05/18 20:30 Dose: 20 mcg/min, 19.95 mls/hr Midodrine (Proamatine) 10 mg PEG Q8H [facility] Last Admin: 02/06/18 05:00 Dose: 10 mg Mupirocin (Bactroban Ointment) 1 applic TOP BID [facility] Last Admin: 02/05/18 16:06 Dose: 1 applic Nystatin (Nystatin Oral Susp) 5 ml PO Q12 [facility] Last Admin: 02/05/18 20:19 Dose: 5 ml Nystatin (Nystop Topical Powder) 1 applic TOP TID [facility] Last Admin: 02/05/18 16:07 Dose: 1 applic Pantoprazole Sodium (Protonix Susp) 40 mg GT BID [facility] Last Admin: 02/05/18 16:08 Dose: 40 mg Silver Sulfadiazine (Silvadene 1% 20 Gm) 1 ea TOP BID [facility] Last Admin: 02/05/18 16:08 Dose: 1 ea Simethicone (Mylicon Liq) 40 mg PO QID PRN PRN Reason: Flatulence Last Admin: 02/05/18 08:18 Dose: 40 mg Sucralfate (Carafate Oral Susp) 1 gm PO QID [facility] Thiamine HCl (Vitamin B1 Tab) 100 mg GT DAILY [facility] Last Admin: 02/05/18 08:16 Dose: 100 mg Tobramycin/Dexamethasone (Tobradex Opht Susp) 1 drop OU BID [facility] Last Admin: 02/05/18 16:09 Dose: 1 drop Valproate Sodium (Depakene Oral Soln) 500 mg PEG BID [facility] Last Admin: 02/05/18 16:07 Dose: 500 mg Vitamin A (Vitamin A&D) 1 applic TP Q8 PRN PRN Reason: Until an adequate response is Last Admin: 01/31/18 16:36 Dose: 1 applic Vitamin A (Vitamin A&D) 1 applic TP Q8 PRN PRN Reason: Excoriation Zinc Sulfate (Zinc Sulfate 220 Mg Cap) 220 mg GT DAILY [facility] Last Admin: 02/05/18 08:17 Dose: 220 mg - Labs Labs: 02/06/18 04:50 02/06/18 04:50 PT 13.5 Seconds (9.8-13.1) H 02/06/18 04:50 INR 1.2 02/06/18 04:50 APTT 39.4 Seconds (25.6-37.1) H 02/06/18 04:50 - Constitutional Appears: Toxic - Head Exam Head Exam: ATRAUMATIC - Eye Exam Pupil Exam: Irregular - Neck Exam Additional comments: (+)trach - Respiratory Exam Respiratory Exam: Decreased Breath Sounds, NORMAL BREATHING PATTERN. absent: Rhonchi, Wheezes, Stridor - Cardiovascular Exam Cardiovascular Exam: REGULAR RHYTHM, +S1, +S2, +S4 - GI/Abdominal Exam GI & Abdominal Exam: Distended, Soft - Extremities Exam Extremities Exam: Pedal Edema - Skin Skin Exam: absent: Cyanosis Assessment and Plan - Assessment and Plan (Free Text) Assessment: Septic shock: continue broad spectrum abx as per ID, serial lactic, titrate off pressors to keep MAP >65, currently afebrile, -CHronic trach/ventilator dependent respiratory failure: FiO2 40%, family refused CPAP trials and refused changing vent setting to SIMV(chronic wean), monitor to keep sop2 >92 and pH b/w 7.35-7.45 -Distended abdomen: HOLD gt tube feeds -High BUN: son noted (+)blood in stool while cleaning, yesterday another, nephrology follow up, full dose lovenox d/c yesterday -Malnutrition: continue MVI/vitamin C and zinc sulfate -right eyebrow lesion: dermatology follow up requested -DVT ppx: hold chemical AC, continue dvt/SCD -pud ppx :protonix q12 and carafate -turn/cough q2hrs Prognosis poor as patient has chronic systolic heart failure and end stage muscular dystrophy above management d/w family. -risks, benefits and alternatives informed of family decisions and current management. Addendum: -Patient had loose stool, sent for stool wbc and RBC and C. diff. -Gi consulted for likely Gi bleed and possible peg tube change Prognosis poor as patient has multi-organ failure with ventilator dependent respiratory failure, severe heart failure EF 25%, sepsis. Son and daughters informed of above medical issues. ICu team will continue to monitor patient. cc time 45 minutes
[2018-02-06] MEDS ORDERED: Enoxaparin 40 mg Syringe SC SCH (09:00)
--- NOTE | 2018-02-06 09:23 | RAD ---
Date of service: 02/05/2018 PROCEDURE: CHEST RADIOGRAPH, 1 VIEW HISTORY: eval effusion COMPARISON: 02/01/2018 FINDINGS: LUNGS: Mild subtle increase in previously seen hypoventilatory changes. No appreciable new infiltrate. PLEURA: Probable bilateral pleural effusions are stable. CARDIOVASCULAR: Vasculature may be slightly increased. OSSEOUS STRUCTURES: No significant abnormalities. VISUALIZED UPPER ABDOMEN: Normal. OTHER FINDINGS: Tracheostomy is unchanged. IMPRESSION: Slight increase in vascular congestion and volume loss versus.
--- NOTE | 2018-02-06 09:29 | US ---
Date of service: 02/04/2018 HISTORY: Lower extremity swelling . PRIORS: None. FINDINGS: 2-D, color and duplex Doppler analysis of the lower extremity venous circulation using routine protocol from the femoral veins through the popliteal veins. Venous compressibility: Normal. Flow and augmentation patterns: Normal. Visualized veins upper third of calf: Normal. Tobar cyst: None. IMPRESSION: No sonographic or Doppler evidence for DVT in left lower extremity.
--- NOTE | 2018-02-06 09:30 | US ---
Date of service: 02/03/2018 PROCEDURE: Right lower extremity venous duplex Doppler. HISTORY: r/o DVT COMPARISON: None available. TECHNIQUE: Right Common femoral, superficial femoral, popliteal and posterior tibial veins were evaluated. Flow was assessed with color Doppler, compressibility, assessment of phasic flow and augmentation response. FINDINGS: COMMON FEMORAL VEIN: Unremarkable. SUPERFICIAL FEMORAL VEIN: Unremarkable. POPLITEAL VEIN: Unremarkable. POSTERIOR TIBIAL VEIN: Unremarkable. OTHER FINDINGS: None. IMPRESSION: No evidence of deep venous thrombosis in the right lower extremity. Patient's family refused additional imaging of the left leg at the present time.
[2018-02-06] MEDS: Sucralfate 1 gm/10 ml Oral Susp UD PO SCH ×4 (10:01→21:32)
[2018-02-06] MEDS: Dexamethasone/Tobramycin Ophth Susp OU SCH ×2 (10:06→16:53)
--- NOTE | 2018-02-06 11:12 | CP.PCM.PN ---
Subjective - Date & Time of Evaluation Date of Evaluation: 02/06/18 Time of Evaluation: 11:10 - Subjective Subjective: renal follow upnote continues to be anuric bp low on vetnt meds reviewed vitals reviewed heent unchanged trach and peg+ abd soft, distended edema ++ no rash hernandez+ JOVANI/azotemia/hyponatremia/chronic resp failure/edema/anemia/acidosis/ hyponatremia JOVANI sec to ATN from hypoperfusion, sepsis syndrome; he has hx of muscular dystrophy hence low cr production. check bladder scan which showed retention of 600cc urine change hernandez monitor I&Os can give fluids as needs reviewed his nutrition, has been given perative 5- 6 cans per day by family per PEG tube, recomend nutrition consult to look into as may be the protein load is causing the bun go up hyponatremia: recommend to decrease free water per tube anemia: ? rule out gi bleed hb lower today, agree with transfusion Objective - Vital Signs/Intake and Output Vital Signs (last 24 hours): Temp Pulse Resp BP Pulse Ox 97.7 F 60 29 H 95/54 L 100 02/06/18 08:00 02/06/18 08:00 02/06/18 08:00 02/06/18 07:00 02/06/18 08:00 Intake and Output: 02/06/18 02/06/18 06:59 18:59 Intake Total 596 220 Balance 596 220 - Medications Medications: Current Medications Albuterol/Ipratropium (Duoneb 3 Mg/0.5 Mg (3 Ml) Ud) 3 ml INH RQID [facility] Last Admin: 02/06/18 07:47 Dose: 3 ml Albuterol/Ipratropium (Duoneb 3 Mg/0.5 Mg (3 Ml) Ud) 3 ml INH RQ6 PRN PRN Reason: Shortness of Breath Last Admin: 02/03/18 13:26 Dose: 3 ml Ascorbic Acid (Vitamin C Liq) 1,000 mg PO DAILY [facility] Last Admin: 02/06/18 08:38 Dose: 1,000 mg Atropine Sulfate (Atropisol 1% Oph) 1 drop OS BID [facility] Last Admin: 02/06/18 08:45 Dose: 1 drop Bacitracin (Bacitracin) 1 ea TOP TID [facility] Last Admin: 02/06/18 08:32 Dose: 1 ea Bisacodyl (Dulcolax) 10 mg [place] DAILY [facility] Last Admin: 02/06/18 08:34 Dose: 10 mg Ferrous Sulfate (Feosol Liq) 300 mg PEG DAILY [facility] Last Admin: 02/06/18 08:36 Dose: 300 mg Furosemide (Lasix) 40 mg IV ONCE ONE Stop: 02/06/18 18:18 Ceftazidime/Avibactam 2.5 gm/ (Sodium Chloride) 100 mls @ 100 mls/hr IVPB Q8H [facility] PRN Reason: Protocol Last Admin: 02/06/18 08:32 Dose: 100 mls/hr Linezolid (Zyvox 600mg/300ml D5w) 600 mg in 300 mls @ 300 mls/hr IVPB Q12 [facility] PRN Reason: Protocol Last Admin: 02/06/18 08:39 Dose: 300 mls/hr Norepinephrine Bitartrate 16 (mg/ Dextrose) 266 mls @ 12.46 mls/hr IV .[id number] ONE; 12.5 MCG/MIN PRN Reason: Protocol Stop: 02/06/18 14:45 Last Admin: 02/06/18 09:19 Dose: 20 mcg/min, 19.95 mls/hr Dextrose/Lactated Ringer's (Dextrose 5%/Lactated Ringer's) 1,000 mls @ 999 mls/ hr IV .Q1H1M [facility] Stop: 02/07/18 11:01 Sodium Chloride (Sodium Chloride 0.9%) 1,000 mls @ 999 mls/hr IV .Q1H1M [facility] Stop: 02/06/18 12:15 Sodium Chloride (Sodium Chloride 0.9%) 1,000 mls @ 75 mls/hr IV .[id number] [facility] Stop: 02/07/18 11:02 Midodrine (Proamatine) 10 mg PEG Q8H [facility] Last Admin: 02/06/18 05:00 Dose: 10 mg Mupirocin (Bactroban Ointment) 1 applic TOP BID [facility] Last Admin: 02/05/18 16:06 Dose: 1 applic Nystatin (Nystatin Oral Susp) 5 ml PO Q12 [facility] Last Admin: 02/06/18 08:36 Dose: 5 ml Nystatin (Nystop Topical Powder) 1 applic TOP TID [facility] Last Admin: 02/05/18 16:07 Dose: 1 applic Pantoprazole Sodium (Protonix Inj) 40 mg IV Q12 [facility] Last Admin: 02/06/18 10:02 Dose: 40 mg Silver Sulfadiazine (Silvadene 1% 20 Gm) 1 ea TOP BID [facility] Last Admin: 02/05/18 16:08 Dose: 1 ea Simethicone (Mylicon Liq) 40 mg PO QID PRN PRN Reason: Flatulence Last Admin: 02/05/18 08:18 Dose: 40 mg Sucralfate (Carafate Oral Susp) 1 gm PO QID [facility] Last Admin: 02/06/18 10:01 Dose: 1 gm Thiamine HCl (Vitamin B1 Tab) 100 mg [place] DAILY [facility] Last Admin: 02/06/18 08:38 Dose: 100 mg Tobramycin/Dexamethasone (Tobradex Opht Susp) 1 drop OU BID [facility] Last Admin: 02/06/18 10:06 Dose: 1 drop Valproate Sodium (Depakene Oral Soln) 500 mg PEG BID [facility] Last Admin: 02/06/18 08:34 Dose: 500 mg Vitamin A (Vitamin A&D) 1 applic TP Q8 PRN PRN Reason: Until an adequate response is Last Admin: 01/31/18 16:36 Dose: 1 applic Vitamin A (Vitamin A&D) 1 applic TP Q8 PRN PRN Reason: Excoriation Zinc Sulfate (Zinc Sulfate 220 Mg Cap) 220 mg GT DAILY [facility] Last Admin: 02/06/18 08:38 Dose: 220 mg - Labs Labs: 02/06/18 04:50 02/06/18 04:50 PT 13.5 Seconds (9.8-13.1) H 02/06/18 04:50 INR 1.2 02/06/18 04:50 APTT 39.4 Seconds (25.6-37.1) H 02/06/18 04:50
[2018-02-06] MEDS ORDERED: Sodium Chloride 0.9% 1,000 ML IV SCH ×2 (11:15→12:45)
[2018-02-06] MEDS ORDERED: Dextrose 5%/Lactated Ringer's 1,000 ML IV SCH (11:15)
[2018-02-06] MEDS ORDERED: DiphenhydrAMINE 50 mg/ml Inj IVP STA (11:51)
[2018-02-06] MEDS ORDERED: Acetaminophen 650mg/20.3ml solution UD PO ONE ×2 (11:52→12:37)
[2018-02-06] MEDS ORDERED: Lactated Ringer's 1,000 ML IV SCH (12:45)
[2018-02-06] MEDS: Silver Sulfadiazine 1% Cream (20 gm) TOP SCH ×2 (12:54→16:56)
[2018-02-06] MEDS ORDERED: DOPamine 400mg/250ml D5W 400 MG/250 ML BAG IV SCH (15:03)
[2018-02-06] MEDS: Sodium Chloride 0.9% 1,000 ML IV SCH (15:56)
--- NOTE | 2018-02-06 17:30 | CP.PCM.PN ---
Subjective - Date & Time of Evaluation Date of Evaluation: 02/02/18 Time of Evaluation: 10:00 - Subjective Subjective: Patient remains hypotensive. No fever Noted increased abd girth. Continues to have elevated WBC but no fever. Noted DVT left upper ext. Objective - Vital Signs/Intake and Output Vital Signs (last 24 hours): Temp Pulse Resp BP Pulse Ox 97.5 F L 60 16 97/48 L 100 02/06/18 16:33 02/06/18 16:33 02/06/18 16:33 02/06/18 16:33 02/06/18 16:00 Intake and Output: 02/06/18 02/06/18 06:59 18:59 Intake Total 596 593 Output Total 150 Balance 596 443 - Medications Medications: Current Medications Albuterol/Ipratropium (Duoneb 3 Mg/0.5 Mg (3 Ml) Ud) 3 ml INH RQID [facility] Last Admin: 02/06/18 15:12 Dose: 3 ml Albuterol/Ipratropium (Duoneb 3 Mg/0.5 Mg (3 Ml) Ud) 3 ml INH RQ6 PRN PRN Reason: Shortness of Breath Last Admin: 02/03/18 13:26 Dose: 3 ml Ascorbic Acid (Vitamin C Liq) 1,000 mg PO DAILY [facility] Last Admin: 02/06/18 08:38 Dose: 1,000 mg Atropine Sulfate (Atropisol 1% Ophth) 1 drop OS BID [facility] Last Admin: 02/06/18 16:53 Dose: 1 drop Bacitracin (Bacitracin) 1 ea TOP TID [facility] Last Admin: 02/06/18 16:48 Dose: 1 ea Bisacodyl (Dulcolax) 10 mg [place] DAILY [facility] Last Admin: 02/06/18 08:34 Dose: 10 mg Ferrous Sulfate (Feosol Liq) 300 mg PEG DAILY [facility] Last Admin: 02/06/18 08:36 Dose: 300 mg Furosemide (Lasix) 40 mg IV ONCE ONE Stop: 02/06/18 18:18 Ceftazidime/Avibactam 2.5 gm/ (Sodium Chloride) 100 mls @ 100 mls/hr IVPB Q8H [facility] PRN Reason: Protocol Last Admin: 02/06/18 16:49 Dose: 100 mls/hr Linezolid (Zyvox 600mg/300ml D5w) 600 mg in 300 mls @ 300 mls/hr IVPB Q12 [facility] PRN Reason: Protocol Last Admin: 02/06/18 08:39 Dose: 300 mls/hr Sodium Chloride (Sodium Chloride 0.9%) 1,000 mls @ 75 mls/hr IV .[id number] [facility] Stop: 02/07/18 11:02 Last Admin: 02/06/18 15:56 Dose: 75 mls/hr DOPamine 800mg/250ml D5W (Dopamine 800mg/250ml D5w) 800 mg in 250 mls @ 6.557 mls/hr IV .Q24H [facility] PRN Reason: 3 MCG/KG/MIN Midodrine (Proamatine) 10 mg PEG Q8H [facility] Last Admin: 02/06/18 13:18 Dose: 10 mg Mupirocin (Bactroban Ointment) 1 applic TOP BID [facility] Last Admin: 02/06/18 16:56 Dose: 1 applic Nystatin (Nystatin Oral Susp) 5 ml PO Q12 [facility] Last Admin: 02/06/18 08:36 Dose: 5 ml Nystatin (Nystop Topical Powder) 1 applic TOP TID [facility] Last Admin: 02/06/18 16:53 Dose: 1 applic Pantoprazole Sodium (Protonix Inj) 40 mg IV Q12 [facility] Last Admin: 02/06/18 10:02 Dose: 40 mg Silver Sulfadiazine (Silvadene 1% 20 Gm) 1 ea TOP BID [facility] Last Admin: 02/06/18 16:56 Dose: 1 ea Simethicone (Mylicon Liq) 40 mg PO QID PRN PRN Reason: Flatulence Last Admin: 02/05/18 08:18 Dose: 40 mg Sucralfate (Carafate Oral Susp) 1 gm PO QID [facility] Last Admin: 02/06/18 16:48 Dose: 1 gm Thiamine HCl (Vitamin B1 Tab) 100 mg GT DAILY [facility] Last Admin: 02/06/18 08:38 Dose: 100 mg Tobramycin/Dexamethasone (Tobradex Opht Susp) 1 drop OU BID [facility] Last Admin: 02/06/18 16:53 Dose: 1 drop Valproate Sodium (Depakene Oral Soln) 500 mg PEG BID [facility] Last Admin: 02/06/18 16:48 Dose: 500 mg Vitamin A (Vitamin A&D) 1 applic TP Q8 PRN PRN Reason: Until an adequate response is Last Admin: 01/31/18 16:36 Dose: 1 applic Vitamin A (Vitamin A&D) 1 applic TP Q8 PRN PRN Reason: Excoriation Zinc Sulfate (Zinc Sulfate 220 Mg Cap) 220 mg [place] DAILY [facility] Last Admin: 02/06/18 08:38 Dose: 220 mg - Labs Labs: 02/06/18 04:50 02/06/18 04:50 PT 13.5 Seconds (9.8-13.1) H 02/06/18 04:50 INR 1.2 02/06/18 04:50 APTT 39.4 Seconds (25.6-37.1) H 02/06/18 04:50 - Head Exam Head Exam: NORMAL INSPECTION - Eye Exam Eye Exam: Normal appearance - Respiratory Exam Respiratory Exam: Clear to Ausculation Bilateral - Cardiovascular Exam Cardiovascular Exam: Irregular Rhythm - GI/Abdominal Exam GI & Abdominal Exam: Normal Bowel Sounds - Neurological Exam Neurological Exam: Altered Assessment and Plan (1) Severe dehydration Status: Acute (2) Altered mental status, unspecified Status: Acute (3) Hypernatremia Status: Acute (4) Unresponsive state Status: Acute (5) Pneumonia Status: Acute (6) Pleural effusion Status: Acute (7) Leukocytosis Status: Acute (8) Deep vein thrombosis (DVT) Status: Acute - Assessment and Plan (Free Text) Plan: Cont meds Discussed with family follow pUS of other ext KUB insert hernandez. Follow up with Infxs disease. stool for C diff
--- NOTE | 2018-02-06 17:36 | CP.PCM.PN ---
Subjective - Date & Time of Evaluation Date of Evaluation: 02/03/18 Time of Evaluation: 12:00 - Subjective Subjective: Patient was inserted hernandez and collected adequate amount of urine However overnight had minimal amount of urine Remains afebrile but WBC remains elevated. Objective - Vital Signs/Intake and Output Vital Signs (last 24 hours): Temp Pulse Resp BP Pulse Ox 97.5 F L 60 16 97/48 L 100 02/06/18 16:33 02/06/18 16:33 02/06/18 16:33 02/06/18 16:33 02/06/18 16:00 Intake and Output: 02/06/18 02/06/18 06:59 18:59 Intake Total 596 593 Output Total 150 Balance 596 443 - Medications Medications: Current Medications Albuterol/Ipratropium (Duoneb 3 Mg/0.5 Mg (3 Ml) Ud) 3 ml INH RQID [facility] Last Admin: 02/06/18 15:12 Dose: 3 ml Albuterol/Ipratropium (Duoneb 3 Mg/0.5 Mg (3 Ml) Ud) 3 ml INH RQ6 PRN PRN Reason: Shortness of Breath Last Admin: 02/03/18 13:26 Dose: 3 ml Ascorbic Acid (Vitamin C Liq) 1,000 mg PO DAILY [facility] Last Admin: 02/06/18 08:38 Dose: 1,000 mg Atropine Sulfate (Atropisol 1% Ophth) 1 drop OS BID [facility] Last Admin: 02/06/18 16:53 Dose: 1 drop Bacitracin (Bacitracin) 1 ea TOP TID [facility] Last Admin: 02/06/18 16:48 Dose: 1 ea Bisacodyl (Dulcolax) 10 mg [place] DAILY [facility] Last Admin: 02/06/18 08:34 Dose: 10 mg Ferrous Sulfate (Feosol Liq) 300 mg PEG DAILY [facility] Last Admin: 02/06/18 08:36 Dose: 300 mg Furosemide (Lasix) 40 mg IV ONCE ONE Stop: 02/06/18 18:18 Ceftazidime/Avibactam 2.5 gm/ (Sodium Chloride) 100 mls @ 100 mls/hr IVPB Q8H [facility] PRN Reason: Protocol Last Admin: 02/06/18 16:49 Dose: 100 mls/hr Linezolid (Zyvox 600mg/300ml D5w) 600 mg in 300 mls @ 300 mls/hr IVPB Q12 [facility] PRN Reason: Protocol Last Admin: 02/06/18 08:39 Dose: 300 mls/hr Sodium Chloride (Sodium Chloride 0.9%) 1,000 mls @ 75 mls/hr IV .[id number] [facility] Stop: 02/07/18 11:02 Last Admin: 02/06/18 15:56 Dose: 75 mls/hr DOPamine 800mg/250ml D5W (Dopamine 800mg/250ml D5w) 800 mg in 250 mls @ 6.557 mls/hr IV .Q24H [facility] PRN Reason: 3 MCG/KG/MIN Midodrine (Proamatine) 10 mg PEG Q8H [facility] Last Admin: 02/06/18 13:18 Dose: 10 mg Mupirocin (Bactroban Ointment) 1 applic TOP BID [facility] Last Admin: 02/06/18 16:56 Dose: 1 applic Nystatin (Nystatin Oral Susp) 5 ml PO Q12 [facility] Last Admin: 02/06/18 08:36 Dose: 5 ml Nystatin (Nystop Topical Powder) 1 applic TOP TID [facility] Last Admin: 02/06/18 16:53 Dose: 1 applic Pantoprazole Sodium (Protonix Inj) 40 mg IV Q12 [facility] Last Admin: 02/06/18 10:02 Dose: 40 mg Silver Sulfadiazine (Silvadene 1% 20 Gm) 1 ea TOP BID [facility] Last Admin: 02/06/18 16:56 Dose: 1 ea Simethicone (Mylicon Liq) 40 mg PO QID PRN PRN Reason: Flatulence Last Admin: 02/05/18 08:18 Dose: 40 mg Sucralfate (Carafate Oral Susp) 1 gm PO QID [facility] Last Admin: 02/06/18 16:48 Dose: 1 gm Thiamine HCl (Vitamin B1 Tab) 100 mg [place] DAILY [facility] Last Admin: 02/06/18 08:38 Dose: 100 mg Tobramycin/Dexamethasone (Tobradex Opht Susp) 1 drop OU BID [facility] Last Admin: 02/06/18 16:53 Dose: 1 drop Valproate Sodium (Depakene Oral Soln) 500 mg PEG BID [facility] Last Admin: 02/06/18 16:48 Dose: 500 mg Vitamin A (Vitamin A&D) 1 applic TP Q8 PRN PRN Reason: Until an adequate response is Last Admin: 01/31/18 16:36 Dose: 1 applic Vitamin A (Vitamin A&D) 1 applic TP Q8 PRN PRN Reason: Excoriation Zinc Sulfate (Zinc Sulfate 220 Mg Cap) 220 mg [place] DAILY [facility] Last Admin: 02/06/18 08:38 Dose: 220 mg - Labs Labs: 02/06/18 04:50 02/06/18 04:50 PT 13.5 Seconds (9.8-13.1) H 02/06/18 04:50 INR 1.2 02/06/18 04:50 APTT 39.4 Seconds (25.6-37.1) H 02/06/18 04:50 - Head Exam Head Exam: NORMAL INSPECTION - Eye Exam Eye Exam: Normal appearance - ENT Exam ENT Exam: Mucous Membranes Moist - Respiratory Exam Respiratory Exam: Clear to Ausculation Bilateral - Cardiovascular Exam Cardiovascular Exam: +S4 - GI/Abdominal Exam GI & Abdominal Exam: Normal Bowel Sounds - Neurological Exam Neurological Exam: Altered Assessment and Plan (1) Severe dehydration Status: Acute (2) Altered mental status, unspecified Status: Acute (3) Hypernatremia Status: Acute (4) Unresponsive state Status: Acute (5) Pneumonia Status: Acute (6) Pleural effusion Status: Acute (7) Leukocytosis Status: Acute (8) Deep vein thrombosis (DVT) Status: Acute - Assessment and Plan (Free Text) Plan: Cont meds Discussed with family re prognosis Will continue all meds
--- NOTE | 2018-02-06 17:38 | CP.PCM.PN ---
Subjective - Date & Time of Evaluation Date of Evaluation: 02/04/18 Time of Evaluation: 11:00 - Subjective Subjective: Patient remains intubated and poor response to verbal stimuli. Remains afebrile but with elevated WBC. Has minimal urine output. BUN is elevated but creatinine is normal. Objective - Vital Signs/Intake and Output Vital Signs (last 24 hours): Temp Pulse Resp BP Pulse Ox 97.5 F L 60 16 97/48 L 100 02/06/18 16:33 02/06/18 16:33 02/06/18 16:33 02/06/18 16:33 02/06/18 16:00 Intake and Output: 02/06/18 02/06/18 06:59 18:59 Intake Total 596 593 Output Total 150 Balance 596 443 - Medications Medications: Current Medications Albuterol/Ipratropium (Duoneb 3 Mg/0.5 Mg (3 Ml) Ud) 3 ml INH RQID [facility] Last Admin: 02/06/18 15:12 Dose: 3 ml Albuterol/Ipratropium (Duoneb 3 Mg/0.5 Mg (3 Ml) Ud) 3 ml INH RQ6 PRN PRN Reason: Shortness of Breath Last Admin: 02/03/18 13:26 Dose: 3 ml Ascorbic Acid (Vitamin C Liq) 1,000 mg PO DAILY [facility] Last Admin: 02/06/18 08:38 Dose: 1,000 mg Atropine Sulfate (Atropisol 1% Oph) 1 drop OS BID [facility] Last Admin: 02/06/18 16:53 Dose: 1 drop Bacitracin (Bacitracin) 1 ea TOP TID [facility] Last Admin: 02/06/18 16:48 Dose: 1 ea Bisacodyl (Dulcolax) 10 mg [place] DAILY [facility] Last Admin: 02/06/18 08:34 Dose: 10 mg Ferrous Sulfate (Feosol Liq) 300 mg PEG DAILY [facility] Last Admin: 02/06/18 08:36 Dose: 300 mg Furosemide (Lasix) 40 mg IV ONCE ONE Stop: 02/06/18 18:18 Ceftazidime/Avibactam 2.5 gm/ (Sodium Chloride) 100 mls @ 100 mls/hr IVPB Q8H [facility] PRN Reason: Protocol Last Admin: 02/06/18 16:49 Dose: 100 mls/hr Linezolid (Zyvox 600mg/300ml D5w) 600 mg in 300 mls @ 300 mls/hr IVPB Q12 [facility] PRN Reason: Protocol Last Admin: 02/06/18 08:39 Dose: 300 mls/hr Sodium Chloride (Sodium Chloride 0.9%) 1,000 mls @ 75 mls/hr IV .[id number] [facility] Stop: 02/07/18 11:02 Last Admin: 02/06/18 15:56 Dose: 75 mls/hr DOPamine 800mg/250ml D5W (Dopamine 800mg/250ml D5w) 800 mg in 250 mls @ 6.557 mls/hr IV .Q24H [facility] PRN Reason: 3 MCG/KG/MIN Midodrine (Proamatine) 10 mg PEG Q8H [facility] Last Admin: 02/06/18 13:18 Dose: 10 mg Mupirocin (Bactroban Ointment) 1 applic TOP BID [facility] Last Admin: 02/06/18 16:56 Dose: 1 applic Nystatin (Nystatin Oral Susp) 5 ml PO Q12 [facility] Last Admin: 02/06/18 08:36 Dose: 5 ml Nystatin (Nystop Topical Powder) 1 applic TOP TID [facility] Last Admin: 02/06/18 16:53 Dose: 1 applic Pantoprazole Sodium (Protonix Inj) 40 mg IV Q12 [facility] Last Admin: 02/06/18 10:02 Dose: 40 mg Silver Sulfadiazine (Silvadene 1% 20 Gm) 1 ea TOP BID [facility] Last Admin: 02/06/18 16:56 Dose: 1 ea Simethicone (Mylicon Liq) 40 mg PO QID PRN PRN Reason: Flatulence Last Admin: 02/05/18 08:18 Dose: 40 mg Sucralfate (Carafate Oral Susp) 1 gm PO QID [facility] Last Admin: 02/06/18 16:48 Dose: 1 gm Thiamine HCl (Vitamin B1 Tab) 100 mg GT DAILY [facility] Last Admin: 02/06/18 08:38 Dose: 100 mg Tobramycin/Dexamethasone (Tobradex Opht Susp) 1 drop OU BID [facility] Last Admin: 02/06/18 16:53 Dose: 1 drop Valproate Sodium (Depakene Oral Soln) 500 mg PEG BID [facility] Last Admin: 02/06/18 16:48 Dose: 500 mg Vitamin A (Vitamin A&D) 1 applic TP Q8 PRN PRN Reason: Until an adequate response is Last Admin: 01/31/18 16:36 Dose: 1 applic Vitamin A (Vitamin A&D) 1 applic TP Q8 PRN PRN Reason: Excoriation Zinc Sulfate (Zinc Sulfate 220 Mg Cap) 220 mg [place] DAILY [facility] Last Admin: 02/06/18 08:38 Dose: 220 mg - Labs Labs: 02/06/18 04:50 02/06/18 04:50 PT 13.5 Seconds (9.8-13.1) H 02/06/18 04:50 INR 1.2 02/06/18 04:50 APTT 39.4 Seconds (25.6-37.1) H 02/06/18 04:50 - Eye Exam Eye Exam: Normal appearance - ENT Exam ENT Exam: Mucous Membranes Moist - Respiratory Exam Respiratory Exam: Clear to Ausculation Bilateral - Cardiovascular Exam Cardiovascular Exam: Irregular Rhythm - GI/Abdominal Exam GI & Abdominal Exam: Normal Bowel Sounds - Neurological Exam Neurological Exam: Altered Assessment and Plan (1) Severe dehydration Status: Acute (2) Altered mental status, unspecified Status: Acute (3) Hypernatremia Status: Acute (4) Unresponsive state Status: Acute (5) Pneumonia Status: Acute (6) Pleural effusion Status: Acute (7) Leukocytosis Status: Acute (8) Deep vein thrombosis (DVT) Status: Acute - Assessment and Plan (Free Text) Plan: Cont meds Cont tx Discussed with family re prognosis Will follow up with Renal will do KUB
--- NOTE | 2018-02-06 17:42 | CP.PCM.PN ---
Subjective - Date & Time of Evaluation Date of Evaluation: 02/05/18 Time of Evaluation: 14:00 - Subjective Subjective: Patient remains afebrile but with elevated WBC Not adequate urine output. Objective - Vital Signs/Intake and Output Vital Signs (last 24 hours): Temp Pulse Resp BP Pulse Ox 97.5 F L 60 16 97/48 L 100 02/06/18 16:33 02/06/18 16:33 02/06/18 16:33 02/06/18 16:33 02/06/18 16:00 Intake and Output: 02/06/18 02/06/18 06:59 18:59 Intake Total 596 593 Output Total 150 Balance 596 443 - Medications Medications: Current Medications Albuterol/Ipratropium (Duoneb 3 Mg/0.5 Mg (3 Ml) Ud) 3 ml INH RQID [facility] Last Admin: 02/06/18 15:12 Dose: 3 ml Albuterol/Ipratropium (Duoneb 3 Mg/0.5 Mg (3 Ml) Ud) 3 ml INH RQ6 PRN PRN Reason: Shortness of Breath Last Admin: 02/03/18 13:26 Dose: 3 ml Ascorbic Acid (Vitamin C Liq) 1,000 mg PO DAILY [facility] Last Admin: 02/06/18 08:38 Dose: 1,000 mg Atropine Sulfate (Atropisol 1% [facility]) 1 drop OS BID [facility] Last Admin: 02/06/18 16:53 Dose: 1 drop Bacitracin (Bacitracin) 1 ea TOP TID [facility] Last Admin: 02/06/18 16:48 Dose: 1 ea Bisacodyl (Dulcolax) 10 mg [place] DAILY [facility] Last Admin: 02/06/18 08:34 Dose: 10 mg Ferrous Sulfate (Feosol Liq) 300 mg PEG DAILY [facility] Last Admin: 02/06/18 08:36 Dose: 300 mg Furosemide (Lasix) 40 mg IV ONCE ONE Stop: 02/06/18 18:18 Ceftazidime/Avibactam 2.5 gm/ (Sodium Chloride) 100 mls @ 100 mls/hr IVPB Q8H [facility] PRN Reason: Protocol Last Admin: 02/06/18 16:49 Dose: 100 mls/hr Linezolid (Zyvox 600mg/300ml D5w) 600 mg in 300 mls @ 300 mls/hr IVPB Q12 [facility] PRN Reason: Protocol Last Admin: 02/06/18 08:39 Dose: 300 mls/hr Sodium Chloride (Sodium Chloride 0.9%) 1,000 mls @ 75 mls/hr IV .[id number] [facility] Stop: 02/07/18 11:02 Last Admin: 02/06/18 15:56 Dose: 75 mls/hr DOPamine 800mg/250ml D5W (Dopamine 800mg/250ml D5w) 800 mg in 250 mls @ 6.557 mls/hr IV .Q24H [facility] PRN Reason: 3 MCG/KG/MIN Midodrine (Proamatine) 10 mg PEG Q8H [facility] Last Admin: 02/06/18 13:18 Dose: 10 mg Mupirocin (Bactroban Ointment) 1 applic TOP BID [facility] Last Admin: 02/06/18 16:56 Dose: 1 applic Nystatin (Nystatin Oral Susp) 5 ml PO Q12 [facility] Last Admin: 02/06/18 08:36 Dose: 5 ml Nystatin (Nystop Topical Powder) 1 applic TOP TID [facility] Last Admin: 02/06/18 16:53 Dose: 1 applic Pantoprazole Sodium (Protonix Inj) 40 mg IV Q12 [facility] Last Admin: 02/06/18 10:02 Dose: 40 mg Silver Sulfadiazine (Silvadene 1% 20 Gm) 1 ea TOP BID [facility] Last Admin: 02/06/18 16:56 Dose: 1 ea Simethicone (Mylicon Liq) 40 mg PO QID PRN PRN Reason: Flatulence Last Admin: 02/05/18 08:18 Dose: 40 mg Sucralfate (Carafate Oral Susp) 1 gm PO QID [facility] Last Admin: 02/06/18 16:48 Dose: 1 gm Thiamine HCl (Vitamin B1 Tab) 100 mg GT DAILY [facility] Last Admin: 02/06/18 08:38 Dose: 100 mg Tobramycin/Dexamethasone (Tobradex Opht Susp) 1 drop OU BID [facility] Last Admin: 02/06/18 16:53 Dose: 1 drop Valproate Sodium (Depakene Oral Soln) 500 mg PEG BID [facility] Last Admin: 02/06/18 16:48 Dose: 500 mg Vitamin A (Vitamin A&D) 1 applic TP Q8 PRN PRN Reason: Until an adequate response is Last Admin: 01/31/18 16:36 Dose: 1 applic Vitamin A (Vitamin A&D) 1 applic TP Q8 PRN PRN Reason: Excoriation Zinc Sulfate (Zinc Sulfate 220 Mg Cap) 220 mg GT DAILY [facility] Last Admin: 02/06/18 08:38 Dose: 220 mg - Labs Labs: 02/06/18 04:50 02/06/18 04:50 PT 13.5 Seconds (9.8-13.1) H 02/06/18 04:50 INR 1.2 02/06/18 04:50 APTT 39.4 Seconds (25.6-37.1) H 02/06/18 04:50 - Head Exam Head Exam: NORMAL INSPECTION - Eye Exam Eye Exam: Normal appearance - Respiratory Exam Respiratory Exam: Clear to Ausculation Bilateral - Cardiovascular Exam Cardiovascular Exam: Irregular Rhythm - GI/Abdominal Exam GI & Abdominal Exam: Normal Bowel Sounds Assessment and Plan (1) Severe dehydration Status: Acute (2) Altered mental status, unspecified Status: Acute (3) Hypernatremia Status: Acute (4) Unresponsive state Status: Acute (5) Pneumonia Status: Acute (6) Pleural effusion Status: Acute (7) Leukocytosis Status: Acute (8) Deep vein thrombosis (DVT) Status: Acute - Assessment and Plan (Free Text) Plan: Cont meds Cont tx Cont nutrition.
[2018-02-06] MEDS: DOPAMINE 800 MG/250 ML IV SCH (18:17)
[2018-02-06] MEDS: [UNRECOGNIZED DRUG - OTHER] IV SCH (18:17)
[2018-02-06 20:03] LABS: ABG ALLEN TEST YES; ARTERIAL BLOOD GAS O2 SAT 96.6 % (95-98); ARTERIAL BLOOD GAS PCO2 41 mm/Hg (35-45); ARTERIAL BLOOD GAS PH 7.13 (7.35-7.45); ARTERIAL BLOOD GAS PO2 71 mm/Hg (80-100); ARTERIAL BLOOD GAS TCO2 14.9 mmol/L (22-28)
[2018-02-06] MEDS ORDERED: Sodium Bicarbonate 7.5% (0.9 MEQ/ML) 50ML INJ IV ONE ×2 (20:13→20:17)
[2018-02-06 21:03] LABS: BASO % 0.2 % (0.0-2.0); EOS % 0.1 % (0.0-4.0); LYMPH # 0.4 K/uL (1.0-4.3); LYMPH % 1.6 % (20.0-40.0); MEAN CORPUSCULAR HEMOGLOBIN 26.3 pg (27.0-31.0); MEAN CORPUSCULAR HGB CONC 31.7 g/dL (33.0-37.0); MEAN PLATELET VOLUME 7.8 fl (7.2-11.7); MONO # 2.7 K/uL (0.0-0.8); NEUT # 19.7 K/uL (1.8-7.0); NEUT % 86.1 % (50.0-75.0); NRBC % 2.1 % (0.0-0.0); RBC 3.8 Mil/uL (4.40-5.90); RED CELL DISTRIBUTION WIDTH 18.9 % (11.5-14.5); WHITE BLOOD COUNT 22.9 K/uL (4.8-10.8)
[2018-02-06 21:24] LABS: ALB/GLOB RATIO 1.1 (1.0-2.1); ALBUMIN 3.1 g/dL (3.5-5.0); ALT/SGPT 20 U/L (21-72); AST/SGOT 21 U/L (17-59); BLOOD UREA NITROGEN 86 mg/dl (9-20); CALCIUM 7.9 mg/dL (8.4-10.2); GFR NON-AFRICAN AMERICAN > 60
[2018-02-07 04:51] LABS: ABG ALLEN TEST YES; ARTERIAL BLOOD GAS HCO3 14.6 mmol/L (21-28); ARTERIAL BLOOD GAS O2 SAT 97.3 % (95-98); ARTERIAL BLOOD GAS PCO2 38 mm/Hg (35-45); ARTERIAL BLOOD GAS PH 7.19 (7.35-7.45); ARTERIAL BLOOD GAS PO2 75 mm/Hg (80-100); ARTERIAL BLOOD GAS TCO2 15.7 mmol/L (22-28)
[2018-02-07] MEDS ORDERED: Sodium Bicarbonate 7.5% (0.9 MEQ/ML) 50ML INJ IV ONE (04:58)
[2018-02-07 05:42] LABS: BASO % 0.2 % (0.0-2.0); HEMOGLOBIN 10.2 g/dL (12.0-18.0); LYMPH # 0.4 K/uL (1.0-4.3); LYMPH % 1.6 % (20.0-40.0); MEAN CELL VOLUME 83.3 fl (80.0-94.0); MEAN CORPUSCULAR HEMOGLOBIN 26.8 pg (27.0-31.0); MEAN CORPUSCULAR HGB CONC 32.1 g/dL (33.0-37.0); MEAN PLATELET VOLUME 7.6 fl (7.2-11.7); MONO # 2.9 K/uL (0.0-0.8); MONO % 12.6 % (0.0-10.0); NEUT # 19.5 K/uL (1.8-7.0); NEUT % 85.6 % (50.0-75.0); NRBC % 2.1 % (0.0-0.0); RBC 3.82 Mil/uL (4.40-5.90); WHITE BLOOD COUNT 22.8 K/uL (4.8-10.8)
[2018-02-07 05:48] LABS: INR 1.4; PROTHROMBIN TIME 15.2 Seconds (9.8-13.1)
[2018-02-07 05:51] LABS: PARTIAL THROMBOPLASTIN TIME 41.9 Seconds (25.6-37.1)
[2018-02-07 06:04] LABS: ALT/SGPT 18 U/L (21-72); AST/SGOT 30 U/L (17-59); BLOOD UREA NITROGEN 85 mg/dl (9-20); CALCIUM 8.3 mg/dL (8.4-10.2); GFR NON-AFRICAN AMERICAN > 60
[2018-02-07] MEDS: Albuterol-Ipratrop 3 mg / 0.5 (3 ml) UD INH SCH ×4 (07:52→19:32)
[2018-02-07] MEDS: ATROPINE 1% OS SCH ×2 (08:35→16:07)
[2018-02-07] MEDS: Sucralfate 1 gm/10 ml Oral Susp UD PO SCH ×4 (08:38→21:29)
[2018-02-07] MEDS: Valproic Acid 250 mg/5 ml UD Cup PEG SCH (08:39)
[2018-02-07] MEDS: Ferrous Sulfate 300 mg/5 mL Liq UD PEG SCH (08:39)
[2018-02-07] MEDS: Nystatin 100,000 Units/ml Oral Susp 5 ml UD PO SCH ×2 (08:40→20:19)
[2018-02-07] MEDS: Silver Sulfadiazine 1% Cream (20 gm) TOP SCH ×2 (08:42→16:13)
[2018-02-07] MEDS: Sodium Chloride 0.9% 1,000 ML IV SCH (08:43)
[2018-02-07] MEDS: Dexamethasone/Tobramycin Ophth Susp OU SCH ×2 (08:44→16:14)
[2018-02-07] MEDS: Ascorbic Acid 500 mg/5 ml Liq(50 ml) PO SCH (08:45)
[2018-02-07] MEDS: Linezolid 600 mg in D5W 300 ml 600 MG/300 ML BAG IVPB SCH ×2 (08:45→20:17)
--- NOTE | 2018-02-07 09:29 | CP.PCM.PN ---
Subjective - Date & Time of Evaluation Date of Evaluation: 02/07/18 Time of Evaluation: 09:26 - Subjective Subjective: patient remain on respirator with what appeared to be critical condition urine output has been dropping. Patient noted to be edematous also reported perhaps of GI bleeding for which GI feeding has been stopped Family at the bedside Objective - Vital Signs/Intake and Output Vital Signs (last 24 hours): Temp Pulse Resp BP Pulse Ox 98.5 F 71 20 102/54 L 99 02/07/18 08:00 02/07/18 08:00 02/07/18 08:00 02/07/18 06:00 02/07/18 08:00 Intake and Output: 02/07/18 02/07/18 06:59 18:59 Intake Total 1680 400 Output Total 450 Balance 1230 400 - Medications Medications: Current Medications Albuterol/Ipratropium (Duoneb 3 Mg/0.5 Mg (3 Ml) Ud) 3 ml INH RQID [facility] Last Admin: 02/07/18 07:52 Dose: 3 ml Albuterol/Ipratropium (Duoneb 3 Mg/0.5 Mg (3 Ml) Ud) 3 ml INH RQ6 PRN PRN Reason: Shortness of Breath Last Admin: 02/03/18 13:26 Dose: 3 ml Ascorbic Acid (Vitamin C Liq) 1,000 mg PO DAILY [facility] Last Admin: 02/07/18 08:45 Dose: Not Given Atropine Sulfate (Atropisol 1% Oph) 1 drop OS BID [facility] Last Admin: 02/07/18 08:35 Dose: 1 drop Bacitracin (Bacitracin) 1 ea TOP TID [facility] Last Admin: 02/06/18 16:48 Dose: 1 ea Bisacodyl (Dulcolax) 10 mg IA DAILY [facility] Last Admin: 02/07/18 08:39 Dose: Not Given Ferrous Sulfate (Feosol Liq) 300 mg PEG DAILY [facility] Last Admin: 02/07/18 08:39 Dose: Not Given Ceftazidime/Avibactam 2.5 gm/ (Sodium Chloride) 100 mls @ 100 mls/hr IVPB Q8H [facility] PRN Reason: Protocol Last Admin: 02/07/18 08:36 Dose: 100 mls/hr Linezolid (Zyvox 600mg/300ml D5w) 600 mg in 300 mls @ 300 mls/hr IVPB Q12 [facility] PRN Reason: Protocol Last Admin: 02/07/18 08:45 Dose: 300 mls/hr Sodium Chloride (Sodium Chloride 0.9%) 1,000 mls @ 75 mls/hr IV .[id number] [facility] Stop: 02/07/18 11:02 Last Admin: 02/07/18 08:43 Dose: 75 mls/hr DOPamine 800mg/250ml D5W (Dopamine 800mg/250ml D5w) 800 mg in 250 mls @ 6.557 mls/hr IV .Q24H [facility] PRN Reason: 3 MCG/KG/MIN Last Admin: 02/06/18 18:17 Dose: 6.557 mls/hr Midodrine (Proamatine) 10 mg PEG Q8H [facility] Last Admin: 02/07/18 04:52 Dose: Not Given Mupirocin (Bactroban Ointment) 1 applic TOP BID [facility] Last Admin: 02/07/18 08:37 Dose: 1 applic Nystatin (Nystatin Oral Susp) 5 ml PO Q12 [facility] Last Admin: 02/07/18 08:40 Dose: 5 ml Nystatin (Nystop Topical Powder) 1 applic TOP TID [facility] Last Admin: 02/07/18 08:40 Dose: 1 applic Pantoprazole Sodium (Protonix Inj) 40 mg IV Q12 [facility] Last Admin: 02/07/18 08:42 Dose: 40 mg Silver Sulfadiazine (Silvadene 1% 20 Gm) 1 ea TOP BID [facility] Last Admin: 02/07/18 08:42 Dose: 1 ea Simethicone (Mylicon Liq) 40 mg PO QID PRN PRN Reason: Flatulence Last Admin: 02/05/18 08:18 Dose: 40 mg Sucralfate (Carafate Oral Susp) 1 gm PO QID [facility] Last Admin: 02/07/18 08:38 Dose: 1 gm Thiamine HCl (Vitamin B1 Tab) 100 mg GT DAILY [facility] Last Admin: 02/07/18 08:44 Dose: Not Given Tobramycin/Dexamethasone (Tobradex Opht Susp) 1 drop OU BID [facility] Last Admin: 02/07/18 08:44 Dose: 1 drop Valproate Sodium (Depakene Oral Soln) 500 mg PEG BID [facility] Last Admin: 02/07/18 08:39 Dose: Not Given Vitamin A (Vitamin A&D) 1 applic TP Q8 PRN PRN Reason: Until an adequate response is Last Admin: 01/31/18 16:36 Dose: 1 applic Vitamin A (Vitamin A&D) 1 applic TP Q8 PRN PRN Reason: Excoriation Zinc Sulfate (Zinc Sulfate 220 Mg Cap) 220 mg GT DAILY [facility] Last Admin: 02/07/18 08:45 Dose: Not Given - Labs Labs: 02/07/18 04:30 02/07/18 04:30 PT 15.2 Seconds (9.8-13.1) H 02/07/18 04:30 INR 1.4 02/07/18 04:30 APTT 41.9 Seconds (25.6-37.1) H 02/07/18 04:30 - Constitutional Appears: No Acute Distress - Eye Exam Eye Exam: Conjunctival injection - ENT Exam ENT Exam: Mucous Membranes Moist - Neck Exam Neck Exam: absent: Lymphadenopathy - Respiratory Exam Respiratory Exam: absent: Chest Wall Tenderness - Cardiovascular Exam Cardiovascular Exam: absent: Gallop - GI/Abdominal Exam GI & Abdominal Exam: Distended, Soft, Normal Bowel Sounds - Extremities Exam Extremities Exam: absent: Calf Tenderness - Back Exam Back Exam: absent: CVA tenderness (L), CVA tenderness (R) - Neurological Exam Neurological Exam: absent: Altered - Psychiatric Exam Psychiatric exam: Flat Affect - Skin Skin Exam: absent: Cyanosis Assessment and Plan (1) Altered mental status, unspecified Status: Acute (2) Hypernatremia Status: Acute (3) Pleural effusion Status: Acute (4) Pneumonia Status: Acute (5) Severe dehydration Status: Acute (6) Azotemia Assessment & Plan: patient has multitude of medical problem including but not limited to azotemia manifested by high disproportion B UN too serum creatinine which remained normal probably related to multifactorial perhaps GI bleeding. Patient is edematous Hyponatremia probably related to generalized edema respiratory failure muscular dystrophy GT tube feeding sepsis plan and recommendation We will give stat dose of Lasix 40 mg IV now Suggest to give albumin 25% 50 mL every 6 hours for the next 24 hours Prognosis is very poor Discussed with the family members time spent with the family and the patient and the progress note about 45 minutes also discussed with the ICU nurse Status: Acute
[2018-02-07] MEDS: Bacitracin 500 Units/gm Oint Foilpak UD TOP SCH ×3 (10:29→16:09)
[2018-02-07] MEDS ORDERED: Valproate 500 MG in Sodium Chloride 0.9% 100 ML IVPB ONE (12:30)
--- NOTE | 2018-02-07 13:25 | RAD ---
Date of service: 02/07/2018 HISTORY: diarrhea COMPARISON: Comparison made with prior study [id number] FINDINGS: BOWEL: The current study is nearly virtually nondiagnostic due to underpenetration secondary very large body habitus. There is very poor visualization of intra abdominal contents with a general hazy appearance of the entire abdomen BONES: Normal. OTHER FINDINGS: None. IMPRESSION: The current study is nearly virtually nondiagnostic due to underpenetration secondary very large body habitus. There is very poor visualization of intra abdominal contents with a general hazy appearance of the entire abdomen
--- NOTE | 2018-02-07 13:26 | RAD ---
Date of service: 02/07/2018 PROCEDURE: CHEST RADIOGRAPH, 1 VIEW HISTORY: PNEUMONIA COMPARISON: Comparison chest 02/05/2018 FINDINGS: In situ tracheostomy tube in good position. LUNGS: Pulmonary vascular congestive changes with bilateral mid and lower lobe infiltrates/atelectasis and bilateral right larger than left. PLEURA: No pneumothorax or pleural fluid seen. CARDIOVASCULAR: Heart size difficult to assess due to silhouetting and patient rotation. No change single lead pacemaker/defibrillator. OSSEOUS STRUCTURES: No significant abnormalities. VISUALIZED UPPER ABDOMEN: Normal. OTHER FINDINGS: None. IMPRESSION: Pulmonary vascular congestive changes with bilateral mid and lower lobe infiltrates/atelectasis and bilateral right larger than left.
[2018-02-07 14:02] LABS: HEMOGLOBIN 8.7 g/dL (12.0-18.0); MEAN CELL VOLUME 81.5 fl (80.0-94.0); MEAN CORPUSCULAR HEMOGLOBIN 26.8 pg (27.0-31.0); MEAN CORPUSCULAR HGB CONC 32.9 g/dL (33.0-37.0); RBC 3.26 Mil/uL (4.40-5.90); RED CELL DISTRIBUTION WIDTH 19.2 % (11.5-14.5); WHITE BLOOD COUNT 19.2 K/uL (4.8-10.8)
[2018-02-07] MEDS ORDERED: Acetaminophen 650mg/20.3ml solution UD PEG ONE (16:10)
--- NOTE | 2018-02-07 16:24 | CP.CCUPN ---
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 Patient responsive but non-verbal, non-communicative. Pt vent dependent, Intubated via tracheostomy Comfortable, NAD Active GI bleeding, was evaluated by GI today NPO, IV PPI and Sucralfate Sheduled for one unit packed RBC CCU Objective - Vital Signs / Intake & Output Vital Signs (Last 4 hours): Vital Signs Temp Pulse Resp BP Pulse Ox 02/07/18 16:00 97.9 F 66 23 113/54 L 100 02/07/18 15:00 66 20 110/60 99 02/07/18 14:00 69 18 105/58 L 100 02/07/18 12:31 110/50 L Intake and Output (Last 8hrs): Intake & Output 02/07/18 02/07/18 02/07/18 06:59 14:59 22:59 Intake Total 811 890 3199 Output Total 450 375 Balance 175 400 956 Intake: IV 525 1231 Intake, Piggyback 100 400 100 Output: Gastric Amount 400 200 Stomach 400 200 Urine 50 175 Urethral (Em) 50 Urine, Voided 175 Other: # Bowel Movements 0 1 1 - Physical Exam Head: Positive for: Atraumatic, Normocephalic, Other (right mandaen, melanoma) Pupils: Positive for: Other (corneal keratitis) Extroacular Muscles: Positive for: EOMI Conjunctiva: Positive for: Normal Ears: Positive for: Normal Mouth: Positive for: Dry Pharnyx: Positive for: Normal Neck: Positive for: Other (destructive skin lesion on right shoulder, possible basal carcinoma) Respiratory/Chest: Positive for: Clear to Auscultation, Decreased Breath Sounds (bibasilar) Cardiovascular: Positive for: Regular Rate and Rhythm Abdomen: Positive for: Distention. Negative for: Tenderness Upper Extremity: Positive for: Edema Lower Extremity: Positive for: Edema Skin: Positive for: Other (unable to evaluate back 2nd boldy habitus) Psychiatric: Positive for: Alert - Medications Active Medications: Active Medications Generic Name Dose Route Start Last Admin Trade Name Freq PRN Reason Stop Dose Admin Albumin Human 50 gm 02/07/18 16:00 Albumin Human 25% (12.5 Gm/50 Ml) IV 02/07/18 22:01 Q6 MACARIO Albuterol/Ipratropium 3 ml 01/26/18 08:00 02/07/18 15:13 Duoneb 3 Mg/0.5 Mg (3 Ml) Ud INH 3 ml RQID MACARIO Administration Albuterol/Ipratropium 3 ml 01/26/18 03:08 02/03/18 13:26 Duoneb 3 Mg/0.5 Mg (3 Ml) Ud INH 3 ml RQ6 PRN Administration Shortness of Breath Ascorbic Acid 1,000 mg 02/04/18 09:30 02/07/18 08:45 Vitamin C Liq PO Not Given DAILY MACARIO Atropine Sulfate 1 drop 01/30/18 10:00 02/07/18 16:07 Atropisol 1% Ophth OS 1 drop BID MACARIO Administration Bacitracin 1 ea 02/04/18 09:00 02/07/18 16:09 Bacitracin TOP 1 ea TID MACARIO Administration Bisacodyl 10 mg 01/30/18 10:30 02/07/18 08:39 Dulcolax GA Not Given DAILY [facility] Ferrous Sulfate 300 mg 01/27/18 09:00 02/07/18 08:39 Feosol Liq PEG Not Given DAILY [facility] Ceftazidime/Avibactam 2.5 gm/ 100 mls @ 100 mls/hr 02/01/18 17:15 02/07/18 08 :36 Sodium Chloride IVPB 100 mls/hr Q8H MACARIO Administration Protocol Linezolid 600 mg in 300 mls @ 300 mls/hr 02/03/18 21:00 02/07/18 08:45 Zyvox 600mg/300ml D5w IVPB 300 mls/hr Q12 MACARIO Administration Protocol DOPamine 800mg/250ml D5W 800 mg in 250 mls @ 6.557 mls/hr 02/06/18 17:01 08/21 18:17 Dopamine 800mg/250ml D5w IV 6.557 mls/hr .Q24H MACARIO Administration 3 MCG/KG/MIN Norepinephrine Bitartrate 16 266 mls @ 12.46 mls/hr 02/07/18 11:41 02/07/18 12:27 mg/ Dextrose IV 02/08/18 09:01 12.46 mls/hr .[id number] ONE Administration 12.5 MCG/MIN Midodrine 10 mg 02/03/18 12:30 02/07/18 12:29 Proamatine PEG Not Given Q8H [facility] Mupirocin 1 applic 02/03/18 17:00 02/07/18 16:09 Bactroban Ointment TOP 1 applic BID MACARIO Administration Nystatin 5 ml 01/26/18 21:00 02/07/18 08:40 Nystatin Oral Susp PO 5 ml Q12 MACARIO Administration Nystatin 1 applic 01/31/18 13:00 02/07/18 16:13 Nystop Topical Powder TOP 1 applic TID MACARIO Administration Pantoprazole Sodium 40 mg 02/06/18 09:00 02/07/18 08:42 Protonix Inj IV 40 mg Q12 MACARIO Administration Silver Sulfadiazine 1 ea 01/26/18 09:00 02/07/18 16:13 Silvadene 1% 20 Gm TOP 1 ea BID MACARIO Administration Simethicone 40 mg 01/28/18 12:35 02/05/18 08:18 Mylicon Liq PO 40 mg QID PRN Administration Flatulence Sucralfate 1 gm 02/06/18 09:00 02/07/18 16:10 Carafate Oral Susp PO Not Given QID [facility] Thiamine HCl 100 mg 02/04/18 09:30 02/07/18 08:44 Vitamin B1 Tab GT Not Given DAILY [facility] Tobramycin/Dexamethasone 1 drop 01/26/18 09:00 02/07/18 16:14 Tobradex Opht Susp OU 1 drop BID [facility] Administration Valproate Sodium 500 mg 02/01/18 17:00 02/07/18 08:39 Depakene Oral Soln PEG Not Given BID [facility] Vitamin A 1 applic 01/25/18 23:01 01/31/18 16:36 Vitamin A&D TP 1 applic Q8 PRN Administration Until an adequate response is Vitamin A 1 applic 02/04/18 08:51 Vitamin A&D TP Q8 PRN Excoriation Zinc Sulfate 220 mg 02/04/18 09:30 02/07/18 08:45 Zinc Sulfate 220 Mg Cap GT Not Given DAILY MACARIO - Patient Studies Lab Studies: Microbiology Studies 02/02/18 13:45 Blood Culture - Final Blood-Venous NO GROWTH AFTER 5 DAYS Gram Stain - Final TEST NOT PERFORMED 02/02/18 13:45 Blood Culture - Final Blood-Venous NO GROWTH AFTER 5 DAYS Gram Stain - Final TEST NOT PERFORMED Lab Studies 02/07/18 02/07/18 02/07/18 Range/Units 13:55 12:46 04:34 WBC 19.2 H (4.8-10.8) K/uL RBC 3.26 L (4.40-5.90) Mil/uL Hgb 8.7 L (12.0-18.0) g/dL Hct 26.6 L (35.0-51.0) % MCV 81.5 (80.0-94.0) fl MCH 26.8 L (27.0-31.0) pg MCHC 32.9 L (33.0-37.0) g/dL RDW 19.2 H (11.5-14.5) % Plt Count 210 (130-400) K/uL MPV (7.2-11.7) fl Neut % (Auto) (50.0-75.0) % Lymph % (Auto) (20.0-40.0) % [place] % (Auto) (0.0-10.0) % Eos % (Auto) (0.0-4.0) % Baso % (Auto) (0.0-2.0) % Neut # (Auto) (1.8-7.0) K/uL Lymph # (Auto) (1.0-4.3) K/uL [place] # (Auto) (0.0-0.8) K/uL Eos # (Auto) (0.0-0.7) K/uL Baso # (Auto) (0.0-0.2) K/uL PT (9.8-13.1) Seconds INR APTT (25.6-37.1) Seconds pCO2 38 (35-45) mm/Hg pO2 75 L (80-100) mm/Hg HCO3 14.6 L (21-28) mmol/L ABG pH 7.19 L* (7.35-7.45) ABG Total CO2 15.7 L (22-28) mmol/L ABG O2 Saturation 97.3 (95-98) % ABG Base Excess -13.0 L (-2.0-3.0) mmol/L Bernardino Test Yes ABG Potassium 4.4 (3.6-5.2) mmol/L A-a O2 Difference 163.0 mm/Hg Sodium 127.0 L (132-148) mmol/L Chloride 101.0 (98-107) mmol/L Glucose 73 L (75-110) mg/dL Lactate 0.7 (0.7-2.1) mmol/L Vent Mode Prvc ac Mechanical Rate 16 FiO2 40.0 % Tidal Volume 500 PEEP 5 Crit Value Called To Hanane webb Crit Value Called By 292 Crit Value Read Back Y Blood Gas Notified Time 450 Potassium (3.6-5.0) MMOL/L Carbon Dioxide (22-30) mmol/L Anion Gap (10-20) BUN (9-20) mg/dl Creatinine (0.8-1.5) mg/dl Est GFR ( Amer) Est GFR (Non-Af Amer) POC Glucose (mg/dL) 92 (65-110) mg/dL Random Glucose (75-110) mg/dL Calcium (8.4-10.2) mg/dL Phosphorus (2.5-4.5) mg/dl Magnesium (1.6-2.3) MG/DL Total Bilirubin (0.2-1.3) mg/dl AST (17-59) U/L ALT (21-72) U/L Alkaline Phosphatase (38-126) U/L Total Protein (6.3-8.2) G/DL Albumin (3.5-5.0) g/dL Globulin (2.2-3.9) gm/dL Albumin/Globulin Ratio (1.0-2.1) Arterial Blood Potassium 4.4 (3.6-5.2) mmol/L Stool Leukocytes, Qual (NEGATIVE) C. difficile Tox B Gene (Not Detected) Crossmatch 02/07/18 02/07/18 02/07/18 Range/Units 04:30 04:30 04:30 WBC 22.8 H (4.8-10.8) K/uL RBC 3.82 L (4.40-5.90) Mil/uL Hgb 10.2 L (12.0-18.0) g/dL Hct 31.8 L (35.0-51.0) % MCV 83.3 (80.0-94.0) fl MCH 26.8 L (27.0-31.0) pg MCHC 32.1 L (33.0-37.0) g/dL RDW 19.0 H (11.5-14.5) % Plt Count 289 (130-400) K/uL MPV 7.6 (7.2-11.7) fl Neut % (Auto) 85.6 H (50.0-75.0) % Lymph % (Auto) 1.6 L (20.0-40.0) % [place] % (Auto) 12.6 H (0.0-10.0) % Eos % (Auto) 0.0 (0.0-4.0) % Baso % (Auto) 0.2 (0.0-2.0) % Neut # (Auto) 19.5 H (1.8-7.0) K/uL Lymph # (Auto) 0.4 L (1.0-4.3) K/uL [place] # (Auto) 2.9 H (0.0-0.8) K/uL Eos # (Auto) 0.0 (0.0-0.7) K/uL Baso # (Auto) 0.0 (0.0-0.2) K/uL PT 15.2 H (9.8-13.1) Seconds INR 1.4 APTT 41.9 H (25.6-37.1) Seconds pCO2 (35-45) mm/Hg pO2 (80-100) mm/Hg HCO3 (21-28) mmol/L ABG pH (7.35-7.45) ABG Total CO2 (22-28) mmol/L ABG O2 Saturation (95-98) % ABG Base Excess (-2.0-3.0) mmol/L Bernardino Test ABG Potassium (3.6-5.2) mmol/L A-a O2 Difference mm/Hg Sodium 131 L (132-148) mmol/L Chloride 102 (98-107) mmol/L Glucose (75-110) mg/dL Lactate (0.7-2.1) mmol/L Vent Mode Mechanical Rate FiO2 % Tidal Volume PEEP Crit Value Called To Crit Value Called By Crit Value Read Back Blood Gas Notified Time Potassium 4.5 (3.6-5.0) MMOL/L Carbon Dioxide 17 L (22-30) mmol/L Anion Gap 17 (10-20) BUN 85 H (9-20) mg/dl Creatinine 0.6 L (0.8-1.5) mg/dl Est GFR ( Amer) > 60 Est GFR (Non-Af Amer) > 60 POC Glucose (mg/dL) (65-110) mg/dL Random Glucose 67 L (75-110) mg/dL Calcium 8.3 L (8.4-10.2) mg/dL Phosphorus 5.9 H (2.5-4.5) mg/dl Magnesium 3.0 H (1.6-2.3) MG/DL Total Bilirubin 0.7 (0.2-1.3) mg/dl AST 30 (17-59) U/L ALT 18 L (21-72) U/L Alkaline Phosphatase 165 H (38-126) U/L Total Protein 6.0 L (6.3-8.2) G/DL Albumin 3.0 L (3.5-5.0) g/dL Globulin 2.9 (2.2-3.9) gm/dL Albumin/Globulin Ratio 1.0 (1.0-2.1) Arterial Blood Potassium (3.6-5.2) mmol/L Stool Leukocytes, Qual (NEGATIVE) C. difficile Tox B Gene (Not Detected) Crossmatch 02/06/18 02/06/18 02/06/18 Range/Units 20:53 20:53 19:57 WBC 22.9 H (4.8-10.8) K/uL RBC 3.80 L (4.40-5.90) Mil/uL Hgb 10.0 L D (12.0-18.0) g/dL Hct 31.6 L (35.0-51.0) % MCV 83.0 (80.0-94.0) fl MCH 26.3 L (27.0-31.0) pg MCHC 31.7 L (33.0-37.0) g/dL RDW 18.9 H (11.5-14.5) % Plt Count 295 (130-400) K/uL MPV 7.8 (7.2-11.7) fl Neut % (Auto) 86.1 H (50.0-75.0) % Lymph % (Auto) 1.6 L (20.0-40.0) % [place] % (Auto) 12.0 H (0.0-10.0) % Eos % (Auto) 0.1 (0.0-4.0) % Baso % (Auto) 0.2 (0.0-2.0) % Neut # (Auto) 19.7 H (1.8-7.0) K/uL Lymph # (Auto) 0.4 L (1.0-4.3) K/uL [place] # (Auto) 2.7 H (0.0-0.8) K/uL Eos # (Auto) 0.0 (0.0-0.7) K/uL Baso # (Auto) 0.0 (0.0-0.2) K/uL PT (9.8-13.1) Seconds INR APTT (25.6-37.1) Seconds pCO2 41 (35-45) mm/Hg pO2 71 L (80-100) mm/Hg HCO3 13.0 L (21-28) mmol/L ABG pH 7.13 L* (7.35-7.45) ABG Total CO2 14.9 L (22-28) mmol/L ABG O2 Saturation 96.6 (95-98) % ABG Base Excess -15.0 L (-2.0-3.0) mmol/L Bernardino Test Yes ABG Potassium 4.6 (3.6-5.2) mmol/L A-a O2 Difference 163.0 mm/Hg Sodium 132 125.0 L (132-148) mmol/L Chloride 101 101.0 (98-107) mmol/L Glucose 87 (75-110) mg/dL Lactate 0.6 L (0.7-2.1) mmol/L Vent Mode Prvc/ac Mechanical Rate 16 FiO2 40.0 % Tidal Volume 500 PEEP 5 Crit Value Called To elder Castaneda Crit Value Called By 22 Crit Value Read Back Y Blood Gas Notified Time 2002 Potassium 4.5 (3.6-5.0) MMOL/L Carbon Dioxide 18 L (22-30) mmol/L Anion Gap 18 (10-20) BUN 86 H (9-20) mg/dl Creatinine 0.6 L (0.8-1.5) mg/dl Est GFR ( Amer) > 60 Est GFR (Non-Af Amer) > 60 POC Glucose (mg/dL) (65-110) mg/dL Random Glucose 88 (75-110) mg/dL Calcium 7.9 L (8.4-10.2) mg/dL Phosphorus 5.8 H (2.5-4.5) mg/dl Magnesium 3.0 H (1.6-2.3) MG/DL Total Bilirubin 0.8 (0.2-1.3) mg/dl AST 21 (17-59) U/L ALT 20 L D (21-72) U/L Alkaline Phosphatase 156 H (38-126) U/L Total Protein 6.0 L (6.3-8.2) G/DL Albumin 3.1 L (3.5-5.0) g/dL Globulin 2.9 (2.2-3.9) gm/dL Albumin/Globulin Ratio 1.1 (1.0-2.1) Arterial Blood Potassium 4.6 (3.6-5.2) mmol/L Stool Leukocytes, Qual (NEGATIVE) C. difficile Tox B Gene (Not Detected) Crossmatch 02/06/18 02/06/18 02/06/18 Range/Units 12:14 12:14 10:00 WBC (4.8-10.8) K/uL RBC (4.40-5.90) Mil/uL Hgb (12.0-18.0) g/dL Hct (35.0-51.0) % MCV (80.0-94.0) fl MCH (27.0-31.0) pg MCHC (33.0-37.0) g/dL RDW (11.5-14.5) % Plt Count (130-400) K/uL MPV (7.2-11.7) fl Neut % (Auto) (50.0-75.0) % Lymph % (Auto) (20.0-40.0) % [place] % (Auto) (0.0-10.0) % Eos % (Auto) (0.0-4.0) % Baso % (Auto) (0.0-2.0) % Neut # (Auto) (1.8-7.0) K/uL Lymph # (Auto) (1.0-4.3) K/uL [place] # (Auto) (0.0-0.8) K/uL Eos # (Auto) (0.0-0.7) K/uL Baso # (Auto) (0.0-0.2) K/uL PT (9.8-13.1) Seconds INR APTT (25.6-37.1) Seconds pCO2 (35-45) mm/Hg pO2 (80-100) mm/Hg HCO3 (21-28) mmol/L ABG pH (7.35-7.45) ABG Total CO2 (22-28) mmol/L ABG O2 Saturation (95-98) % ABG Base Excess (-2.0-3.0) mmol/L Bernardino Test ABG Potassium (3.6-5.2) mmol/L A-a O2 Difference mm/Hg Sodium (132-148) mmol/L Chloride (98-107) mmol/L Glucose (75-110) mg/dL Lactate (0.7-2.1) mmol/L Vent Mode Mechanical Rate FiO2 % Tidal Volume PEEP Crit Value Called To Crit Value Called By Crit Value Read Back Blood Gas Notified Time Potassium (3.6-5.0) MMOL/L Carbon Dioxide (22-30) mmol/L Anion Gap (10-20) BUN (9-20) mg/dl Creatinine (0.8-1.5) mg/dl Est GFR ( Amer) Est GFR (Non-Af Amer) POC Glucose (mg/dL) (65-110) mg/dL Random Glucose (75-110) mg/dL Calcium (8.4-10.2) mg/dL Phosphorus (2.5-4.5) mg/dl Magnesium (1.6-2.3) MG/DL Total Bilirubin (0.2-1.3) mg/dl AST (17-59) U/L ALT (21-72) U/L Alkaline Phosphatase (38-126) U/L Total Protein (6.3-8.2) G/DL Albumin (3.5-5.0) g/dL Globulin (2.2-3.9) gm/dL Albumin/Globulin Ratio (1.0-2.1) Arterial Blood Potassium (3.6-5.2) mmol/L Stool Leukocytes, Qual Positive H (NEGATIVE) C. difficile Tox B Gene Not detected (Not Detected) Crossmatch See Detail Laboratory Results - last 24 hr 02/06/18 02/06/18 02/06/18 10:00 12:14 12:14 WBC RBC Hgb Hct MCV MCH MCHC RDW Plt Count MPV Neut % (Auto) Lymph % (Auto) [place] % (Auto) Eos % (Auto) Baso % (Auto) Neut # (Auto) Lymph # (Auto) [place] # (Auto) Eos # (Auto) Baso # (Auto) PT INR APTT pCO2 pO2 HCO3 ABG pH ABG Total CO2 ABG O2 Saturation ABG Base Excess Bernardino Test ABG Potassium A-a O2 Difference Sodium Chloride Glucose Lactate Vent Mode Mechanical Rate FiO2 Tidal Volume PEEP Crit Value Called To Crit Value Called By Crit Value Read Back Blood Gas Notified Time Potassium Carbon Dioxide Anion Gap BUN Creatinine Est GFR ( Amer) Est GFR (Non-Af Amer) POC Glucose (mg/dL) Random Glucose Calcium Phosphorus Magnesium Total Bilirubin AST ALT Alkaline Phosphatase Total Protein Albumin Globulin Albumin/Globulin Ratio Arterial Blood Potassium Stool Leukocytes, Qual Positive H C. difficile Tox B Gene Not detected Crossmatch See Detail 02/06/18 02/06/18 02/06/18 19:57 20:53 20:53 WBC 22.9 H RBC 3.80 L Hgb 10.0 L D Hct 31.6 L MCV 83.0 MCH 26.3 L MCHC 31.7 L RDW 18.9 H Plt Count 295 MPV 7.8 Neut % (Auto) 86.1 H Lymph % (Auto) 1.6 L [place] % (Auto) 12.0 H Eos % (Auto) 0.1 Baso % (Auto) 0.2 Neut # (Auto) 19.7 H Lymph # (Auto) 0.4 L [place] # (Auto) 2.7 H Eos # (Auto) 0.0 Baso # (Auto) 0.0 PT INR APTT pCO2 41 pO2 71 L HCO3 13.0 L ABG pH 7.13 L* ABG Total CO2 14.9 L ABG O2 Saturation 96.6 ABG Base Excess -15.0 L Bernardino Test Yes ABG Potassium 4.6 A-a O2 Difference 163.0 Sodium 125.0 L 132 Chloride 101.0 101 Glucose 87 Lactate 0.6 L Vent Mode Prvc/ac Mechanical Rate 16 FiO2 40.0 Tidal Volume 500 PEEP 5 Crit Value Called To elder Castaneda Crit Value Called By 22 Crit Value Read Back Y Blood Gas Notified Time 2002 Potassium 4.5 Carbon Dioxide 18 L Anion Gap 18 BUN 86 H Creatinine 0.6 L Est GFR ( Amer) > 60 Est GFR (Non-Af Amer) > 60 POC Glucose (mg/dL) Random Glucose 88 Calcium 7.9 L Phosphorus 5.8 H Magnesium 3.0 H Total Bilirubin 0.8 AST 21 ALT 20 L D Alkaline Phosphatase 156 H Total Protein 6.0 L Albumin 3.1 L Globulin 2.9 Albumin/Globulin Ratio 1.1 Arterial Blood Potassium 4.6 Stool Leukocytes, Qual C. difficile Tox B Gene Crossmatch 02/07/18 02/07/18 02/07/18 04:30 04:30 04:30 WBC 22.8 H RBC 3.82 L Hgb 10.2 L Hct 31.8 L MCV 83.3 MCH 26.8 L MCHC 32.1 L RDW 19.0 H Plt Count 289 MPV 7.6 Neut % (Auto) 85.6 H Lymph % (Auto) 1.6 L [place] % (Auto) 12.6 H Eos % (Auto) 0.0 Baso % (Auto) 0.2 Neut # (Auto) 19.5 H Lymph # (Auto) 0.4 L [place] # (Auto) 2.9 H Eos # (Auto) 0.0 Baso # (Auto) 0.0 PT 15.2 H INR 1.4 APTT 41.9 H pCO2 pO2 HCO3 ABG pH ABG Total CO2 ABG O2 Saturation ABG Base Excess Bernardino Test ABG Potassium A-a O2 Difference Sodium 131 L Chloride 102 Glucose Lactate Vent Mode Mechanical Rate FiO2 Tidal Volume PEEP Crit Value Called To Crit Value Called By Crit Value Read Back Blood Gas Notified Time Potassium 4.5 Carbon Dioxide 17 L Anion Gap 17 BUN 85 H Creatinine 0.6 L Est GFR ( Amer) > 60 Est GFR (Non-Af Amer) > 60 POC Glucose (mg/dL) Random Glucose 67 L Calcium 8.3 L Phosphorus 5.9 H Magnesium 3.0 H Total Bilirubin 0.7 AST 30 ALT 18 L Alkaline Phosphatase 165 H Total Protein 6.0 L Albumin 3.0 L Globulin 2.9 Albumin/Globulin Ratio 1.0 Arterial Blood Potassium Stool Leukocytes, Qual C. difficile Tox B Gene Crossmatch 02/07/18 02/07/18 02/07/18 04:34 12:46 13:55 WBC 19.2 H RBC 3.26 L Hgb 8.7 L Hct 26.6 L MCV 81.5 MCH 26.8 L MCHC 32.9 L RDW 19.2 H Plt Count 210 MPV Neut % (Auto) Lymph % (Auto) [place] % (Auto) Eos % (Auto) Baso % (Auto) Neut # (Auto) Lymph # (Auto) [place] # (Auto) Eos # (Auto) Baso # (Auto) PT INR APTT pCO2 38 pO2 75 L HCO3 14.6 L ABG pH 7.19 L* ABG Total CO2 15.7 L ABG O2 Saturation 97.3 ABG Base Excess -13.0 L Bernardino Test Yes ABG Potassium 4.4 A-a O2 Difference 163.0 Sodium 127.0 L Chloride 101.0 Glucose 73 L Lactate 0.7 Vent Mode Prvc ac Mechanical Rate 16 FiO2 40.0 Tidal Volume 500 PEEP 5 Crit Value Called To Hanane webb Crit Value Called By Jordon Crit Value Read Back Y Blood Gas Notified Time 450 Potassium Carbon Dioxide Anion Gap BUN Creatinine Est GFR ( Amer) Est GFR (Non-Af Amer) POC Glucose (mg/dL) 92 Random Glucose Calcium Phosphorus Magnesium Total Bilirubin AST ALT Alkaline Phosphatase Total Protein Albumin Globulin Albumin/Globulin Ratio Arterial Blood Potassium 4.4 Stool Leukocytes, Qual C. difficile Tox B Gene Crossmatch Review of Systems - Review of Systems Systems not reviewed;Unavailable: Other (Patient is non-verbal) Critical Care Progress Note - Ventilator Checklist Head of Bed 30 Degrees: Yes Daily Sedation Vacation: Yes Daily Assessment of Readiness to Wean: Yes Daily Spontaneous Breathing Trial: Yes PUD Prophalyxis: Yes DVT Prophylaxis: Yes Oral Care with Chlorhexidine Gluconate {CHG}: Yes - Extremities/Vascular Does the Patient have a Central Venous Catheter?: Yes Does the Patient need a Central Venous Catheter?: Yes Does the Patient have a Em Catheter?: Yes Does the Patient need a Em Catheter?: Yes - Prophylaxis GI Prophylaxis GI: Sucralfate - Prophylaxis DVT Prophylaxis DVT: SCDs Assessment/Plan (1) Altered mental status, unspecified Current Visit: Yes Status: Acute Priority: High Comment: Patient now ar baseline, Patient responsive but non-verbal, non-communicative. 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 (4) Sepsis Current Visit: Yes Status: Acute Priority: High Comment: MDR proteus mirabilis and MDR Klebsiella Wean off vasopressors Continue IV antibiotics ID - Dr. Nava - Assessment and Plan (Free Text) Assessment: Code status - full code
[2018-02-07] MEDS: Albumin Human 25% (12.5 gm/50 ml) IV SCH ×2 (17:52→21:25)
[2018-02-07] MEDS ORDERED: Dextrose 5%/0.9% NS 1,000 ML IV SCH (20:45)
--- NOTE | 2018-02-07 21:24 | CON ---
Copied To: Thiago Combs MD/ PhD Attending MD: Thiago Combs MD/ PhD DATE: 02/07/2018 REASON FOR CONSULTATION: Anemia, blood in the stool. HISTORY OF PRESENT ILLNESS: This is an 82-year-old man who has multiple medical problems for which basically he has developed DVT, was given full dose of therapeutic Lovenox and developed blood in stool and some malodor. At this point, his hemoglobin is stable, doing well, in no apparent distress. The patient's family is present at the bedside. PAST MEDICAL HISTORY: As above. PAST SURGICAL HISTORY: As above. REVIEW OF SYSTEMS: All other systems have been reviewed and negative apart from the HPI. PHYSICAL EXAMINATION: VITAL SIGNS: Here in the hospital, grossly unremarkable. GENERAL: This is a pleasant elderly appearing female, lying in bed comfortably, in no apparent distress. HEENT: Head is normocephalic and atraumatic. Eyes: The right eye is excoriated and dry. Pupillary responses were not being elicited. NECK: Supple. LUNGS: Coarse breath sounds bilaterally. HEART: S1 and S2. Regular rate and rhythm. ABDOMEN: Soft, distended. Bowel sounds present. No rebound. No guarding. RECTAL: Deferred. NEUROLOGIC: A and O x1, responds to pain. LABORATORY DATA: Labs and radiology have been reviewed. WBC of 22.8, hemoglobin of 10.2, hematocrit 31.3, platelet count is 129. Neutrophils 84%. INR 1.4. ASSESSMENT AND PLAN: This is an 82-year-old man with multiple medical problems. Now, hemoglobin is stable after stopping the Lovenox. From gastroenterology standpoint, no further interventions. We can resume to repeat if the KUB is okay. The output is now being bilious nonbloody. From gastroenterology standpoint, no further workup and management is needed. Prognosis is guarded. Need to quantify goals of care. Thank you for the consult. Thiago Combs MD/ PhD
--- NOTE | 2018-02-07 22:33 | CP.PCM.PN ---
Subjective - Date & Time of Evaluation Date of Evaluation: 02/07/18 Time of Evaluation: 11:30 - Subjective Subjective: Patient continues to have elevated WBC. Remains with poor response with verbal and tactile stimuli Has no fever, BUN still elevated WBC 19 BUN 85 Objective - Vital Signs/Intake and Output Vital Signs (last 24 hours): Temp Pulse Resp BP Pulse Ox 97.4 F L 70 20 109/53 L 98 02/07/18 21:27 02/07/18 21:27 02/07/18 21:27 02/07/18 21:27 02/07/18 18:00 Intake and Output: 02/07/18 02/08/18 18:59 06:59 Intake Total 1851 355 Output Total 400 Balance 1451 355 - Medications Medications: Current Medications Albuterol/Ipratropium (Duoneb 3 Mg/0.5 Mg (3 Ml) Ud) 3 ml INH RQID [facility] Last Admin: 02/07/18 19:32 Dose: 3 ml Albuterol/Ipratropium (Duoneb 3 Mg/0.5 Mg (3 Ml) Ud) 3 ml INH RQ6 PRN PRN Reason: Shortness of Breath Last Admin: 02/03/18 13:26 Dose: 3 ml Ascorbic Acid (Vitamin C Liq) 1,000 mg PO DAILY [facility] Last Admin: 02/07/18 08:45 Dose: Not Given Atropine Sulfate (Atropisol 1% Oph) 1 drop OS BID [facility] Last Admin: 02/07/18 16:07 Dose: 1 drop Bacitracin (Bacitracin) 1 ea TOP TID [facility] Last Admin: 02/07/18 16:09 Dose: 1 ea Bisacodyl (Dulcolax) 10 mg AL DAILY [facility] Last Admin: 02/07/18 08:39 Dose: Not Given Ferrous Sulfate (Feosol Liq) 300 mg PEG DAILY [facility] Last Admin: 02/07/18 08:39 Dose: Not Given Ceftazidime/Avibactam 2.5 gm/ (Sodium Chloride) 100 mls @ 100 mls/hr IVPB Q8H [facility] PRN Reason: Protocol Last Admin: 02/07/18 17:10 Dose: 100 mls/hr Linezolid (Zyvox 600mg/300ml D5w) 600 mg in 300 mls @ 300 mls/hr IVPB Q12 [facility] PRN Reason: Protocol Last Admin: 02/07/18 20:17 Dose: 300 mls/hr DOPamine 800mg/250ml D5W (Dopamine 800mg/250ml D5w) 800 mg in 250 mls @ 6.557 mls/hr IV .Q24H [facility] PRN Reason: 3 MCG/KG/MIN Last Admin: 02/06/18 18:17 Dose: 6.557 mls/hr Norepinephrine Bitartrate 16 (mg/ Dextrose) 266 mls @ 12.46 mls/hr IV .[id number] ONE PRN Reason: 12.5 MCG/MIN Stop: 02/08/18 09:01 Last Admin: 02/07/18 12:27 Dose: 12.46 mls/hr Dextrose/Sodium Chloride (Dextrose 5%/0.9% Ns 1000 Ml) 1,000 mls @ 50 mls/hr IV .Q20H [facility] Stop: 02/08/18 20:44 Last Admin: 02/07/18 21:26 Dose: 50 mls/hr Midodrine (Proamatine) 10 mg PEG Q8H [facility] Last Admin: 02/07/18 20:18 Dose: Not Given Mupirocin (Bactroban Ointment) 1 applic TOP BID [facility] Last Admin: 02/07/18 16:09 Dose: 1 applic Nystatin (Nystatin Oral Susp) 5 ml PO Q12 [facility] Last Admin: 02/07/18 20:19 Dose: 5 ml Nystatin (Nystop Topical Powder) 1 applic TOP TID [facility] Last Admin: 02/07/18 16:13 Dose: 1 applic Pantoprazole Sodium (Protonix Inj) 40 mg IV Q12 [facility] Last Admin: 02/07/18 20:17 Dose: 40 mg Silver Sulfadiazine (Silvadene 1% 20 Gm) 1 ea TOP BID [facility] Last Admin: 02/07/18 16:13 Dose: 1 ea Simethicone (Mylicon Liq) 40 mg PO QID PRN PRN Reason: Flatulence Last Admin: 02/05/18 08:18 Dose: 40 mg Sucralfate (Carafate Oral Susp) 1 gm PO QID [facility] Last Admin: 02/07/18 21:29 Dose: 1 gm Thiamine HCl (Vitamin B1 Tab) 100 mg GT DAILY [facility] Last Admin: 02/07/18 08:44 Dose: Not Given Tobramycin/Dexamethasone (Tobradex Opht Susp) 1 drop OU BID [facility] Last Admin: 02/07/18 16:14 Dose: 1 drop Valproate Sodium (Depakene Oral Soln) 500 mg PEG BID [facility] Last Admin: 02/07/18 08:39 Dose: Not Given Vitamin A (Vitamin A&D) 1 applic TP Q8 PRN PRN Reason: Until an adequate response is Last Admin: 01/31/18 16:36 Dose: 1 applic Vitamin A (Vitamin A&D) 1 applic TP Q8 PRN PRN Reason: Excoriation Zinc Sulfate (Zinc Sulfate 220 Mg Cap) 220 mg GT DAILY [facility] Last Admin: 02/07/18 08:45 Dose: Not Given - Labs Labs: 02/07/18 13:55 02/07/18 04:30 PT 15.2 Seconds (9.8-13.1) H 02/07/18 04:30 INR 1.4 02/07/18 04:30 APTT 41.9 Seconds (25.6-37.1) H 02/07/18 04:30 - Head Exam Head Exam: NORMAL INSPECTION - Eye Exam Eye Exam: Normal appearance - Respiratory Exam Respiratory Exam: Decreased Breath Sounds - Cardiovascular Exam Cardiovascular Exam: Irregular Rhythm - GI/Abdominal Exam GI & Abdominal Exam: Normal Bowel Sounds - Neurological Exam Neurological Exam: Altered Assessment and Plan (1) Severe dehydration Status: Acute (2) Altered mental status, unspecified Status: Acute (3) Hypernatremia Status: Acute (4) Unresponsive state Status: Acute (5) Pneumonia Status: Acute (6) Pleural effusion Status: Acute (7) Bacteremia Status: Acute (8) Leukocytosis Status: Acute - Assessment and Plan (Free Text) Plan: Cont meds KUB Cont tx family had decided to have patient under DNR.
[2018-02-08] MEDS: [UNRECOGNIZED DRUG - OTHER] IV SCH ×2 (00:27→21:10)
[2018-02-08] MEDS: DOPAMINE 800 MG/250 ML IV SCH ×2 (00:27→21:10)
[2018-02-08 04:59] LABS: ABG ALLEN TEST YES; ARTERIAL BLOOD GAS HCO3 15.9 mmol/L (21-28); ARTERIAL BLOOD GAS HEMOGLOBIN 10.8 g/dL (11.7-17.4); ARTERIAL BLOOD GAS O2 CAPACITY 14.8 mL/dL (16-24); ARTERIAL BLOOD GAS O2 CONTENT 14.4 ML/dL (15-23); ARTERIAL BLOOD GAS O2 SAT 97.5 % (95-98); ARTERIAL BLOOD GAS PCO2 35 mm/Hg (35-45); ARTERIAL BLOOD GAS PH 7.24 (7.35-7.45); ARTERIAL BLOOD GAS PO2 75 mm/Hg (80-100); ARTERIAL BLOOD GAS TCO2 16.1 mmol/L (22-28)
[2018-02-08] MEDS: Albuterol-Ipratrop 3 mg / 0.5 (3 ml) UD INH PRN (05:04)
[2018-02-08 05:25] LABS: HEMOGLOBIN 10.3 g/dL (12.0-18.0); MEAN CELL VOLUME 81.9 fl (80.0-94.0); MEAN CORPUSCULAR HEMOGLOBIN 26.7 pg (27.0-31.0); MEAN CORPUSCULAR HGB CONC 32.6 g/dL (33.0-37.0); RBC 3.85 Mil/uL (4.40-5.90); RED CELL DISTRIBUTION WIDTH 18.7 % (11.5-14.5); WHITE BLOOD COUNT 19.1 K/uL (4.8-10.8)
[2018-02-08 05:38] LABS: ALB/GLOB RATIO 1.2 (1.0-2.1); ALBUMIN 3.2 g/dL (3.5-5.0); ALT/SGPT 19 U/L (21-72); AST/SGOT 16 U/L (17-59); BLOOD UREA NITROGEN 81 mg/dl (9-20); CALCIUM 8.2 mg/dL (8.4-10.2); GFR NON-AFRICAN AMERICAN > 60
[2018-02-08] MEDS ORDERED: Sodium Bicarbonate 8.4% 150 MEQ in Dextrose 5% In Water 1,000 ML IV SCH (07:30)
[2018-02-08] MEDS: Albuterol-Ipratrop 3 mg / 0.5 (3 ml) UD INH SCH ×4 (07:50→19:33)
[2018-02-08] MEDS: Ferrous Sulfate 300 mg/5 mL Liq UD PEG SCH (08:29)
[2018-02-08] MEDS: Ascorbic Acid 500 mg/5 ml Liq(50 ml) PO SCH (08:32)
[2018-02-08] MEDS: Linezolid 600 mg in D5W 300 ml 600 MG/300 ML BAG IVPB SCH ×2 (08:38→20:04)
[2018-02-08] MEDS: ATROPINE 1% OS SCH ×2 (08:41→16:30)
[2018-02-08] MEDS: Sucralfate 1 gm/10 ml Oral Susp UD PO SCH ×4 (08:41→22:19)
[2018-02-08] MEDS: Silver Sulfadiazine 1% Cream (20 gm) TOP SCH ×2 (08:43→17:08)
[2018-02-08] MEDS: Nystatin 100,000 Units/ml Oral Susp 5 ml UD PO SCH ×2 (08:43→20:08)
[2018-02-08] MEDS: Dexamethasone/Tobramycin Ophth Susp OU SCH ×2 (08:45→16:35)
--- NOTE | 2018-02-08 10:03 | CP.PCM.PN ---
Subjective - Date & Time of Evaluation Date of Evaluation: 02/08/18 Time of Evaluation: 10:12 - Subjective Subjective: CLINICALLY UNCHANGED CASE DISCUSSED WITH SON AND DAUGHTER Objective - Vital Signs/Intake and Output Vital Signs (last 24 hours): Temp Pulse Resp BP Pulse Ox 99.0 F 72 20 125/56 L 92 L 02/08/18 08:00 02/08/18 08:00 02/08/18 08:00 02/08/18 08:00 02/08/18 08:00 Intake and Output: 02/08/18 02/08/18 06:59 18:59 Intake Total 1729 Output Total 200 200 Balance 1529 -200 - Medications Medications: Current Medications Albuterol/Ipratropium (Duoneb 3 Mg/0.5 Mg (3 Ml) Ud) 3 ml INH RQID [facility] Last Admin: 02/08/18 07:50 Dose: 3 ml Albuterol/Ipratropium (Duoneb 3 Mg/0.5 Mg (3 Ml) Ud) 3 ml INH RQ6 PRN PRN Reason: Shortness of Breath Last Admin: 02/08/18 05:04 Dose: 3 ml Ascorbic Acid (Vitamin C Liq) 1,000 mg PO DAILY [facility] Last Admin: 02/08/18 08:32 Dose: Not Given Atropine Sulfate (Atropisol 1% [facility]) 1 drop OS BID [facility] Last Admin: 02/08/18 08:41 Dose: 1 drop Bacitracin (Bacitracin) 1 ea TOP TID [facility] Last Admin: 02/07/18 16:09 Dose: 1 ea Bisacodyl (Dulcolax) 10 mg [place] DAILY [facility] Last Admin: 02/08/18 08:42 Dose: Not Given Ferrous Sulfate (Feosol Liq) 300 mg PEG DAILY [facility] Last Admin: 02/08/18 08:29 Dose: Not Given Ceftazidime/Avibactam 2.5 gm/ (Sodium Chloride) 100 mls @ 100 mls/hr IVPB Q8H [facility] PRN Reason: Protocol Last Admin: 02/08/18 08:38 Dose: 100 mls/hr Linezolid (Zyvox 600mg/300ml D5w) 600 mg in 300 mls @ 300 mls/hr IVPB Q12 [facility] PRN Reason: Protocol Last Admin: 09/05/18 08:38 Dose: 300 mls/hr DOPamine 800mg/250ml D5W (Dopamine 800mg/250ml D5w) 800 mg in 250 mls @ 6.557 mls/hr IV .Q24H [facility] PRN Reason: 3 MCG/KG/MIN Last Admin: 02/08/18 00:27 Dose: 6.557 mls/hr Sodium Bicarbonate 150 meq/ (Dextrose) 1,150 mls @ 63 mls/hr IV .[id number] [facility] Stop: 02/09/18 07:16 Midodrine (Proamatine) 10 mg PEG Q8H [facility] Last Admin: 02/07/18 20:18 Dose: Not Given Mupirocin (Bactroban Ointment) 1 applic TOP BID [facility] Last Admin: 02/08/18 08:36 Dose: 1 applic Nystatin (Nystatin Oral Susp) 5 ml PO Q12 [facility] Last Admin: 02/08/18 08:43 Dose: 5 ml Nystatin (Nystop Topical Powder) 1 applic TOP TID [facility] Last Admin: 02/08/18 08:45 Dose: 1 applic Pantoprazole Sodium (Protonix Inj) 40 mg IV Q12 [facility] Last Admin: 02/08/18 08:37 Dose: 40 mg Silver Sulfadiazine (Silvadene 1% 20 Gm) 1 ea TOP BID [facility] Last Admin: 02/08/18 08:43 Dose: 1 ea Simethicone (Mylicon Liq) 40 mg PO QID PRN PRN Reason: Flatulence Last Admin: 02/05/18 08:18 Dose: 40 mg Sucralfate (Carafate Oral Susp) 1 gm PO QID [facility] Last Admin: 02/08/18 08:41 Dose: Not Given Thiamine HCl (Vitamin B1 Tab) 100 mg GT DAILY [facility] Last Admin: 02/08/18 08:32 Dose: Not Given Tobramycin/Dexamethasone (Tobradex Opht Susp) 1 drop OU BID [facility] Last Admin: 02/08/18 08:45 Dose: 1 drop Valproate Sodium (Depakene Oral Soln) 500 mg PEG BID [facility] Last Admin: 02/07/18 08:39 Dose: Not Given Vitamin A (Vitamin A&D) 1 applic TP Q8 PRN PRN Reason: Until an adequate response is Last Admin: 01/31/18 16:36 Dose: 1 applic Vitamin A (Vitamin A&D) 1 applic TP Q8 PRN PRN Reason: Excoriation Zinc Sulfate (Zinc Sulfate 220 Mg Cap) 220 mg GT DAILY [facility] Last Admin: 02/08/18 08:32 Dose: Not Given - Labs Labs: 02/08/18 05:00 02/08/18 05:00 PT 15.2 Seconds (9.8-13.1) H 02/07/18 04:30 INR 1.4 02/07/18 04:30 APTT 41.9 Seconds (25.6-37.1) H 02/07/18 04:30 - Constitutional Appears: Chronically Ill - Head Exam Head Exam: ATRAUMATIC, NORMAL INSPECTION, NORMOCEPHALIC - Eye Exam Eye Exam: EOMI, Normal appearance, PERRL Pupil Exam: NORMAL ACCOMODATION, PERRL - ENT Exam ENT Exam: Mucous Membranes Moist, Normal Exam Additional comments: STILL ON THE VENT - Neck Exam Neck Exam: Full ROM, Normal Inspection. absent: Lymphadenopathy - Respiratory Exam Respiratory Exam: Decreased Breath Sounds, Rales Additional comments: VENT DEPENDENT - Cardiovascular Exam Cardiovascular Exam: REGULAR RHYTHM, +S1, +S2. absent: Murmur - GI/Abdominal Exam GI & Abdominal Exam: Soft, Normal Bowel Sounds. absent: Tenderness - Rectal Exam Rectal Exam: NORMAL INSPECTION - Exam Additional comments: SCROTAL EDEMA - Extremities Exam Extremities Exam: Pedal Edema. absent: Joint Swelling - Back Exam Back Exam: NORMAL INSPECTION - Neurological Exam Neurological Exam: Oriented x3 - Psychiatric Exam Psychiatric exam: Normal Affect, Normal Mood - Skin Skin Exam: Dry, Intact, Normal Color, Warm Assessment and Plan - Assessment and Plan (Free Text) Assessment: SEPSIS RESPIRATORY FAILURE SEVERE NEUROMUSCULAR DZ MULTIORGAN FAILURE Plan: CONTINUE CURRENT RX PROGNOSIS IS POOR
[2018-02-08] MEDS: Bacitracin 500 Units/gm Oint Foilpak UD TOP SCH ×3 (10:30→16:40)
--- NOTE | 2018-02-08 10:55 | CP.PCM.PN ---
Subjective - Date & Time of Evaluation Date of Evaluation: 02/08/18 Time of Evaluation: 10:53 - Subjective Subjective: I D NOTE HAVE ADDED CLNDAMYCIN FOR ADDITIONAL ST[employer] COVERAGE TRACH HAS BEEN CHANGED CULTURE WAS TAKEN PERIPHERALLY F/U CULTURES ARE NEGATIVE CONTINUE ZYVOX/AVYCAZ DISCUSSED c [facility] AND [facility]ISLA[facility] Objective - Vital Signs/Intake and Output Vital Signs (last 24 hours): Temp Pulse Resp BP Pulse Ox 99.0 F 72 20 125/56 L 92 L 02/08/18 08:00 02/08/18 08:00 02/08/18 08:00 02/08/18 08:00 02/08/18 08:00 Intake and Output: 02/08/18 02/08/18 06:59 18:59 Intake Total 1729 400 Output Total 200 200 Balance 1529 200 - Medications Medications: Current Medications Albuterol/Ipratropium (Duoneb 3 Mg/0.5 Mg (3 Ml) Ud) 3 ml INH RQID [facility] Last Admin: 02/08/18 07:50 Dose: 3 ml Albuterol/Ipratropium (Duoneb 3 Mg/0.5 Mg (3 Ml) Ud) 3 ml INH RQ6 PRN PRN Reason: Shortness of Breath Last Admin: 02/08/18 05:04 Dose: 3 ml Ascorbic Acid (Vitamin C Liq) 1,000 mg PO DAILY [facility] Last Admin: 02/08/18 08:32 Dose: Not Given Atropine Sulfate (Atropisol 1% Op[facility]) 1 drop OS BID [facility] Last Admin: 02/08/18 08:41 Dose: 1 drop Bacitracin (Bacitracin) 1 ea TOP TID [facility] Last Admin: 02/07/18 16:09 Dose: 1 ea Bisacodyl (Dulcolax) 10 mg [place] DAILY [facility] Last Admin: 02/08/18 08:42 Dose: Not Given Ferrous Sulfate (Feosol Liq) 300 mg PEG DAILY [facility] Last Admin: 02/08/18 08:29 Dose: Not Given Ceftazidime/Avibactam 2.5 gm/ (Sodium Chloride) 100 mls @ 100 mls/hr IVPB Q8H [facility] PRN Reason: Protocol Last Admin: 02/08/18 08:38 Dose: 100 mls/hr Linezolid (Zyvox 600mg/300ml D5w) 600 mg in 300 mls @ 300 mls/hr IVPB Q12 [facility] PRN Reason: Protocol Last Admin: 02/08/18 08:38 Dose: 300 mls/hr DOPamine 800mg/250ml D5W (Dopamine 800mg/250ml D5w) 800 mg in 250 mls @ 6.557 mls/hr IV .Q24H [facility] PRN Reason: 3 MCG/KG/MIN Last Admin: 02/08/18 00:27 Dose: 6.557 mls/hr Sodium Bicarbonate 150 meq/ (Dextrose) 1,150 mls @ 63 mls/hr IV .[id number] [facility] Stop: 02/09/18 07:16 Clindamycin Phosphate 600 mg/ (Sodium Chloride) 54 mls @ 54 mls/hr IVPB Q12 [facility] PRN Reason: Protocol Midodrine (Proamatine) 10 mg PEG Q8H [facility] Last Admin: 02/07/18 20:18 Dose: Not Given Mupirocin (Bactroban Ointment) 1 applic TOP BID [facility] Last Admin: 02/08/18 08:36 Dose: 1 applic Nystatin (Nystatin Oral Susp) 5 ml PO Q12 [facility] Last Admin: 02/08/18 08:43 Dose: 5 ml Nystatin (Nystop Topical Powder) 1 applic TOP TID [facility] Last Admin: 02/08/18 08:45 Dose: 1 applic Pantoprazole Sodium (Protonix Inj) 40 mg IV Q12 [facility] Last Admin: 02/08/18 08:37 Dose: 40 mg Silver Sulfadiazine (Silvadene 1% 20 Gm) 1 ea TOP BID [facility] Last Admin: 02/08/18 08:43 Dose: 1 ea Simethicone (Mylicon Liq) 40 mg PO QID PRN PRN Reason: Flatulence Last Admin: 02/05/18 08:18 Dose: 40 mg Sucralfate (Carafate Oral Susp) 1 gm PO QID [facility] Last Admin: 02/08/18 08:41 Dose: Not Given Thiamine HCl (Vitamin B1 Tab) 100 mg GT DAILY [facility] Last Admin: 02/08/18 08:32 Dose: Not Given Tobramycin/Dexamethasone (Tobradex Opht Susp) 1 drop OU BID [facility] Last Admin: 02/08/18 08:45 Dose: 1 drop Valproate Sodium (Depakene Oral Soln) 500 mg PEG BID [facility] Last Admin: 02/07/18 08:39 Dose: Not Given Vitamin A (Vitamin A&D) 1 applic TP Q8 PRN PRN Reason: Until an adequate response is Last Admin: 01/31/18 16:36 Dose: 1 applic Vitamin A (Vitamin A&D) 1 applic TP Q8 PRN PRN Reason: Excoriation Zinc Sulfate (Zinc Sulfate 220 Mg Cap) 220 mg GT DAILY [facility] Last Admin: 02/08/18 08:32 Dose: Not Given - Labs Labs: 02/08/18 05:00 02/08/18 05:00 PT 15.2 Seconds (9.8-13.1) H 02/07/18 04:30 INR 1.4 02/07/18 04:30 APTT 41.9 Seconds (25.6-37.1) H 02/07/18 04:30
--- NOTE | 2018-02-08 11:07 | CP.CCUPN ---
CCU Subjective - Physician Review Subjective (Free Text): Events over the last 4 days reviewed since my last examination of the patient. Neuromental status unchanged, he opens eyes further to sound, unclear if he is following commands as to just pouting lips in response to any sound. No seizure activity has been observed recently. He remains on 2 vasopressors, Levophed titrated o BP response at 17.5 mcg dose and renal dose Dopamine at 3 mcg dose. Highest temp reordered today at 99F, BP 125/56 with MAP 79, HR 72 and intermittently ventricular paced. Breathing 20/20 on AC, SPo2 92-96% on 40% oxygen. He does trigger the vent and breathes at a rate of 12-13. Other vitals and I/O's reviewed. Urine output approx. 600ml total, PEG output 200ml, and overall fluid balance positive at 3.9L. ROS: No other pertinent negs or positives on 10+ system review as per family. PMSFH: All other Nursing and physician documentation reviewed to date; no new pertinent info noted relevant to current medical problems. EXAM- HEENT: no icterus, no gaze preference, opacified R pupil, Left pupil 2-3 mm size , no reactivity, oral mm moist NECK: No JVD visible, supple, carotids equal upstroke bilat/no bruits, trach stoma intact, no redness. CHEST: decreased BS bases, no wheezes audible HEART: regular, distant, S1S2, no rubs ABD: soft, rotund, no increased distention, no tympany, no focal tenderness, BS hypoactive, no rebound. EXT: ++ edema; no peripheral/ digital cyanosis, no calf tenderness or palpable cords, distal pulses intact and symmetrical. ++ scrotal edema NEURO: increased tone present in LUE only. SKIN: no new rashes, otherwise warm and dry. LABS: WBC= 19.1 HGB= 10.3 PLTs= 223K Xr=670 K= 3.8 CL= 101 HCO3= 15 BUN/Cr= 81/0.5 from a low of 66/0.6 after hydration given initial BUN 144 on admission. BS= 190 IMPRESSION / MAJOR PROBLEMS NOW: 1. Metabolic Encephalopathy with s/p Hyperosmolar State; Hypernatremia, Uremia, Hyperkalemia 2. P.mirabilis and K.pneumoniae (both MDR) in Trach secretions with E. faecalis Bacteremia 3. New Onset Occult Seizure Disorder 4. R Basilar Pneumonitis / Atelectasis, and bilateral effusions 5. Chronic disease Anemia 6. Advanced Muscular Dystrophy with ventilator dependency PLAN: 1. MV support. No MV weans to trach collar anticipated at this time given overall altered mental status which has not yet returned back to baseline. Trach tube changed 02/01. 2. Repeat BCs. Serial peripheral BCs obtained one day after +E.faecalis were negative. If BCs remain +, will need to consider mid-line catheter removal and ECHO to assess for any valvular vegetations. Central venous access has been difficult given body habitus. 3. Ongoing Avycaz Day #8 for coverage against MDR P.mirabilis and K. pneumonia ; Zyvox Day # 6. 4. Plans for PPM upgrade noted as soon as current infections have cleared. Residual battery life has been quoted at 1 months duration. 5. ECHO results re-reviewed; discrepant interpretation from previous ECHO years ago showing marked cardiomyopathy with LVEF approx. 25%. Midodrine started, and dose increased to 10mg TID/ Q8H in order to help wean off IV vasopressors. Mixed venous SvO2 = 92%. Urgency in weaning off Norepinephrine due to increasing BUN levels. Watching overall renal fx, too while on Midodrine. 6. IVFs for maintenance hydration changed to alkalinized (NaBicarb)- dextrose soln to help offset present metabolic acidosis. 7. With new abdominal issue of GI bleeding, PEG feeds on hold. Mild coagulopathy exists and will give FFP today. Medications (if possible) re- routed to IV administration. 8. Discuss feasibility for Hospice care and Morphine infusion as focus of care could be changed to comfort care, given his poor response to current interventions and resuscitative measures on multiple vasopressors. 9. Now DNR as new Advance Directives from family. CCU Objective - Vital Signs / Intake & Output Vital Signs (Last 4 hours): Vital Signs Temp Pulse Resp BP Pulse Ox 02/08/18 08:00 99.0 F 72 20 125/56 L 92 L Intake and Output (Last 8hrs): Intake & Output 02/07/18 02/08/18 02/08/18 22:59 06:59 14:59 Intake Total 2458 722 400 Output Total 400 200 200 Balance 9818 522 200 Intake: IV 1383 622 Intake, Piggyback 500 100 400 Blood Product 325 Red Blood Cells Cpd As1 325 Lr Unit [id number] Albumin 200 Other 50 Red Blood Cells Cpd As1 50 Lr Unit [id number] Output: Gastric Amount 200 200 Stomach 200 200 Urine 200 200 Urethral (Em) 25 200 Urine, Voided 175 Other: # Bowel Movements 1
--- NOTE | 2018-02-08 11:18 | CP.PCM.PN ---
Subjective - Date & Time of Evaluation Date of Evaluation: 02/08/18 Time of Evaluation: 11:17 - Subjective Subjective: Patient is opening his eyes remain on respirator appears to be edematous all over Objective - Vital Signs/Intake and Output Vital Signs (last 24 hours): Temp Pulse Resp BP Pulse Ox 99.0 F 72 20 125/56 L 92 L 02/08/18 08:00 02/08/18 08:00 02/08/18 08:00 02/08/18 08:00 02/08/18 08:00 Intake and Output: 02/08/18 02/08/18 06:59 18:59 Intake Total 1729 400 Output Total 200 200 Balance 1529 200 - Medications Medications: Current Medications Albuterol/Ipratropium (Duoneb 3 Mg/0.5 Mg (3 Ml) Ud) 3 ml INH RQID [facility] Last Admin: 02/08/18 07:50 Dose: 3 ml Albuterol/Ipratropium (Duoneb 3 Mg/0.5 Mg (3 Ml) Ud) 3 ml INH RQ6 PRN PRN Reason: Shortness of Breath Last Admin: 02/08/18 05:04 Dose: 3 ml Ascorbic Acid (Vitamin C Liq) 1,000 mg PO DAILY [facility] Last Admin: 02/08/18 08:32 Dose: Not Given Atropine Sulfate (Atropisol 1% [facility]) 1 drop OS BID [facility] Last Admin: 02/08/18 08:41 Dose: 1 drop Bacitracin (Bacitracin) 1 ea TOP TID [facility] Last Admin: 02/07/18 16:09 Dose: 1 ea Bisacodyl (Dulcolax) 10 mg [place] DAILY [facility] Last Admin: 02/08/18 08:42 Dose: Not Given Ferrous Sulfate (Feosol Liq) 300 mg PEG DAILY [facility] Last Admin: 02/08/18 08:29 Dose: Not Given Ceftazidime/Avibactam 2.5 gm/ (Sodium Chloride) 100 mls @ 100 mls/hr IVPB Q8H [facility] PRN Reason: Protocol Last Admin: 02/08/18 08:38 Dose: 100 mls/hr Linezolid (Zyvox 600mg/300ml D5w) 600 mg in 300 mls @ 300 mls/hr IVPB Q12 [facility] PRN Reason: Protocol Last Admin: 02/08/18 08:38 Dose: 300 mls/hr DOPamine 800mg/250ml D5W (Dopamine 800mg/250ml D5w) 800 mg in 250 mls @ 6.557 mls/hr IV .Q24H [facility] PRN Reason: 3 MCG/KG/MIN Last Admin: 02/08/18 00:27 Dose: 6.557 mls/hr Sodium Bicarbonate 150 meq/ (Dextrose) 1,150 mls @ 63 mls/hr IV .[id number] [facility] Stop: 02/09/18 07:16 Clindamycin Phosphate 600 mg/ (Sodium Chloride) 54 mls @ 54 mls/hr IVPB Q12 [facility] PRN Reason: Protocol Midodrine (Proamatine) 10 mg PEG Q8H [facility] Last Admin: 02/07/18 20:18 Dose: Not Given Mupirocin (Bactroban Ointment) 1 applic TOP BID [facility] Last Admin: 02/08/18 08:36 Dose: 1 applic Nystatin (Nystatin Oral Susp) 5 ml PO Q12 [facility] Last Admin: 02/08/18 08:43 Dose: 5 ml Nystatin (Nystop Topical Powder) 1 applic TOP TID [facility] Last Admin: 02/08/18 08:45 Dose: 1 applic Pantoprazole Sodium (Protonix Inj) 40 mg IV Q12 [facility] Last Admin: 02/08/18 08:37 Dose: 40 mg Silver Sulfadiazine (Silvadene 1% 20 Gm) 1 ea TOP BID [facility] Last Admin: 02/08/18 08:43 Dose: 1 ea Simethicone (Mylicon Liq) 40 mg PO QID PRN PRN Reason: Flatulence Last Admin: 02/05/18 08:18 Dose: 40 mg Sucralfate (Carafate Oral Susp) 1 gm PO QID [facility] Last Admin: 02/08/18 08:41 Dose: Not Given Thiamine HCl (Vitamin B1 Tab) 100 mg GT DAILY [facility] Last Admin: 02/08/18 08:32 Dose: Not Given Tobramycin/Dexamethasone (Tobradex Opht Susp) 1 drop OU BID [facility] Last Admin: 02/08/18 08:45 Dose: 1 drop Valproate Sodium (Depakene Oral Soln) 500 mg PEG BID [facility] Last Admin: 02/07/18 08:39 Dose: Not Given Vitamin A (Vitamin A&D) 1 applic TP Q8 PRN PRN Reason: Until an adequate response is Last Admin: 01/31/18 16:36 Dose: 1 applic Vitamin A (Vitamin A&D) 1 applic TP Q8 PRN PRN Reason: Excoriation Zinc Sulfate (Zinc Sulfate 220 Mg Cap) 220 mg GT DAILY [facility] Last Admin: 02/08/18 08:32 Dose: Not Given - Labs Labs: 02/08/18 05:00 02/08/18 05:00 PT 15.2 Seconds (9.8-13.1) H 02/07/18 04:30 INR 1.4 02/07/18 04:30 APTT 41.9 Seconds (25.6-37.1) H 02/07/18 04:30 - Constitutional Appears: No Acute Distress - Eye Exam Eye Exam: Conjunctival injection - ENT Exam ENT Exam: Mucous Membranes Moist - Neck Exam Neck Exam: absent: Lymphadenopathy - Respiratory Exam Respiratory Exam: absent: Chest Wall Tenderness - Cardiovascular Exam Cardiovascular Exam: absent: JVD, Rubs - GI/Abdominal Exam GI & Abdominal Exam: Distended, Guarding - Extremities Exam Extremities Exam: absent: Calf Tenderness - Back Exam Back Exam: absent: CVA tenderness (L), CVA tenderness (R) - Neurological Exam Neurological Exam: Altered - Skin Skin Exam: absent: Cyanosis Assessment and Plan (1) Altered mental status, unspecified Status: Acute (2) Hypernatremia Assessment & Plan: patient has multitude of medical problem including but not limited to azotemia manifested by high disproportion B UN too serum creatinine which remained normal probably related to multifactorial perhaps GI bleeding. Patient is edematous Hyponatremia probably related to dilutional from generalized edema respiratory failure muscular dystrophy GT tube feeding sepsis plan and recommendation Lasix intravenously Suggest to give albumin 25% 50 mL every 6 hours for the next 24 hours Prognosis is very poor Discussed with the family members Patient need severe fluid restriction in order to bring the sodium up Status: Acute (3) Pleural effusion Status: Acute (4) Pneumonia Status: Acute (5) Severe dehydration Status: Acute (6) Azotemia Status: Acute
[2018-02-08] MEDS ORDERED: Phytonadione 10 mg/ml Inj (Adult) IVPB ONE (11:43)
[2018-02-08] MEDS ORDERED: PHYTONADIONE IV ONE (12:00)
[2018-02-08] MEDS ORDERED: SODIUM CHLORIDE 0.9% IV ONE (12:00)
[2018-02-08] MEDS: Valproate 500 MG in Sodium Chloride 0.9% 100 ML IVPB SCH ×2 (14:05→20:03)
--- NOTE | 2018-02-08 17:24 | CP.PCM.PN ---
Subjective - Date & Time of Evaluation Date of Evaluation: 02/08/18 Time of Evaluation: 12:30 - Subjective Subjective: Pt was seen and evaluated this am with Dr. Rebollar. WBC elevated at 19.1. BUN: 81 ; hg improved to 10.3 Family was gathered for update on his current health and prognosis Objective - Vital Signs/Intake and Output Vital Signs (last 24 hours): Temp Pulse Resp BP Pulse Ox 97.7 F 70 20 142/67 98 02/08/18 16:00 02/08/18 16:51 02/08/18 16:51 02/08/18 16:51 02/08/18 16:51 Intake and Output: 02/08/18 02/08/18 06:59 18:59 Intake Total 1729 1359.5 Output Total 200 550 Balance 1529 809.5 - Medications Medications: Current Medications Albuterol/Ipratropium (Duoneb 3 Mg/0.5 Mg (3 Ml) Ud) 3 ml INH RQID [facility] Last Admin: 02/08/18 15:59 Dose: 3 ml Albuterol/Ipratropium (Duoneb 3 Mg/0.5 Mg (3 Ml) Ud) 3 ml INH RQ6 PRN PRN Reason: Shortness of Breath Last Admin: 02/08/18 05:04 Dose: 3 ml Ascorbic Acid (Vitamin C Liq) 1,000 mg PO DAILY [facility] Last Admin: 02/08/18 08:32 Dose: Not Given Atropine Sulfate (Atropisol 1% Ophth) 1 drop OS BID [facility] Last Admin: 02/08/18 16:30 Dose: 1 drop Bacitracin (Bacitracin) 1 ea TOP TID [facility] Last Admin: 02/08/18 16:40 Dose: 1 ea Bisacodyl (Dulcolax) 10 mg [place] DAILY [facility] Last Admin: 02/08/18 08:42 Dose: Not Given Ferrous Sulfate (Feosol Liq) 300 mg PEG DAILY [facility] Last Admin: 02/08/18 08:29 Dose: Not Given Ceftazidime/Avibactam 2.5 gm/ (Sodium Chloride) 100 mls @ 100 mls/hr IVPB Q8H [facility] PRN Reason: Protocol Last Admin: 02/08/18 16:41 Dose: 100 mls/hr Linezolid (Zyvox 600mg/300ml D5w) 600 mg in 300 mls @ 300 mls/hr IVPB Q12 [facility] PRN Reason: Protocol Last Admin: 02/08/18 08:38 Dose: 300 mls/hr DOPamine 800mg/250ml D5W (Dopamine 800mg/250ml D5w) 800 mg in 250 mls @ 6.557 mls/hr IV .Q24H [facility] PRN Reason: 3 MCG/KG/MIN Last Admin: 02/08/18 00:27 Dose: 6.557 mls/hr Sodium Bicarbonate 150 meq/ (Dextrose) 1,150 mls @ 63 mls/hr IV .[id number] [facility] Stop: 02/09/18 07:16 Last Admin: 02/08/18 11:40 Dose: 63 mls/hr Clindamycin Phosphate 600 mg/ (Sodium Chloride) 54 mls @ 54 mls/hr IVPB Q12 [facility] PRN Reason: Protocol Valproate Sodium 500 mg/ (Sodium Chloride) 105 mls @ 50 mls/hr IVPB Q12 [facility] Last Admin: 02/08/18 14:05 Dose: 50 mls/hr Norepinephrine Bitartrate 16 (mg/ Dextrose) 266 mls @ 17.45 mls/hr IV .[id number] ONE; 17.5 MCG/MIN PRN Reason: Protocol Stop: 02/09/18 06:20 Last Titration: 02/08/18 16:33 Dose: 12.5 mcg/min, 12.46 mls/hr Midodrine (Proamatine) 10 mg PEG Q8H [facility] Last Admin: 02/08/18 11:31 Dose: Not Given Mupirocin (Bactroban Ointment) 1 applic TOP BID [facility] Last Admin: 02/08/18 16:38 Dose: 1 applic Nystatin (Nystatin Oral Susp) 5 ml PO Q12 [facility] Last Admin: 02/08/18 08:43 Dose: 5 ml Nystatin (Nystop Topical Powder) 1 applic TOP TID [facility] Last Admin: 02/08/18 16:38 Dose: 1 applic Pantoprazole Sodium (Protonix Inj) 40 mg IV Q12 [facility] Last Admin: 02/08/18 08:37 Dose: 40 mg Silver Sulfadiazine (Silvadene 1% 20 Gm) 1 ea TOP BID [facility] Last Admin: 02/08/18 17:08 Dose: 1 ea Simethicone (Mylicon Liq) 40 mg PO QID PRN PRN Reason: Flatulence Last Admin: 02/05/18 08:18 Dose: 40 mg Sucralfate (Carafate Oral Susp) 1 gm PO QID [facility] Last Admin: 02/08/18 16:31 Dose: Not Given Thiamine HCl (Vitamin B1 Tab) 100 mg GT DAILY [facility] Last Admin: 02/08/18 08:32 Dose: Not Given Tobramycin/Dexamethasone (Tobradex Opht Susp) 1 drop OU BID [facility] Last Admin: 02/08/18 16:35 Dose: 1 drop Valproate Sodium (Depakene Oral Soln) 500 mg PEG BID [facility] Last Admin: 02/07/18 08:39 Dose: Not Given Vitamin A (Vitamin A&D) 1 applic TP Q8 PRN PRN Reason: Until an adequate response is Last Admin: 01/31/18 16:36 Dose: 1 applic Vitamin A (Vitamin A&D) 1 applic TP Q8 PRN PRN Reason: Excoriation Zinc Sulfate (Zinc Sulfate 220 Mg Cap) 220 mg GT DAILY [facility] Last Admin: 02/08/18 08:32 Dose: Not Given - Labs Labs: 02/08/18 05:00 02/08/18 05:00 PT 15.2 Seconds (9.8-13.1) H 02/07/18 04:30 INR 1.4 02/07/18 04:30 APTT 41.9 Seconds (25.6-37.1) H 02/07/18 04:30 - Constitutional Appears: Cachectic Assessment and Plan (1) Altered mental status, unspecified Status: Acute (2) Bacteremia Status: Acute (3) Hypernatremia Status: Acute (4) Leukocytosis Status: Acute (5) Pleural effusion Status: Acute (6) Pneumonia Status: Acute (7) Severe dehydration Status: Acute (8) Unresponsive state Status: Acute - Assessment and Plan (Free Text) Plan: Continue meds and plan as ordered KUB reviewed Cloth Layer: Dr. Issa: Please refer to extensive report Nephro: Dr. Sanchez: Hypernatremia: azotemia: lasix, albumin 25% 50 ml q 6hr for 24 hrs ID: Dr. Prieto: Added clinda, c/w zyvox, avycaz Pulm: Dr. Soto on board Plan to have family meeting to further discuss patients prognosis and plan of care case dw Dr. Smooth Martini MD PGY2
[2018-02-09 07:37] LABS: INR 1.3
[2018-02-09 07:40] LABS: PARTIAL THROMBOPLASTIN TIME 23.9 Seconds (25.6-37.1)
[2018-02-09] MEDS: Albuterol-Ipratrop 3 mg / 0.5 (3 ml) UD INH SCH ×4 (08:10→19:13)
[2018-02-09 08:27] LABS: VENOUS BLOOD GAS BASE EXCESS -9.2 mmol/L (0.0-2.0); VENOUS BLOOD GAS PCO2 32 mmHg (40-60); VENOUS BLOOD GAS PO2 51 mm/Hg (30-55); VENOUS BLOOD PH 7.31 (7.32-7.43)
[2018-02-09] MEDS: Bacitracin 500 Units/gm Oint Foilpak UD TOP SCH ×3 (08:28→16:44)
[2018-02-09] MEDS: Dexamethasone/Tobramycin Ophth Susp OU SCH ×2 (08:30→16:44)
[2018-02-09] MEDS: ATROPINE 1% OS SCH ×2 (08:30→16:49)
[2018-02-09] MEDS: Ferrous Sulfate 300 mg/5 mL Liq UD PEG SCH (08:31)
[2018-02-09] MEDS: Ascorbic Acid 500 mg/5 ml Liq(50 ml) PO SCH (08:32)
[2018-02-09] MEDS: Sucralfate 1 gm/10 ml Oral Susp UD PO SCH ×4 (08:39→21:16)
[2018-02-09] MEDS: Valproate 500 MG in Sodium Chloride 0.9% 100 ML IVPB SCH ×2 (08:39→21:11)
[2018-02-09] MEDS: Nystatin 100,000 Units/ml Oral Susp 5 ml UD PO SCH ×2 (08:41→21:16)
[2018-02-09 08:48] LABS: ALBUMIN 2.7 g/dL (3.5-5.0); ALT/SGPT 23 U/L (21-72); AST/SGOT 34 U/L (17-59); BLOOD UREA NITROGEN 84 mg/dl (9-20); CALCIUM 8.1 mg/dL (8.4-10.2); GFR NON-AFRICAN AMERICAN > 60
--- NOTE | 2018-02-09 10:11 | CP.PCM.PN ---
Subjective - Date & Time of Evaluation Date of Evaluation: 02/09/18 Time of Evaluation: 10:11 - Subjective Subjective: no significant changes clinically patient remain on respirator and edematous Objective - Vital Signs/Intake and Output Vital Signs (last 24 hours): Temp Pulse Resp BP Pulse Ox 98.3 F 60 20 96/44 L 97 02/09/18 04:00 02/09/18 06:54 02/09/18 06:54 02/09/18 06:54 02/09/18 06:54 Intake and Output: 02/09/18 02/09/18 06:59 18:59 Intake Total 1836.0 Output Total 250 Balance 1586.0 - Medications Medications: Current Medications Albuterol/Ipratropium (Duoneb 3 Mg/0.5 Mg (3 Ml) Ud) 3 ml INH RQID [facility] Last Admin: 02/09/18 08:10 Dose: 3 ml Albuterol/Ipratropium (Duoneb 3 Mg/0.5 Mg (3 Ml) Ud) 3 ml INH RQ6 PRN PRN Reason: Shortness of Breath Last Admin: 02/08/18 05:04 Dose: 3 ml Ascorbic Acid (Vitamin C Liq) 1,000 mg PO DAILY [facility] Last Admin: 02/09/18 08:32 Dose: Not Given Atropine Sulfate (Atropisol 1% [facility]) 1 drop OS BID [facility] Last Admin: 02/09/18 08:30 Dose: 1 drop Bacitracin (Bacitracin) 1 ea TOP TID [facility] Last Admin: 02/09/18 08:28 Dose: 1 ea Bisacodyl (Dulcolax) 10 mg [place] DAILY [facility] Last Admin: 02/09/18 08:31 Dose: Not Given Ferrous Sulfate (Feosol Liq) 300 mg PEG DAILY [facility] Last Admin: 02/09/18 08:31 Dose: Not Given Ceftazidime/Avibactam 2.5 gm/ (Sodium Chloride) 100 mls @ 100 mls/hr IVPB Q8H [facility] PRN Reason: Protocol Last Admin: 02/09/18 08:33 Dose: 100 mls/hr DOPamine 800mg/250ml D5W (Dopamine 800mg/250ml D5w) 800 mg in 250 mls @ 6.557 mls/hr IV .Q24H [facility] PRN Reason: 3 MCG/KG/MIN Last Admin: 02/08/18 21:10 Dose: 6.557 mls/hr Clindamycin Phosphate 600 mg/ (Sodium Chloride) 54 mls @ 54 mls/hr IVPB Q12 [facility] PRN Reason: Protocol Last Admin: 02/09/18 08:33 Dose: 54 mls/hr Valproate Sodium 500 mg/ (Sodium Chloride) 105 mls @ 50 mls/hr IVPB Q12 [facility] Last Admin: 02/09/18 08:39 Dose: 50 mls/hr Midodrine (Proamatine) 10 mg PEG Q8H [facility] Last Admin: 02/09/18 04:32 Dose: Not Given Mupirocin (Bactroban Ointment) 1 applic TOP BID [facility] Last Admin: 02/09/18 08:29 Dose: 1 applic Nystatin (Nystatin Oral Susp) 5 ml PO Q12 [facility] Last Admin: 02/09/18 08:41 Dose: Not Given Nystatin (Nystop Topical Powder) 1 applic TOP TID [facility] Last Admin: 02/09/18 08:29 Dose: 1 applic Pantoprazole Sodium (Protonix Inj) 40 mg IV Q12 [facility] Last Admin: 02/09/18 08:28 Dose: 40 mg Silver Sulfadiazine (Silvadene 1% 20 Gm) 1 ea TOP BID [facility] Last Admin: 02/08/18 17:08 Dose: 1 ea Simethicone (Mylicon Liq) 40 mg PO QID PRN PRN Reason: Flatulence Last Admin: 02/05/18 08:18 Dose: 40 mg Sucralfate (Carafate Oral Susp) 1 gm PO QID [facility] Last Admin: 02/09/18 08:39 Dose: Not Given Thiamine HCl (Vitamin B1 Tab) 100 mg GT DAILY [facility] Last Admin: 02/09/18 08:32 Dose: Not Given Tobramycin/Dexamethasone (Tobradex Opht Susp) 1 drop OU BID [facility] Last Admin: 02/09/18 08:30 Dose: 1 drop Valproate Sodium (Depakene Oral Soln) 500 mg PEG BID [facility] Last Admin: 02/07/18 08:39 Dose: Not Given Vitamin A (Vitamin A&D) 1 applic TP Q8 PRN PRN Reason: Until an adequate response is Last Admin: 01/31/18 16:36 Dose: 1 applic Vitamin A (Vitamin A&D) 1 applic TP Q8 PRN PRN Reason: Excoriation Zinc Sulfate (Zinc Sulfate 220 Mg Cap) 220 mg GT DAILY [facility] Last Admin: 02/09/18 08:32 Dose: Not Given - Labs Labs: 02/08/18 05:00 02/09/18 07:14 PT 15.0 Seconds (9.8-13.1) H 02/09/18 07:14 INR 1.3 02/09/18 07:14 APTT 23.9 Seconds (25.6-37.1) L 02/09/18 07:14 - Constitutional Appears: No Acute Distress - ENT Exam ENT Exam: Mucous Membranes Moist - Respiratory Exam Respiratory Exam: NORMAL BREATHING PATTERN. absent: Chest Wall Tenderness - Cardiovascular Exam Cardiovascular Exam: absent: Gallop, Rubs - GI/Abdominal Exam GI & Abdominal Exam: Distended - Extremities Exam Extremities Exam: absent: Calf Tenderness - Back Exam Back Exam: absent: CVA tenderness (L), CVA tenderness (R) - Neurological Exam Neurological Exam: Altered - Psychiatric Exam Psychiatric exam: Flat Affect - Skin Skin Exam: absent: Cyanosis Assessment and Plan (1) Altered mental status, unspecified Status: Acute (2) Hypernatremia Status: Acute (3) Pleural effusion Status: Acute (4) Pneumonia Status: Acute (5) Severe dehydration Status: Acute (6) Azotemia Assessment & Plan: patient has multitude of medical problem including but not limited to azotemia manifested by high disproportion B UN too serum creatinine which remained normal probably related to multifactorial perhaps GI bleeding. Patient is edematous Hyponatremia probably related to dilutional from generalized edema respiratory failure muscular dystrophy GT tube feeding sepsis plan and recommendation Lasix intravenously Suggest to give albumin 25% 50 mL every 6 hours for the next 24 hours Prognosis is very poor Patient need severe fluid restriction in order to bring the sodium up Status: Acute
[2018-02-09] MEDS: Silver Sulfadiazine 1% Cream (20 gm) TOP SCH ×2 (10:30→18:20)
[2018-02-09] MEDS: Potassium CL 10 MEQ/50 ML 50 ML IVPB SCH ×3 (11:39→13:54)
--- NOTE | 2018-02-09 12:23 | CP.CCUPN ---
CCU Subjective - Physician Review Subjective (Free Text): He remains on RENAL DOSE Dopamine, off Levophed since 6AM. Other vitals and I/ O's reviewed. Urine output approx. 250ml total overnite and had 450 ml output from dayshift yesterday. PEG output no longer measured and clamped, showing dark green bilious fluid inside. PEG cleared by GI for feeding yesterday, refused by family, and family today requesting that PEG be changed prior to re- initiating any feeds due to their concern of pushing any bacteria that may be in the PEG now from not being used over the last several days. No observable seizure activity noted, family states he is responsive to their verbal stimuli and commands with eyebrow and lip movements. No fever spikes noted, BP 99 systolic with HR 60 and ventric demand paced. ROS: No other pertinent negs or positives on 10+ system review as per family. PMSFH: All other Nursing and physician documentation reviewed to date; no new pertinent info noted relevant to current medical problems. EXAM- HEENT: no icterus, no gaze preference, opacified R pupil, Left pupil 2-3 mm size , no reactivity, oral mm moist NECK: No JVD visible, supple, carotids equal upstroke bilat/no bruits, trach stoma intact, no redness. CHEST: decreased BS bases, no wheezes audible HEART: regular, distant, S1S2, no rubs ABD: soft, rotund, no increased distention, no tympany, no focal tenderness, BS hypoactive, no rebound. EXT: ++ edema; no peripheral/ digital cyanosis, no calf tenderness or palpable cords, distal pulses intact and symmetrical. ++ scrotal edema NEURO: increased tone present in LUE only. SKIN: no new rashes, otherwise warm and dry. LABS: INR= 1.3 VBG= 7.31 / 31/ __ 92% SVO2 Yesterdays WBC= 19.1 HGB= 10.3 PLTs= 223K Gj=146 K= 3.2 CL= 101 HCO3= 18 BUN/Cr= 84/0.7 from a low of 66/0.6 after hydration given initial BUN 144 on admission. BS= 81 IMPRESSION / MAJOR PROBLEMS NOW: 1. Metabolic Encephalopathy with s/p Hyperosmolar State; Hypernatremia, Uremia, Hyperkalemia 2. P.mirabilis and K.pneumoniae (both MDR) in Trach secretions with E. faecalis Bacteremia 3. New Onset Occult Seizure Disorder 4. R Basilar Pneumonitis / Atelectasis, and bilateral effusions 5. Chronic disease Anemia 6. Advanced Muscular Dystrophy with ventilator dependency PLAN: 1. MV support. No MV weans to trach collar anticipated at this time given overall altered mental status which has not yet returned back to baseline. Trach tube changed 02/01. 2. Repeat BCs. Serial peripheral BCs obtained one day after +E.faecalis were negative. If BCs remain +, will need to consider mid-line catheter removal and ECHO to assess for any valvular vegetations. Central venous access has been difficult given body habitus. 3. Ongoing Avycaz Day #9 for coverage against MDR P.mirabilis and K. pneumonia ; Zyvox Day # 7. 4. Plans for PPM upgrade noted as soon as current infections have cleared. Residual battery life has been quoted at 1 months duration. 5. ECHO results re-reviewed; discrepant interpretation from previous ECHO years ago showing marked cardiomyopathy with LVEF approx. 25%. Midodrine started, and dose increased to 10mg TID/ Q8H in order to help wean off IV vasopressors. Mixed venous SvO2 = 92%. Urgency in weaning off Norepinephrine due to increasing BUN levels. 6. Holding IVFs <alkalinized (NaBicarb)- dextrose soln> as per Nephro recommendations to fluid restrict today. 7. GI to assess if PEG needs to be changed as per familys request. No recurrent bloody BMs noted. CCU Objective - Vital Signs / Intake & Output Vital Signs (Last 4 hours): Vital Signs Temp Pulse Resp BP Pulse Ox 02/09/18 11:53 97.4 F L 60 20 94/42 L 98 02/09/18 10:52 60 20 99/42 L 97 02/09/18 10:00 60 20 87/36 L 98 02/09/18 09:00 60 20 93/43 L 98 Intake and Output (Last 8hrs): Intake & Output 02/08/18 02/09/18 02/09/18 22:59 06:59 14:59 Intake Total 1443.0 1121.5 300 Output Total 450 250 Balance 993.0 871.5 300 Intake: IV 455.0 1021.5 Intake, Piggyback 650 100 300 Oral 0 Blood Product 338 Output: Gastric Amount 0 Stomach 0 Urine 450 250 Urethral (Em) 450 250 Other: # Bowel Movements 0
[2018-02-09] MEDS: Linezolid 600 mg in D5W 300 ml 600 MG/300 ML BAG IVPB SCH ×2 (12:38→23:09)
[2018-02-09] MEDS ORDERED: Potassium CL 10 MEQ/50 ML 50 ML IVPB SCH (13:00)
--- NOTE | 2018-02-09 15:53 | CP.PCM.PN ---
Subjective - Date & Time of Evaluation Date of Evaluation: 02/08/18 Time of Evaluation: 13:30 - Subjective Subjective: no overnight events Objective - Vital Signs/Intake and Output Vital Signs (last 24 hours): Temp Pulse Resp BP Pulse Ox 97.4 F L 60 20 107/51 L 100 02/09/18 11:53 02/09/18 14:55 02/09/18 14:55 02/09/18 14:55 02/09/18 14:55 Intake and Output: 02/09/18 02/09/18 06:59 18:59 Intake Total 1836.0 700 Output Total 250 Balance 1586.0 700 - Medications Medications: Current Medications Albuterol/Ipratropium (Duoneb 3 Mg/0.5 Mg (3 Ml) Ud) 3 ml INH RQID [facility] Last Admin: 02/09/18 15:45 Dose: 3 ml Albuterol/Ipratropium (Duoneb 3 Mg/0.5 Mg (3 Ml) Ud) 3 ml INH RQ6 PRN PRN Reason: Shortness of Breath Last Admin: 02/08/18 05:04 Dose: 3 ml Ascorbic Acid (Vitamin C Liq) 1,000 mg PO DAILY [facility] Last Admin: 02/09/18 08:32 Dose: Not Given Atropine Sulfate (Atropisol 1% [facility]) 1 drop OS BID [facility] Last Admin: 02/09/18 08:30 Dose: 1 drop Bacitracin (Bacitracin) 1 ea TOP TID [facility] Last Admin: 02/09/18 12:39 Dose: 1 ea Bisacodyl (Dulcolax) 10 mg [place] DAILY [facility] Last Admin: 02/09/18 08:31 Dose: Not Given Dimethicone (Proshield Plus Skin Protectant) 1 applic TOP Q8 [facility] Ferrous Sulfate (Feosol Liq) 300 mg PEG DAILY [facility] Last Admin: 02/09/18 08:31 Dose: Not Given Ceftazidime/Avibactam 2.5 gm/ (Sodium Chloride) 100 mls @ 100 mls/hr IVPB Q8H [facility] PRN Reason: Protocol Last Admin: 02/09/18 08:33 Dose: 100 mls/hr DOPamine 800mg/250ml D5W (Dopamine 800mg/250ml D5w) 800 mg in 250 mls @ 6.557 mls/hr IV .Q24H [facility] PRN Reason: 3 MCG/KG/MIN Last Admin: 02/08/18 21:10 Dose: 6.557 mls/hr Clindamycin Phosphate 600 mg/ (Sodium Chloride) 54 mls @ 54 mls/hr IVPB Q12 [facility] PRN Reason: Protocol Last Admin: 02/09/18 08:33 Dose: 54 mls/hr Valproate Sodium 500 mg/ (Sodium Chloride) 105 mls @ 50 mls/hr IVPB Q12 [facility] Last Admin: 02/09/18 08:39 Dose: 50 mls/hr Linezolid (Zyvox 600mg/300ml D5w) 600 mg in 300 mls @ 300 mls/hr IVPB Q12 [facility] PRN Reason: Protocol Last Admin: 02/09/18 12:38 Dose: 300 mls/hr Midodrine (Proamatine) 10 mg PEG Q8H [facility] Last Admin: 02/09/18 11:50 Dose: Not Given Mupirocin (Bactroban Ointment) 1 applic TOP BID [facility] Last Admin: 02/09/18 08:29 Dose: 1 applic Nystatin (Nystatin Oral Susp) 5 ml PO Q12 [facility] Last Admin: 02/09/18 08:41 Dose: Not Given Nystatin (Nystop Topical Powder) 1 applic TOP TID [facility] Last Admin: 02/09/18 13:52 Dose: 1 applic Pantoprazole Sodium (Protonix Inj) 40 mg IV Q12 [facility] Last Admin: 02/09/18 08:28 Dose: 40 mg Silver Sulfadiazine (Silvadene 1% 20 Gm) 1 ea TOP BID [facility] Last Admin: 02/09/18 10:30 Dose: 1 ea Simethicone (Mylicon Liq) 40 mg PO QID PRN PRN Reason: Flatulence Last Admin: 02/05/18 08:18 Dose: 40 mg Sucralfate (Carafate Oral Susp) 1 gm PO QID [facility] Last Admin: 02/09/18 12:32 Dose: Not Given Thiamine HCl (Vitamin B1 Tab) 100 mg [place] DAILY [facility] Last Admin: 02/09/18 08:32 Dose: Not Given Tobramycin/Dexamethasone (Tobradex Opht Susp) 1 drop OU BID [facility] Last Admin: 02/09/18 08:30 Dose: 1 drop Valproate Sodium (Depakene Oral Soln) 500 mg PEG BID [facility] Last Admin: 02/07/18 08:39 Dose: Not Given Vitamin A (Vitamin A&D) 1 applic TP Q8 PRN PRN Reason: Until an adequate response is Last Admin: 01/31/18 16:36 Dose: 1 applic Vitamin A (Vitamin A&D) 1 applic TP Q8 PRN PRN Reason: Excoriation Zinc Sulfate (Zinc Sulfate 220 Mg Cap) 220 mg GT DAILY [facility] Last Admin: 02/09/18 08:32 Dose: Not Given - Labs Labs: 02/08/18 05:00 02/09/18 07:14 PT 15.0 Seconds (9.8-13.1) H 02/09/18 07:14 INR 1.3 02/09/18 07:14 APTT 23.9 Seconds (25.6-37.1) L 02/09/18 07:14 - Respiratory Exam Respiratory Exam: NORMAL BREATHING PATTERN - Cardiovascular Exam Cardiovascular Exam: REGULAR RHYTHM - GI/Abdominal Exam GI & Abdominal Exam: Soft, Normal Bowel Sounds Assessment and Plan - Assessment and Plan (Free Text) Assessment: 82 yo male with multiple medical problems no bleeding ok to start feeds
[2018-02-09] MEDS: Proshield Plus GEL TOP SCH (16:45)
[2018-02-10] MEDS: [UNRECOGNIZED DRUG - OTHER] IV SCH ×2 (00:04→17:46)
[2018-02-10] MEDS: DOPAMINE 800 MG/250 ML IV SCH ×2 (00:04→17:46)
[2018-02-10] MEDS ORDERED: Dextrose 50% SYRINGE Inj (50 ml) IVP ONE (01:02)
[2018-02-10] MEDS ORDERED: Dextrose 50% SYRINGE Inj (50 ml) ONE (01:04)
[2018-02-10 01:43] VITALS: BMI 46.3
[2018-02-10] MEDS ORDERED: [UNRECOGNIZED DRUG - OTHER] IV ONE ×5 (02:12→20:21)
[2018-02-10] MEDS ORDERED: DOPAMINE 800 MG/250 ML IV ONE ×5 (02:12→20:21)
[2018-02-10 05:40] LABS: HEMOGLOBIN 10.6 g/dL (12.0-18.0); MEAN CELL VOLUME 81.5 fl (80.0-94.0); MEAN CORPUSCULAR HGB CONC 33.2 g/dL (33.0-37.0); RBC 3.93 Mil/uL (4.40-5.90); RED CELL DISTRIBUTION WIDTH 18.8 % (11.5-14.5); WHITE BLOOD COUNT 16.8 K/uL (4.8-10.8)
[2018-02-10 06:20] LABS: ALB/GLOB RATIO 0.9 (1.0-2.1); ALBUMIN 2.5 g/dL (3.5-5.0); ALT/SGPT 18 U/L (21-72); AST/SGOT 29 U/L (17-59); BLOOD UREA NITROGEN 87 mg/dl (9-20); GFR NON-AFRICAN AMERICAN > 60
[2018-02-10] MEDS: Albuterol-Ipratrop 3 mg / 0.5 (3 ml) UD INH SCH ×4 (07:28→19:11)
[2018-02-10] MEDS: Silver Sulfadiazine 1% Cream (20 gm) TOP SCH ×2 (08:47→17:49)
[2018-02-10] MEDS: Linezolid 600 mg in D5W 300 ml 600 MG/300 ML BAG IVPB SCH ×2 (08:48→20:34)
[2018-02-10] MEDS: Valproate 500 MG in Sodium Chloride 0.9% 100 ML IVPB SCH ×2 (08:50→20:32)
[2018-02-10] MEDS: Dexamethasone/Tobramycin Ophth Susp OU SCH ×2 (09:55→17:49)
[2018-02-10] MEDS: Nystatin 100,000 Units/ml Oral Susp 5 ml UD PO SCH ×2 (10:10→20:33)
[2018-02-10] MEDS: Bacitracin 500 Units/gm Oint Foilpak UD TOP SCH ×3 (10:11→17:44)
[2018-02-10] MEDS: ATROPINE 1% OS SCH ×2 (10:11→17:44)
[2018-02-10] MEDS: Proshield Plus GEL TOP SCH ×2 (10:14→17:49)
[2018-02-10] MEDS: Potassium CL 10 MEQ/50 ML 50 ML IVPB SCH ×4 (10:21→15:19)
[2018-02-10] MEDS: Ferrous Sulfate 300 mg/5 mL Liq UD PEG SCH (10:43)
[2018-02-10] MEDS: Sucralfate 1 gm/10 ml Oral Susp UD PO SCH ×4 (10:43→22:00)
[2018-02-10] MEDS: Ascorbic Acid 500 mg/5 ml Liq(50 ml) PO SCH (10:44)
--- NOTE | 2018-02-10 11:18 | CP.CCUPN ---
CCU Subjective - Physician Review Subjective (Free Text): RENAL DOSE Dopamine changed to vasopressor usage with titration for BP maintenance, he is now on 6 mcg/kg/min. Other vitals and I/O's reviewed. Urine output is relatively oliguric. PEG output no longer measured and clamped, showing dark green bilious fluid inside. PEG cleared by GI for feeding yesterday , discussed with family members. They agreed to restart low rate tube feeding Possible myoclonic jerks noted by family involving RUE cycling every 4-5 secs lasting for a few minutes. As observed by them overnight. No fever spikes noted, BP 94 systolic with HR 60 and ventric demand paced. ROS: No other pertinent negs or positives on 10+ system review as per family. PMSFH: All other Nursing and physician documentation reviewed to date; no new pertinent info noted relevant to current medical problems. EXAM- HEENT: no icterus, no gaze preference, opacified R pupil, Left pupil 2-3 mm size , no reactivity, oral mm moist NECK: No JVD visible, supple, carotids equal upstroke bilat/no bruits, trach stoma intact, no redness. CHEST: decreased BS bases, no wheezes audible HEART: regular, distant, S1S2, no rubs ABD: soft, rotund, no increased distention, no tympany, no focal tenderness, BS hypoactive, no rebound. Skin overlying lower abdomen is now mildly erythematous and increased warmth noted. EXT: +++ edema; no peripheral/ digital cyanosis, no calf tenderness or palpable cords, distal pulses intact and symmetrical. ++ scrotal edema NEURO: increased tone present in LUE only. SKIN: no new rashes, otherwise warm and dry. LABS: WBC= 16.78 HGB= 10.6 PLTs= 210K Im=526 K= 3.2 CL= 101 HCO3= 14 BUN/Cr= 87/0.6 from a low of 66/0.6 after hydration given initial BUN 144 on admission. BS= 83 IMPRESSION / MAJOR PROBLEMS NOW: 1. Metabolic Encephalopathy with s/p Hyperosmolar State; Hypernatremia, Uremia, Hyperkalemia 2. P.mirabilis and K.pneumoniae (both MDR) in Trach secretions with E. faecalis Bacteremia 3. New Onset Occult Seizure Disorder 4. R Basilar Pneumonitis / Atelectasis, and bilateral effusions 5. Chronic disease Anemia 6. Advanced Muscular Dystrophy with ventilator dependency PLAN: 1. MV support. No MV weans to trach collar anticipated at this time given overall altered mental status which has not yet returned back to baseline. Trach tube changed 02/01. 2. Repeat BCs. Serial peripheral BCs obtained one day after +E.faecalis were negative. If BCs remain +, will need to consider mid-line catheter removal and ECHO to assess for any valvular vegetations. Central venous access has been difficult given body habitus. 3. Ongoing Avycaz Day #10 for coverage against MDR P.mirabilis and K. pneumonia; Zyvox Day # 8. 4. Plans for PPM upgrade noted as soon as current infections have cleared. Residual battery life has been quoted at 1 months duration. 5. Discussed with Nephrology, more hyponatremic again and obviously fluid overloaded. Goal is to give least amount of fluid in order to allow serum Na to correct. Will stop tap water flushes thru PEG, and low rate hydration with half saline formulated with 150 meQ NaBicarb at 10 ml/hr x 24H only.
--- NOTE | 2018-02-10 11:22 | CP.PCM.PN ---
Subjective - Date & Time of Evaluation Date of Evaluation: 02/10/18 Time of Evaluation: 11:20 - Subjective Subjective: patient remain on the respirator with no significant changes clinically through tracheostomy 3 member of the family at the bedside vital sign noted blood pressure on the low side on some vasopressor as well Objective - Vital Signs/Intake and Output Vital Signs (last 24 hours): Temp Pulse Resp BP Pulse Ox 97.2 F L 60 20 93/45 L 100 02/10/18 00:00 02/10/18 07:00 02/10/18 07:00 02/10/18 07:00 02/10/18 07:00 Intake and Output: 02/10/18 02/10/18 06:59 18:59 Intake Total 1067 20 Output Total 150 50 Balance 917 -30 - Medications Medications: Current Medications Albuterol/Ipratropium (Duoneb 3 Mg/0.5 Mg (3 Ml) Ud) 3 ml INH RQID [facility] Last Admin: 02/10/18 07:28 Dose: 3 ml Albuterol/Ipratropium (Duoneb 3 Mg/0.5 Mg (3 Ml) Ud) 3 ml INH RQ6 PRN PRN Reason: Shortness of Breath Last Admin: 02/08/18 05:04 Dose: 3 ml Ascorbic Acid (Vitamin C Liq) 1,000 mg PO DAILY [facility] Last Admin: 02/10/18 10:44 Dose: 1,000 mg Atropine Sulfate (Atropisol 1% Oph) 1 drop OS BID [facility] Last Admin: 02/10/18 10:11 Dose: 1 drop Bacitracin (Bacitracin) 1 ea TOP TID [facility] Last Admin: 02/10/18 10:11 Dose: 1 ea Dimethicone (Proshield Plus Skin Protectant) 1 applic TOP Q8 [facility] Last Admin: 02/10/18 10:14 Dose: 1 applic Ferrous Sulfate (Feosol Liq) 300 mg PEG DAILY [facility] Last Admin: 02/10/18 10:43 Dose: 300 mg Ceftazidime/Avibactam 2.5 gm/ (Sodium Chloride) 100 mls @ 100 mls/hr IVPB Q8H [facility] PRN Reason: Protocol Last Admin: 02/10/18 08:54 Dose: 100 mls/hr DOPamine 800mg/250ml D5W (Dopamine 800mg/250ml D5w) 800 mg in 250 mls @ 6.557 mls/hr IV .Q24H [facility] PRN Reason: 3 MCG/KG/MIN Last Admin: 02/08/18 21:10 Dose: 6.557 mls/hr Clindamycin Phosphate 600 mg/ (Sodium Chloride) 54 mls @ 54 mls/hr IVPB Q12 [facility] PRN Reason: Protocol Last Admin: 02/10/18 08:50 Dose: 54 mls/hr Valproate Sodium 500 mg/ (Sodium Chloride) 105 mls @ 50 mls/hr IVPB Q12 [facility] Last Admin: 02/10/18 08:50 Dose: 50 mls/hr Linezolid (Zyvox 600mg/300ml D5w) 600 mg in 300 mls @ 300 mls/hr IVPB Q12 [facility] PRN Reason: Protocol Last Admin: 02/10/18 08:48 Dose: 300 mls/hr Norepinephrine Bitartrate 16 (mg/ Dextrose) 266 mls @ 2.49 mls/hr IV .Q24H [facility] ; 2.5 MCG/MIN PRN Reason: Protocol Stop: 02/11/18 00:44 Midodrine (Proamatine) 10 mg PEG Q8H [facility] Last Admin: 02/10/18 03:40 Dose: 10 mg Mupirocin (Bactroban Ointment) 1 applic TOP BID [facility] Last Admin: 02/10/18 09:55 Dose: 1 applic Nystatin (Nystatin Oral Susp) 5 ml PO Q12 [facility] Last Admin: 02/10/18 10:10 Dose: 5 ml Nystatin (Nystop Topical Powder) 1 applic TOP TID [facility] Last Admin: 02/10/18 10:09 Dose: 1 applic Pantoprazole Sodium (Protonix Inj) 40 mg IV Q12 [facility] Last Admin: 02/10/18 08:49 Dose: 40 mg Silver Sulfadiazine (Silvadene 1% 20 Gm) 1 ea TOP BID [facility] Last Admin: 02/10/18 08:47 Dose: 1 ea Simethicone (Mylicon Liq) 40 mg PO QID PRN PRN Reason: Flatulence Last Admin: 02/05/18 08:18 Dose: 40 mg Sucralfate (Carafate Oral Susp) 1 gm PO QID [facility] Last Admin: 02/10/18 10:43 Dose: 1 gm Thiamine HCl (Vitamin B1 Tab) 100 mg GT DAILY [facility] Last Admin: 02/10/18 10:44 Dose: 100 mg Tobramycin/Dexamethasone (Tobradex Opht Susp) 1 drop OU BID [facility] Last Admin: 02/10/18 09:55 Dose: 1 drop Valproate Sodium (Depakene Oral Soln) 500 mg PEG BID [facility] Last Admin: 02/07/18 08:39 Dose: Not Given Vitamin A (Vitamin A&D) 1 applic TP Q8 PRN PRN Reason: Until an adequate response is Last Admin: 01/31/18 16:36 Dose: 1 applic Vitamin A (Vitamin A&D) 1 applic TP Q8 PRN PRN Reason: Excoriation Zinc Sulfate (Zinc Sulfate 220 Mg Cap) 220 mg GT DAILY [facility] Last Admin: 02/10/18 10:45 Dose: 220 mg - Labs Labs: 02/10/18 04:20 02/10/18 04:20 PT 15.0 Seconds (9.8-13.1) H 02/09/18 07:14 INR 1.3 02/09/18 07:14 APTT 23.9 Seconds (25.6-37.1) L 02/09/18 07:14 - Constitutional Appears: No Acute Distress - Eye Exam Eye Exam: Conjunctival injection - ENT Exam ENT Exam: Mucous Membranes Moist - Neck Exam Neck Exam: absent: Lymphadenopathy - Respiratory Exam Respiratory Exam: Rhonchi. absent: Chest Wall Tenderness - Cardiovascular Exam Cardiovascular Exam: absent: Gallop, Rubs - GI/Abdominal Exam GI & Abdominal Exam: Firm, Guarding - Extremities Exam Extremities Exam: absent: Calf Tenderness - Back Exam Back Exam: absent: CVA tenderness (L), CVA tenderness (R) - Neurological Exam Neurological Exam: Altered - Skin Skin Exam: absent: Cyanosis Assessment and Plan (1) Altered mental status, unspecified Status: Acute (2) Hypernatremia Status: Acute (3) Pleural effusion Status: Acute (4) Pneumonia Status: Acute (5) Severe dehydration Status: Acute (6) Azotemia Assessment & Plan: patient has multitude of medical problem including but not limited to azotemia manifested by high disproportion B UN too serum creatinine which remained normal probably related to multifactorial perhaps GI bleeding.and GI to feeding Patient is edematous Hyponatremia probably related to dilutional from generalized edema hypokalemia respiratory failure muscular dystrophy GT tube feeding sepsis hypokalemia patient needed potassium supplement the plan Patient need continuation of fluid restriction because of the worsening hyponatremia latest sodium 131 I discussed with the hr shared services consultant to give sodium bicarbonate wwith minimal IV fluid also to cut down the G-tube flushing with water to minimize free water intake time spent with the patient and the 3 members of the family and discussion with the hr shared services consultant approximately 45 minutes Status: Acute
[2018-02-10] MEDS: Clindamycin 600 MG in Sodium Chloride 0.9% 100 ML IVPB SCH (20:35)
[2018-02-11] MEDS: Proshield Plus GEL TOP SCH ×4 (01:00→17:05)
[2018-02-11] MEDS: Simethicone 40 mg/0.6 ml Liquid (30 ml) PO PRN (03:22)
[2018-02-11] MEDS: Albuterol-Ipratrop 3 mg / 0.5 (3 ml) UD INH SCH ×4 (07:29→19:15)
[2018-02-11] MEDS: Valproate 500 MG in Sodium Chloride 0.9% 100 ML IVPB SCH ×2 (08:46→21:35)
[2018-02-11] MEDS: Silver Sulfadiazine 1% Cream (20 gm) TOP SCH ×3 (08:55→21:32)
[2018-02-11] MEDS: Clindamycin 600 MG in Sodium Chloride 0.9% 100 ML IVPB SCH (09:03)
[2018-02-11] MEDS: Sucralfate 1 gm/10 ml Oral Susp UD PO SCH ×4 (09:03→21:30)
[2018-02-11] MEDS: Bacitracin 500 Units/gm Oint Foilpak UD TOP SCH ×3 (09:03→17:02)
[2018-02-11] MEDS: Ascorbic Acid 500 mg/5 ml Liq(50 ml) PO SCH (09:10)
[2018-02-11] MEDS: Ferrous Sulfate 300 mg/5 mL Liq UD PEG SCH (09:13)
[2018-02-11] MEDS: Nystatin 100,000 Units/ml Oral Susp 5 ml UD PO SCH ×2 (09:13→21:30)
--- NOTE | 2018-02-11 09:20 | CP.CCUPN ---
CCU Subjective - Physician Review Events Since Last Encounter (Free Text): 02/11/18 09:16 Pt has gained more than 30 kg since admission and his main problem is anasarca, , needs aggressive diuresis while maintaining his BP, with pressors if needed. Hyponatremia is due to fluid retension and hyperchloremic metabolic acidosis is also due to saline infusion and "dilutional acidosis" Urine output has been low Bp well maintained on dopamin CCU Objective - Vital Signs / Intake & Output Vital Signs (Last 4 hours): Vital Signs Pulse Resp BP Pulse Ox 02/11/18 07:00 60 20 116/49 L 100 02/11/18 06:00 60 20 110/69 100 Intake and Output (Last 8hrs): Intake & Output 02/10/18 02/11/18 02/11/18 22:59 06:59 14:59 Intake Total 840 350 Output Total 50 360 Balance 790 -10 Weight 330 lb Intake: IV 350 80 Intake, Piggyback 400 Oral 40 Tube Feeding 50 270 Output: Urine 50 170 Urethral (Em) 50 170 Emesis 190 - Physical Exam Narrative Physical Exam (Free Text): 02/11/18 09:21 Grossly edematous P/E Neck; No JVD Lungs: decreased breath sounds in basis Heart: no gallop Abdomen: distended, BS feeble Ext: +3 edema Heart: No gallop Neuro: unresponsive Head: Positive for: Atraumatic, Normocephalic, Other (right presybeterian, melanoma) Pupils: Positive for: Other (corneal keratitis) Extroacular Muscles: Positive for: EOMI Conjunctiva: Positive for: Normal Ears: Positive for: Normal Mouth: Positive for: Dry Pharnyx: Positive for: Normal Neck: Positive for: Other (destructive skin lesion on right shoulder, possible basal carcinoma) Respiratory/Chest: Positive for: Clear to Auscultation, Decreased Breath Sounds (bibasilar) Cardiovascular: Positive for: Regular Rate and Rhythm Abdomen: Positive for: Distention. Negative for: Tenderness Upper Extremity: Positive for: Edema Lower Extremity: Positive for: Edema Skin: Positive for: Other (unable to evaluate back 2nd boldy habitus) Psychiatric: Positive for: Alert - Medications Active Medications: Active Medications Generic Name Dose Route Start Last Admin Trade Name Freq PRN Reason Stop Dose Admin Albuterol/Ipratropium 3 ml 01/26/18 08:00 02/11/18 07:29 Duoneb 3 Mg/0.5 Mg (3 Ml) Ud INH 3 ml RQID [facility] Administration Albuterol/Ipratropium 3 ml 01/26/18 03:08 02/08/18 05:04 Duoneb 3 Mg/0.5 Mg (3 Ml) Ud INH 3 ml RQ6 PRN Administration Shortness of Breath Ascorbic Acid 1,000 mg 02/04/18 09:30 02/11/18 09:10 Vitamin C Liq PO 1,000 mg DAILY [facility] Administration Atropine Sulfate 1 drop 01/30/18 10:00 02/10/18 17:44 Atropisol 1% Ophth OS 1 drop BID [facility] Administration Bacitracin 1 ea 02/04/18 09:00 02/11/18 09:03 Bacitracin TOP 1 ea TID [facility] Administration Dimethicone 1 applic 02/09/18 17:00 02/11/18 09:02 Proshield Plus Skin Protectant TOP 1 applic Q8 [facility] Administration Ferrous Sulfate 300 mg 01/27/18 09:00 02/11/18 09:13 Feosol Liq PEG 300 mg DAILY [facility] Administration Ceftazidime/Avibactam 2.5 gm/ 100 mls @ 100 mls/hr 02/01/18 17:15 02/11/18 00 :20 Sodium Chloride IVPB 100 mls/hr Q8H [facility] Administration Protocol Valproate Sodium 500 mg/ 105 mls @ 50 mls/hr 02/08/18 11:45 02/11/18 08:46 Sodium Chloride IVPB 50 mls/hr Q12 [facility] Administration Linezolid 600 mg in 300 mls @ 300 mls/hr 02/09/18 12:15 02/10/18 20:34 Zyvox 600mg/300ml D5w IVPB 300 mls/hr Q12 [facility] Administration Protocol Sodium Bicarbonate 150 meq/ 1,150 mls @ 10 mls/hr 02/10/18 11:45 02/10/18 15: 00 Sodium Chloride IV 02/11/18 11:44 10 mls/hr .Q24H [facility] Administration Clindamycin Phosphate 600 mg/ 104 mls @ 104 mls/hr 02/10/18 21:00 02/11/18 09 :03 Sodium Chloride IVPB 104 mls/hr Q12 [facility] Administration Protocol Midodrine 10 mg 02/03/18 12:30 02/11/18 03:31 Proamatine PEG 10 mg Q8H [facility] Administration Mupirocin 1 applic 02/03/18 17:00 02/11/18 08:55 Bactroban Ointment TOP 1 applic BID [facility] Administration Nystatin 5 ml 01/26/18 21:00 02/11/18 09:13 Nystatin Oral Susp PO 5 ml Q12 [facility] Administration Nystatin 1 applic 01/31/18 13:00 02/10/18 17:48 Nystop Topical Powder TOP 1 applic TID [facility] Administration Pantoprazole Sodium 40 mg 02/06/18 09:00 02/11/18 08:56 Protonix Inj IV 40 mg Q12 [facility] Administration Silver Sulfadiazine 1 ea 01/26/18 09:00 02/11/18 08:55 Silvadene 1% 20 Gm TOP 1 ea BID [facility] Administration Simethicone 40 mg 01/28/18 12:35 02/11/18 03:22 Mylicon Liq PO 40 mg QID PRN Administration Flatulence Sucralfate 1 gm 02/06/18 09:00 02/11/18 09:03 Carafate Oral Susp PO 1 gm QID [facility] Administration Thiamine HCl 100 mg 02/04/18 09:30 02/11/18 09:12 Vitamin B1 Tab GT 100 mg DAILY [facility] Administration Tobramycin/Dexamethasone 1 drop 01/26/18 09:00 02/10/18 17:49 Tobradex Opht Susp OU 1 drop BID [facility] Administration Valproate Sodium 500 mg 02/01/18 17:00 02/07/18 08:39 Depakene Oral Soln PEG Not Given BID [facility] Vitamin A 1 applic 01/25/18 23:01 01/31/18 16:36 Vitamin A&D TP 1 applic Q8 PRN Administration Until an adequate response is Vitamin A 1 applic 02/04/18 08:51 Vitamin A&D TP Q8 PRN Excoriation Zinc Sulfate 220 mg 02/04/18 09:30 02/10/18 10:45 Zinc Sulfate 220 Mg Cap GT 220 mg DAILY [facility] Administration - Patient Studies EKG/Cardiology Studies: Cardiology / EKG Studies 02/10/18 19:45 EKG [ELECTROCARDIOGRAM] Routine Comment: Mode Of Transportation: Reason For Exam: pacemaker Does Patient Have a Pacemaker?: Yes Isolation: Contact Droplet Assessment/Plan - Assessment and Plan (Free Text) Assessment: IMPRESSION / MAJOR PROBLEMS NOW: 1. Metabolic Encephalopathy with s/p Hyperosmolar State; 2- Anasarca: Wt on admission was 117 Kg and now 150 kg 3- Metabolic acidosis: has JOVANI: uremia, creatinine is not much high due to decreased muscles mass, has low urine output and also has " dilutional acidosis ". 4: Hyponatremia: dilutional , due to volume overload, anasarca 5. P.mirabilis and K.pneumoniae (both MDR) in Trach secretions with E. faecalis Bacteremia 6. New Onset Occult Seizure Disorder 7. R Basilar Pneumonitis / Atelectasis, and bilateral effusions 8. Chronic disease Anemia 9. Advanced Muscular Dystrophy with ventilator dependency PLAN: 1- Lasix 40 mg now, will determine the threshold of lasix dose on which pt responses, will start lasix 40 mg IV q 8 hours, might need lsix drip, need to make him in negative fluid balance on dailu basis . 2- Hold birac drip, getting only at 10 cc/h, will monitor bicarb level after aggressive diuresis and if bicarb remained low, will need bicarb drip, at a higher rate to be effective 3- Kcl relaec 20 meq 4. MV support. No MV weans to trach collar anticipated at this time given overall altered mental status which has not yet returned back to baseline. Trach tube changed 02/01. 5. Repeat BCs. Serial peripheral BCs obtained one day after +E.faecalis were negative. If BCs remain +, will need to consider mid-line catheter removal and ECHO to assess for any valvular vegetations. Central venous access has been difficult given body habitus. 6. Ongoing Avycaz Day #10 for coverage against MDR P.mirabilis and K. pneumonia; Zyvox Day # 8. 7. Plans for PPM upgrade noted as soon as current infections have cleared. Residual battery life has been quoted at 1 months duration.
[2018-02-11] MEDS: Dexamethasone/Tobramycin Ophth Susp OU SCH ×2 (09:22→17:25)
[2018-02-11] MEDS: Linezolid 600 mg in D5W 300 ml 600 MG/300 ML BAG IVPB SCH ×2 (09:37→21:38)
[2018-02-11] MEDS ORDERED: Potassium Chloride 20 mEq 100 ML IVPB ONE (09:53)
[2018-02-11 10:06] LABS: ALB/GLOB RATIO 0.8 (1.0-2.1); ALT/SGPT 17 U/L (21-72); AST/SGOT 31 U/L (17-59); BLOOD UREA NITROGEN 90 mg/dl (9-20); CALCIUM 8.4 mg/dL (8.4-10.2); GFR NON-AFRICAN AMERICAN > 60
[2018-02-11] MEDS: ATROPINE 1% OS SCH ×2 (11:37→17:12)
--- NOTE | 2018-02-11 11:44 | CP.PCM.PN ---
Subjective - Date & Time of Evaluation Date of Evaluation: 02/11/18 Time of Evaluation: 11:45 - Subjective Subjective: FAMILY AT BEDSIDE AND CASE DISCUSSED WITH THEM THEY HAVE MANY QUESTIONS ABOUT HIS CARE--QUESTIONS ADDRESSED BEST POSSIBLE Objective - Vital Signs/Intake and Output Vital Signs (last 24 hours): Temp Pulse Resp BP Pulse Ox 97.8 F 60 18 114/55 L 100 02/11/18 08:00 02/11/18 09:00 02/11/18 09:00 02/11/18 09:00 02/11/18 09:00 Intake and Output: 02/11/18 02/11/18 06:59 18:59 Intake Total 750 64 Output Total 360 60 Balance 390 4 - Medications Medications: Current Medications Albuterol/Ipratropium (Duoneb 3 Mg/0.5 Mg (3 Ml) Ud) 3 ml INH RQID [facility] Last Admin: 02/11/18 11:08 Dose: 3 ml Albuterol/Ipratropium (Duoneb 3 Mg/0.5 Mg (3 Ml) Ud) 3 ml INH RQ6 PRN PRN Reason: Shortness of Breath Last Admin: 02/08/18 05:04 Dose: 3 ml Ascorbic Acid (Vitamin C Liq) 1,000 mg PO DAILY [facility] Last Admin: 02/11/18 09:10 Dose: 1,000 mg Atropine Sulfate (Atropisol 1% [facility]) 1 drop OS BID [facility] Last Admin: 02/11/18 11:37 Dose: 1 drop Bacitracin (Bacitracin) 1 ea TOP TID [facility] Last Admin: 02/11/18 09:03 Dose: 1 ea Dimethicone (Proshield Plus Skin Protectant) 1 applic TOP Q8 [facility] Last Admin: 02/11/18 09:02 Dose: 1 applic Ferrous Sulfate (Feosol Liq) 300 mg PEG DAILY [facility] Last Admin: 02/11/18 09:13 Dose: 300 mg Furosemide (Lasix) 40 mg IVP DAILY [facility] Furosemide (Lasix) 40 mg IV STAT STA Stop: 02/11/18 11:31 Ceftazidime/Avibactam 2.5 gm/ (Sodium Chloride) 100 mls @ 100 mls/hr IVPB Q8H [facility] PRN Reason: Protocol Last Admin: 02/11/18 09:15 Dose: 100 mls/hr Valproate Sodium 500 mg/ (Sodium Chloride) 105 mls @ 50 mls/hr IVPB Q12 [facility] Last Admin: 02/11/18 08:46 Dose: 50 mls/hr Linezolid (Zyvox 600mg/300ml D5w) 600 mg in 300 mls @ 300 mls/hr IVPB Q12 [facility] PRN Reason: Protocol Last Admin: 02/11/18 09:37 Dose: 300 mls/hr Sodium Bicarbonate 150 meq/ (Sodium Chloride) 1,150 mls @ 10 mls/hr IV .Q24H [facility] Stop: 02/11/18 11:44 Last Admin: 02/10/18 15:00 Dose: 10 mls/hr Potassium Chloride (Potassium Chloride 20 Meq/100 Ml) 100 mls @ 50 mls/hr IVPB ONCE ONE Stop: 02/11/18 11:52 Last Admin: 02/11/18 11:22 Dose: 50 mls/hr Clindamycin Phosphate (Cleocin) 600 mg in 50 mls @ 50 mls/hr IVPB Q12 [facility] PRN Reason: Protocol Midodrine (Proamatine) 10 mg PEG Q8H [facility] Last Admin: 02/11/18 03:31 Dose: 10 mg Mupirocin (Bactroban Ointment) 1 applic TOP BID [facility] Last Admin: 02/11/18 08:55 Dose: 1 applic Nystatin (Nystatin Oral Susp) 5 ml PO Q12 [facility] Last Admin: 02/11/18 09:13 Dose: 5 ml Nystatin (Nystop Topical Powder) 1 applic TOP TID [facility] Last Admin: 02/11/18 09:20 Dose: 1 applic Pantoprazole Sodium (Protonix Inj) 40 mg IV Q12 [facility] Last Admin: 02/11/18 08:56 Dose: 40 mg Silver Sulfadiazine (Silvadene 1% 20 Gm) 1 ea TOP BID [facility] Last Admin: 02/11/18 08:55 Dose: 1 ea Simethicone (Mylicon Liq) 40 mg PO QID PRN PRN Reason: Flatulence Last Admin: 02/11/18 03:22 Dose: 40 mg Sucralfate (Carafate Oral Susp) 1 gm PO QID [facility] Last Admin: 02/11/18 09:03 Dose: 1 gm Thiamine HCl (Vitamin B1 Tab) 100 mg GT DAILY [facility] Last Admin: 02/11/18 09:12 Dose: 100 mg Tobramycin/Dexamethasone (Tobradex Opht Susp) 1 drop OU BID [facility] Last Admin: 02/11/18 09:22 Dose: 1 drop Valproate Sodium (Depakene Oral Soln) 500 mg PEG BID [facility] Last Admin: 02/07/18 08:39 Dose: Not Given Vitamin A (Vitamin A&D) 1 applic TP Q8 PRN PRN Reason: Until an adequate response is Last Admin: 01/31/18 16:36 Dose: 1 applic Vitamin A (Vitamin A&D) 1 applic TP Q8 PRN PRN Reason: Excoriation Zinc Sulfate (Zinc Sulfate 220 Mg Cap) 220 mg GT DAILY [facility] Last Admin: 02/11/18 09:21 Dose: 220 mg - Labs Labs: 02/10/18 04:20 02/11/18 09:00 PT 15.0 Seconds (9.8-13.1) H 02/09/18 07:14 INR 1.3 02/09/18 07:14 APTT 23.9 Seconds (25.6-37.1) L 02/09/18 07:14 - Constitutional Appears: Chronically Ill - Head Exam Head Exam: ATRAUMATIC, NORMAL INSPECTION, NORMOCEPHALIC - Eye Exam Eye Exam: EOMI, Normal appearance, PERRL Pupil Exam: NORMAL ACCOMODATION, PERRL - ENT Exam ENT Exam: Mucous Membranes Moist, Normal Exam - Neck Exam Neck Exam: Full ROM, Normal Inspection. absent: Lymphadenopathy - Respiratory Exam Respiratory Exam: Decreased Breath Sounds, Rales Additional comments: ON THE VENT - Cardiovascular Exam Cardiovascular Exam: REGULAR RHYTHM, +S1, +S2. absent: Murmur - GI/Abdominal Exam GI & Abdominal Exam: Distended, Normal Bowel Sounds. absent: Tenderness - Rectal Exam Rectal Exam: NORMAL INSPECTION - Exam Additional comments: SCROTAL EDEMA - Extremities Exam Extremities Exam: Pedal Edema. absent: Joint Swelling - Back Exam Back Exam: NORMAL INSPECTION - Skin Skin Exam: Intact, Warm Assessment and Plan - Assessment and Plan (Free Text) Assessment: MULTIORGAN FAILURE Plan: CONTINUE CURRENT RX AND VENT SUPPORT PROGNOSIS IS EXTREMELY POOR
[2018-02-11] MEDS: Furosemide 100 MG in Sodium Chloride 0.9% 100 ML IV SCH (14:17)
--- NOTE | 2018-02-11 18:25 | CP.PCM.PN ---
Subjective - Date & Time of Evaluation Date of Evaluation: 02/11/18 Time of Evaluation: 18:18 - Subjective Subjective: Nephrology Consultation Note Assessment: critical oliguric JOVANI fluid overload, hyponatremia, hypernatremia metabolic acidosis, hypoalbunimeia sepsis with shock chronic respi failure, vent dependent, hx of muscular dystrophy morbid obesity Plan No acute need for renal replacement therapy at this time however may need soon, will need close follow up. overall prognosis grave, recommend palliative care. family goals of care are unrealistic. Maintain hemodynamics stable. Avoid hypotension. Patient not on ACEI/ARB due to recent JOVANI. on pressor. consider albumin IV as needed Monitor Input/Output, daily weights and renal function with basic metabolic panel started lasix drip, added metolazone d/c bicarb drip, added oral bicarb supplements 24 hr crcl and nitrogen to estimate GFR as serum cr can be falsely low with muscular dystrophy and volume expansion renal sonogram check bladder pressure if possible to evaluate for abdomen compartment syndrome Dose meds/antibiotics for reduced GFR. Avoid fleets enema/magnesium based laxatives. Avoid nephrotoxins/NSAIDs/ iodinated contrast (unless needed emergently) Glycemic control Further work up for as per primary team Thanks for allowing me to participate in care of your patient. Will follow patient with you. Please call if any Qs. d/ wteam Dr Krishna Wan Office: [phone] Subjective: Noted events overnight. pt unresponsive family bedside and concerned about excess water Physical Examination: General Appearance: ill appearing and unresponsive. obese Vitals reviewed and noted as below Neck; s/p trach Lungs: Normal respiratory rate/effort. Breath sounds bilateral equal and clear anteriorly Heart: Normal rate. s1s2 normal. No rub or gallop. Extremities: 3+ edema. ansasarca Neurological: Patient is unresponsive Skin: Warm and dry. Normal turgor. No rash. Palpitation: Normal elasticity for age Abdomen: Abdomen is distended with extensive abdomen wall edema Psych: deferred MSK:ynable : kidney or bladder not palpable. has hernandez Labs/imaging reviewed. Past medical history, past surgical history, family history, social history, allergy reviewed and noted as below Family hx: no hx of CKD. Rest non-contributory Objective - Vital Signs/Intake and Output Vital Signs (last 24 hours): Temp Pulse Resp BP Pulse Ox 97.6 F 60 20 99/51 L 100 02/11/18 16:00 02/11/18 17:00 02/11/18 17:00 02/11/18 17:00 02/11/18 17:00 Intake and Output: 02/11/18 02/11/18 06:59 18:59 Intake Total 750 1200 Output Total 360 60 Balance 390 1140 - Medications Medications: Current Medications Albuterol/Ipratropium (Duoneb 3 Mg/0.5 Mg (3 Ml) Ud) 3 ml INH RQID [facility] Last Admin: 02/11/18 15:14 Dose: 3 ml Albuterol/Ipratropium (Duoneb 3 Mg/0.5 Mg (3 Ml) Ud) 3 ml INH RQ6 PRN PRN Reason: Shortness of Breath Last Admin: 02/08/18 05:04 Dose: 3 ml Ascorbic Acid (Vitamin C Liq) 1,000 mg PO DAILY [facility] Last Admin: 02/11/18 09:10 Dose: 1,000 mg Atropine Sulfate (Atropisol 1% Oph) 1 drop OS BID [facility] Last Admin: 02/11/18 17:12 Dose: 1 drop Bacitracin (Bacitracin) 1 ea TOP TID [facility] Last Admin: 02/11/18 17:02 Dose: 1 ea Dimethicone (Proshield Plus Skin Protectant) 1 applic TOP Q8 [facility] Last Admin: 02/11/18 17:05 Dose: 1 applic Ferrous Sulfate (Feosol Liq) 300 mg PEG DAILY [facility] Last Admin: 02/11/18 09:13 Dose: 300 mg Furosemide (Lasix) 40 mg IVP DAILY [facility] Ceftazidime/Avibactam 2.5 gm/ (Sodium Chloride) 100 mls @ 100 mls/hr IVPB Q8H [facility] PRN Reason: Protocol Last Admin: 02/11/18 17:04 Dose: 100 mls/hr Valproate Sodium 500 mg/ (Sodium Chloride) 105 mls @ 50 mls/hr IVPB Q12 [facility] Last Admin: 02/11/18 08:46 Dose: 50 mls/hr Linezolid (Zyvox 600mg/300ml D5w) 600 mg in 300 mls @ 300 mls/hr IVPB Q12 [facility] PRN Reason: Protocol Last Admin: 02/11/18 09:37 Dose: 300 mls/hr Clindamycin Phosphate (Cleocin) 600 mg in 50 mls @ 50 mls/hr IVPB Q12 [facility] PRN Reason: Protocol Furosemide 100 mg/ Sodium (Chloride) 100 mls @ 10 mls/hr IV .Q10H [facility]; 10 MG/HR PRN Reason: Protocol Last Admin: 02/11/18 14:17 Dose: 10 mls/hr Metolazone (Zaroxolyn) 5 mg NG BID [facility] Stop: 02/14/18 18:31 Midodrine (Proamatine) 10 mg PEG Q8H [facility] Last Admin: 02/11/18 13:10 Dose: 10 mg Mupirocin (Bactroban Ointment) 1 applic TOP BID [facility] Last Admin: 02/11/18 17:02 Dose: 1 applic Nystatin (Nystatin Oral Susp) 5 ml PO Q12 [facility] Last Admin: 02/11/18 09:13 Dose: 5 ml Nystatin (Nystop Topical Powder) 1 applic TOP TID [facility] Last Admin: 02/11/18 17:15 Dose: Not Given Pantoprazole Sodium (Protonix Inj) 40 mg IV Q12 [facility] Last Admin: 02/11/18 08:56 Dose: 40 mg Silver Sulfadiazine (Silvadene 1% 20 Gm) 1 ea TOP BID [facility] Last Admin: 02/11/18 17:16 Dose: Not Given Simethicone (Mylicon Liq) 40 mg PO QID PRN PRN Reason: Flatulence Last Admin: 02/11/18 03:22 Dose: 40 mg Sodium Bicarbonate (Sodium Bicarbonate Tab) 1,300 mg NG TID [facility] Sucralfate (Carafate Oral Susp) 1 gm PO QID [facility] Last Admin: 02/11/18 17:02 Dose: 1 gm Thiamine HCl (Vitamin B1 Tab) 100 mg GT DAILY [facility] Last Admin: 02/11/18 09:12 Dose: 100 mg Tobramycin/Dexamethasone (Tobradex Opht Susp) 1 drop OU BID [facility] Last Admin: 02/11/18 17:25 Dose: 1 drop Valproate Sodium (Depakene Oral Soln) 500 mg PEG BID [facility] Last Admin: 02/07/18 08:39 Dose: Not Given Vitamin A (Vitamin A&D) 1 applic TP Q8 PRN PRN Reason: Until an adequate response is Last Admin: 01/31/18 16:36 Dose: 1 applic Vitamin A (Vitamin A&D) 1 applic TP Q8 PRN PRN Reason: Excoriation Zinc Sulfate (Zinc Sulfate 220 Mg Cap) 220 mg GT DAILY [facility] Last Admin: 02/11/18 09:21 Dose: 220 mg - Labs Labs: 02/10/18 04:20 02/11/18 09:00 PT 15.0 Seconds (9.8-13.1) H 02/09/18 07:14 INR 1.3 02/09/18 07:14 APTT 23.9 Seconds (25.6-37.1) L 02/09/18 07:14
[2018-02-11] MEDS ORDERED: DOPAMINE 800 MG/250 ML IV SCH ×2 (18:47→18:53)
[2018-02-11] MEDS ORDERED: [UNRECOGNIZED DRUG - OTHER] IV SCH ×2 (18:47→18:53)
[2018-02-11] MEDS ORDERED: levETIRAcetam 1,000 MG in Sodium Chloride 0.9% 100 ML IVPB ONE (19:30)
[2018-02-11] MEDS: metOLazone 5 MG TAB NG SCH (20:00)
[2018-02-11] MEDS: Clindamycin 600mg/50ml D5W 600 MG/50 ML VIAL IVPB SCH (21:32)
[2018-02-11] MEDS: ACYCLOVIR IV SCH (21:36)
[2018-02-11] MEDS: SODIUM CHLORIDE 0.9% IV SCH (21:36)
--- NOTE | 2018-02-11 23:59 | CP.PCM.PN ---
Subjective - Date & Time of Evaluation Date of Evaluation: 02/10/18 Time of Evaluation: 11:00 - Subjective Subjective: Mr Stein is on day 1 of video EEG monitoring, as his level of consciouness decreased last night and his family noted some shoulder twitching. HE now only grimaces minimally to sternal rub. One week ago he was moving his right arm and opening eyes. On exam: BL cataracts. no dolls, no gag, minimal sternal rub. paraplegic. +1 dtr. no movement of limbs. no withdrawal to painful stimuli. Objective - Vital Signs/Intake and Output Vital Signs (last 24 hours): Temp Pulse Resp BP Pulse Ox 97.6 F 60 20 100/49 L 100 02/11/18 16:00 02/11/18 18:00 02/11/18 18:00 02/11/18 18:00 02/11/18 18:00 Intake and Output: 02/11/18 02/12/18 18:59 06:59 Intake Total 1454 Output Total 250 Balance 1204 - Medications Medications: Current Medications Albuterol/Ipratropium (Duoneb 3 Mg/0.5 Mg (3 Ml) Ud) 3 ml INH RQID [facility] Last Admin: 02/11/18 19:15 Dose: 3 ml Albuterol/Ipratropium (Duoneb 3 Mg/0.5 Mg (3 Ml) Ud) 3 ml INH RQ6 PRN PRN Reason: Shortness of Breath Last Admin: 02/08/18 05:04 Dose: 3 ml Ascorbic Acid (Vitamin C Liq) 1,000 mg PO DAILY [facility] Last Admin: 02/11/18 09:10 Dose: 1,000 mg Atropine Sulfate (Atropisol 1% Ophth) 1 drop OS BID [facility] Last Admin: 02/11/18 17:12 Dose: 1 drop Bacitracin (Bacitracin) 1 ea TOP TID [facility] Last Admin: 02/11/18 17:02 Dose: 1 ea Dimethicone (Proshield Plus Skin Protectant) 1 applic TOP Q8 [facility] Last Admin: 02/11/18 17:05 Dose: 1 applic Ferrous Sulfate (Feosol Liq) 300 mg PEG DAILY [facility] Last Admin: 02/11/18 09:13 Dose: 300 mg Furosemide (Lasix) 40 mg IVP DAILY [facility] Ceftazidime/Avibactam 2.5 gm/ (Sodium Chloride) 100 mls @ 100 mls/hr IVPB Q8H [facility] PRN Reason: Protocol Last Admin: 02/11/18 17:04 Dose: 100 mls/hr Valproate Sodium 500 mg/ (Sodium Chloride) 105 mls @ 50 mls/hr IVPB Q12 [facility] Last Admin: 02/11/18 21:35 Dose: 50 mls/hr Linezolid (Zyvox 600mg/300ml D5w) 600 mg in 300 mls @ 300 mls/hr IVPB Q12 [facility] PRN Reason: Protocol Last Admin: 02/11/18 21:38 Dose: 300 mls/hr Clindamycin Phosphate (Cleocin) 600 mg in 50 mls @ 50 mls/hr IVPB Q12 [facility] PRN Reason: Protocol Last Admin: 02/11/18 21:32 Dose: 50 mls/hr Furosemide 100 mg/ Sodium (Chloride) 100 mls @ 10 mls/hr IV .Q10H [facility]; 10 MG/HR PRN Reason: Protocol Last Admin: 02/11/18 14:17 Dose: 10 mls/hr DOPamine 800mg/250ml D5W (Dopamine 800mg/250ml D5w) 800 mg in 250 mls @ 22.453 mls/hr IV .Q11H9M [facility]; 8 MCG/KG/MIN PRN Reason: Protocol Last Admin: 02/11/18 21:34 Dose: 22.453 mls/hr Levetiracetam 500 mg/ Sodium (Chloride) 105 mls @ 210 mls/hr IVPB Q12 [facility] Acyclovir 1,500 mg/ Sodium (Chloride) 250 mls @ 166.667 mls/hr IV Q8 [facility] PRN Reason: Protocol Last Admin: 02/11/18 21:36 Dose: 166.667 mls/hr Metolazone (Zaroxolyn) 5 mg NG BID [facility] Stop: 02/14/18 18:31 Last Admin: 02/11/18 20:00 Dose: 5 mg Midodrine (Proamatine) 10 mg PEG Q8H [facility] Last Admin: 02/11/18 20:30 Dose: 10 mg Mupirocin (Bactroban Ointment) 1 applic TOP BID [facility] Last Admin: 02/11/18 17:02 Dose: 1 applic Nystatin (Nystatin Oral Susp) 5 ml PO Q12 [facility] Last Admin: 02/11/18 21:30 Dose: 5 ml Nystatin (Nystop Topical Powder) 1 applic TOP TID [facility] Last Admin: 02/11/18 17:15 Dose: Not Given Pantoprazole Sodium (Protonix Inj) 40 mg IV Q12 [facility] Last Admin: 02/11/18 08:56 Dose: 40 mg Silver Sulfadiazine (Silvadene 1% 20 Gm) 1 ea TOP BID [facility] Last Admin: 02/11/18 21:32 Dose: 1 ea Simethicone (Mylicon Liq) 40 mg PO QID PRN PRN Reason: Flatulence Last Admin: 02/11/18 03:22 Dose: 40 mg Sodium Bicarbonate (Sodium Bicarbonate Tab) 1,300 mg NG TID [facility] Sucralfate (Carafate Oral Susp) 1 gm PO QID [facility] Last Admin: 02/11/18 21:30 Dose: 1 gm Thiamine HCl (Vitamin B1 Tab) 100 mg GT DAILY [facility] Last Admin: 02/11/18 09:12 Dose: 100 mg Tobramycin/Dexamethasone (Tobradex Opht Susp) 1 drop OU BID [facility] Last Admin: 02/11/18 17:25 Dose: 1 drop Valproate Sodium (Depakene Oral Soln) 500 mg PEG BID [facility] Last Admin: 02/07/18 08:39 Dose: Not Given Vitamin A (Vitamin A&D) 1 applic TP Q8 PRN PRN Reason: Until an adequate response is Last Admin: 01/31/18 16:36 Dose: 1 applic Vitamin A (Vitamin A&D) 1 applic TP Q8 PRN PRN Reason: Excoriation Zinc Sulfate (Zinc Sulfate 220 Mg Cap) 220 mg GT DAILY [facility] Last Admin: 02/11/18 09:21 Dose: 220 mg - Labs Labs: 02/10/18 04:20 02/11/18 09:00 PT 15.0 Seconds (9.8-13.1) H 02/09/18 07:14 INR 1.3 02/09/18 07:14 APTT 23.9 Seconds (25.6-37.1) L 02/09/18 07:14 Assessment and Plan - Assessment and Plan (Free Text) Assessment: 82 yr old male with muscular dystrophy and now with severe muscle weakness and decrease level of consciousness. Plan; 1. Video EEG. 2. continue antiepileptics. Dr griffin
--- NOTE | 2018-02-12 00:17 | CP.PCM.PN ---
Subjective - Date & Time of Evaluation Date of Evaluation: 02/11/18 Time of Evaluation: 17:00 - Subjective Subjective: Mr. Lozano continues to be lethargic. Video EEg shows G pleds and diffuse slowing with delta theta activity predominant in all hills with suppression periods of 1-2 seconds. There is no seizure activity noted clinically or subclinically. on exam: neuro exam unchanged. he does not respond to sternal rub, or move spontaneously. however, eeg rhythm does speed up when family speaks to him. Objective - Vital Signs/Intake and Output Vital Signs (last 24 hours): Temp Pulse Resp BP Pulse Ox 97.6 F 60 20 100/49 L 100 02/11/18 16:00 02/11/18 18:00 02/11/18 18:00 02/11/18 18:00 02/11/18 18:00 Intake and Output: 02/11/18 02/12/18 18:59 06:59 Intake Total 1454 Output Total 250 Balance 1204 - Medications Medications: Current Medications Albuterol/Ipratropium (Duoneb 3 Mg/0.5 Mg (3 Ml) Ud) 3 ml INH RQID [facility]S [facility] Last Admin: 02/11/18 19:15 Dose: 3 ml Albuterol/Ipratropium (Duoneb 3 Mg/0.5 Mg (3 Ml) Ud) 3 ml INH RQ6 PRN PRN Reason: Shortness of Breath Last Admin: 02/08/18 05:04 Dose: 3 ml Ascorbic Acid (Vitamin C Liq) 1,000 mg PO DAILY [facility]S [facility] Last Admin: 02/11/18 09:10 Dose: 1,000 mg Atropine Sulfate (Atropisol 1% [facility]) 1 drop OS BID [facility] 234 B[facility]S [facility] Last Admin: 02/11/18 17:12 Dose: 1 drop Bacitracin (Bacitracin) 1 ea TOP TID [facility]S [facility] Last Admin: 02/11/18 17:02 Dose: 1 ea Dimethicone (Proshield Plus Skin Protectant) 1 applic TOP Q8 [facility] 234 [facility]S [facility] Last Admin: 02/11/18 17:05 Dose: 1 applic Ferrous Sulfate (Feosol Liq) 300 mg PEG DAILY [facility] 234 [facility]S [facility] Last Admin: 02/11/18 09:13 Dose: 300 mg Furosemide (Lasix) 40 mg IVP DAILY [facility] 234 [facility]S [facility] Ceftazidime/Avibactam 2.5 gm/ (Sodium Chloride) 100 mls @ 100 mls/hr IVPB Q8H [facility] PRN Reason: Protocol Last Admin: 02/11/18 17:04 Dose: 100 mls/hr Valproate Sodium 500 mg/ (Sodium Chloride) 105 mls @ 50 mls/hr IVPB Q12 [facility] Last Admin: 02/11/18 21:35 Dose: 50 mls/hr Linezolid (Zyvox 600mg/300ml D5w) 600 mg in 300 mls @ 300 mls/hr IVPB Q12 [facility] PRN Reason: Protocol Last Admin: 02/11/18 21:38 Dose: 300 mls/hr Clindamycin Phosphate (Cleocin) 600 mg in 50 mls @ 50 mls/hr IVPB Q12 [facility] PRN Reason: Protocol Last Admin: 02/11/18 21:32 Dose: 50 mls/hr Furosemide 100 mg/ Sodium (Chloride) 100 mls @ 10 mls/hr IV .Q10H [facility]; 10 MG/HR PRN Reason: Protocol Last Admin: 02/11/18 14:17 Dose: 10 mls/hr DOPamine 800mg/250ml D5W (Dopamine 800mg/250ml D5w) 800 mg in 250 mls @ 22.453 mls/hr IV .Q11H9M [facility]; 8 MCG/KG/MIN PRN Reason: Protocol Last Admin: 02/11/18 21:34 Dose: 22.453 mls/hr Levetiracetam 500 mg/ Sodium (Chloride) 105 mls @ 210 mls/hr IVPB Q12 [facility] Acyclovir 1,500 mg/ Sodium (Chloride) 250 mls @ 166.667 mls/hr IV Q8 [facility] PRN Reason: Protocol Last Admin: 02/11/18 21:36 Dose: 166.667 mls/hr Metolazone (Zaroxolyn) 5 mg NG BID [facility] 234 [facility]S [facility] Stop: 02/14/18 18:31 Last Admin: 02/11/18 20:00 Dose: 5 mg Midodrine (Proamatine) 10 mg PEG Q8H [facility] Last Admin: 02/11/18 20:30 Dose: 10 mg Mupirocin (Bactroban Ointment) 1 applic TOP BID [facility] Last Admin: 02/11/18 17:02 Dose: 1 applic Nystatin (Nystatin Oral Susp) 5 ml PO Q12 [facility] Last Admin: 02/11/18 21:30 Dose: 5 ml Nystatin (Nystop Topical Powder) 1 applic TOP TID [facility] 234 [facility] Last Admin: 02/11/18 17:15 Dose: Not Given Pantoprazole Sodium (Protonix Inj) 40 mg IV Q12 [facility] 234 [facility] Last Admin: 02/11/18 08:56 Dose: 40 mg Silver Sulfadiazine (Silvadene 1% 20 Gm) 1 ea TOP BID [facility] 234 [facility]S [facility] Last Admin: 02/11/18 21:32 Dose: 1 ea Simethicone (Mylicon Liq) 40 mg PO QID PRN PRN Reason: Flatulence Last Admin: 02/11/18 03:22 Dose: 40 mg Sodium Bicarbonate (Sodium Bicarbonate Tab) 1,300 mg NG TID [facility] 234 B[facility]S [facility] Sucralfate (Carafate Oral Susp) 1 gm PO QID [facility] 234 B[facility]S [facility] Last Admin: 02/11/18 21:30 Dose: 1 gm Thiamine HCl (Vitamin B1 Tab) 100 mg GT DAILY [facility] 234 B[facility]S [facility] Last Admin: 02/11/18 09:12 Dose: 100 mg Tobramycin/Dexamethasone (Tobradex Opht Susp) 1 drop OU BID [facility] 234 [facility]S [facility] Last Admin: 02/11/18 17:25 Dose: 1 drop Valproate Sodium (Depakene Oral Soln) 500 mg PEG BID [facility] 234 B[facility]S [facility] Last Admin: 02/07/18 08:39 Dose: Not Given Vitamin A (Vitamin A&D) 1 applic TP Q8 PRN PRN Reason: Until an adequate response is Last Admin: 01/31/18 16:36 Dose: 1 applic Vitamin A (Vitamin A&D) 1 applic TP Q8 PRN PRN Reason: Excoriation Zinc Sulfate (Zinc Sulfate 220 Mg Cap) 220 mg GT DAILY [facility] 234 BEDS [facility] Last Admin: 02/11/18 09:21 Dose: 220 mg - Labs Labs: 02/10/18 04:20 02/11/18 09:00 PT 15.0 Seconds (9.8-13.1) H 02/09/18 07:14 INR 1.3 02/09/18 07:14 APTT 23.9 Seconds (25.6-37.1) L 02/09/18 07:14 Assessment and Plan - Assessment and Plan (Free Text) Assessment: 82 yr old male with worsening mental status and Video EEG showing GPEDS and diffuse slowing. 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 Prognosis is guarded at this time. CT scan was offered to family, but they refused. Plan: 1. Start acyclovir at 1000 mg iV q 8 hours. 2. Add keppra at 1000 mg IV now and 500 mg IV bid. 3. Continue video EEG. Plan discussed with family Our team will follow Vijaya Avila
[2018-02-12] MEDS: Furosemide 100 MG in Sodium Chloride 0.9% 100 ML IV SCH ×2 (00:50→09:54)
[2018-02-12] MEDS: Proshield Plus GEL TOP SCH ×3 (00:51→17:09)
[2018-02-12] MEDS: SODIUM CHLORIDE 0.9% IV SCH ×4 (05:20→13:00)
[2018-02-12] MEDS: ACYCLOVIR IV SCH ×4 (05:20→13:00)
[2018-02-12] MEDS: DOPAMINE 800 MG/250 ML IV SCH ×3 (06:30→19:33)
[2018-02-12] MEDS: [UNRECOGNIZED DRUG - OTHER] IV SCH ×3 (06:30→19:33)
[2018-02-12] MEDS: Albuterol-Ipratrop 3 mg / 0.5 (3 ml) UD INH SCH ×4 (07:19→19:19)
[2018-02-12] MEDS: Bacitracin 500 Units/gm Oint Foilpak UD TOP SCH ×3 (08:28→16:22)
[2018-02-12] MEDS: Sucralfate 1 gm/10 ml Oral Susp UD PO SCH ×4 (08:29→22:45)
[2018-02-12] MEDS: Clindamycin 600mg/50ml D5W 600 MG/50 ML VIAL IVPB SCH (08:29)
[2018-02-12] MEDS: Valproate 500 MG in Sodium Chloride 0.9% 100 ML IVPB SCH ×2 (08:30→20:36)
[2018-02-12] MEDS: ATROPINE 1% OS SCH ×2 (08:50→16:54)
[2018-02-12] MEDS: Dexamethasone/Tobramycin Ophth Susp OU SCH ×2 (08:51→16:54)
--- NOTE | 2018-02-12 09:15 | CP.CCUPN ---
CCU Subjective - Physician Review Events Since Last Encounter (Free Text): 02/12/18 09:04 All three family members, two daughters and a son has a detailed conference with me regarding patient's condition, prognosis, and available options. Pt meanwhile has been oliguric and did not respond much to high dose lasix and lsix drip plus metolazone and now is has renal failure. I told the family about the poor prognosis and not many available options other than what he already has received and has been receiving. In my opinion, patient who is now on high dose dopamine and still hypotensive will not rocky a good candidate for short or keno terminal operator dialsysis. Two daughters were receptive to the idea of hospice and comfort care only but son "needed more time ". He was not realistic about patient's condition wanted me to order more blood transfusion to " boost up" the patient, which was not needed as pt has Hb of 10.4 and stable . Patient meanwhile has been oliguric and has gross anasarca, even on lasix drip , 10 mg/h overnight and with metolazone. Blood work from today is pending, it was hard to drawn blood today. Family is not agreed to picc line yet, will consider tomorrow, if needed. CCU Objective - Vital Signs / Intake & Output Vital Signs (Last 4 hours): Vital Signs Temp Pulse Resp BP Pulse Ox 02/12/18 07:00 97 F L 60 20 85/46 L 99 02/12/18 06:00 60 20 86/45 L 100 02/12/18 05:30 60 20 86/45 L 99 Intake and Output (Last 8hrs): Intake & Output 02/11/18 02/12/18 02/12/18 22:59 06:59 14:59 Intake Total 738 970 100 Output Total 640 75 Balance 98 895 100 Weight 330 lb Intake: IV 108 100 Intake, Piggyback 400 900 Tube Feeding 180 0 Free Water Flush 50 70 Output: Gastric Amount 375 Stomach 375 Urine 265 75 Urethral (Em) 265 75 Other: # Voids Urethral (Em) 50 - Physical Exam Narrative Physical Exam (Free Text): 02/12/18 09:16 P/E Neck: No JVD Lungs: decreased breath sounds in basis Abdomen: distended, ascites, BS feeble Ext: +3 edema Heart" no gallop Neuro: unresponsive . Head: Positive for: Atraumatic, Normocephalic, Other (right voodoo, melanoma) Pupils: Positive for: Other (corneal keratitis) Extroacular Muscles: Positive for: EOMI Conjunctiva: Positive for: Normal Ears: Positive for: Normal Mouth: Positive for: Dry Pharnyx: Positive for: Normal Neck: Positive for: Other (destructive skin lesion on right shoulder, possible basal carcinoma) Respiratory/Chest: Positive for: Clear to Auscultation, Decreased Breath Sounds (bibasilar) Cardiovascular: Positive for: Regular Rate and Rhythm Abdomen: Positive for: Distention. Negative for: Tenderness Upper Extremity: Positive for: Edema Lower Extremity: Positive for: Edema Skin: Positive for: Other (unable to evaluate back 2nd boldy habitus) Psychiatric: Positive for: Alert - Medications Active Medications: Active Medications Generic Name Dose Route Start Last Admin Trade Name Freq PRN Reason Stop Dose Admin Albuterol/Ipratropium 3 ml 01/26/18 08:00 02/12/18 07:19 Duoneb 3 Mg/0.5 Mg (3 Ml) Ud INH 3 ml RQID [facility] Administration Albuterol/Ipratropium 3 ml 01/26/18 03:08 02/08/18 05:04 Duoneb 3 Mg/0.5 Mg (3 Ml) Ud INH 3 ml RQ6 PRN Administration Shortness of Breath Ascorbic Acid 1,000 mg 02/04/18 09:30 02/11/18 09:10 Vitamin C Liq PO 1,000 mg DAILY [facility] Administration Atropine Sulfate 1 drop 01/30/18 10:00 02/12/18 08:50 Atropisol 1% Ophth OS 1 drop BID [facility] Administration Bacitracin 1 ea 02/04/18 09:00 02/12/18 08:28 Bacitracin TOP 1 ea TID [facility] Administration Dimethicone 1 applic 02/09/18 17:00 02/12/18 08:49 Proshield Plus Skin Protectant TOP 1 applic Q8 [facility] Administration Ferrous Sulfate 300 mg 01/27/18 09:00 02/11/18 09:13 Feosol Liq PEG 300 mg DAILY [facility] Administration Furosemide 40 mg 02/12/18 09:00 Lasix IVP DAILY [facility] Ceftazidime/Avibactam 2.5 gm/ 100 mls @ 100 mls/hr 02/01/18 17:15 02/12/18 00 :49 Sodium Chloride IVPB 100 mls/hr Q8H [facility] Administration Protocol Valproate Sodium 500 mg/ 105 mls @ 50 mls/hr 02/08/18 11:45 02/12/18 08:30 Sodium Chloride IVPB 50 mls/hr Q12 [facility] Administration Linezolid 600 mg in 300 mls @ 300 mls/hr 02/09/18 12:15 02/11/18 21:38 Zyvox 600mg/300ml D5w IVPB 300 mls/hr Q12 [facility] Administration Protocol Clindamycin Phosphate 600 mg in 50 mls @ 50 mls/hr 02/11/18 21:00 02/12/18 08 :29 Cleocin IVPB 50 mls/hr Q12 [facility] Administration Protocol Furosemide 100 mg/ Sodium 100 mls @ 10 mls/hr 02/11/18 13:00 02/12/18 00:50 Chloride IV 10 mls/hr .Q10H [facility] Administration Protocol 10 MG/HR Levetiracetam 500 mg/ Sodium 105 mls @ 210 mls/hr 02/12/18 09:00 Chloride IVPB Q12 [facility] Acyclovir 1,500 mg/ Sodium 250 mls @ 166.667 mls/hr 02/11/18 21:00 02/12/18 08:31 Chloride IV 166.667 mls/hr Q8 [facility] Administration Protocol DOPamine 800mg/250ml D5W 800 mg in 250 mls @ 22.453 mls/hr 02/12/18 03:12 02/21 06:30 Dopamine 800mg/250ml D5w IV 22.453 mls/hr .Q11H9M [facility] Administration Protocol 8 MCG/KG/MIN Metolazone 5 mg 02/11/18 18:30 02/11/18 20:00 Zaroxolyn NG 02/14/18 18:31 5 mg BID [facility] Administration Midodrine 10 mg 02/03/18 12:30 02/12/18 05:17 Proamatine PEG 10 mg Q8H [facility] Administration Mupirocin 1 applic 02/03/18 17:00 02/12/18 08:29 Bactroban Ointment TOP 1 applic BID [facility] Administration Nystatin 5 ml 01/26/18 21:00 02/11/18 21:30 Nystatin Oral Susp PO 5 ml Q12 [facility] Administration Nystatin 1 applic 01/31/18 13:00 02/12/18 08:56 Nystop Topical Powder TOP Not Given TID [facility] Pantoprazole Sodium 40 mg 02/06/18 09:00 02/12/18 08:57 Protonix Inj IV 40 mg Q12 [facility] Administration Silver Sulfadiazine 1 ea 01/26/18 09:00 02/11/18 21:32 Silvadene 1% 20 Gm TOP 1 ea BID [facility] Administration Simethicone 40 mg 01/28/18 12:35 02/11/18 03:22 Mylicon Liq PO 40 mg QID PRN Administration Flatulence Sodium Bicarbonate 1,300 mg 02/12/18 09:00 Sodium Bicarbonate Tab NG TID [facility] Sucralfate 1 gm 02/06/18 09:00 02/12/18 08:29 Carafate Oral Susp PO 1 gm QID [facility] Administration Thiamine HCl 100 mg 02/04/18 09:30 02/11/18 09:12 Vitamin B1 Tab GT 100 mg DAILY [facility] Administration Tobramycin/Dexamethasone 1 drop 01/26/18 09:00 02/12/18 08:51 Tobradex Opht Susp OU 1 drop BID [facility] Administration Valproate Sodium 500 mg 02/01/18 17:00 02/07/18 08:39 Depakene Oral Soln PEG Not Given BID [facility] Vitamin A 1 applic 01/25/18 23:01 01/31/18 16:36 Vitamin A&D TP 1 applic Q8 PRN Administration Until an adequate response is Vitamin A 1 applic 02/04/18 08:51 Vitamin A&D TP Q8 PRN Excoriation Zinc Sulfate 220 mg 02/04/18 09:30 02/11/18 09:21 Zinc Sulfate 220 Mg Cap GT 220 mg DAILY [facility] Administration - Patient Studies Lab Studies: Lab Studies 02/11/18 Range/Units 09:00 Sodium 130 L (132-148) mmol/l Potassium 4.0 (3.6-5.0) MMOL/L Chloride 103 (98-107) mmol/L Carbon Dioxide 12 L (22-30) mmol/L Anion Gap 19 (10-20) BUN 90 H (9-20) mg/dl Creatinine 0.6 L (0.8-1.5) mg/dl Est GFR ( Amer) > 60 Est GFR (Non-Af Amer) > 60 Random Glucose 83 (75-110) mg/dL Calcium 8.4 (8.4-10.2) mg/dL Total Bilirubin 2.1 H (0.2-1.3) mg/dl AST 31 (17-59) U/L ALT 17 L (21-72) U/L Alkaline Phosphatase 179 H D (38-126) U/L Total Protein 4.7 L (6.3-8.2) G/DL Albumin 2.0 L (3.5-5.0) g/dL Globulin 2.7 (2.2-3.9) gm/dL Albumin/Globulin Ratio 0.8 L (1.0-2.1) Laboratory Results - last 24 hr 02/11/18 09:00 Sodium 130 L Potassium 4.0 Chloride 103 Carbon Dioxide 12 L Anion Gap 19 BUN 90 H Creatinine 0.6 L Est GFR ( Amer) > 60 Est GFR (Non-Af Amer) > 60 Random Glucose 83 Calcium 8.4 Total Bilirubin 2.1 H AST 31 ALT 17 L Alkaline Phosphatase 179 H D Total Protein 4.7 L Albumin 2.0 L Globulin 2.7 Albumin/Globulin Ratio 0.8 L Assessment/Plan - Assessment and Plan (Free Text) Assessment: IMPRESSION / MAJOR PROBLEMS NOW: 1. Metabolic Encephalopathy with 2- Anasarca: Wt on admission was 117 Kg and now 150 kg 3- Metabolic acidosis: has JOVANI: uremia, creatinine is not much high due to decreased muscles mass, has low urine output and also has " dilutional acidosis ". 4: Hyponatremia: dilutional , due to volume overload, anasarca 5. P.mirabilis and K.pneumoniae (both MDR) in Trach secretions with E. faecalis Bacteremia 6. New Onset Occult Seizure Disorder 7. R Basilar Pneumonitis / Atelectasis, and bilateral effusions 8. Chronic disease Anemia 9. Advanced Muscular Dystrophy with ventilator dependency PLAN: 1- Dc lasix drip will continue lasix, will try albumin also. bed side abdominal US to r/o large ascites causing intraabdominal hypertension and if pt needed paracentesis , also r/o obtruction . 2- DC birac drip, was getting only at 10 cc/h, will monitor bicarb level after aggressive diuresis and if bicarb remained low, will need bicarb drip, at a higher rate to be effective 3- Kcl relaec 20 meq 4. MV support. No MV weans to trach collar anticipated at this time given overall altered mental status which has not yet returned back to baseline. Trach tube changed 02/01. 5. Repeat BCs. Serial peripheral BCs obtained one day after +E.faecalis were negative. If BCs remain +, will need to consider mid-line catheter removal and ECHO to assess for any valvular vegetations. Central venous access has been difficult given body habitus. 6. Ongoing Avycaz Day #10 for coverage against MDR P.mirabilis and K. pneumonia; Zyvox Day # 8. 7. Plans for PPM upgrade noted as soon as current infections have cleared. Residual battery life has been quoted at 1 months duration. 8- Family now considering hospice, comfort care only and pt is DNR.
[2018-02-12] MEDS ORDERED: Albumin Human 25% (12.5 gm/50 ml) IV ONE ×2 (09:45→20:04)
[2018-02-12] MEDS: levETIRAcetam 500 MG in Sodium Chloride 0.9% 100 ML IVPB SCH ×2 (09:50→20:09)
[2018-02-12] MEDS: Nystatin 100,000 Units/ml Oral Susp 5 ml UD PO SCH ×2 (09:55→22:45)
[2018-02-12] MEDS: Linezolid 600 mg in D5W 300 ml 600 MG/300 ML BAG IVPB SCH ×2 (11:18→20:10)
[2018-02-12 11:56] LABS: HEMOGLOBIN 9.6 g/dL (12.0-18.0); MEAN CELL VOLUME 84.6 fl (80.0-94.0); MEAN CORPUSCULAR HEMOGLOBIN 27.1 pg (27.0-31.0); RBC 3.53 Mil/uL (4.40-5.90); RED CELL DISTRIBUTION WIDTH 19.5 % (11.5-14.5); WHITE BLOOD COUNT 14.2 K/uL (4.8-10.8)
[2018-02-12 12:10] LABS: BLOOD UREA NITROGEN 90 mg/dl (9-20); CALCIUM 7.5 mg/dL (8.4-10.2); GFR NON-AFRICAN AMERICAN > 60
--- NOTE | 2018-02-12 12:44 | CP.PCM.PN ---
Subjective - Date & Time of Evaluation Date of Evaluation: 02/12/18 Time of Evaluation: 12:41 - Subjective Subjective: Nephrology Consultation Note Assessment: critical oliguric JOVANI fluid overload, hyponatremia, hypernatremia metabolic acidosis, hypoalbunimeia sepsis with shock chronic respi failure, vent dependent, hx of muscular dystrophy morbid obesity Plan No acute need for renal replacement therapy at this time however may need soon, will need close follow up. pt is hemodynamically unstable at this time. overall prognosis grave, recommend palliative care. family goals of care are unrealistic. d/w family that, in my opinion, palliative care and comfort care/ hospice is most appropriate care for him. Maintain hemodynamics stable. Avoid hypotension. Patient not on ACEI/ARB due to recent JOVANI. on pressor. consider albumin IV as needed Monitor Input/Output, daily weights and renal function with basic metabolic panel started lasix IV, added metolazone added oral bicarb supplements 24 hr crcl and nitrogen to estimate GFR as serum cr can be falsely low with muscular dystrophy and volume expansion renal sonogram check bladder pressure if possible to evaluate for abdomen compartment syndrome dose of acyclovir will need to be adjusted for his level of kidney function, probably GFR <10. d/w ICU team Dose meds/antibiotics for reduced GFR. Avoid fleets enema/magnesium based laxatives. Avoid nephrotoxins/NSAIDs/ iodinated contrast (unless needed emergently) Glycemic control Further work up for as per primary team Thanks for allowing me to participate in care of your patient. Will follow patient with you. Please call if any Qs. d/w team Dr Krishna Wan Office: [phone] Subjective: Noted events overnight. pt unresponsive family bedside and hopeful for improvement Physical Examination: General Appearance: ill appearing and unresponsive. obese Vitals reviewed and noted as below Neck; s/p trach Lungs: Normal respiratory rate/effort. Breath sounds bilateral equal and clear anteriorly Heart: Normal rate. s1s2 normal. No rub or gallop. Extremities: 3+ edema. ansasarca Neurological: Patient is unresponsive Skin: Warm and dry. Normal turgor. No rash. Palpitation: Normal elasticity for age Abdomen: Abdomen is distended with extensive abdomen wall edema Psych: deferred MSK:ynable : kidney or bladder not palpable. has hernandez Labs/imaging reviewed. Past medical history, past surgical history, family history, social history, allergy reviewed and noted as below Family hx: no hx of CKD. Rest non-contributory Objective - Vital Signs/Intake and Output Vital Signs (last 24 hours): Temp Pulse Resp BP Pulse Ox 97 F L 60 20 92/49 L 100 02/12/18 07:00 02/12/18 11:00 02/12/18 11:00 02/12/18 11:00 02/12/18 11:00 Intake and Output: 02/12/18 02/12/18 06:59 18:59 Intake Total 1330 1068 Output Total 525 180 Balance 805 888 - Medications Medications: Current Medications Albuterol/Ipratropium (Duoneb 3 Mg/0.5 Mg (3 Ml) Ud) 3 ml INH RQID [facility] Last Admin: 02/12/18 11:44 Dose: 3 ml Albuterol/Ipratropium (Duoneb 3 Mg/0.5 Mg (3 Ml) Ud) 3 ml INH RQ6 PRN PRN Reason: Shortness of Breath Last Admin: 02/08/18 05:04 Dose: 3 ml Ascorbic Acid (Vitamin C Liq) 1,000 mg PO DAILY [facility] Last Admin: 02/11/18 09:10 Dose: 1,000 mg Atropine Sulfate (Atropisol 1% [facility]) 1 drop OS BID [facility] Last Admin: 02/12/18 08:50 Dose: 1 drop Bacitracin (Bacitracin) 1 ea TOP TID [facility] Last Admin: 02/12/18 08:28 Dose: 1 ea Dimethicone (Proshield Plus Skin Protectant) 1 applic TOP Q8 [facility] Last Admin: 02/12/18 08:49 Dose: 1 applic Ferrous Sulfate (Feosol Liq) 300 mg PEG DAILY [facility] Last Admin: 02/11/18 09:13 Dose: 300 mg Furosemide (Lasix) 40 mg IVP DAILY [facility] Last Admin: 02/12/18 09:53 Dose: 40 mg Furosemide (Lasix) 40 mg IVP BID [facility] Last Admin: 02/12/18 10:37 Dose: Not Given Ceftazidime/Avibactam 2.5 gm/ (Sodium Chloride) 100 mls @ 100 mls/hr IVPB Q8H [facility] PRN Reason: Protocol Last Admin: 02/12/18 09:55 Dose: 100 mls/hr Valproate Sodium 500 mg/ (Sodium Chloride) 105 mls @ 50 mls/hr IVPB Q12 [facility] Last Admin: 02/12/18 08:30 Dose: 50 mls/hr Linezolid (Zyvox 600mg/300ml D5w) 600 mg in 300 mls @ 300 mls/hr IVPB Q12 [facility] PRN Reason: Protocol Last Admin: 02/12/18 11:18 Dose: 300 mls/hr Clindamycin Phosphate (Cleocin) 600 mg in 50 mls @ 50 mls/hr IVPB Q12 [facility] PRN Reason: Protocol Last Admin: 02/12/18 08:29 Dose: 50 mls/hr Furosemide 100 mg/ Sodium (Chloride) 100 mls @ 10 mls/hr IV .Q10H [facility]; 10 MG/HR PRN Reason: Protocol Last Admin: 02/12/18 09:54 Dose: Not Given Levetiracetam 500 mg/ Sodium (Chloride) 105 mls @ 210 mls/hr IVPB Q12 [facility] Last Admin: 02/12/18 09:50 Dose: 210 mls/hr DOPamine 800mg/250ml D5W (Dopamine 800mg/250ml D5w) 800 mg in 250 mls @ 22.453 mls/hr IV .Q11H9M [facility]ARIO; 8 MCG/KG/MIN PRN Reason: Protocol Last Admin: 02/12/18 11:31 Dose: 22.453 mls/hr Acyclovir 1,500 mg/ Sodium (Chloride) 250 mls @ 166.667 mls/hr IV Q8@0500,1300, 2100 [facility]IO PRN Reason: Protocol Metolazone (Zaroxolyn) 5 mg NG BID [facility] Stop: 02/14/18 18:31 Last Admin: 02/11/18 20:00 Dose: 5 mg Midodrine (Proamatine) 10 mg PEG Q8H [facility] Last Admin: 02/12/18 05:17 Dose: 10 mg Mupirocin (Bactroban Ointment) 1 applic TOP BID [facility] Last Admin: 02/12/18 08:29 Dose: 1 applic Nystatin (Nystatin Oral Susp) 5 ml PO Q12 [facility] Last Admin: 02/12/18 09:55 Dose: 5 ml Nystatin (Nystop Topical Powder) 1 applic TOP TID [facility] Last Admin: 02/12/18 08:56 Dose: Not Given Pantoprazole Sodium (Protonix Inj) 40 mg IV Q12 [facility] Last Admin: 02/12/18 08:57 Dose: 40 mg Silver Sulfadiazine (Silvadene 1% 20 Gm) 1 ea TOP BID [facility] Last Admin: 02/11/18 21:32 Dose: 1 ea Sodium Bicarbonate (Sodium Bicarbonate Tab) 1,300 mg NG TID [facility] Sucralfate (Carafate Oral Susp) 1 gm PO QID [facility] Last Admin: 02/12/18 08:29 Dose: 1 gm Thiamine HCl (Vitamin B1 Tab) 100 mg GT DAILY [facility] Last Admin: 02/11/18 09:12 Dose: 100 mg Tobramycin/Dexamethasone (Tobradex Opht Susp) 1 drop OU BID [facility] Last Admin: 02/12/18 08:51 Dose: 1 drop Valproate Sodium (Depakene Oral Soln) 500 mg PEG BID [facility] Last Admin: 02/07/18 08:39 Dose: Not Given Vitamin A (Vitamin A&D) 1 applic TP Q8 PRN PRN Reason: Until an adequate response is Last Admin: 01/31/18 16:36 Dose: 1 applic Vitamin A (Vitamin A&D) 1 applic TP Q8 PRN PRN Reason: Excoriation Zinc Sulfate (Zinc Sulfate 220 Mg Cap) 220 mg GT DAILY [facility] Last Admin: 02/11/18 09:21 Dose: 220 mg - Labs Labs: 02/12/18 11:45 02/12/18 11:45 PT 15.0 Seconds (9.8-13.1) H 02/09/18 07:14 INR 1.3 02/09/18 07:14 APTT 23.9 Seconds (25.6-37.1) L 02/09/18 07:14
--- NOTE | 2018-02-12 15:23 | CP.PCM.PN ---
Subjective - Date & Time of Evaluation Date of Evaluation: 02/12/18 Time of Evaluation: 09:21 - Subjective Subjective: Patient seen and examined at bedside. Continues to be swollen and non- responsive. Spoke with family at bedside. No acute events overnight reported. Objective - Vital Signs/Intake and Output Vital Signs (last 24 hours): Temp Pulse Resp BP Pulse Ox 94.8 F L 60 20 109/49 L 100 02/12/18 13:00 02/12/18 13:00 02/12/18 13:00 02/12/18 13:00 02/12/18 13:00 Intake and Output: 02/12/18 02/12/18 06:59 18:59 Intake Total 1330 1208 Output Total 525 180 Balance 805 1028 - Medications Medications: Current Medications Albuterol/Ipratropium (Duoneb 3 Mg/0.5 Mg (3 Ml) Ud) 3 ml INH RQID [facility] Last Admin: 02/12/18 11:44 Dose: 3 ml Albuterol/Ipratropium (Duoneb 3 Mg/0.5 Mg (3 Ml) Ud) 3 ml INH RQ6 PRN PRN Reason: Shortness of Breath Last Admin: 02/08/18 05:04 Dose: 3 ml Ascorbic Acid (Vitamin C Liq) 1,000 mg PO DAILY [facility] Last Admin: 02/11/18 09:10 Dose: 1,000 mg Atropine Sulfate (Atropisol 1% Oph) 1 drop OS BID [facility] Last Admin: 02/12/18 08:50 Dose: 1 drop Bacitracin (Bacitracin) 1 ea TOP TID [facility] Last Admin: 02/12/18 08:28 Dose: 1 ea Dimethicone (Proshield Plus Skin Protectant) 1 applic TOP Q8 [facility] Last Admin: 02/12/18 08:49 Dose: 1 applic Ferrous Sulfate (Feosol Liq) 300 mg PEG DAILY [facility] Last Admin: 02/11/18 09:13 Dose: 300 mg Furosemide (Lasix) 40 mg IVP DAILY [facility] Last Admin: 02/12/18 09:53 Dose: 40 mg Furosemide (Lasix) 40 mg IVP BID [facility] Last Admin: 02/12/18 10:37 Dose: Not Given Ceftazidime/Avibactam 2.5 gm/ (Sodium Chloride) 100 mls @ 100 mls/hr IVPB Q8H [facility] PRN Reason: Protocol Last Admin: 02/12/18 09:55 Dose: 100 mls/hr Valproate Sodium 500 mg/ (Sodium Chloride) 105 mls @ 50 mls/hr IVPB Q12 [facility] Last Admin: 02/12/18 08:30 Dose: 50 mls/hr Linezolid (Zyvox 600mg/300ml D5w) 600 mg in 300 mls @ 300 mls/hr IVPB Q12 [facility] PRN Reason: Protocol Last Admin: 02/12/18 11:18 Dose: 300 mls/hr Clindamycin Phosphate (Cleocin) 600 mg in 50 mls @ 50 mls/hr IVPB Q12 [facility] PRN Reason: Protocol Last Admin: 02/12/18 08:29 Dose: 50 mls/hr Furosemide 100 mg/ Sodium (Chloride) 100 mls @ 10 mls/hr IV .Q10H [facility]; 10 MG/HR PRN Reason: Protocol Last Admin: 02/12/18 09:54 Dose: Not Given Levetiracetam 500 mg/ Sodium (Chloride) 105 mls @ 210 mls/hr IVPB Q12 [facility] Last Admin: 02/12/18 09:50 Dose: 210 mls/hr DOPamine 800mg/250ml D5W (Dopamine 800mg/250ml D5w) 800 mg in 250 mls @ 22.453 mls/hr IV .Q11H9M [facility]; 8 MCG/KG/MIN PRN Reason: Protocol Last Admin: 02/12/18 11:31 Dose: 22.453 mls/hr Acyclovir 1,500 mg/ Sodium (Chloride) 250 mls @ 166.667 mls/hr IV Q8@0500,1300, 2100 [facility] PRN Reason: Protocol Metolazone (Zaroxolyn) 5 mg NG BID [facility] Stop: 02/14/18 18:31 Last Admin: 02/11/18 20:00 Dose: 5 mg Midodrine (Proamatine) 10 mg PEG Q8H [facility] Last Admin: 02/12/18 05:17 Dose: 10 mg Mupirocin (Bactroban Ointment) 1 applic TOP BID [facility] Last Admin: 02/12/18 08:29 Dose: 1 applic Nystatin (Nystatin Oral Susp) 5 ml PO Q12 [facility] Last Admin: 02/12/18 09:55 Dose: 5 ml Nystatin (Nystop Topical Powder) 1 applic TOP TID [facility] Last Admin: 02/12/18 08:56 Dose: Not Given Pantoprazole Sodium (Protonix Inj) 40 mg IV Q12 [facility] Last Admin: 02/12/18 08:57 Dose: 40 mg Silver Sulfadiazine (Silvadene 1% 20 Gm) 1 ea TOP BID [facility] Last Admin: 02/11/18 21:32 Dose: 1 ea Sodium Bicarbonate (Sodium Bicarbonate Tab) 1,300 mg NG TID [facility] Sucralfate (Carafate Oral Susp) 1 gm PO QID [facility] Last Admin: 02/12/18 08:29 Dose: 1 gm Thiamine HCl (Vitamin B1 Tab) 100 mg GT DAILY [facility] Last Admin: 02/11/18 09:12 Dose: 100 mg Tobramycin/Dexamethasone (Tobradex Opht Susp) 1 drop OU BID [facility] Last Admin: 02/12/18 08:51 Dose: 1 drop Valproate Sodium (Depakene Oral Soln) 500 mg PEG BID [facility] Last Admin: 02/07/18 08:39 Dose: Not Given Vitamin A (Vitamin A&D) 1 applic TP Q8 PRN PRN Reason: Until an adequate response is Last Admin: 01/31/18 16:36 Dose: 1 applic Vitamin A (Vitamin A&D) 1 applic TP Q8 PRN PRN Reason: Excoriation Zinc Sulfate (Zinc Sulfate 220 Mg Cap) 220 mg GT DAILY [facility] Last Admin: 02/11/18 09:21 Dose: 220 mg - Labs Labs: 02/12/18 11:45 02/12/18 11:45 PT 15.0 Seconds (9.8-13.1) H 02/09/18 07:14 INR 1.3 02/09/18 07:14 APTT 23.9 Seconds (25.6-37.1) L 02/09/18 07:14 - Constitutional Appears: Chronically Ill - Respiratory Exam Respiratory Exam: Decreased Breath Sounds, NORMAL BREATHING PATTERN - Cardiovascular Exam Cardiovascular Exam: REGULAR RHYTHM - Extremities Exam Extremities Exam: Pedal Edema - Neurological Exam Neurological Exam: absent: Alert, Awake, Oriented x3 - Additional Findings Additional findings: anasarca Assessment and Plan - Assessment and Plan (Free Text) Assessment: 82 year old male with multiple medical conditions in ICU due to critical conditions consisting of, but not limited to, oliguria, anasarca, renal failure , sepsis, respiratory failure, metabolic encephalopathy Minimal-no improvement of edema with high dose lasix albumin to be added today Continue meds and plan as ordered by route sales person Nephro: Dr. Sanchez ID: Dr. [email or web address] Pulm: Dr. Soto Plan to continue to speak with family regarding grave prognosis and comfort care options
[2018-02-12] MEDS: metOLazone 5 MG TAB NG SCH ×2 (15:30→18:10)
[2018-02-12] MEDS: Ascorbic Acid 500 mg/5 ml Liq(50 ml) PO SCH (15:30)
[2018-02-12] MEDS: Ferrous Sulfate 300 mg/5 mL Liq UD PEG SCH (15:34)
[2018-02-12] MEDS: Silver Sulfadiazine 1% Cream (20 gm) TOP SCH ×2 (15:35→17:13)
--- NOTE | 2018-02-12 16:54 | US ---
Date of service: 02/12/2018 HISTORY: ascites, r/o hydronephrosis, r/o baldder ou[place] obs COMPARISON: None. TECHNIQUE: Sonographic evaluation of the abdomen. Study is limited due to portable technique. FINDINGS: LIVER: Measures 14.0 cm. Liver demonstrates somewhat nodular surface contour ; normal echotexture. Of the liver parenchyma. No mass. No intrahepatic bile duct dilatation. Abdominal ascites present in all 4 quadrants. GALLBLADDER: Gallbladder not visualized COMMON BILE DUCT: Measures 3.1 mm. No stones. No dilatation. PANCREAS: The pancreas not visualized on this exam. RIGHT KIDNEY: The right kidney is enlarged though this includes a large upper pole cyst. Right kidney measures 16.0 x 6.5 x 6.6 cm. Large upper pole cyst measures 8.0 x 7.0 x 7.0 cm. . . Normal echogenicity. No calculus, mass, or hydronephrosis. LEFT KIDNEY: Measures 12.5 x 6.9 x 5.8 cm upper cm. Normal echogenicity. No calculus, mass, or hydronephrosis. Upper pole cyst measures approximately 2.5 x 2.7 x 2.6 cm. SPLEEN: Exhibits some spleen exhibits normal size though heterogeneous echotexture. AORTA: No aneurysmal dilatation. IVC: Unremarkable. OTHER FINDINGS: Urinary bladder not visualized on this exam IMPRESSION: Limited exam. Nodular liver with abdominal ascites in all 4 quadrants. Nonvisualized gallbladder. Heterogeneous spleen. Bilateral renal cysts. The urinary bladder not visualized on this study
--- NOTE | 2018-02-12 20:52 | CP.PCM.PN ---
Subjective - Date & Time of Evaluation Date of Evaluation: 02/08/18 Time of Evaluation: 11:20 - Subjective Subjective: Patient remains in grave condition. Continues to have elevated WBC 19 On IV antibiotics. BUN remains elevated Noted rectal bleed. Objective - Vital Signs/Intake and Output Vital Signs (last 24 hours): Temp Pulse Resp BP Pulse Ox 95.8 F L 60 20 93/42 L 100 02/12/18 18:00 02/12/18 18:00 02/12/18 18:00 02/12/18 18:00 02/12/18 18:00 Intake and Output: 02/12/18 02/13/18 18:59 06:59 Intake Total 1488 Output Total 300 Balance 1188 - Medications Medications: Current Medications Albuterol/Ipratropium (Duoneb 3 Mg/0.5 Mg (3 Ml) Ud) 3 ml INH RQID [facility] Last Admin: 02/12/18 19:19 Dose: 3 ml Albuterol/Ipratropium (Duoneb 3 Mg/0.5 Mg (3 Ml) Ud) 3 ml INH RQ6 PRN PRN Reason: Shortness of Breath Last Admin: 02/08/18 05:04 Dose: 3 ml Ascorbic Acid (Vitamin C Liq) 1,000 mg PO DAILY [facility] Last Admin: 02/12/18 15:30 Dose: Not Given Atropine Sulfate (Atropisol 1% [facility]) 1 drop OS BID [facility] Last Admin: 02/12/18 16:54 Dose: 1 drop Bacitracin (Bacitracin) 1 ea TOP TID [facility] Last Admin: 02/12/18 16:22 Dose: 1 ea Dimethicone (Proshield Plus Skin Protectant) 1 applic TOP Q8 [facility] Last Admin: 02/12/18 17:09 Dose: 1 applic Ferrous Sulfate (Feosol Liq) 300 mg PEG DAILY [facility] Last Admin: 02/12/18 15:34 Dose: Not Given Furosemide (Lasix) 40 mg IVP DAILY [facility] Last Admin: 02/12/18 09:53 Dose: 40 mg Furosemide (Lasix) 40 mg IVP BID [facility] Last Admin: 02/12/18 16:42 Dose: Not Given Ceftazidime/Avibactam 2.5 gm/ (Sodium Chloride) 100 mls @ 100 mls/hr IVPB Q8H [facility] PRN Reason: Protocol Last Admin: 02/12/18 16:23 Dose: 100 mls/hr Valproate Sodium 500 mg/ (Sodium Chloride) 105 mls @ 50 mls/hr IVPB Q12 [facility] Last Admin: 02/12/18 20:36 Dose: 50 mls/hr Linezolid (Zyvox 600mg/300ml D5w) 600 mg in 300 mls @ 300 mls/hr IVPB Q12 [facility] PRN Reason: Protocol Last Admin: 02/12/18 20:10 Dose: 300 mls/hr Clindamycin Phosphate (Cleocin) 600 mg in 50 mls @ 50 mls/hr IVPB Q12 [facility] PRN Reason: Protocol Last Admin: 02/12/18 08:29 Dose: 50 mls/hr Furosemide 100 mg/ Sodium (Chloride) 100 mls @ 10 mls/hr IV .Q10H [facility]; 10 MG/HR PRN Reason: Protocol Last Admin: 02/12/18 09:54 Dose: Not Given Levetiracetam 500 mg/ Sodium (Chloride) 105 mls @ 210 mls/hr IVPB Q12 [facility] Last Admin: 02/12/18 20:09 Dose: 210 mls/hr DOPamine 800mg/250ml D5W (Dopamine 800mg/250ml D5w) 800 mg in 250 mls @ 22.453 mls/hr IV .Q11H9M [facility]; 8 MCG/KG/MIN PRN Reason: Protocol Last Admin: 02/12/18 18:07 Dose: 22.453 mls/hr Acyclovir 1,500 mg/ Sodium (Chloride) 250 mls @ 166.667 mls/hr IV Q8@0500,1300, 2100 [facility] PRN Reason: Protocol Last Admin: 02/12/18 13:00 Dose: 166.667 mls/hr Norepinephrine Bitartrate 16 (mg/ Dextrose) 266 mls @ 2.49 mls/hr IV .Q24H ONE ; 2.5 MCG/MIN PRN Reason: Protocol Stop: 02/13/18 20:04 Metolazone (Zaroxolyn) 5 mg NG BID [facility] Stop: 02/14/18 18:31 Last Admin: 02/12/18 18:10 Dose: Not Given Midodrine (Proamatine) 10 mg PEG Q8H [facility] Last Admin: 02/12/18 16:19 Dose: Not Given Mupirocin (Bactroban Ointment) 1 applic TOP BID [facility] Last Admin: 02/12/18 17:00 Dose: 1 applic Nystatin (Nystatin Oral Susp) 5 ml PO Q12 [facility] Last Admin: 02/12/18 09:55 Dose: 5 ml Nystatin (Nystop Topical Powder) 1 applic TOP TID [facility] Last Admin: 02/12/18 16:18 Dose: 1 applic Pantoprazole Sodium (Protonix Inj) 40 mg IV Q12 [facility] Last Admin: 02/12/18 08:57 Dose: 40 mg Silver Sulfadiazine (Silvadene 1% 20 Gm) 1 ea TOP BID [facility] Last Admin: 02/12/18 17:13 Dose: 1 ea Sodium Bicarbonate (Sodium Bicarbonate Tab) 1,300 mg NG TID [facility] Last Admin: 02/12/18 16:42 Dose: Not Given Sucralfate (Carafate Oral Susp) 1 gm PO QID [facility] Last Admin: 02/12/18 16:40 Dose: Not Given Thiamine HCl (Vitamin B1 Tab) 100 mg GT DAILY [facility] Last Admin: 02/12/18 15:30 Dose: Not Given Tobramycin/Dexamethasone (Tobradex Opht Susp) 1 drop OU BID [facility] Last Admin: 02/12/18 16:54 Dose: 1 drop Valproate Sodium (Depakene Oral Soln) 500 mg PEG BID [facility] Last Admin: 02/07/18 08:39 Dose: Not Given Vitamin A (Vitamin A&D) 1 applic TP Q8 PRN PRN Reason: Until an adequate response is Last Admin: 01/31/18 16:36 Dose: 1 applic Vitamin A (Vitamin A&D) 1 applic TP Q8 PRN PRN Reason: Excoriation Zinc Sulfate (Zinc Sulfate 220 Mg Cap) 220 mg GT DAILY [facility] Last Admin: 02/12/18 15:31 Dose: Not Given - Labs Labs: 02/12/18 11:45 02/12/18 11:45 PT 15.0 Seconds (9.8-13.1) H 02/09/18 07:14 INR 1.3 02/09/18 07:14 APTT 23.9 Seconds (25.6-37.1) L 02/09/18 07:14 - Head Exam Head Exam: NORMAL INSPECTION - Respiratory Exam Respiratory Exam: Clear to Ausculation Bilateral - Cardiovascular Exam Cardiovascular Exam: REGULAR RHYTHM - Neurological Exam Neurological Exam: Altered Assessment and Plan (1) Severe dehydration Status: Acute (2) Altered mental status, unspecified Status: Acute (3) Hypernatremia Status: Acute (4) Unresponsive state Status: Acute (5) Pneumonia Status: Acute (6) Pleural effusion Status: Acute (7) Bacteremia Status: Acute (8) Leukocytosis Status: Acute (9) Gastrointestinal bleeding Status: Acute - Assessment and Plan (Free Text) Plan: Cont hydration cont iv antibiotics cont meds
--- NOTE | 2018-02-12 21:00 | CP.PCM.PN ---
Subjective - Date & Time of Evaluation Date of Evaluation: 02/09/18 Time of Evaluation: 12:00 - Subjective Subjective: Patient is on renal dose of dopamine Noted decreased urine output BP in low normal Has no fever Still with elevated WBC and BUN. Objective - Vital Signs/Intake and Output Vital Signs (last 24 hours): Temp Pulse Resp BP Pulse Ox 95.8 F L 60 20 93/42 L 100 02/12/18 18:00 02/12/18 18:00 02/12/18 18:00 02/12/18 18:00 02/12/18 18:00 Intake and Output: 02/12/18 02/13/18 18:59 06:59 Intake Total 1488 Output Total 300 Balance 1188 - Medications Medications: Current Medications Albuterol/Ipratropium (Duoneb 3 Mg/0.5 Mg (3 Ml) Ud) 3 ml INH RQID [facility] Last Admin: 02/12/18 19:19 Dose: 3 ml Albuterol/Ipratropium (Duoneb 3 Mg/0.5 Mg (3 Ml) Ud) 3 ml INH RQ6 PRN PRN Reason: Shortness of Breath Last Admin: 02/08/18 05:04 Dose: 3 ml Ascorbic Acid (Vitamin C Liq) 1,000 mg PO DAILY [facility] Last Admin: 02/12/18 15:30 Dose: Not Given Atropine Sulfate (Atropisol 1% [facility]) 1 drop OS BID [facility] Last Admin: 02/12/18 16:54 Dose: 1 drop Bacitracin (Bacitracin) 1 ea TOP TID [facility] Last Admin: 02/12/18 16:22 Dose: 1 ea Dimethicone (Proshield Plus Skin Protectant) 1 applic TOP Q8 [facility] Last Admin: 02/12/18 17:09 Dose: 1 applic Ferrous Sulfate (Feosol Liq) 300 mg PEG DAILY [facility] Last Admin: 02/12/18 15:34 Dose: Not Given Furosemide (Lasix) 40 mg IVP DAILY [facility] Last Admin: 02/12/18 09:53 Dose: 40 mg Furosemide (Lasix) 40 mg IVP BID [facility] Last Admin: 02/12/18 16:42 Dose: Not Given Ceftazidime/Avibactam 2.5 gm/ (Sodium Chloride) 100 mls @ 100 mls/hr IVPB Q8H [facility] PRN Reason: Protocol Last Admin: 02/12/18 16:23 Dose: 100 mls/hr Valproate Sodium 500 mg/ (Sodium Chloride) 105 mls @ 50 mls/hr IVPB Q12 [facility] Last Admin: 02/12/18 20:36 Dose: 50 mls/hr Linezolid (Zyvox 600mg/300ml D5w) 600 mg in 300 mls @ 300 mls/hr IVPB Q12 [facility] PRN Reason: Protocol Last Admin: 02/12/18 20:10 Dose: 300 mls/hr Clindamycin Phosphate (Cleocin) 600 mg in 50 mls @ 50 mls/hr IVPB Q12 [facility] PRN Reason: Protocol Last Admin: 02/12/18 08:29 Dose: 50 mls/hr Furosemide 100 mg/ Sodium (Chloride) 100 mls @ 10 mls/hr IV .Q10H [facility]; 10 MG/HR PRN Reason: Protocol Last Admin: 02/12/18 09:54 Dose: Not Given Levetiracetam 500 mg/ Sodium (Chloride) 105 mls @ 210 mls/hr IVPB Q12 [facility] Last Admin: 02/12/18 20:09 Dose: 210 mls/hr DOPamine 800mg/250ml D5W (Dopamine 800mg/250ml D5w) 800 mg in 250 mls @ 22.453 mls/hr IV .Q11H9M [facility]; 8 MCG/KG/MIN PRN Reason: Protocol Last Admin: 02/12/18 18:07 Dose: 22.453 mls/hr Acyclovir 1,500 mg/ Sodium (Chloride) 250 mls @ 166.667 mls/hr IV Q8@0500,1300, 2100 [facility] PRN Reason: Protocol Last Admin: 02/12/18 13:00 Dose: 166.667 mls/hr Norepinephrine Bitartrate 16 (mg/ Dextrose) 266 mls @ 2.49 mls/hr IV .Q24H [facility] ; 2.5 MCG/MIN PRN Reason: Protocol Stop: 02/13/18 20:04 Metolazone (Zaroxolyn) 5 mg NG BID [facility] Stop: 02/14/18 18:31 Last Admin: 02/12/18 18:10 Dose: Not Given Midodrine (Proamatine) 10 mg PEG Q8H [facility] Last Admin: 02/12/18 16:19 Dose: Not Given Mupirocin (Bactroban Ointment) 1 applic TOP BID [facility] Last Admin: 02/12/18 17:00 Dose: 1 applic Nystatin (Nystatin Oral Susp) 5 ml PO Q12 [facility] Last Admin: 02/12/18 09:55 Dose: 5 ml Nystatin (Nystop Topical Powder) 1 applic TOP TID [facility] Last Admin: 02/12/18 16:18 Dose: 1 applic Pantoprazole Sodium (Protonix Inj) 40 mg IV Q12 [facility] Last Admin: 02/12/18 08:57 Dose: 40 mg Silver Sulfadiazine (Silvadene 1% 20 Gm) 1 ea TOP BID [facility] Last Admin: 02/12/18 17:13 Dose: 1 ea Sodium Bicarbonate (Sodium Bicarbonate Tab) 1,300 mg NG TID [facility] Last Admin: 02/12/18 16:42 Dose: Not Given Sucralfate (Carafate Oral Susp) 1 gm PO QID [facility] Last Admin: 02/12/18 16:40 Dose: Not Given Thiamine HCl (Vitamin B1 Tab) 100 mg GT DAILY [facility] Last Admin: 02/12/18 15:30 Dose: Not Given Tobramycin/Dexamethasone (Tobradex Opht Susp) 1 drop OU BID [facility] Last Admin: 02/12/18 16:54 Dose: 1 drop Valproate Sodium (Depakene Oral Soln) 500 mg PEG BID [facility] Last Admin: 02/07/18 08:39 Dose: Not Given Vitamin A (Vitamin A&D) 1 applic TP Q8 PRN PRN Reason: Until an adequate response is Last Admin: 01/31/18 16:36 Dose: 1 applic Vitamin A (Vitamin A&D) 1 applic TP Q8 PRN PRN Reason: Excoriation Zinc Sulfate (Zinc Sulfate 220 Mg Cap) 220 mg GT DAILY [facility] Last Admin: 02/12/18 15:31 Dose: Not Given - Labs Labs: 02/12/18 11:45 02/12/18 11:45 PT 15.0 Seconds (9.8-13.1) H 02/09/18 07:14 INR 1.3 02/09/18 07:14 APTT 23.9 Seconds (25.6-37.1) L 02/09/18 07:14 - Eye Exam Eye Exam: Normal appearance - Respiratory Exam Respiratory Exam: Clear to Ausculation Bilateral - Cardiovascular Exam Cardiovascular Exam: Bradycardia - GI/Abdominal Exam GI & Abdominal Exam: Normal Bowel Sounds - Neurological Exam Neurological Exam: Altered Assessment and Plan (1) Severe dehydration Status: Acute (2) Altered mental status, unspecified Status: Acute (3) Hypernatremia Status: Acute (4) Unresponsive state Status: Acute (5) Pneumonia Status: Acute (6) Pleural effusion Status: Acute (7) Bacteremia Status: Acute (8) Leukocytosis Status: Acute (9) Gastrointestinal bleeding Status: Acute - Assessment and Plan (Free Text) Plan: Monitor CBC Monitor cmp cont all meds discussed with family re grave condition of patient.
--- NOTE | 2018-02-12 21:02 | CP.PCM.PN ---
Subjective - Date & Time of Evaluation Date of Evaluation: 02/11/18 Time of Evaluation: 10:00 - Subjective Subjective: Discussed with family re poor prognosis of patient Discussed about hospice care Remains with elevated WBC and BUN. Objective - Vital Signs/Intake and Output Vital Signs (last 24 hours): Temp Pulse Resp BP Pulse Ox 95.8 F L 60 20 93/42 L 100 02/12/18 18:00 02/12/18 18:00 02/12/18 18:00 02/12/18 18:00 02/12/18 18:00 Intake and Output: 02/12/18 02/13/18 18:59 06:59 Intake Total 1488 Output Total 300 Balance 1188 - Medications Medications: Current Medications Albuterol/Ipratropium (Duoneb 3 Mg/0.5 Mg (3 Ml) Ud) 3 ml INH RQID [facility] Last Admin: 02/12/18 19:19 Dose: 3 ml Albuterol/Ipratropium (Duoneb 3 Mg/0.5 Mg (3 Ml) Ud) 3 ml INH RQ6 PRN PRN Reason: Shortness of Breath Last Admin: 02/08/18 05:04 Dose: 3 ml Ascorbic Acid (Vitamin C Liq) 1,000 mg PO DAILY [facility] Last Admin: 02/12/18 15:30 Dose: Not Given Atropine Sulfate (Atropisol 1% [facility]) 1 drop OS BID [facility] Last Admin: 02/12/18 16:54 Dose: 1 drop Bacitracin (Bacitracin) 1 ea TOP TID [facility] Last Admin: 02/12/18 16:22 Dose: 1 ea Dimethicone (Proshield Plus Skin Protectant) 1 applic TOP Q8 [facility] Last Admin: 02/12/18 17:09 Dose: 1 applic Ferrous Sulfate (Feosol Liq) 300 mg PEG DAILY [facility] Last Admin: 02/12/18 15:34 Dose: Not Given Furosemide (Lasix) 40 mg IVP DAILY [facility] Last Admin: 02/12/18 09:53 Dose: 40 mg Furosemide (Lasix) 40 mg IVP BID [facility] Last Admin: 02/12/18 16:42 Dose: Not Given Ceftazidime/Avibactam 2.5 gm/ (Sodium Chloride) 100 mls @ 100 mls/hr IVPB Q8H [facility] PRN Reason: Protocol Last Admin: 02/12/18 16:23 Dose: 100 mls/hr Valproate Sodium 500 mg/ (Sodium Chloride) 105 mls @ 50 mls/hr IVPB Q12 [facility] Last Admin: 02/12/18 20:36 Dose: 50 mls/hr Linezolid (Zyvox 600mg/300ml D5w) 600 mg in 300 mls @ 300 mls/hr IVPB Q12 [facility] PRN Reason: Protocol Last Admin: 02/12/18 20:10 Dose: 300 mls/hr Clindamycin Phosphate (Cleocin) 600 mg in 50 mls @ 50 mls/hr IVPB Q12 [facility] PRN Reason: Protocol Last Admin: 02/12/18 08:29 Dose: 50 mls/hr Furosemide 100 mg/ Sodium (Chloride) 100 mls @ 10 mls/hr IV .Q10H [facility]; 10 MG/HR PRN Reason: Protocol Last Admin: 02/12/18 09:54 Dose: Not Given Levetiracetam 500 mg/ Sodium (Chloride) 105 mls @ 210 mls/hr IVPB Q12 [facility] Last Admin: 02/12/18 20:09 Dose: 210 mls/hr DOPamine 800mg/250ml D5W (Dopamine 800mg/250ml D5w) 800 mg in 250 mls @ 22.453 mls/hr IV .Q11H9M [facility]; 8 MCG/KG/MIN PRN Reason: Protocol Last Admin: 02/12/18 18:07 Dose: 22.453 mls/hr Acyclovir 1,500 mg/ Sodium (Chloride) 250 mls @ 166.667 mls/hr IV Q8@0500,1300, 2100 [facility] PRN Reason: Protocol Last Admin: 02/12/18 13:00 Dose: 166.667 mls/hr Norepinephrine Bitartrate 16 (mg/ Dextrose) 266 mls @ 2.49 mls/hr IV .Q24H [facility] ; 2.5 MCG/MIN PRN Reason: Protocol Stop: 02/13/18 20:04 Metolazone (Zaroxolyn) 5 mg NG BID [facility] Stop: 02/14/18 18:31 Last Admin: 02/12/18 18:10 Dose: Not Given Midodrine (Proamatine) 10 mg PEG Q8H [facility] Last Admin: 02/12/18 16:19 Dose: Not Given Mupirocin (Bactroban Ointment) 1 applic TOP BID [facility] Last Admin: 02/12/18 17:00 Dose: 1 applic Nystatin (Nystatin Oral Susp) 5 ml PO Q12 [facility] Last Admin: 02/12/18 09:55 Dose: 5 ml Nystatin (Nystop Topical Powder) 1 applic TOP TID [facility] Last Admin: 02/12/18 16:18 Dose: 1 applic Pantoprazole Sodium (Protonix Inj) 40 mg IV Q12 [facility] Last Admin: 02/12/18 08:57 Dose: 40 mg Silver Sulfadiazine (Silvadene 1% 20 Gm) 1 ea TOP BID [facility] Last Admin: 02/12/18 17:13 Dose: 1 ea Sodium Bicarbonate (Sodium Bicarbonate Tab) 1,300 mg NG TID [facility] Last Admin: 02/12/18 16:42 Dose: Not Given Sucralfate (Carafate Oral Susp) 1 gm PO QID [facility] Last Admin: 02/12/18 16:40 Dose: Not Given Thiamine HCl (Vitamin B1 Tab) 100 mg GT DAILY [facility] Last Admin: 02/12/18 15:30 Dose: Not Given Tobramycin/Dexamethasone (Tobradex Opht Susp) 1 drop OU BID [facility] Last Admin: 02/12/18 16:54 Dose: 1 drop Valproate Sodium (Depakene Oral Soln) 500 mg PEG BID [facility] Last Admin: 02/07/18 08:39 Dose: Not Given Vitamin A (Vitamin A&D) 1 applic TP Q8 PRN PRN Reason: Until an adequate response is Last Admin: 01/31/18 16:36 Dose: 1 applic Vitamin A (Vitamin A&D) 1 applic TP Q8 PRN PRN Reason: Excoriation Zinc Sulfate (Zinc Sulfate 220 Mg Cap) 220 mg GT DAILY [facility] Last Admin: 02/12/18 15:31 Dose: Not Given - Labs Labs: 02/12/18 11:45 02/12/18 11:45 PT 15.0 Seconds (9.8-13.1) H 02/09/18 07:14 INR 1.3 02/09/18 07:14 APTT 23.9 Seconds (25.6-37.1) L 02/09/18 07:14 - Head Exam Head Exam: NORMAL INSPECTION - Eye Exam Eye Exam: Normal appearance - ENT Exam ENT Exam: Mucous Membranes Moist - Respiratory Exam Respiratory Exam: Decreased Breath Sounds - Cardiovascular Exam Cardiovascular Exam: Irregular Rhythm - Neurological Exam Neurological Exam: Altered Assessment and Plan (1) Severe dehydration Status: Acute (2) Altered mental status, unspecified Status: Acute (3) Hypernatremia Status: Acute (4) Unresponsive state Status: Acute (5) Pneumonia Status: Acute (6) Pleural effusion Status: Acute (7) Bacteremia Status: Acute (8) Leukocytosis Status: Acute (9) Gastrointestinal bleeding Status: Acute - Assessment and Plan (Free Text) Plan: Cont meds Cont iv antibiotics discussed grave prognosis and advised hospice care,
[2018-02-13] MEDS: Clindamycin 600mg/50ml D5W 600 MG/50 ML VIAL IVPB SCH ×2 (02:14→09:33)
[2018-02-13] MEDS: ACYCLOVIR IV SCH ×2 (02:15→06:40)
[2018-02-13] MEDS: SODIUM CHLORIDE 0.9% IV SCH ×2 (02:15→06:40)
[2018-02-13] MEDS ORDERED: DOPAMINE 800 MG/250 ML IV SCH (02:19)
[2018-02-13] MEDS ORDERED: [UNRECOGNIZED DRUG - OTHER] IV SCH (02:19)
[2018-02-13] MEDS ORDERED: Dextrose 50% SYRINGE Inj (50 ml) ONE (06:24)
[2018-02-13] MEDS ORDERED: Dextrose 50% SYRINGE Inj (50 ml) IVP ONE (06:29)
--- NOTE | 2018-02-13 08:05 | CP.CCUPN ---
CCU Subjective - Physician Review Subjective (Free Text): 02/07/18 The patient was Seen and examined by me at the bedside during ICU round, Events reviewed 82 Years old Male with PMHx of advance muscular dystrophy, chronic anemia and multiple cardiac arrests Pt currently chronic trach/vent/peg dependent Who initially presents to [facility] with c/o AMS 2nd electrolyte imbalance. Now with Renal insuffiency, active GI bleeding, Septic shoch and Vasopressor dependent + Multiorgan failure Patient minimally responsive, non-verbal, non-communicative. Pt vent dependent, Intubated via tracheostomy Comfortable, NAD 02/13/18 18:16 Around 12PM I had extensive discussion with family member, all three children Pt's current status is discussed with pt's family We reviewed the rationale, risks, benefits, treatment plans and alternatives with them, They were given the opportunity to ask many questions which were answered to their satisfaction. They all in agreement about palliative and comfort care, All aggressive measures discontinued, including Vasopressors. Patient was started on Morphine drip Patient was taken off the Vent around 4:30PM Pt pounced at 5:10 CCU Objective - Vital Signs / Intake & Output Vital Signs (Last 4 hours): Vital Signs Pulse Resp BP Pulse Ox 02/13/18 06:00 77 20 81/46 L 99 02/13/18 05:00 79 20 84/46 L 99 02/13/18 04:30 82 20 83/39 L 99 Intake and Output (Last 8hrs): Intake & Output 02/12/18 02/13/18 02/13/18 22:59 06:59 14:59 Intake Total 280 1426 Output Total 120 45 Balance 160 1381 Intake: IV 180 46 Intake, Piggyback 100 1350 Tube Feeding 0 Free Water Flush 30 Output: Urine 120 45 Urethral (Em) 120 45 - Physical Exam Head: Positive for: Atraumatic, Normocephalic, Other (right sabianism, melanoma) Pupils: Positive for: Other (corneal keratitis) Extroacular Muscles: Positive for: EOMI Conjunctiva: Positive for: Normal Ears: Positive for: Normal Mouth: Positive for: Dry Pharnyx: Positive for: Normal Neck: Positive for: Other (destructive skin lesion on right shoulder, possible basal carcinoma) Respiratory/Chest: Positive for: Clear to Auscultation, Decreased Breath Sounds (bibasilar) Cardiovascular: Positive for: Regular Rate and Rhythm Abdomen: Positive for: Distention. Negative for: Tenderness Upper Extremity: Positive for: Edema Lower Extremity: Positive for: Edema Skin: Positive for: Other (unable to evaluate back 2nd boldy habitus) Psychiatric: Positive for: Alert - Medications Active Medications: Active Medications Generic Name Dose Route Start Last Admin Trade Name Freq PRN Reason Stop Dose Admin Albuterol/Ipratropium 3 ml 01/26/18 08:00 02/12/18 19:19 Duoneb 3 Mg/0.5 Mg (3 Ml) Ud INH 3 ml RQID [facility] Administration Albuterol/Ipratropium 3 ml 01/26/18 03:08 02/08/18 05:04 Duoneb 3 Mg/0.5 Mg (3 Ml) Ud INH 3 ml RQ6 PRN Administration Shortness of Breath Ascorbic Acid 1,000 mg 02/04/18 09:30 02/12/18 15:30 Vitamin C Liq PO Not Given DAILY [facility] Atropine Sulfate 1 drop 01/30/18 10:00 02/12/18 16:54 Atropisol 1% Ophth OS 1 drop BID [facility] Administration Bacitracin 1 ea 02/04/18 09:00 02/12/18 16:22 Bacitracin TOP 1 ea TID [facility] Administration Dimethicone 1 applic 02/09/18 17:00 02/12/18 17:09 Proshield Plus Skin Protectant TOP 1 applic Q8 [facility] Administration Ferrous Sulfate 300 mg 01/27/18 09:00 02/12/18 15:34 Feosol Liq PEG Not Given DAILY [facility] Furosemide 40 mg 02/12/18 09:00 02/12/18 09:53 Lasix IVP 40 mg DAILY [facility] Administration Furosemide 40 mg 02/12/18 09:30 02/12/18 16:42 Lasix IVP Not Given BID [facility] Ceftazidime/Avibactam 2.5 gm/ 100 mls @ 100 mls/hr 02/01/18 17:15 02/13/18 02 :16 Sodium Chloride IVPB 100 mls/hr Q8H [facility] Administration Protocol Valproate Sodium 500 mg/ 105 mls @ 50 mls/hr 02/08/18 11:45 02/12/18 20:36 Sodium Chloride IVPB 50 mls/hr Q12 [facility] Administration Linezolid 600 mg in 300 mls @ 300 mls/hr 02/09/18 12:15 02/12/18 20:10 Zyvox 600mg/300ml D5w IVPB 300 mls/hr Q12 [facility] Administration Protocol Clindamycin Phosphate 600 mg in 50 mls @ 50 mls/hr 02/11/18 21:00 02/13/18 02 :14 Cleocin IVPB 50 mls/hr Q12 [facility] Administration Protocol Furosemide 100 mg/ Sodium 100 mls @ 10 mls/hr 02/11/18 13:00 02/12/18 09:54 Chloride IV Not Given .Q10H [facility] Protocol 10 MG/HR Levetiracetam 500 mg/ Sodium 105 mls @ 210 mls/hr 02/12/18 09:00 02/12/18 20: 09 Chloride IVPB 210 mls/hr Q12 [facility] Administration Acyclovir 1,500 mg/ Sodium 250 mls @ 166.667 mls/hr 02/12/18 13:00 02/13/18 06:40 Chloride IV 166.667 mls/hr Q8@0500,1300,2100 [facility] Administration Protocol Norepinephrine Bitartrate 16 266 mls @ 2.49 mls/hr 02/12/18 20:05 02/13/18 04 :13 mg/ Dextrose IV 02/13/18 20:04 15 mcg/min .Q24H ONE 14.96 mls/hr Protocol Titration 2.5 MCG/MIN DOPamine 800mg/250ml D5W 800 mg in 250 mls @ 56.132 mls/hr 02/13/18 02:19 03/23 01:00 Dopamine 800mg/250ml D5w IV 56.132 mls/hr .Q4H28M [facility] Administration Protocol 20 MCG/KG/MIN Metolazone 5 mg 02/11/18 18:30 02/12/18 18:10 Zaroxolyn NG 02/14/18 18:31 Not Given BID [facility] Midodrine 10 mg 02/03/18 12:30 02/13/18 06:28 Proamatine PEG Not Given Q8H [facility] Mupirocin 1 applic 02/03/18 17:00 02/12/18 17:00 Bactroban Ointment TOP 1 applic BID [facility] Administration Nystatin 5 ml 01/26/18 21:00 02/12/18 22:45 Nystatin Oral Susp PO 5 ml Q12 [facility] Administration Nystatin 1 applic 01/31/18 13:00 02/12/18 16:18 Nystop Topical Powder TOP 1 applic TID [facility] Administration Pantoprazole Sodium 40 mg 02/06/18 09:00 02/12/18 22:47 Protonix Inj IV 40 mg Q12 [facility] Administration Silver Sulfadiazine 1 ea 01/26/18 09:00 02/12/18 17:13 Silvadene 1% 20 Gm TOP 1 ea BID [facility] Administration Sodium Bicarbonate 1,300 mg 02/12/18 09:00 02/12/18 16:42 Sodium Bicarbonate Tab NG Not Given TID [facility] Sucralfate 1 gm 02/06/18 09:00 02/12/18 22:45 Carafate Oral Susp PO 1 gm QID [facility] Administration Thiamine HCl 100 mg 02/04/18 09:30 02/12/18 15:30 Vitamin B1 Tab GT Not Given DAILY [facility] Tobramycin/Dexamethasone 1 drop 01/26/18 09:00 02/12/18 16:54 Tobradex Opht Susp OU 1 drop BID [facility] Administration Valproate Sodium 500 mg 02/01/18 17:00 02/07/18 08:39 Depakene Oral Soln PEG Not Given BID [facility] Vitamin A 1 applic 01/25/18 23:01 01/31/18 16:36 Vitamin A&D TP 1 applic Q8 PRN Administration Until an adequate response is Vitamin A 1 applic 02/04/18 08:51 Vitamin A&D TP Q8 PRN Excoriation Zinc Sulfate 220 mg 02/04/18 09:30 02/12/18 15:31 Zinc Sulfate 220 Mg Cap GT Not Given DAILY [facility] - Patient Studies Lab Studies: Lab Studies 02/13/18 02/12/18 02/12/18 Range/Units 06:18 11:45 11:45 WBC 14.2 H (4.8-10.8) K/uL RBC 3.53 L (4.40-5.90) Mil/uL Hgb 9.6 L (12.0-18.0) g/dL Hct 29.9 L (35.0-51.0) % MCV 84.6 D (80.0-94.0) fl MCH 27.1 (27.0-31.0) pg MCHC 32.0 L (33.0-37.0) g/dL RDW 19.5 H (11.5-14.5) % Plt Count 200 (130-400) K/uL Sodium 127 L (132-148) mmol/l Potassium 4.4 (3.6-5.0) MMOL/L Chloride 102 (98-107) mmol/L Carbon Dioxide 13 L (22-30) mmol/L Anion Gap 16 (10-20) BUN 90 H (9-20) mg/dl Creatinine 0.6 L (0.8-1.5) mg/dl Est GFR ( Amer) > 60 Est GFR (Non-Af Amer) > 60 POC Glucose (mg/dL) 63 L (65-110) mg/dL Random Glucose 82 (75-110) mg/dL Calcium 7.5 L (8.4-10.2) mg/dL Phosphorus 7.1 H (2.5-4.5) mg/dl Magnesium 2.4 H (1.6-2.3) MG/DL Laboratory Results - last 24 hr 02/12/18 02/12/18 02/13/18 11:45 11:45 06:18 WBC 14.2 H RBC 3.53 L Hgb 9.6 L Hct 29.9 L MCV 84.6 D MCH 27.1 MCHC 32.0 L RDW 19.5 H Plt Count 200 Sodium 127 L Potassium 4.4 Chloride 102 Carbon Dioxide 13 L Anion Gap 16 BUN 90 H Creatinine 0.6 L Est GFR ( Amer) > 60 Est GFR (Non-Af Amer) > 60 POC Glucose (mg/dL) 63 L Random Glucose 82 Calcium 7.5 L Phosphorus 7.1 H Magnesium 2.4 H Critical Care Progress Note - Ventilator Checklist Head of Bed 30 Degrees: Yes Daily Sedation Vacation: Yes Daily Assessment of Readiness to Wean: Yes Daily Spontaneous Breathing Trial: Yes PUD Prophalyxis: Yes DVT Prophylaxis: Yes Oral Care with Chlorhexidine Gluconate {CHG}: Yes - Extremities/Vascular Does the Patient have a Central Venous Catheter?: Yes Does the Patient need a Central Venous Catheter?: Yes Assessment/Plan (1) Multiorgan failure Current Visit: Yes Status: Acute Priority: High (2) Altered mental status, unspecified Current Visit: Yes Status: Acute Priority: High Comment: Patient minimally responsive, non-verbal, non-communicative. Multiorgan failure Seizure disorder continue Valproic acid q12h (3) GI bleed Current Visit: Yes Status: Acute Priority: High Comment: NPO, GI consult, IV PPI, Sucralfate (Carafate Oral Susp) 1 gm PO QID S/P packed RBC (4) Muscular dystrophy Current Visit: Yes Status: Chronic Priority: High Comment: Chronic respiratory failure vent dependent, trach in place. (5) Sepsis Current Visit: Yes Status: Acute Priority: High Comment: MDR proteus mirabilis and MDR Klebsiella Wean off vasopressors Continue IV antibiotics ID - Dr. Nava
[2018-02-13 08:25] VITALS: TEMP 97.7
[2018-02-13] MEDS: Albuterol-Ipratrop 3 mg / 0.5 (3 ml) UD INH SCH (09:00)
--- NOTE | 2018-02-13 09:19 | CARD ---
APPROVED REPORT Date of service: 02/10/2018 EKG Measurement Heart [id number] <Conclusion> possible accelerated junctional rhythm Right bundle branch block NT wave abnormality Abnormal ECG
--- NOTE | 2018-02-13 09:23 | CP.PCM.PN ---
Subjective - Date & Time of Evaluation Date of Evaluation: 02/13/18 Time of Evaluation: 09:23 - Subjective Subjective: RESPONDS TO PAINFUL STIMULI FAMILY AT BEDSIDE AND CASE WAS EXTENSIVELY DISCUSSED WITH THEM PT IS VERY ILL WITH MULTIORGAN FAILURE I ASKED FAMILY ABOUT HOSPICE AND SUPPORTIVE CARE--BUT THEY ARE UNDECIDED THE PT IS VENTILATOR DEPENDENT NO ATTEMPTS TO WEAN OFF VENT FOR NOW BECAUSE OF GRAVE CONDITION Objective - Vital Signs/Intake and Output Vital Signs (last 24 hours): Temp Pulse Resp BP Pulse Ox 97.7 F 76 20 84/44 L 97 02/13/18 08:00 02/13/18 08:00 02/13/18 08:00 02/13/18 08:00 02/13/18 08:00 Intake and Output: 02/13/18 02/13/18 06:59 18:59 Intake Total 1426 Output Total 45 Balance 1381 - Medications Medications: Current Medications Ascorbic Acid (Vitamin C Liq) 1,000 mg PO DAILY [facility] Last Admin: 02/12/18 15:30 Dose: Not Given Atropine Sulfate (Atropisol 1% [facility]) 1 drop OS BID [facility] Last Admin: 02/12/18 16:54 Dose: 1 drop Bacitracin (Bacitracin) 1 ea TOP TID [facility] Last Admin: 02/12/18 16:22 Dose: 1 ea Dimethicone (Proshield Plus Skin Protectant) 1 applic TOP Q8 [facility] Last Admin: 02/12/18 17:09 Dose: 1 applic Ferrous Sulfate (Feosol Liq) 300 mg PEG DAILY [facility] Last Admin: 02/12/18 15:34 Dose: Not Given Furosemide (Lasix) 40 mg IVP DAILY [facility] Last Admin: 02/12/18 09:53 Dose: 40 mg Furosemide (Lasix) 40 mg IVP BID [facility] Last Admin: 02/12/18 16:42 Dose: Not Given Ceftazidime/Avibactam 2.5 gm/ (Sodium Chloride) 100 mls @ 100 mls/hr IVPB Q8H [facility] PRN Reason: Protocol Last Admin: 02/13/18 02:16 Dose: 100 mls/hr Valproate Sodium 500 mg/ (Sodium Chloride) 105 mls @ 50 mls/hr IVPB Q12 [facility] Last Admin: 02/12/18 20:36 Dose: 50 mls/hr Linezolid (Zyvox 600mg/300ml D5w) 600 mg in 300 mls @ 300 mls/hr IVPB Q12 [facility] PRN Reason: Protocol Last Admin: 02/12/18 20:10 Dose: 300 mls/hr Clindamycin Phosphate (Cleocin) 600 mg in 50 mls @ 50 mls/hr IVPB Q12 [facility] PRN Reason: Protocol Last Admin: 02/13/18 02:14 Dose: 50 mls/hr Furosemide 100 mg/ Sodium (Chloride) 100 mls @ 10 mls/hr IV .Q10H [facility]; 10 MG/HR PRN Reason: Protocol Last Admin: 02/12/18 09:54 Dose: Not Given Levetiracetam 500 mg/ Sodium (Chloride) 105 mls @ 210 mls/hr IVPB Q12 [facility] Last Admin: 02/12/18 20:09 Dose: 210 mls/hr Acyclovir 1,500 mg/ Sodium (Chloride) 250 mls @ 166.667 mls/hr IV Q8@0500,1300, 2100 [facility] PRN Reason: Protocol Last Admin: 02/13/18 06:40 Dose: 166.667 mls/hr Norepinephrine Bitartrate 16 (mg/ Dextrose) 266 mls @ 2.49 mls/hr IV .Q24H ONE ; 2.5 MCG/MIN PRN Reason: Protocol Stop: 02/13/18 20:04 Last Titration: 02/13/18 04:13 Dose: 15 mcg/min, 14.96 mls/hr DOPamine 800mg/250ml D5W (Dopamine 800mg/250ml D5w) 800 mg in 250 mls @ 56.132 mls/hr IV .Q4H28M [facility]; 20 MCG/KG/MIN PRN Reason: Protocol Last Admin: 02/13/18 01:00 Dose: 56.132 mls/hr Metolazone (Zaroxolyn) 5 mg NG BID [facility] Stop: 02/14/18 18:31 Last Admin: 02/12/18 18:10 Dose: Not Given Midodrine (Proamatine) 10 mg PEG Q8H [facility] Last Admin: 02/13/18 06:28 Dose: Not Given Mupirocin (Bactroban Ointment) 1 applic TOP BID [facility] Last Admin: 02/12/18 17:00 Dose: 1 applic Nystatin (Nystatin Oral Susp) 5 ml PO Q12 [facility] Last Admin: 02/12/18 22:45 Dose: 5 ml Nystatin (Nystop Topical Powder) 1 applic TOP TID [facility] Last Admin: 02/12/18 16:18 Dose: 1 applic Silver Sulfadiazine (Silvadene 1% 20 Gm) 1 ea TOP BID [facility] Last Admin: 02/12/18 17:13 Dose: 1 ea Sodium Bicarbonate (Sodium Bicarbonate Tab) 1,300 mg NG TID [facility] Last Admin: 02/12/18 16:42 Dose: Not Given Sucralfate (Carafate Oral Susp) 1 gm PO QID [facility] Last Admin: 02/12/18 22:45 Dose: 1 gm Thiamine HCl (Vitamin B1 Tab) 100 mg GT DAILY [facility] Last Admin: 02/12/18 15:30 Dose: Not Given Tobramycin/Dexamethasone (Tobradex Opht Susp) 1 drop OU BID [facility] Last Admin: 02/12/18 16:54 Dose: 1 drop Valproate Sodium (Depakene Oral Soln) 500 mg PEG BID [facility] Last Admin: 02/07/18 08:39 Dose: Not Given Vitamin A (Vitamin A&D) 1 applic TP Q8 PRN PRN Reason: Until an adequate response is Last Admin: 01/31/18 16:36 Dose: 1 applic Vitamin A (Vitamin A&D) 1 applic TP Q8 PRN PRN Reason: Excoriation Zinc Sulfate (Zinc Sulfate 220 Mg Cap) 220 mg GT DAILY [facility] Last Admin: 02/12/18 15:31 Dose: Not Given - Labs Labs: 02/12/18 11:45 02/12/18 11:45 PT 15.0 Seconds (9.8-13.1) H 02/09/18 07:14 INR 1.3 02/09/18 07:14 APTT 23.9 Seconds (25.6-37.1) L 02/09/18 07:14
[2018-02-13] MEDS: Bacitracin 500 Units/gm Oint Foilpak UD TOP SCH (09:30)
[2018-02-13] MEDS: Sucralfate 1 gm/10 ml Oral Susp UD PO SCH (09:30)
--- NOTE | 2018-02-13 09:31 | CP.PCM.PN ---
Subjective - Date & Time of Evaluation Date of Evaluation: 02/13/18 Time of Evaluation: 09:32 - Subjective Subjective: no significant changes reported if vent reviewed overnight and discuss with the grading supervisor Patient has significant positive balance related to intake and output patient on vasopressors and blood pressure is low and worsening hyponatremia Objective - Vital Signs/Intake and Output Vital Signs (last 24 hours): Temp Pulse Resp BP Pulse Ox 97.7 F 76 20 84/44 L 97 02/13/18 08:00 02/13/18 08:00 02/13/18 08:00 02/13/18 08:00 02/13/18 08:00 Intake and Output: 02/13/18 02/13/18 06:59 18:59 Intake Total 1426 Output Total 45 Balance 1381 - Medications Medications: Current Medications Ascorbic Acid (Vitamin C Liq) 1,000 mg PO DAILY [facility] Last Admin: 02/12/18 15:30 Dose: Not Given Atropine Sulfate (Atropisol 1% Oph) 1 drop OS BID [facility] Last Admin: 02/12/18 16:54 Dose: 1 drop Bacitracin (Bacitracin) 1 ea TOP TID [facility] Last Admin: 02/12/18 16:22 Dose: 1 ea Dimethicone (Proshield Plus Skin Protectant) 1 applic TOP Q8 [facility] Last Admin: 02/12/18 17:09 Dose: 1 applic Ferrous Sulfate (Feosol Liq) 300 mg PEG DAILY [facility] Last Admin: 02/12/18 15:34 Dose: Not Given Furosemide (Lasix) 40 mg IVP DAILY [facility] Last Admin: 02/12/18 09:53 Dose: 40 mg Furosemide (Lasix) 40 mg IVP BID [facility] Last Admin: 02/12/18 16:42 Dose: Not Given Ceftazidime/Avibactam 2.5 gm/ (Sodium Chloride) 100 mls @ 100 mls/hr IVPB Q8H [facility] PRN Reason: Protocol Last Admin: 02/13/18 02:16 Dose: 100 mls/hr Valproate Sodium 500 mg/ (Sodium Chloride) 105 mls @ 50 mls/hr IVPB Q12 [facility] Last Admin: 02/12/18 20:36 Dose: 50 mls/hr Linezolid (Zyvox 600mg/300ml D5w) 600 mg in 300 mls @ 300 mls/hr IVPB Q12 [facility] PRN Reason: Protocol Last Admin: 02/12/18 20:10 Dose: 300 mls/hr Clindamycin Phosphate (Cleocin) 600 mg in 50 mls @ 50 mls/hr IVPB Q12 [facility] PRN Reason: Protocol Last Admin: 02/13/18 02:14 Dose: 50 mls/hr Furosemide 100 mg/ Sodium (Chloride) 100 mls @ 10 mls/hr IV .Q10H [facility]; 10 MG/HR PRN Reason: Protocol Last Admin: 02/12/18 09:54 Dose: Not Given Acyclovir 1,500 mg/ Sodium (Chloride) 250 mls @ 166.667 mls/hr IV Q8@0500,1300, 2100 [facility] PRN Reason: Protocol Last Admin: 02/13/18 06:40 Dose: 166.667 mls/hr Norepinephrine Bitartrate 16 (mg/ Dextrose) 266 mls @ 2.49 mls/hr IV .Q24H ONE ; 2.5 MCG/MIN PRN Reason: Protocol Stop: 02/13/18 20:04 Last Titration: 02/13/18 04:13 Dose: 15 mcg/min, 14.96 mls/hr DOPamine 800mg/250ml D5W (Dopamine 800mg/250ml D5w) 800 mg in 250 mls @ 56.132 mls/hr IV .Q4H28M [facility]; 20 MCG/KG/MIN PRN Reason: Protocol Last Admin: 02/13/18 01:00 Dose: 56.132 mls/hr Levetiracetam (Keppra) 500 mg PO BID [facility] Metolazone (Zaroxolyn) 5 mg NG BID [facility] Stop: 02/14/18 18:31 Last Admin: 02/12/18 18:10 Dose: Not Given Midodrine (Proamatine) 10 mg PEG Q8H [facility] Last Admin: 02/13/18 06:28 Dose: Not Given Mupirocin (Bactroban Ointment) 1 applic TOP BID [facility] Last Admin: 02/12/18 17:00 Dose: 1 applic Nystatin (Nystatin Oral Susp) 5 ml PO Q12 [facility] Last Admin: 02/12/18 22:45 Dose: 5 ml Nystatin (Nystop Topical Powder) 1 applic TOP TID [facility] Last Admin: 02/12/18 16:18 Dose: 1 applic Silver Sulfadiazine (Silvadene 1% 20 Gm) 1 ea TOP BID [facility] Last Admin: 02/12/18 17:13 Dose: 1 ea Sodium Bicarbonate (Sodium Bicarbonate Tab) 1,300 mg NG TID [facility] Last Admin: 02/12/18 16:42 Dose: Not Given Sucralfate (Carafate Oral Susp) 1 gm PO QID [facility] Last Admin: 02/12/18 22:45 Dose: 1 gm Thiamine HCl (Vitamin B1 Tab) 100 mg GT DAILY [facility] Last Admin: 02/12/18 15:30 Dose: Not Given Tobramycin/Dexamethasone (Tobradex Opht Susp) 1 drop OU BID [facility] Last Admin: 02/12/18 16:54 Dose: 1 drop Valproate Sodium (Depakene Oral Soln) 500 mg PEG BID [facility] Last Admin: 02/07/18 08:39 Dose: Not Given Vitamin A (Vitamin A&D) 1 applic TP Q8 PRN PRN Reason: Until an adequate response is Last Admin: 01/31/18 16:36 Dose: 1 applic Vitamin A (Vitamin A&D) 1 applic TP Q8 PRN PRN Reason: Excoriation Zinc Sulfate (Zinc Sulfate 220 Mg Cap) 220 mg GT DAILY [facility] Last Admin: 02/12/18 15:31 Dose: Not Given - Labs Labs: 02/12/18 11:45 02/12/18 11:45 PT 15.0 Seconds (9.8-13.1) H 02/09/18 07:14 INR 1.3 02/09/18 07:14 APTT 23.9 Seconds (25.6-37.1) L 02/09/18 07:14 - Constitutional Appears: In Acute Distress - Eye Exam Eye Exam: Conjunctival injection - ENT Exam ENT Exam: Mucous Membranes Moist - Neck Exam Neck Exam: absent: Lymphadenopathy - Respiratory Exam Respiratory Exam: Rales. absent: Chest Wall Tenderness - Cardiovascular Exam Cardiovascular Exam: absent: Gallop, JVD, Rubs - GI/Abdominal Exam GI & Abdominal Exam: Soft, Normal Bowel Sounds - Extremities Exam Extremities Exam: absent: Calf Tenderness - Back Exam Back Exam: absent: CVA tenderness (L), CVA tenderness (R) - Neurological Exam Neurological Exam: Altered - Psychiatric Exam Psychiatric exam: Flat Affect - Skin Skin Exam: absent: Cyanosis Assessment and Plan (1) Altered mental status, unspecified Status: Acute (2) Hypernatremia Status: Acute (3) Pleural effusion Status: Acute (4) Pneumonia Status: Acute (5) Severe dehydration Status: Acute (6) Azotemia Status: Acute (7) Hyponatremia Assessment & Plan: worsening hyponatremia serum sodium keep going down 127 related to severe dilutional Patient is edematous all over Hypotensive on vasopressor Septic shock Respiratory failure on respirator Muscular dystrophy Metabolic acidosis The plan Because of the blood pressure is very low despite vasopressor it is very hard to do dialysis or ultrafiltration. Continue metolazone and Lasix Discussed with the grading supervisor to add sodium bicarbonate with normal saline 500 mL to run very small doses with 2-3 A of sodium bicarbonate. To give Samsca Antibiotics as per renal dose Albumin to be given to support blood pressure Prognosis is very poor Status: Acute
[2018-02-13] MEDS ORDERED: Tolvaptan 15 MG TAB PO ONE (09:35)
[2018-02-13] MEDS: Ferrous Sulfate 300 mg/5 mL Liq UD PEG SCH (09:37)
[2018-02-13] MEDS: Nystatin 100,000 Units/ml Oral Susp 5 ml UD PO SCH (09:39)
[2018-02-13] MEDS: Ascorbic Acid 500 mg/5 ml Liq(50 ml) PO SCH (09:43)
[2018-02-13] MEDS: metOLazone 5 MG TAB NG SCH (09:47)
[2018-02-13] MEDS: Linezolid 600 mg in D5W 300 ml 600 MG/300 ML BAG IVPB SCH (09:48)
[2018-02-13] MEDS: Dexamethasone/Tobramycin Ophth Susp OU SCH (09:55)
[2018-02-13] MEDS: ATROPINE 1% OS SCH (09:55)
[2018-02-13] MEDS: Proshield Plus GEL TOP SCH (09:58)
[2018-02-13] MEDS: Silver Sulfadiazine 1% Cream (20 gm) TOP SCH (09:58)
--- NOTE | 2018-02-13 11:15 | US ---
Date of service: 02/04/2018 PROCEDURE: Duplex ultrasound of the bilateral lower extremity arteries. HISTORY: le swelling COMPARISON: None available. TECHNIQUE: Grayscale and duplex Doppler evaluation of the bilateral common femoral, superficial femoral, popliteal, posterior tibial and dorsalis pedis arteries was performed.. FINDINGS: RIGHT LOWER EXTREMITY: RIGHT COMMON FEMORAL ARTERY: Widely patent. High resistance waveform identified. Maximal flow velocity of 91.2 cm/s. RIGHT SUPERFICIAL FEMORAL ARTERY: Widely patent. High resistance waveform identified. Maximal flow velocity of 74.0 cm/s. RIGHT POPLITEAL ARTERY:Widely patent. High resistance waveform identified. Maximal flow velocity of 34.4 cm/s. RIGHT POSTERIOR TIBIAL ARTERY: Widely patent. High resistance waveform identified. Maximal flow velocity of 39.6 cm/s. RIGHT DORSALIS PEDIS ARTERY: Severely diseased with weak, monophasic waveform identified. Maximal flow velocity of 9.0 cm/s. RIGHT ANTERIOR TIBIAL ARTERY: Widely patent. High resistance waveform identified. Maximal flow velocity of 45.7 cm/s. LEFT LOWER EXTREMITY: LEFT COMMON FEMORAL ARTERY: Widely patent. High resistance waveform identified. Maximal flow velocity of 95.3 cm/s. LEFT SUPERFICIAL FEMORAL ARTERY: Widely patent. High resistance waveform identified. Maximal flow velocity of 119.9 cm/s. LEFT POPLITEAL ARTERY:Widely patent. High resistance waveform identified. Maximal flow velocity of 39.6 cm/s. LEFT POSTERIOR TIBIAL ARTERY: Biphasic waveform with no severe stenosis appreciated. Maximal flow velocity of 75.9 cm/s. LEFT DORSALIS PEDIS ARTERY: Biphasic waveform with no severe stenosis appreciated. Maximal flow velocity of 19.3 cm/s. LEFT ANTERIOR TIBIAL ARTERY: Monophasic waveform indicates severe stenosis. Maximal flow velocity of 17.3 cm/s. OTHER FINDINGS: None. 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 Follow-up CT or MR angiography can performed for further characterization of the bilateral lower extremity arterial circulation.
[2018-02-13] MEDS: Valproate 500 MG in Sodium Chloride 0.9% 100 ML IVPB SCH (11:23)
[2018-02-13] MEDS ORDERED: Morphine 100 MG in Sodium Chloride 0.9% 100 ML IV SCH (12:00)
--- NOTE | 2018-02-13 12:02 | CP.PCM.PN ---
Subjective - Date & Time of Evaluation Date of Evaluation: 02/13/18 Time of Evaluation: 11:00 - Subjective Subjective: Patient seen and examined at bedside. Continues to be swollen and non- responsive. Family speaking with intensivisit regarding prognosis. No acute events overnight reported. Objective - Vital Signs/Intake and Output Vital Signs (last 24 hours): Temp Pulse Resp BP Pulse Ox 97.7 F 69 20 78/40 L 99 02/13/18 08:00 02/13/18 11:00 02/13/18 11:00 02/13/18 11:00 02/13/18 11:00 Intake and Output: 02/13/18 02/13/18 06:59 18:59 Intake Total 1426 300 Output Total 45 Balance 1381 300 - Medications Medications: Current Medications Ascorbic Acid (Vitamin C Liq) 1,000 mg PO DAILY [facility] Last Admin: 02/13/18 09:43 Dose: Not Given Atropine Sulfate (Atropisol 1% Oph) 1 drop OS BID [facility] Last Admin: 02/13/18 09:55 Dose: 1 drop Bacitracin (Bacitracin) 1 ea TOP TID [facility] Last Admin: 02/13/18 09:30 Dose: 1 ea Dimethicone (Proshield Plus Skin Protectant) 1 applic TOP Q8 [facility] Last Admin: 02/13/18 09:58 Dose: 1 applic Ferrous Sulfate (Feosol Liq) 300 mg PEG DAILY [facility] Last Admin: 02/13/18 09:37 Dose: Not Given Furosemide (Lasix) 40 mg IVP BID [facility] Last Admin: 02/13/18 10:09 Dose: Not Given Ceftazidime/Avibactam 2.5 gm/ (Sodium Chloride) 100 mls @ 100 mls/hr IVPB Q8H [facility] PRN Reason: Protocol Last Admin: 02/13/18 09:29 Dose: 100 mls/hr Valproate Sodium 500 mg/ (Sodium Chloride) 105 mls @ 50 mls/hr IVPB Q12 [facility] Last Admin: 02/13/18 11:23 Dose: Not Given Linezolid (Zyvox 600mg/300ml D5w) 600 mg in 300 mls @ 300 mls/hr IVPB Q12 [facility] PRN Reason: Protocol Last Admin: 02/13/18 09:48 Dose: 300 mls/hr Clindamycin Phosphate (Cleocin) 600 mg in 50 mls @ 50 mls/hr IVPB Q12 [facility] PRN Reason: Protocol Last Admin: 02/13/18 09:33 Dose: 50 mls/hr Acyclovir 1,500 mg/ Sodium (Chloride) 250 mls @ 166.667 mls/hr IV Q8@0500,1300, 2100 [facility] PRN Reason: Protocol Last Admin: 02/13/18 06:40 Dose: 166.667 mls/hr Norepinephrine Bitartrate 16 (mg/ Dextrose) 266 mls @ 2.49 mls/hr IV .Q24H ONE ; 2.5 MCG/MIN PRN Reason: Protocol Stop: 02/13/18 20:04 Last Titration: 02/13/18 04:13 Dose: 15 mcg/min, 14.96 mls/hr DOPamine 800mg/250ml D5W (Dopamine 800mg/250ml D5w) 800 mg in 250 mls @ 56.132 mls/hr IV .Q4H28M [facility]; 20 MCG/KG/MIN PRN Reason: Protocol Last Admin: 02/13/18 01:00 Dose: 56.132 mls/hr Morphine Sulfate 100 mg/ (Sodium Chloride) 104 mls @ 3.12 mls/hr IV .Q24H [facility]; 3 MG/HR PRN Reason: Protocol Levetiracetam (Keppra) 500 mg PO BID [facility] Last Admin: 02/13/18 10:22 Dose: 500 mg Metolazone (Zaroxolyn) 5 mg NG BID [facility] Stop: 02/14/18 18:31 Last Admin: 02/13/18 09:47 Dose: Not Given Midodrine (Proamatine) 10 mg PEG Q8H [facility] Last Admin: 02/13/18 06:28 Dose: Not Given Mupirocin (Bactroban Ointment) 1 applic TOP BID [facility] Last Admin: 02/13/18 09:31 Dose: 1 applic Nystatin (Nystatin Oral Susp) 5 ml PO Q12 [facility] Last Admin: 02/13/18 09:39 Dose: 5 ml Nystatin (Nystop Topical Powder) 1 applic TOP TID [facility] Last Admin: 02/13/18 09:56 Dose: 1 applic Silver Sulfadiazine (Silvadene 1% 20 Gm) 1 ea TOP BID [facility] Last Admin: 02/13/18 09:58 Dose: 1 ea Sodium Bicarbonate (Sodium Bicarbonate Tab) 1,300 mg NG TID [facility] Last Admin: 02/13/18 09:42 Dose: Not Given Sucralfate (Carafate Oral Susp) 1 gm PO QID [facility] Last Admin: 02/13/18 09:30 Dose: 1 gm Thiamine HCl (Vitamin B1 Tab) 100 mg GT DAILY [facility] Last Admin: 02/13/18 09:47 Dose: Not Given Tobramycin/Dexamethasone (Tobradex Opht Susp) 1 drop OU BID [facility] Last Admin: 02/13/18 09:55 Dose: 1 drop Valproate Sodium (Depakene Oral Soln) 500 mg PEG BID [facility] Last Admin: 02/07/18 08:39 Dose: Not Given Vitamin A (Vitamin A&D) 1 applic TP Q8 PRN PRN Reason: Excoriation Zinc Sulfate (Zinc Sulfate 220 Mg Cap) 220 mg GT DAILY [facility] Last Admin: 02/13/18 09:47 Dose: Not Given - Labs Labs: 02/12/18 11:45 02/12/18 11:45 PT 15.0 Seconds (9.8-13.1) H 02/09/18 07:14 INR 1.3 02/09/18 07:14 APTT 23.9 Seconds (25.6-37.1) L 02/09/18 07:14 - Additional Findings Additional findings: - Constitutional Appears: Chronically Ill - Respiratory Exam Respiratory Exam: Decreased Breath Sounds, NORMAL BREATHING PATTERN - Cardiovascular Exam Cardiovascular Exam: REGULAR RHYTHM - Extremities Exam Extremities Exam: Pedal Edema - Neurological Exam Neurological Exam: absent: Alert, Awake, Oriented x3 - Additional Findings Additional findings: anasarca Assessment and Plan - Assessment and Plan (Free Text) Assessment: 82 year old male with multiple medical conditions in ICU due to critical conditions consisting of, but not limited to, oliguria, anasarca, renal failure , sepsis, respiratory failure, metabolic encephalopathy Minimal-no improvement of edema with high dose lasix and albumin Continue meds and plan as ordered by guitar technician Nephro: Dr. Sanchez ID: Dr. [email or web address] Pulm: Dr. Soto Continue to speak with family regarding grave prognosis and comfort care options
[2018-02-13 16:45] VITALS: PULSE 60; RESP 14; O2SAT 92
[2018-02-13 16:46] VITALS: BP 56/23
--- NOTE | 2018-02-13 18:07 | CP.PCM.PRO ---
Pronouncement of Note - Clinical Findings Physical Exam: No Response Verbal/Painful Stimuli, Absent Peripheral Pulses{ Carotid & Femoral}, Absent Heart & Breath Sounds, No Pupillary Light Reflex, No Corneal Reflex, Pupils Fixed & Dilated, Absence of Vital Signs - Notifications Pronouncement Notifications: Family Notified, Atending Notified [place] [facility]er Notified: No - Autopsy Autopsy Requested: No [place] [id number]
== END 2018-02-13 17:00 | DRG 584 ==
LOC: H.ER 14:52 → H.ERHOLD 15:56 → H.ICU/CCU 17:48
PROVIDERS: ADMIT Family Medicine; ATTEND Family Medicine
PROC: 5A1955Z Respiratory Ventilation, Greater than 96 Consecutive Hours (ICD-10-PCS; 2018-01-25)
PROC: 3E0G76Z Introduction of Nutritional Substance into Upper GI, Via Natural or Artificial Opening (ICD-10-PCS; 2018-01-25)
PROC: 05HY33Z Insertion of Infusion Device into Upper Vein, Percutaneous Approach (ICD-10-PCS; principal; 2018-01-26)
PROC: 30233N1 Transfusion of Nonautologous Red Blood Cells into Peripheral Vein, Percutaneous Approach (ICD-10-PCS; 2018-02-06)
PROC: 30233K1 Transfusion of Nonautologous Frozen Plasma into Peripheral Vein, Percutaneous Approach (ICD-10-PCS; 2018-02-08)
DX: A41.81 Sepsis due to Enterococcus (principal); R65.21 Severe sepsis with septic shock; J18.9 Pneumonia, unspecified organism; J96.10 Chronic respiratory failure, unspecified whether with hypoxia or hypercapnia; N17.0 Acute kidney failure with tubular necrosis; I50.22 Chronic systolic (congestive) heart failure; Z99.11 Dependence on respirator [ventilator] status; G71.0 Muscular dystrophy; E87.0 Hyperosmolality and hypernatremia; E87.1 Hypo-osmolality and hyponatremia; E87.2 Acidosis; E87.5 Hyperkalemia; E05.90 Thyrotoxicosis, unspecified without thyrotoxic crisis or storm; I42.9 Cardiomyopathy, unspecified; I49.5 Sick sinus syndrome; J98.11 Atelectasis; B96.4 Proteus (mirabilis) (morganii) as the cause of diseases classified elsewhere; B96.1 Klebsiella pneumoniae [K. pneumoniae] as the cause of diseases classified elsewhere; E86.0 Dehydration; G93.41 Metabolic encephalopathy; D63.8 Anemia in other chronic diseases classified elsewhere; I48.2 Chronic atrial fibrillation; G70.89 Other specified myoneural disorders; E66.01 Morbid (severe) obesity due to excess calories; Z68.42 Body mass index [BMI] 45.0-49.9, adult; E83.51 Hypocalcemia; G40.89 Other seizures; Z93.0 Tracheostomy status; Z93.1 Gastrostomy status; Z95.0 Presence of cardiac pacemaker; Z66 Do not resuscitate; Z74.01 Bed confinement status; Z51.5 Encounter for palliative care; Z88.0 Allergy status to penicillin; Z79.899 Other long term (current) drug therapy